=== PATIENT | male | born 1955 | race Caucasian/White ===

== ENCOUNTER → 2022-09-22 | Outpatient (CLI) | payer MEDICARE, MEDICAID, SELFPAY ==
[2022-09-22 12:34] LABS: Absolute Lymphocyte Count 1.19 X10^3/uL (0.83-4.51); Absolute Neutrophil Count 4.4 X10^3/uL (2.0-7.7); Basophil# 0.01 X10^3/uL; Basophil% 0.2 % (0-1); Eosinophil# 0.08 X10^3/uL; Eosinophils% 1.3 % (0-5); Hematocrit 46.3 % (40-54); Hemoglobin 15.7 g/dL (13.0-16.5); Lymphocyte # 1.19 X10^3/ul (0.83-4.51); Lymphocyte % 18.9 % (19-41); Mean Corp Hgb Conc 33.9 g/dL (32-36); Mean Corpuscular Hgb 29.7 pg (27.0-32.0); Mean Corpuscular Volume 87.5 fL (80-94); Mean Platelet Vol. 11.2 fl (6.2-12.0); Monocyte# 0.58 X10^3/uL; Monocyte% 9.2 % (0-10); NRBC Flagged by Analyzer 0 % (0-5); Neutrophil % 70.1 % (47-70); Platelet Count 207 K/mm3 (150-450); RBC Distribution Width CV 12.5 % (11.6-14.6); RBC Distribution Width SD 39.7 fl (35.1-43.9); Red Blood Count 5.29 M/mm3 (4.6-6.2); White Blood Count 6.3 K/mm3 (4.4-11.0)
[2022-09-22 13:01] LABS: ALB/GLOB Ratio 1.1 RATIO (0.9-2.4); AST(SGOT) 15 U/L (15-37); Alanine Aminotransfer ALT/SGPT 38 U/L (16-61); Albumin, Serum 3.8 g/dL (3.2-5.0); Alkaline Phosphatase 37 U/L (45-117); Anion Gap 6 (5-15); BUN 20 mg/dL (7-18); BUN/Creat Ratio 24.9 RATIO (10-20); Chloride 102 mmol/L (98-107); Cholesterol 120 mg/dL (200); EST Glomerular Filtration Rate 102 mL/min (>60); Est Glom Filt Rate - Afr Amer 124 mL/min (>60); Globulin 3.5 g/dL (2.2-4.2); Glucose 190 mg/dL (74-106); High Density Lipoprotein 34 mg/dL; Potassium 4.9 mmol/L (3.5-5.1); Protein, Total 7.3 g/dL (6.4-8.2); Sodium Level 137 mmol/L (136-145); Triglycerides 116 mg/dL; Very Low Density Lipoprotein 23 mg/dL (5-40)
[2022-09-22 13:20] LABS: Microalbumin,Random Urine 9.6 mg/L (NO RANGE EST.); Microalbumin:Creatinine Ratio 9.9 mg/g CRE (<30 mg/g CRE)
== END | disposition home or self-care (01) ==
LOC: BIMLAB 09:32
PROVIDERS: PCP Internal Medicine; Referring Provider Internal Medicine; Visit Provider Internal Medicine
DX: I10 Essential (primary) hypertension (principal); E11.9 Type 2 diabetes mellitus without complications; E78.2 Mixed hyperlipidemia
CPT/HCPCS: 36415; 80053; 80061; 82043; 82570; 83036; 85025

== ENCOUNTER 2022-12-08 06:26 | Day surgery (SDC) | payer MEDICARE, MEDICAID, SELFPAY ==
[2022-12-08] VITALS (7 sets, daily range): BP systolic 92–144; BP diastolic 61–83; PULSE 62–77; RESP 18; TEMP 35.9–36.6; O2SAT 93–98; BMI 31.9
--- NOTE | 2022-12-08 | COLBX_PTH ---
PATIENT: ANGELIA KING LOC: EN U#:[id number] AGE/SX: 67/M ROOM: RE12/08/[address]: Dr. Chuck Bruce MD : 1955 BED: DIS: 12/08/2022 SPEC #: [id number] RECD: 12/08/22 14:00 STATUS: MENDOZA CONNOR #: [id number] JOI: 12/08/22 00:[address]: Chuck Bruce DEPT: SURGICAL PATHOLOGY RECD BY: Yoshi Dickson ENTERED: 12/08/22 14:00 SP TYPE: COLON BX OTHR DR: Dr. Amara Damian MD Tissues: Rectum, NOS Procedures: Surgery Specimen Level IV HEADER OPERATION: Colonoscopy (MAC) PRE-OP DIAGNOSIS: Positive Cologuard test, hiatal hernia, GED TISSUE SUBMITTED: Rectal polyp biopsy MICROSCOPIC DIAGNOSIS Rectal polyp, biopsy: Consistent with inflammatory pseudopolyp. AM:wellington 12/09/2022 MICROSCOPIC DESCRIPTION Slides are reviewed. GROSS DESCRIPTION Received in fixative is one container labeled with the patient's name and designated rectal polyp. The specimen consists of one irregular fragment of light toney soft tissue that measures 0.5 x 0.3 x 0.1 cm. The specimen is totally submitted in one cassette. / AM:wellington 12/08/2022 TC:5 CPT: 03705
[2022-12-08] MEDS: Lactated Ringers 1,000 ML 15 ML IV (07:00)
[2022-12-08 07:20] LABS: Bedside Glucose 140 mg/dL (74-106)
--- NOTE | 2022-12-08 07:32 | HP.PCM_ITS ---
History and Physical Date of Admission: 12/08/22 Date of Service:? 10/10/22 MR#: [id number] Acct: [id number] Name:Flor KERNS ED Rep #: [id number] : 1955 ? ? Provider: Dr. Chuck Bruce MD Age/Sex:? 67/M ? ? Location: [facility] Status: Signed Intake Vital Signs ? 10/10/2207:55 Height 5 ft 11 in Weight: 235 lb 8 oz BMI 32.8 BP 146/80 H Blood Pressure Location Rt brachial Position Sitting Respiration 17 Pulse 76 Pulse Source Monitor Temp 97.2 F L Temp Source Temporal Pulse Oximetry (%) 98 Oxygen Delivery Method room air Intake Visit Reasons:?Positive Cologaurd Chief Complaint: positive cologuard Is patient in pain?: No Allergies No Known Allergies Allergy (Unverified 10/10/22 07:56) Medications alprazolam 1 mg tablet (Xanax) 1 mg PO BID #60 tabs 09/22/22 [Rx Confirmed 10/10/22] atorvastatin 20 mg tablet 20 mg PO QHS #90 tabs 09/22/22 [Rx Confirmed 10/10/22] lisinopril 40 mg tablet 40 mg PO BID #180 tabs 09/22/22 [Rx Confirmed 10/10/22] metformin 500 mg tablet 500 mg PO DAILY #90 tabs 09/22/22 [Rx Confirmed 10/10/22] trazodone 50 mg tablet 100 mg PO QHS #90 tabs 09/22/22 [Rx Confirmed 10/10/22] acetaminophen 500 mg tablet (Tylenol Extra Strength) 500 mg PO Q6H PRN 10/10/22 [History Confirmed 10/10/22] PFSH Medical History? Arthritis Diabetes Hypertension Surgical History? H/O prostatectomy S/P lateral meniscus repair of right knee Family History? Father CVA (cerebral vascular accident)Mother Cancer ?? ? throatOther Heart disease Social History? household members:? spouse current occupational status:? 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 Never smoker Electronic Cigarette Use:? not used alcohol intake:? never substance use type:? does not use what type of physical activity do you participate in:? additional details: cutting wood do you feel safe at home:? Yes HPI HPI HPI: Patient is a 67-year-old male who presents for need to schedule diagnostic colonoscopy secondary to recent positive Cologuard test.? They are referred for surgical consultation from Dr. Damian.? Patient has had prior colonoscopy.? We do not have an official record of this colonoscopy, but according to patient's recollection this procedure occurred approximately 10+ years ago and the only remarkable findings were known hemorrhoids.? Mr. Kerns states that he was given 10-year follow-up.? Patient has no personal history of inflammatory bowel disease or diverticulitis. They describe their bowel habits as normal/regular.? They have approximately 2-3 per day with minimal toilet time and without significant straining.? They have not noticed recent bleeding or dark stools.? As above, Mr. Kerns states that he does have a history of hemorrhoids and this has been some problem most of [his] life, but he has not had any issues recently and this typically presents as pain and itching.? Because of this history he does routinely take 5 of Metamucil daily and also regularly incorporates dietary fiber in his daily diet. Patient has no family history of colon cancer, inflammatory bowel disease, or diverticulitis.? ? The patient's weight is not stable.? He states that he is experienced an approximately 15 pound unintentional weight loss over the last 2 to 3 years.? He does note that he and his have tried to make healthier eating choices on the account of his hypertension. The patient is not prescribed anticoagulants/blood thinners. Relevant prior abdominal surgical history includes: Prostatectomy Patient does not have a significant history of GERD and heartburn presently.? He states formally he experienced heartburn and was on Prevacid, but has not been on this medication for a number of years.? He also notes a diagnosis of a hiatal hernia and used to wake up with choking episodes, but he states he has not had any of these episodes in over a year.? He does admit that he continues to watch how he sleeps and avoids dietary triggers both in terms of types of foods and timing of foods to minimize this risk.? He has never undergone a EGD and reports that his hiatal hernia was seen on an upper GI years ago.? He confirms that his experience of heartburn is now limited to very mild episodes which are resolved with simply drinking some water and occur with a frequency of no more than a few times a month. ROS General General: No weight change, appetite, fatigue, colon cancer, breast cancer or weakness HEENT HEENT: No difficulty swallowing, eye injury, eye surgery, swollen glands or hoarseness Endo Endocrine: Yes diabetes mellitus; No thyroid disease, thyroid cancer, Hair loss, heat intolerance or cold intolerance Skin Skin: No rash or changing moles Musc Musculoskeletal: Yes arthritis; No back problems, rheumatoid arthritis, gout or joint pain Cardio Cardiovascular: Yes high blood pressure; No murmur, pacemaker, heart disease, atrial fibrillation, heart attack, heart stent, palpitations, shortness of breat with exertion or chest pain Psych Psychiatric: Yes anxiety; No depression or hearing voices Resp Respiratory: No shortness of breath, No sleep apnea, No cough, No COPD, No asthma, No emphysema and No wheezing Gastro Gastrointestinal: No abdominal pain, No nausea or vomiting, No diarrhea, No constipation, No blood in stool, No acid reflux, Yes hemorrhoids, No ulcers, No gallbladder problem and No black,tarry stools Augustus Hematologic: No blood thinners, No blood disorders, No bleeding, No anemia and No blood clots Neuro Neurologic: No system reviewed and no additional complaints, except as documented, No as per HPI, No abnormal gait, No abnormal hearing, No abnormal movements, No abnormal speech, No behavioral changes, No burning sensations, No confusion, No convulsions, No disequilibrium, No dizziness, No localized weakness, No frequent falls, No headache(s), No lack of coordination, No loss of vision, No memory loss, No numbness, No other visual disturbances, No radicular pain, No restless legs, No sensory deficit, No syncope, No tingling, No tremor(s), No weakness and No other Exam Const General: cooperative, healthy appearing, comfortable and no acute distress Orientation: alert, awake and oriented x3 Resp Effort & Inspection: normal respiratory effort Auscultation: no rales, no rhonchi and no wheezes Cardio Rate: regular rate Rhythm: regular rhythm Heart Sounds: S1 normal and S2 normal GI Other: Supraumbilical and right upper quadrant port site scars well-healed.? No obvious hernia.? Nondistended.? Soft and nontender to palpation at both light and deep intensities x4 quadrants.? No palpable hepatosplenomegaly Assessment and Plan Assessment and Plan (1) Positive colorectal cancer screening using Cologuard test: ?Status:?Acute ?Comment: This is a 67-year-old male, asymptomatic from a GI standpoint, who presents for discussion around scheduling a diagnostic colonoscopy on the account of a recently positive Cologuard test.? As above and per HPI, patient has not noticed any change to his bowel habits.? He has experienced a unintentional weight loss, but has made some adjustments to his diet on account of other comorbidities which may explain this.? Still, I have discussed with him the importance of following any positive noninvasive colon cancer screening test with a colonoscopy.? I have discussed preprocedure prep as well as procedure expectations.? He accepts this recommendation and wishes to proceed as described.? At this time I do not find compelling reason to proceed with a screening EGD given patient's reported significant improvement in his history of GERD/hiatal hernia and minimal tobacco exposure (patient states that at most he smoked for 2 to 3 years remotely). ?Plan: Plan will be to complete diagnostic colonoscopy on first mutually agreeable date under local MAC.? Pre-procedure prep discussed and paper instructions provided.? Patient is also made aware that he will need to have a warehouse associate driver with him the day of the procedure. (2) Hiatal hernia with GERD: ?Status:?Acute ?Comment: Patient reports hiatal hernia first diagnosed with upper GI study.? At the time of this diagnosis he was having significant GERD symptoms, but reports these are minimal at this time and well managed with his dietary precautions. ?Plan: As above, do not see cause to pursue diagnostic or screening EGD at this time I have examined the patient the following changes are noted: Patient has not had any recent GI complaints or bleeding from hemorrhoids. He confirms that he completed his bowel prep successfully and that his output is now clear. Lastly he is reporting some mild right groin discomfort which he states he has had for years and just wanted to be sure this was discussed prior to proceeding with the colonoscopy should all be related to his GI tract. I shared with him based on his exam that's was more likely to be a muscle strain (he denies any bulging at this point). I have encouraged him to keep an eye on the area should he have more signs of hernia and reach out to me for evaluation. For now we will proceed to the endoscopy suite for planned diagnostic colonoscopy on the account of a recent positive Cologuard screening test.
--- NOTE | 2022-12-08 08:34 | OP.COLON_ITS ---
Patient Name: Castro Kerns Procedure Date: 12/08/2022 7:14 AM Date of : 1955 Age: 67 Procedure: Colonoscopy Indications: Positive Cologuard test Providers: Chuck Bruce MD Medicines: See the Anesthesia note for documentation of the administered medications Patient Profile: Refer to note in patient chart for documentation of history and physical. Last Colonoscopy: 10 years ago. Complications: No immediate complications. Estimated blood loss: Minimal. Procedure: Pre-Anesthesia Assessment: - The heart rate, respiratory rate, oxygen saturations, blood pressure, adequacy of pulmonary ventilation, and response to care were monitored throughout the procedure. After I obtained informed consent, the scope was passed under direct vision. Throughout the procedure, the patient's blood pressure, pulse, and oxygen saturations were monitored continuously. The colonoscope was introduced through the anus and advanced to the cecum, identified by palpation. The colonoscopy was somewhat difficult due to significant looping. Successful completion of the procedure was aided by changing the patient to a supine position, withdrawing and reinserting the scope and applying abdominal pressure. The patient tolerated the procedure fairly well. The quality of the bowel preparation was adequate to identify polyps 6 mm and larger in size. Scope In: 7:44:13 AM Scope Withdrawal Time 0 hours 26 minutes 19 seconds Scope Out: 8:26:50 AM Total Procedure Duration Time 0 hours 42 minutes 37 seconds Findings: The perianal and digital rectal examinations were normal. Pertinent negatives include normal sphincter tone. A 5 mm, non-bleeding polyp was found in the rectum. The polyp was semi-sessile. Biopsies were taken with a cold forceps for histology. Estimated blood loss was minimal. The exam was otherwise without abnormality on direct and retroflexion views. Impression: - One 5 mm, non-bleeding polyp in the rectum. Biopsied. - The examination was otherwise normal on direct and retroflexion views. Recommendation: - Discharge patient to home (via wheelchair). - Resume previous diet today. - Continue present medications. - Await pathology results. - Repeat colonoscopy in 5-10 years for surveillance based on pathology results. Procedure Code(s): --- Professional --- 95305, Colonoscopy, flexible; with biopsy, single or multiple Diagnosis Code(s): --- Professional --- K62.1, Rectal polyp R19.5, Other fecal abnormalities CPT copyright 2017 [employer]. All rights reserved. The codes documented in this report are preliminary and upon retirement manager review may be revised to meet current compliance requirements. Chuck Bruce MD 12/08/2022 8:34:05 AM This report has been signed electronically. Number of Addenda: 0 Note Initiated On: 12/08/2022 7:14 AM
--- NOTE | 2022-12-08 08:34 | OP.CCLET_ITS ---
12/08/2022 Amara Damian Md Re : Colonoscopy procedure for Ed Saumya Dear Rickie This procedure was performed on November. My impressions and recommendations are as follows: Impressions : - One 5 mm, non-bleeding polyp in the rectum. Biopsied. - The examination was otherwise normal on direct and retroflexion views. Recommendations : - Discharge patient to home (via wheelchair). - Resume previous diet today. - Continue present medications. - Await pathology results. - Repeat colonoscopy in 5-10 years for surveillance based on pathology results. My findings are described in the full procedure note, which is enclosed. If I can be of further assistance, please feel free to contact me at Doctor phone number(s): , Work: . Sincerely, Chuck Bruce MD 12/08/2022 8:34:05 AM This report has been signed electronically.
== END 2022-12-08 09:44 | disposition home or self-care (01) ==
LOC: EN 06:32 → AC 06:32
PROVIDERS: PCP Internal Medicine; Referring Provider Internal Medicine; Visit Provider Surgery
PROC: 0DJD8ZZ Inspection of Lower Intestinal Tract, Via Natural or Artificial Opening Endoscopic (ICD-10-PCS; CPT 45378; principal; 2022-12-08 07:25)
DX: K62.1 Rectal polyp (principal); E11.9 Type 2 diabetes mellitus without complications; R19.5 Other fecal abnormalities; K44.9 Diaphragmatic hernia without obstruction or gangrene; I10 Essential (primary) hypertension; E78.00 Pure hypercholesterolemia, unspecified; K76.0 Fatty (change of) liver, not elsewhere classified; F41.9 Anxiety disorder, unspecified; Z79.899 Other long term (current) drug therapy; Z79.84 Long term (current) use of oral hypoglycemic drugs
CPT/HCPCS: 45380; 82962; 88305; J7120; J2405

== ENCOUNTER → 2023-09-07 | Outpatient (CLI) | payer MEDICARE, MEDICAID, SELFPAY ==
[2023-09-07 12:21] LABS: Absolute Lymphocyte Count 1.37 X10^3/uL (0.83-4.51); Absolute Neutrophil Count 4.6 X10^3/uL (2.0-7.7); Basophil# 0.02 X10^3/uL; Basophil% 0.3 % (0-1); Eosinophil# 0.11 X10^3/uL; Eosinophils% 1.6 % (0-5); Lymphocyte # 1.37 X10^3/ul (0.83-4.51); Lymphocyte % 20.2 % (19-41); Mean Corp Hgb Conc 33.3 g/dL (32-36); Mean Platelet Vol. 10.8 fl (6.2-12.0); Monocyte# 0.62 X10^3/uL; Monocyte% 9.2 % (0-10); NRBC Flagged by Analyzer 0 % (0-5); Neutrophil # 4.63 X10^3/uL (2.7-7.7); Neutrophil % 68.4 % (47-70); Platelet Count 213 K/mm3 (150-450); RBC Distribution Width CV 12.4 % (11.6-14.6); RBC Distribution Width SD 39.5 fl (35.1-43.9); Red Blood Count 5.17 M/mm3 (4.6-6.2); White Blood Count 6.8 K/mm3 (4.4-11.0)
[2023-09-07 13:08] LABS: Microalbumin,Random Urine 8.6 mg/L (NO RANGE EST.); Microalbumin:Creatinine Ratio 5.6 mg/g CRE (<30 mg/g CRE)
[2023-09-07 13:33] LABS: ALB/GLOB Ratio 1.1 RATIO (0.9-2.4); AST(SGOT) 14 U/L (15-37); Alanine Aminotransfer ALT/SGPT 34 U/L (16-61); Albumin, Serum 3.8 g/dL (3.2-5.0); Alkaline Phosphatase 44 U/L (45-117); Anion Gap 5 (5-15); BUN 19 mg/dL (7-18); BUN/Creat Ratio 21.9 RATIO (10-20); Calcium,Total 8.8 mg/dL (8.5-10.1); Chloride 104 mmol/L (98-107); Cholesterol 100 mg/dL (200); Creatinine, Serum 0.87 mg/dL (0.70-1.30); EST Glomerular Filtration Rate 94 mL/min (>60); Est Glom Filt Rate - Afr Amer 113 mL/min (>60); Globulin 3.6 g/dL (2.2-4.2); Glucose 112 mg/dL (74-106); High Density Lipoprotein 34 mg/dL; Potassium 4.4 mmol/L (3.5-5.1); Protein, Total 7.4 g/dL (6.4-8.2); Sodium Level 138 mmol/L (136-145); Triglycerides 72 mg/dL; Very Low Density Lipoprotein 14 mg/dL (5-40)
[2023-09-07 18:34] LABS: Hemoglobin A1c 5.9 % (3.8-5.6)
== END | disposition home or self-care (01) ==
LOC: BIMLAB 10:36
PROVIDERS: PCP Internal Medicine; Referring Provider Internal Medicine; Visit Provider Internal Medicine
DX: E11.9 Type 2 diabetes mellitus without complications (principal); I10 Essential (primary) hypertension
CPT/HCPCS: 36415; 80053; 80061; 82043; 82570; 83036; 85025

== ENCOUNTER → 2023-10-03 | Outpatient (CLI) | payer MEDICARE, SELFPAY ==
--- NOTE | 2023-10-03 10:34 | RAD_ITS ---
STUDY: X-RAY - RIGHT KNEE REASON FOR EXAM: Male, 68 years old. Right knee pain. TECHNIQUE: 4 views of the right knee. COMPARISON: None. FINDINGS: Normal visualized distal femur. Normal visualized proximal tibia and fibula. Normal proximal tibiofibular articulation. There is severe degenerative arthrosis of the medial femorotibial compartment with severe joint space narrowing. There is mild degenerative arthrosis of the lateral femorotibial compartment. There is mild degenerative arthrosis of the patellofemoral articulation. There is a moderate volume joint effusion. The soft tissue structures are unremarkable. 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 Moderate joint effusion. No acute fracture. Electronically Signed: Sy Trevino MD at 12:38 EST ,
[2023-10-03 12:46] LABS: PSA,Total - Annual Screen 0.88 ng/mL (0.00-4.00)
== END | disposition home or self-care (01) ==
PROVIDERS: PCP Internal Medicine; Referring Provider Internal Medicine; Visit Provider Internal Medicine
DX: M25.561 Pain in right knee (principal); Z12.5 Encounter for screening for malignant neoplasm of prostate
CPT/HCPCS: 36415; 73564; 84153; G0103

== ENCOUNTER → 2024-07-25 | Outpatient (CLI) | payer MEDICARE, SELFPAY ==
[2024-07-25 12:41] LABS: Absolute Lymphocyte Count 1.32 X10^3/uL (0.83-4.51); Absolute Neutrophil Count 5.2 X10^3/uL (2.0-7.7); Basophil# 0.04 X10^3/uL; Basophil% 0.5 % (0-1); Eosinophil# 0.13 X10^3/uL; Eosinophils% 1.8 % (0-5); Hematocrit 46.2 % (40-54); Hemoglobin 15.4 g/dL (13.0-16.5); Lymphocyte # 1.32 X10^3/ul (0.83-4.51); Lymphocyte % 17.8 % (19-41); Mean Corp Hgb Conc 33.3 g/dL (32-36); Mean Corpuscular Hgb 29.4 pg (27.0-32.0); Mean Corpuscular Volume 88.3 fL (80-94); Mean Platelet Vol. 10.6 fl (6.2-12.0); Monocyte# 0.68 X10^3/uL; Monocyte% 9.2 % (0-10); NRBC Flagged by Analyzer 0 % (0-5); Neutrophil # 5.22 X10^3/uL (2.7-7.7); Neutrophil % 70.3 % (47-70); Platelet Count 225 K/mm3 (150-450); RBC Distribution Width CV 12.4 % (11.6-14.6); RBC Distribution Width SD 40.2 fl (35.1-43.9); Red Blood Count 5.23 M/mm3 (4.6-6.2); White Blood Count 7.4 K/mm3 (4.4-11.0)
[2024-07-25 12:52] LABS: AST(SGOT) 18 U/L (15-37); Alanine Aminotransfer ALT/SGPT 22 U/L (16-61); Albumin, Serum 3.8 g/dL (3.2-5.0); Alkaline Phosphatase 50 U/L (45-117); Anion Gap 6 (5-15); BUN 18 mg/dL (7-18); BUN/Creat Ratio 23.4 RATIO (10-20); Calcium,Total 9.2 mg/dL (8.5-10.1); Chloride 104 mmol/L (98-107); Cholesterol 183 mg/dL (200); Creatinine, Serum 0.77 mg/dL (0.70-1.30); EST Glomerular Filtration Rate 107 mL/min (>60); Est Glom Filt Rate - Afr Amer 129 mL/min (>60); Globulin 3.8 g/dL (2.2-4.2); Glucose 124 mg/dL (74-106); High Density Lipoprotein 45 mg/dL; Potassium 4.8 mmol/L (3.5-5.1); Protein, Total 7.6 g/dL (6.4-8.2); Sodium Level 138 mmol/L (136-145); Triglycerides 102 mg/dL; Very Low Density Lipoprotein 20 mg/dL (5-40)
[2024-07-25 12:57] LABS: Hemoglobin A1c 5.3 % (3.8-5.6)
[2024-07-25 13:00] LABS: Amphetamine Urine VISTA NEGATIVE (<1000 ng/mL); Barbiturate Urine VISTA NEGATIVE (< 200 ng/mL); Benzodiazepine Urine VISTA POSITIVE (< 200 ng/mL); Cocaine Urine VISTA NEGATIVE (< 300 ng/mL); Ecstacy Urine VISTA NEGATIVE (< 500 ng/mL); Methadone Urine VISTA NEGATIVE (< 300 ng/mL); PCP Urine VISTA NEGATIVE (< 25 ng/mL); THC Urine VISTA POSITIVE (< 50 ng/mL); Vista UDS pH Range 7
== END | disposition home or self-care (01) ==
PROVIDERS: PCP Nurse Practitioner Family; Visit Provider Nurse Practitioner Family
DX: R73.03 Prediabetes (principal); F13.20 Sedative, hypnotic or anxiolytic dependence, uncomplicated; E78.2 Mixed hyperlipidemia; I10 Essential (primary) hypertension; F41.1 Generalized anxiety disorder; Z79.899 Other long term (current) drug therapy
CPT/HCPCS: 36415; 80053; 80061; 80307; 82043; 83036; 85025

== ENCOUNTER 2024-10-25 08:52 | Emergency (ER) | payer MEDICARE, SELFPAY ==
[2024-10-25 08:52] VITALS: BP 193/91; PULSE 95; RESP 16; TEMP 36.8; O2SAT 98; BMI 27.3
--- NOTE | 2024-10-25 09:00 | EKG12_ITS ---
Test Reason : HTN Blood Pressure : */* mmHG Vent. Rate : 87 BPM Atrial Rate : 87 BPM P-R Int : 174 ms QRS Dur : 94 ms QT Int : 344 ms P-R-T Axes : 22 41 30 degrees QTcB Int : 413 ms Normal sinus rhythm Normal ECG Confirmed by ERIN JONES, HUGO ([id number]), make up editor JACK NORIEGA ([id number]) on 10/30/2024 1:29:56 P M Referred By: Confirmed By: HUGO KHAN MD
--- NOTE | 2024-10-25 09:00 | EDS_ITS ---
HPI History of Present Illness Chief Complaint: Hypertension Detail of Chief Complaint: Elevated blood pressure Informant: patient and spouse/S.O. Onset/Context/Timing Onset: Weeks Context: - (Unknown) Timing: Continuous Quality: Elevated blood pressure. Only symptom facial flushness Location: Cardiovascular Current Severity: Mild Maximum Severity: Mild Worsened by: Noncompliance Relieved by: Nothing Associated Symptoms Associated Symptoms: Feeling flushed Narrative Narrative: Patient is a 69-year-old male. He has history of type 2 diabetes, hypertension, hypercholesterolemia and depression. He discontinued his meds because he did lifestyle changes. He is no longer on medicine for diabetes. His last A1c was 5. He has not been consistent/compliant with his antihypertensive meds. He carries when he takes his medication between 20 mg lisinopril 40 mg lisinopril. He did take a dose this morning. He denies headache, visual, ocular auditory symptoms. No trouble speech or swallowing. He denies cardiac respiratory symptoms. He denies paresthesia, anesthesia medics. He denies problems with coordination or balance. He states he feels flushed and his states he is light flushed. He says he is nervous. He attempted to explain his high blood pressure reading at Dr. Bruce's office because he was standing when it was taken. He did see his primary care provider recently and pressure was elevated., Zackary Ballesteros Prior similar symptoms: Yes Recent Illness/Hospitalization: Yes (Saw Dr. Bruce for hemorrhoids. He is contributing to his elevated blood pr) [facility] Medical History Hemorrhoids Wears glasses Wears dentures Anxiety Diabetes Arthritis Low iron Fatty liver High cholesterol Dietary restriction Heartburn Non-smoker Leg cramps History of pain when walking Hzfeu-Wargqtdly-Kxsmu (WPW) pattern Cardiology follow-up encounter Hypertension Positive colorectal cancer screening using Cologuard test Hypertension Diabetes Arthritis Home Medications ?Medication ?Instructions ?Recorded ?Last Taken ?Type acetaminophen 500 mg tablet 500 mg PO Q6H PRN Pain 10/10/22 Unknown History (Tylenol Extra Strength) omega 5-uhu-xqz-fish oil 1,000 mg 1 cap PO DAILY 12/07/22 12/05/22 History (120 mg-180 mg) capsule (Fish Oil) psyllium husk 0.4 gram capsule 0.4 g PO QHS 12/07/22 12/05/22 History (Metamucil) atorvastatin 20 mg tablet 20 mg PO QHS #90 tabs 03/18/24 Unknown Rx acetaminophen 300 mg-codeine 30 mg 1 tab PO Q6H PRN pain #10 tabs 05/02/24 Unknown Rx tablet sildenafil 100 mg tablet 100 mg PO DAILY PRN sexual 05/02/24 Unknown Rx activity #45 tabs trazodone 100 mg tablet 100 mg PO DAILY #90 tabs 05/02/24 Unknown Rx alprazolam 0.25 mg tablet 0.5 mg (2 x 0.25 mg) PO BID #60 06/03/24 Unknown Rx tabs Hydrocortisone 2.5% / Lidocaine 5% #1 ea 10/07/24 Unknown Rx ointment (cmpd) Allergy/AdvReac Type Severity Reaction Status Date / Time No Known Allergies Allergy Verified 10/25/24 08:52 Family History Father CVA (cerebral vascular accident) Mother Cancer throat Other Heart disease Surgical History Hx of colonoscopy S/P lateral meniscus repair of right knee H/O prostatectomy Social History household members: spouse current occupational status: retired current occupation: [employer] Smoking Status: Never smoker Electronic Cigarette Use: not used alcohol intake: never substance use type: does not use what type of physical activity do you participate in: additional details: cutting wood do you feel safe at home: Yes ROS ROS ED Constitutional Constitutional ED: Denies chills, fever(s) or subjective Eyes Eyes: Denies blurry vision, change in vision or diplopia Cardiovascular Cardiovascular: Denies chest pain or palpitations Respiratory/Chest Respiratory/Chest: Denies cough, dyspnea or dyspnea on exertion Gastrointestinal Gastrointestinal: Denies abdominal pain or nausea Genitourinary Genitourinary ED: Denies hematuria Musculoskeletal Musculoskeletal: Denies arthralgias, back pain or myalgias Integumentary Denies rash Neurologic Neurologic: Denies headache(s), paresthesias or weakness Hematologic/Lymphatic Hematologic/Lymphatic: Reports systems reviewed and no addt'l complaints, except as documented EXAM Physical Exam Const Vital Signs: 10/25/24 08:52 10/25/24 10:05 Temperature 98.3 F Temperature Source Oral Pulse Rate 95 89 Respiratory Rate 16 Blood Pressure 193/91 H 176/88 H Blood Pressure Mean 125 117 Pulse Ox 98 Oxygen Delivery Method Room Air Positive well nourished and well developed Constitutional Narrative: Vital signs are marked for an elevated blood pressure. General Appearance ED: well developed and NAD; Negative for pallor HEENT Reports moist mucous membranes HEENT Narrative: Head is atraumatic no cephalic. Ears normal. Nares patent. Posterior pharynx reveals midline uvula no deviation tongue protrusion. Eyes PERRL and EOMs intact bilaterally Eyes Narrative: There is no nystagmus. There is no visual field cut. General Eye ED: Negative for pale conjunctiva or scleral icterus Neck no lymphadenopathy, supple and no JVD Neck Narrative: There are no carotid bruits. Chest Wall inspection of chest normal and palpation of chest normal Resp normal respiratory effort and clear to auscultation bilaterally Cardio regular rate, regular rhythm, S1 normal heart sound, S2 normal heart sound and no murmurs GI normal to inspection, nondistended, normoactive bowel sounds, non-tender, non- distended and no masses; Negative for hepatosplenomegaly GI Narrative: There is no palpable pulsatile mass. There is no abdominal bruit. Back/Spine Back/Spine Narrative: Inspection of the back is normal. Extremity normal to inspection Extremity Narrative: There is no clubbing or acrocyanosis. Capillary refill is normal. General Extremety ED: Negative for edema or tenderness General Extremity: Negative for edema Neuro oriented x3, CN's II-XII intact bilaterally and no sensory deficits noted Neuro Narrative: There is no dysmetria. Gait was observed while patient walked from triage to his room. Patient's gait was normal. Sensorium / Orientation: alert Motor Exam: strength 5/5 throughout Skin no rashes or lesions noted, no wounds and skin turgor normal General Skin Exam: Negative for jaundice or pallor MDM MDM MDM Narrative Medical decision making narrative: Patient with asymptomatic hypertension. Since patient has not had blood work recently will obtain EKG to assess for LVH, BMP to assess glucose since he has prior history of diabetes as well as renal function. UA to assess for hematuria and proteinuria and determine if there are any casts noted on microscopic that would indicate endorgan dysfunction. History & Record Review Additional record(s) reviewed:: Prior outpatient record (Office note by Komal Sherwood revealed assessment for essential hypertension, controlled type 2 diabetes without medication with A1c of 5.5 on May 01, 2024. Also history of anxiety. There is also history of mixed hyperlipidemia. He had his statin discontinued at that time.), Prior labs and Other (Last visit by Dr. Bruce was December 08, 2022. Patient also had documentation of negative stool test for oc cult blood August 21, 2024.) Lab Data Attestation: I reviewed the patient's lab results. Lab results narrative: Electrolyte panel reveals normal renal function. Electrolytes are unremarkable. Glucose is slight elevated 142 with a normal CO2 anion gap. Urinalysis is negative. Labs: Laboratory Results - last 24 hr 10/25/24 10/25/24 09:00 09:10 Sodium 135 L Potassium 4.2 Chloride 102 Carbon Dioxide 27.0 Anion Gap 6 BUN 10 Creatinine 0.72 Estim Creat Clear Calc 94.13 Est GFR (MDRD) Af Amer 139 Est GFR (MDRD) Non-Af 115 BUN/Creatinine Ratio 13.8 Glucose 142 H Calcium 9.4 Urine Color Yellow Urine Clarity Clear Urine pH 7.0 Ur Specific [place] 1.005 Urine Protein Negative Urine Glucose (UA) Normal Urine Ketones Negative Urine Occult Blood Negative Urine Nitrite Negative Urine Bilirubin Negative Urine Urobilinogen Normal Ur Leukocyte Esterase Negative Urine RBC 0 SEEN Urine WBC 0 SEEN Ur Squamous Epith Cells 0-5 SEEN Urine Bacteria RARE Urine Mucus 0 SEEN EKG Initial EKG: Attestation: I personally reviewed and interpreted this EKG as follows: Interpretation: Sinus Rhythm (Rate is 87. The EKG is normal. There is no evidence of LVH. SD interval is under 74 ms. Cures duration 94 ms. QT duration 344 ms. [place] is normal.) Additional Tests and Interventions Additional Tests or Interventions: Since there is no evidence of endorgan dysfunction patient has asymptomatic hypertension. Suspect this is due to noncompliance to medication. Will have him follow-up with his primary care provider Zackary Ballesetros to have blood pressure reassessed in 1 to 2 weeks. Treatment and Re-Evaluation :: Patient and spouse were informed of laboratory results and need for follow-up. Discharge Plan Triage Chief Complaint: Hypertension ED Provider: Wood Hinojosa Dx/Rx/DC Orders Clinical Impression: Asymptomatic hypertensive urgency, Mixed hyperlipidemia, Type 2 diabetes mellitus with hyperglycemia Instructions: ED High Blood Pressure Hypertension Prescriptions: No Action acetaminophen [Tylenol Extra Strength] 500 mg tablet 500 mg PO Q6H PRN (Reason: Pain) sildenafil 100 mg tablet 100 mg PO DAILY PRN (Reason: sexual activity) Qty: 45 0RF Rx Instructions: administer 30 minutes to 4 hours before activity trazodone 100 mg tablet 100 mg PO DAILY Qty: 90 1RF acetaminophen-codeine 300-30 mg tablet 1 tab PO Q6H PRN (Reason: pain) Qty: 10 0RF (DME) Hydrocortisone 2.5% / Lidocaine 5% ointment (cmpd) Ointment See Rx Instructions .ROUTE Qty: 1 0RF Rx Instructions: As directed omega 5-bek-lqp-fish oil [Fish Oil] 1,000 mg (120 mg-180 mg) Capsule 1 cap PO DAILY psyllium husk [Metamucil] 0.4 gram Capsule 0.4 g PO QHS atorvastatin 20 mg tablet 20 mg PO QHS Qty: 90 0RF alprazolam 0.25 mg tablet 0.5 mg PO BID Qty: 60 0RF Primary Care Provider: Zackary Ballesteros Referrals: Zackary Ballesteros, [employer]INE[employer] [Primary Care Provider] - 1-2 Weeks Print Language: Cuban Disposition Disposition: Home, Self Care
[2024-10-25 09:14] LABS: Mucous, Urine 0 SEEN /hpf (<or=2+); Red Blood Cells-Urine 0 SEEN /hpf (0-5); White Blood Cells 0 SEEN /hpf (0-5)
[2024-10-25 09:23] LABS: Color, Urine Yellow (Yellow); Glucose, Dipstick Normal (Normal); Ketone-Dipstick Negative (Negative); Leukocyte Esterase-Dipstick Negative /ul (Negative); Nitrite-Dipstick Negative (Negative); Occult Blood-Urine Negative /ul (Negative); Protein-Dipstick Negative (Negative); Specific Gravity, Urine 1.005 (1.002-1.030); Urine Bilirubin Dipstick Negative (Negative); Urine Clarity Clear (Clear); Urine Urobilinogen Normal (Normal)
[2024-10-25 09:23] LABS: Anion Gap 6 (5-15); BUN 10 mg/dL (7-18); BUN/Creat Ratio 13.8 RATIO (10-20); Calcium,Total 9.4 mg/dL (8.5-10.1); Chloride 102 mmol/L (98-107); Creatinine, Serum 0.72 mg/dL (0.70-1.30); EST Glomerular Filtration Rate 115 mL/min (>60); Est Glom Filt Rate - Afr Amer 139 mL/min (>60); Estimated Creatinine Clearance 94.13 ml/min; Glucose 142 mg/dL (74-106); Potassium 4.2 mmol/L (3.5-5.1); Sodium Level 135 mmol/L (136-145)
[2024-10-25 09:37] LABS: Bacteria RARE /hpf (None Seen); Squamous Epithelial Cells - UA 0-5 SEEN /hpf (0-5)
[2024-10-25 10:05] VITALS: BP 176/88; PULSE 89
[2024-10-25 10:17] VITALS: BP 163/93; PULSE 87; RESP 19; TEMP 36.8; O2SAT 97
== END 2024-10-25 10:25 | disposition home or self-care (01) ==
PROVIDERS: Emergency Provider Emergency Medicine; PCP Nurse Practitioner Family; Visit Provider Emergency Medicine
DX: I16.0 Hypertensive urgency (principal); E11.65 Type 2 diabetes mellitus with hyperglycemia; E78.2 Mixed hyperlipidemia
CPT/HCPCS: 80048; 81001; 93005; 99283; A4216

== ENCOUNTER → 2025-01-22 | Outpatient (CLI) | payer MEDICARE, SELFPAY ==
[2025-01-22 17:05] LABS: Absolute Lymphocyte Count 1.07 X10^3/uL (0.83-4.51); Absolute Neutrophil Count 6.9 X10^3/uL (2.0-7.7); Basophil# 0.03 X10^3/uL; Basophil% 0.3 % (0-1); Eosinophils% 1.1 % (0-5); Hematocrit 40.3 % (40-54); Hemoglobin 14.2 g/dL (13.0-16.5); Lymphocyte # 1.07 X10^3/ul (0.83-4.51); Lymphocyte % 11.9 % (19-41); Mean Corp Hgb Conc 35.2 g/dL (32-36); Mean Corpuscular Hgb 31.1 pg (27.0-32.0); Mean Corpuscular Volume 88.4 fL (80-94); Mean Platelet Vol. 9.9 fl (6.2-12.0); Monocyte# 0.82 X10^3/uL; Monocyte% 9.1 % (0-10); NRBC Flagged by Analyzer 0 % (0-5); Neutrophil # 6.94 X10^3/uL (2.7-7.7); Neutrophil % 77.3 % (47-70); Platelet Count 214 K/mm3 (150-450); RBC Distribution Width CV 11.9 % (11.6-14.6); RBC Distribution Width SD 38.2 fl (35.1-43.9); Red Blood Count 4.56 M/mm3 (4.6-6.2)
[2025-01-22 18:33] LABS: Hemoglobin A1c 5.2 % (<=5.6)
[2025-01-22 18:42] LABS: ALB/GLOB Ratio 1.9 RATIO (0.9-2.4); AST(SGOT) 21 U/L (<=37); Alanine Aminotransfer ALT/SGPT 19 U/L (<=46); Albumin, Serum 4.2 g/dL (3.4-4.8); Alkaline Phosphatase 43 U/L (40-129); Anion Gap 10 (5-15); BUN 16 mg/dL (4-19); BUN/Creat Ratio 19.1 RATIO (10-20); Calcium,Total 8.9 mg/dL (7.6-11.0); Carbon Dioxide 24.9 mmol/L (21.0-32.0); Chloride 98 mmol/L (98-108); Cholesterol 121 mg/dL (<=200); Creatinine, Serum 0.85 mg/dL (0.70-1.20); EST Glomerular Filtration Rate 95 (>60); Globulin 2.2 g/dL (2.2-4.2); Glucose 98 mg/dL (70-99); High Density Lipoprotein 50 mg/dL; Low Density Lipoprotein Calc. 56 mg/dL; PSA,Total - Annual Screen 0.51 ng/mL (0.02-4.00); Potassium 4.2 mmol/L (3.3-5.1); Protein, Total 6.4 g/dL (5.9-8.4); Sodium Level 133 mmol/L (133-145); Thyroid Stim Hormone (TSH) 0.772 uIU/mL (0.300-4.200); Total Bilirubin 0.33 mg/dL (0.00-1.30); Triglycerides 76 mg/dL; Very Low Density Lipoprotein 15 mg/dL (5-40); cholesterol:hdl ratio screen 2.42
== END | disposition home or self-care (01) ==
LOC: VSLAB 15:39
PROVIDERS: PCP Nurse Practitioner Family
DX: I10 Essential (primary) hypertension (principal); E78.2 Mixed hyperlipidemia; R73.03 Prediabetes; Z12.5 Encounter for screening for malignant neoplasm of prostate
CPT/HCPCS: 36415; 80053; 80061; 83036; 84153; 84443; 85025; G0103

== ENCOUNTER 2025-01-28 07:56 | Day surgery (SDC) | payer MEDICARE, SELFPAY ==
[2025-01-28] VITALS (8 sets, daily range): BP systolic 114–143; BP diastolic 74–88; PULSE 54–75; RESP 16–18; TEMP 36.2–36.4; O2SAT 97–100; BMI 24.5
--- NOTE | 2025-01-28 08:56 | PRE.ANES_ITS ---
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 ) Assessment & Plan Anesthesia* Anesthesia Assessment Anesthesia Assessment: Discussed sedation and/or anesthesia options, risks, benefits, and alternatives with patient/parents/legal guardian/POA. Questions invited. The patient/parents/legal guardian/POA seems to understand and agrees to proceed with anesthesia plan. Reviewed the physical assessment, medical history, allergy history and patient home medications list prior to surgery/procedure/anesthetic and documented any changes. Performed airway and anesthesia risk assessments. Anesthesia Type Anesthesia Type: General History Source History Obtained from:: Patient and Chart Anesthesia Focused Assessment* Temperature: 97.5 F Pulse Rate: 75 Blood Pressure: 139/81 Respiratory Rate: 16 Pulse Ox: 100 Oxygen Delivery Method: Room Air Airway Assessment Mouth opens: >3 cm Mallampati Score: II Teeth Condition: Intact, Loose (TOP RIGHT TOOTH LOOSE. Advised patient regardings the risks of undergoing anestheia which can include dental damage and can result in dislodgement of loose teeth. Patient verbalizes understanding and accepts risk of dental injury. ) and Partial (upper) Neck Range of motion (ROM): Full ROM Focused Labs Anesthesia Preop lab: CBC WBC 9.0 K/mm3 (4.4-11.0) 01/22/25 15:40 01/22/25 RBC 4.56 M/mm3 (4.6-6.2) L 01/22/25 15:40 01/22/25 Hgb 14.2 g/dL (13.0-16.5) 01/22/25 15:40 01/22/25 Hct 40.3 % (40-54) 01/22/25 15:40 01/22/25 Plt Count 214 K/mm3 (150-450) 01/22/25 15:40 01/22/25 CHEMISTRY Potassium 4.2 mmol/L (3.3-5.1) 01/22/25 15:40 01/22/25 Sodium 133 mmol/L (133-145) 01/22/25 15:40 01/22/25 BUN 16 mg/dL (4-19) 01/22/25 15:40 01/22/25 Creatinine 0.85 mg/dL (0.70-1.20) 01/22/25 15:40 01/22/25 Glucose 98 mg/dL (70-99) 01/22/25 15:40 01/22/25 POC Glucose 140 mg/dL (74-106) H 12/08/22 06:54 12/08/22 TSH 0.772 uIU/mL (0.300-4.200) 01/22/25 15:40 01/11 01/07 COAG Pre-Assessment Diagnosis/Proposed Procedure Planned Operative Procedure(s): Colonoscopy w/hemorrhoid banding Anesthesia History Anesthesia History - consumer loan manager: Anesthesia History - consumer loan manager Hx Hospitalization No 01/27/25 11:50 Any Problems With Anesthesia No 01/27/25 11:50 Cholinesterase deficiency No 01/27/25 11:50 You/Your Family Experience No 01/27/25 11:50 fever (hyperthermia) with Relationship Recent Exposure to Contagious No 01/28/25 08:17 Disease Does patient have nerve No 01/27/25 11:50 stimulator Patient instructed to have device shut off --Does patient have Pacemaker No 01/28/25 08:17 or ICD? When Was Last Pacemaker Check QUESTION #4 FULL TEXT: You/Your Family Experience fever (hyperthermia) with Anesthesia Last Oral Intake Last Oral intake: Last Oral Intake NPO since 05:00 01/28/25 08:17 Meds taken in AM with sips of Yes 01/28/25 08:17 water? Meds patient instructed to take am of surgery PONV PONV - consumer loan manager: PONV - consumer loan manager Female No 01/27/25 11:50 HX of Motion Sickness No 01/27/25 11:50 HX of N/V After Surgery No 01/27/25 11:50 Non-Smoker Yes 01/27/25 11:50 Duration of Surgery greater No 01/27/25 11:50 than 60 minutes Number of Risk Factors 1 01/27/25 11:50 PONV Score Low Risk 01/27/25 11:50 Height & Weight Height & Weight: Anesthesia: Height & Weight Height 5 ft 11 in 01/28/25 08:17 Weight: 79.7 kg 01/28/25 08:17 Body Mass Index (BMI) 24.5 01/28/25 08:17 Respiratory Assessment Respiratory Assessment - consumer loan manager: Respiratory Tract Infection Hx - consumer loan manager Hx Respiratory Tract Infection No 01/27/25 11:50 STOP Sleep Apnea STOP Sleep Apnea - consumer loan manager: STOP Sleep Apnea - consumer loan manager Hx Hypertension Yes: CONTROLLED WITH MED 01/27/25 11:50 Hx Sleep Apnea No 01/27/25 11:50 CPAP BIPAP Do you snore loudly (louder No 01/27/25 11:50 than talking or can be heard Do you often feel tired/ No 01/27/25 11:50 fatigued/ sleepy during daytime? Has anyone observed you stop No 01/27/25 11:50 breathing during sleep? STOP Results Negative 01/27/25 11:50 QUESTION #5 FULL TEXT : Do you snore loudly (louder than talking or can be heard through closed doors)? Tobacco Use History Tobacco Use History - consumer loan manager: Tobacco Use History - consumer loan manager Tobacco Use Smoking Status Never smoker 01/27/25 11:50 Hx Tobacco Use No 01/27/25 11:50 Years Smoking Packs Smoked per Day Smoking Cessation Date was within the last 15 years Hx Smoking Cessation Date Hx Smoking Cessation Counseling Hematologic Medial History Hematologic Hx - consumer loan manager: Hematologic Medical Hx - part time Hx of Blood Transfusion No 01/27/25 11:50 Hx of Transfusion in last 3 No 01/27/25 11:50 Months Date of Last Transfusion (if within last 3 months) Ever experience any problems No 01/27/25 11:50 with transfusion(s)? Specify any problems Hx of Preganancy in last 3 N/A 01/27/25 11:50 Months Nurse Filling Out Transfusion NBUCHER 01/27/25 11:50 & Questions: Date: 01/27/25 01/27/25 11:50 Time: 11:51 01/27/25 11:50 Patient unable to answer at this time (ie. confused, unrespo /Reproduction History /Reproductive History - consumer loan manager: /Reproductive Hx- consumer loan manager Hx Now Gestational Age (in weeks): EDC: Hx Hx Para Hx Section SAB No 10/03/24 08:44 PFSH Medical History (Updated 01/27/25 @ 11:56 by Tamiko Jones) Wears partial dentures Hemorrhoids Wears glasses Wears dentures Anxiety Diabetes Arthritis Low iron Fatty liver High cholesterol Dietary restriction Heartburn Non-smoker Leg cramps History of pain when walking Yzvcp-Fxwjxyana-Sinat (WPW) pattern Cardiology follow-up encounter Hypertension Positive colorectal cancer screening using Cologuard test Hypertension Diabetes Arthritis Home Medications ?Medication ?Instructions ?Recorded ?Last Taken ?Type acetaminophen 500 mg tablet 500 mg PO Q6H PRN Pain Unknown History (Tylenol Extra Strength) omega 5-fth-iws-fish oil 1,000 mg 1 cap PO DAILY 12/0712/05/22 History (120 mg-180 mg) capsule (Fish Oil) psyllium husk 0.4 gram capsule 0.4 g PO QHS 12/07/22 0 12/05/22 History (Metamucil) acetaminophen 300 mg-codeine 30 mg 1 tab PO Q6H PRN pa in #10 tabs 05/02/24 Unknown Rx tablet sildenafil 100 mg tablet 100 mg PO DAILY PRN sexual 0 05/02/24 Unknown Rx activity #45 tabs alprazolam 0.25 mg tablet 0.5 mg (2 x 0.25 mg) PO BID #60 06/03/24 01/28/25 06:16 Rx tabs Hydrocortisone 2.5% / Lidocaine 5% #1 ea 10/07/24 Unkn own Rx ointment (cmpd) lisinopril 20 mg tablet 20 mg PO DAILY 01/27/25 Unkn own History trazodone 100 mg tablet 100 mg PO QHS 01/27/25 Unkno wn History Allergy/AdvReac Type Severity Reaction Status Date / Time No Known Allergies Allergy Verified 01/28/25 08:16 Family History Father CVA (cerebral vascular accident) Mother Cancer throat Other Heart disease Surgical History Hx of colonoscopy S/P lateral meniscus repair of right knee H/O prostatectomy Social History household members: spouse current occupational status: retired current occupation: [employer] Smoking Status: Never smoker Electronic Cigarette Use: not used alcohol intake: never substance use type: does not use what type of physical activity do you participate in: additional details: cutting wood do you feel safe at home: Yes Review of Systems (Anesthesia) ROS Narrative System reviewed and no additional complaints, except as documented. Physical Exam Const alert, oriented x3 and average body habitus Resp normal respiratory effort, normal air movement and clear to auscultation bilaterally Cardio regular rate, regular rhythm, no murmurs and diaphoretic
[2025-01-28 08:58] LABS: Bedside Glucose 91 mg/dL (74-106)
--- NOTE | 2025-01-28 08:58 | PCM.HP.BLA ---
History and Physical Date of Admission: 01/28/25 Date of Service: 12/23/24 MR#: [id number] Acct: [id number] Name: ANGELIA KERNS Rep #: [id number] : 1955 Provider: Dr. Chuck Bruce MD Age/Sex: 69/M Location: [facility] Status: Signed Intake Vital Signs 10/25/2408:52 12/23/2507:16 Height 5 ft 11 in BP 144/78 H Blood Pressure Location Lt brachial Position Sitting Respiration 18 Pulse 87 Pulse Source Monitor Intake Visit Reasons: discuss hemorrhoids Chief Complaint: discuss hemorrhoids Medical Social Consultant Required: No Accompanied by: Is patient in pain?: Yes Allergies No Known Allergies Allergy (Verified 12/23/24 08:17) Medications ?Medication ?Instructions ?Recorded ?Confirmed ?Type acetaminophen 500 mg tablet 500 mg PO Q6H PRN Pain 10/10/22 12/23/24 History (Tylenol Extra Strength) omega 1-jzb-dnf-fish oil 1,000 mg 1 cap PO DAILY 12/07/22 12/23/24 History (120 mg-180 mg) capsule (Fish Oil) psyllium husk 0.4 gram capsule 0.4 g PO QHS 12/07/22 12/23/24 History (Metamucil) atorvastatin 20 mg tablet 20 mg PO QHS #90 tabs 03/18/24 12/23/24 Rx acetaminophen 300 mg-codeine 30 mg 1 tab PO Q6H PRN pain #10 tabs 05/02/24 12/23/24 Rx tablet sildenafil 100 mg tablet 100 mg PO DAILY PRN sexual 05/02/24 12/23/24 Rx activity #45 tabs trazodone 100 mg tablet 100 mg PO DAILY #90 tabs 05/02/24 12/23/24 Rx alprazolam 0.25 mg tablet 0.5 mg (2 x 0.25 mg) PO BID #60 06/03/24 12/23/24 Rx tabs Hydrocortisone 2.5% / Lidocaine 5% #1 ea 10/07/24 12/23/24 Rx ointment (cmpd) Have you fallen in the past year?: No PFSH Medical History Hemorrhoids Wears glasses Wears dentures Anxiety Diabetes Arthritis Low iron Fatty liver High cholesterol Dietary restriction Heartburn Non-smoker Leg cramps History of pain when walking Virlh-Drkybrbba-Jonyg (WPW) pattern Cardiology follow-up encounter Hypertension Positive colorectal cancer screening using Cologuard test Hypertension Diabetes Arthritis Surgical History Hx of colonoscopy S/P lateral meniscus repair of right knee H/O prostatectomy Family History Father CVA (cerebral vascular accident)Mother Cancer throatOther Heart disease Social History household members: spouse current occupational status: retired current occupation: [employer] Smoking Status: Never smoker Electronic Cigarette Use: not used alcohol intake: never substance use type: does not use what type of physical activity do you participate in: additional details: cutting wood do you feel safe at home: Yes HPI HPI HPI: Patient is a 69-year-old male who is known to me from prior colonoscopy encounter but follows up for concern specifically related to hemorrhoids. His last visit was 10/07/2024. He presents today with his . Originally we were supposed to see him back in clinic 2 weeks following his visit in September but he declined the follow-up because he was under the impression things are getting better. However now he states he fears he waited too long because he is experiencing more burning and swelling with his hemorrhoids. He reports that he uses MiraLAX daily and experiences roughly 3-4 bowel movements daily. He does note they are sometimes thinner in character. He insist that he is kept his toilet time to 2 minutes or less. In addition to the MiraLAX he reports that his has been intentional about trying to cook more high-fiber foods and he is consuming psyllium husk twice daily besides. Mr. Kerns continues to perform 1 sitz bath after each bowel movement. He reports use of a hydrocortisone/lidocaine ointment alongside of a diltiazem?containing ointment that he was prescribed by his PCP. He questions whether he should continue this use. In addition to the reports of burning and swelling he describes 1 episode of bleeding a week ago with some straining during a bowel movement. However, he has had no bleeding since. He denies any interval health updates apart from above. Below is recapitulated from patient's prior visit for ease of review: Patient is a 69-year-old male who is kno underwentwn to me from a prior colonoscopy performed November 2022 after a positive Cologuard test but presents for complaint of hemorrhoid activity today. He presents today with his . They first noted this issue years ago and he readily acknowledges that this is a chronic problem for which he has seen his PCP and underwent serial lancing. However he was advised by his PCP that there were only so many times this could be done before more definitive management would be required and recommended evaluation in our office. Mr. Kerns estimates that his present flare officially became worse approximately 3 weeks ago. He notes that he has remained on supplemental fiber and MiraLAX to try to minimize his risk for constipation. With this regimen he is experiencing a bowel movement at least a 1-2 times daily in the morning. He reports his toilet time has no more than 2 minutes (he suggests that he is intentional about ensuring this limited time). He does acknowledge a history of straining but states that he has been intentional about minimizing this risk as well. Mr. Kerns reports pain that is rather sharp and more frequently encountered in the mornings. He initially experienced some bleeding but this is cleared up. Lastly he has experienced some itching and bulging. This is/is not their first experience with this problem. Additionally, they do/do not note associated itching/burning with this complaint. To date, they have tried Tylenol for the pain and topical lidocaine. Additionally notes that he has used Epsom salt baths on a nearly daily basis and several tubes of hydrocortisone cream. 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 5-year follow-up was recommended. ROS General General: No weight change, appetite, fatigue, colon cancer, breast cancer or weakness HEENT HEENT: No difficulty swallowing, eye injury, eye surgery, swollen glands or hoarseness Endo Endocrine: Yes diabetes mellitus; No thyroid disease, thyroid cancer, Hair loss, heat intolerance or cold intolerance Skin Skin: No rash or changing moles Musc Musculoskeletal: Yes arthritis; No back problems, rheumatoid arthritis, gout or joint pain Cardio Cardiovascular: Yes high blood pressure; No murmur, pacemaker, heart disease, atrial fibrillation, heart attack, heart stent, palpitations, shortness of breat with exertion or chest pain Psych Psychiatric: Yes anxiety; No depression or hearing voices Resp Respiratory: No shortness of breath, No sleep apnea, No cough, No COPD, No asthma, No emphysema and No wheezing Gastro Gastrointestinal: No abdominal pain, No nausea or vomiting, No diarrhea, No constipation, No blood in stool, No acid reflux, Yes hemorrhoids, No ulcers, No gallbladder problem and No black,tarry stools Augustus Hematologic: No blood thinners, No blood disorders, No bleeding, No anemia and No blood clots Neuro Neurologic: No system reviewed and no additional complaints, except as documented, No as per HPI, No abnormal gait, No abnormal hearing, No abnormal movements, No abnormal speech, No behavioral changes, No burning sensations, No confusion, No convulsions, No disequilibrium, No dizziness, No localized weakness, No frequent falls, No headache(s), No lack of coordination, No loss of vision, No memory loss, No numbness, No other visual disturbances, No radicular pain, No restless legs, No sensory deficit, No syncope, No tingling, No tremor(s), No weakness and No other Exam Const General: cooperative, comfortable and no acute distress Orientation: alert, awake and oriented x3 Resp Effort & Inspection: normal respiratory effort GI Other: Anal skin tag at the 12 o'clock position otherwise there is no prolapsing anal mucosa. There is no evidence of anal fissure. Digital rectal exam is performed and identify mild engorgement of the internal hemorrhoid columns in the right anterior and right posterior positions with today's exam. There are no masses palpable or blood on the withdrawn finger overall patient. Assessment and Plan Assessment and Plan (1) Hemorrhoids: Status: Acute Comment: Patient is a 69-year-old male who makes follow-up for complaints of burning and swelling in association with hemorrhoids. He appears to be making a conscientious effort with conservative measures but perhaps overdoing it with his use of MiraLAX. I have instructed him to try to take this medication only as needed and titrated and affect to 1-2 soft bowel movements per day so as to overall net a decrease in his toilet time. He seems to confirm understanding. On exam today I appreciate only some lower grade internal hemorrhoids but there is no blood. With this assessment, I believe Mr. Kerns would be an appropriate candidate for hemorrhoid banding. However, it has been over 2 years since his last colonoscopy and I do not want to be overlooking an alternative rectal pathology. Moreover, he did not tolerate a digital rectal exam very well during today's visit and therefore this casts doubt on his ability to tolerate an in-office anoscopy with banding. Thus I have recommended repeat colonoscopy with consent to proceed with endoscopic banding. Mr. Friedman and his appear happy with this recommendation. Requirement for a split prep and fiber hold were discussed with them. Plan: Plan will be to complete colonoscopy with hemorrhoid banding on first mutually agreeable date under local MAC. Pre-procedure prep discussed and paper instructions provided. Patient is also made aware that he will need to have a driver license agent with him the day of the procedure. I have examined the patient the following changes are noted: Patient presents today for colonoscopy and confirms he completed prep for today's procedure. He shares that his output is now clear. He also confirms that he completed use of the prescribed diltiazem cream for treatment of his anal fissure. Interestingly he states he was unaware that he had an anal fissure but does report that his burning sensation has significantly decreased in frequency and he no longer is seeing any bleeding. Further, he confirms that he decreased his MiraLAX dose and that all is having bowel movements just twice daily. He feels that this has also benefited his experience of hemorrhoids or fissure?related symptoms. I discussed with him that I would not recommend banding unless hemorrhoidal complex was significantly engorged. Further, I described how the procedure is done and how any discomfort is managed. He confirms understanding and is in agreement. Will proceed to endoscopy suite for colonoscopy with possible hemorrhoid banding as indicated by exam.
--- NOTE | 2025-01-28 09:30 | COLBX_PTH ---
PATIENT: ANGELIA KING LOC: EN U#:[id number] AGE/SX: 69/M ROOM: RE01/28/[address]: Dr. Chuck Bruce MD : 1955 BED: DIS: 01/28/2025 SPEC #: [id number] RECD: 01/28/25 10:43 STATUS: MENDOZA NIKOLAS #: [id number] JOI: 01/28/25 09:[address]: Chuck Bruce DEPT: SURGICAL PATHOLOGY RECD BY: Brina Tijerina ENTERED: 01/28/25 12:22 SP TYPE: COLON BX OTHR DR: Zackary Ballesteros, ASHANTI-Ashanti Tissues: Anal region Procedures: Surgery Specimen Level IV HEADER OPERATION: Colonoscopy with hemorrhoid banding PRE-OP DIAGNOSIS: Hemorrhoids TISSUE SUBMITTED: A- Anal mass MICROSCOPIC DIAGNOSIS A. Anus, mass, excision: * Polypoid papillomatous squamous mucosa with hyperkeratosis. * Negative for HPV-cytopathic effect, dysplasia, and malignancy. MICROSCOPIC DESCRIPTION Slides are reviewed. GROSS DESCRIPTION A. Received in fixative is one container labeled with the patient's name and designated Anal mass. The specimen consists of a single fragment of light toney tissue measuring 1 x 0.7 x 0.6cm. The entire specimen is submitted in one cassette. Geoffrey 01/28/2025 CPT:13742
--- NOTE | 2025-01-28 10:28 | PCM.POST.ANE ---
Anesthesia: Postop Eval I Current Vital Signs Temperature: 97.6 F Pulse Rate: 69 Blood Pressure: 134/79 Respiratory Rate: 16 Pulse Ox: 100 Assessment Airway patent: Yes Spontaneous unlabored respirations: Yes nausea: No Vomiting: No Anesthesia Complication: No Fluid Hydration Crystalloid volume administer (ml): 30 Total IV fluid infused: 30 Progress Note Anesthesia document: Postop Eval 1 completed: Yes
--- NOTE | 2025-01-28 10:32 | OP.COLON_ITS ---
Patient Name: Castro Kerns Procedure Date: 01/28/2025 9:33 AM Date of : 1955 Age: 69 Procedure: Colonoscopy Indications: Rectal bleeding Providers: Chuck Bruce MD Referring MD: Zackary Ballesteros [facility], Outreach Analyst-c Medicines: See the Anesthesia note for documentation of the administered medications Patient Profile: Refer to note in patient chart for documentation of history and physical. Last Colonoscopy: within the past 3 years. Complications: No immediate complications. Estimated blood loss: Minimal. Procedure: Pre-Anesthesia Assessment: - The heart rate, respiratory rate, oxygen saturations, blood pressure, adequacy of pulmonary ventilation, and response to care were monitored throughout the procedure. After I obtained informed consent, the scope was passed under direct vision. Throughout the procedure, the patient's blood pressure, pulse, and oxygen saturations were monitored continuously. The Colonoscope was introduced through the anus and advanced to the cecum, identified by the appendiceal orifice, ileocecal valve and palpation. The colonoscopy was somewhat difficult due to a tortuous colon. Successful completion of the procedure was aided by using scope torsion. The patient tolerated the procedure well. The quality of the bowel preparation was adequate to identify polyps. Scope In: 9:47:43 AM Scope Withdrawal Time 0 hours 22 minutes 50 seconds Scope Out: 10:23:00 AM Total Procedure Duration Time 0 hours 35 minutes 17 seconds Findings: The perianal and digital rectal examinations were normal. The splenic flexure was significantly tortuous. Advancing the scope required using scope torsion. Anal papilla(e) were hypertrophied. The polyp was removed with a hot snare. Resection and retrieval were complete. Estimated blood loss: none. Internal hemorrhoids were found during retroflexion. The hemorrhoids were Grade II (internal hemorrhoids that prolapse but reduce spontaneously). The endoscope was withdrawn. One band was successfully placed. There was no bleeding at the end of the procedure. Estimated blood loss was minimal. The exam was otherwise without abnormality. Impression: - Tortuous colon. - Anal papilla(e) were hypertrophied. - Internal hemorrhoids. Banded. - The examination was otherwise normal. Recommendation: - Discharge patient to home (via wheelchair). - Resume previous diet today. - No aspirin, ibuprofen, naproxen, or other non-steroidal anti-inflammatory drugs for 2 days after biopsy. - Await pathology results. - Repeat colonoscopy date to be determined after pending pathology results are reviewed for surveillance based on pathology results. - Telephone my office for pathology results in 1 week. Procedure Code(s): --- Professional --- 73677, Colonoscopy, flexible; with removal of tumor(s), polyp(s), or other lesion(s) by snare technique 88144, Hemorrhoidectomy, internal, by rubber band ligation(s) Diagnosis Code(s): --- Professional --- K62.89, Other specified diseases of anus and rectum K64.1, Second degree hemorrhoids K62.5, Hemorrhage of anus and rectum Q43.8, Other specified congenital malformations of intestine CPT copyright 2021 [employer]. All rights reserved. The codes documented in this report are preliminary and upon sheet rock sander review may be revised to meet current compliance requirements. Chuck Bruce MD 01/28/2025 10:31:53 AM This report has been signed electronically. Number of Addenda: 0 Note Initiated On: 01/28/2025 9:33 AM
--- NOTE | 2025-01-28 10:32 | OP.CCLET_ITS ---
01/28/2025 Zackary Ballesteros [facility], Registered Land Surveyor-c Re : Colonoscopy procedure for Ed Saumya Dear Lesli This procedure was performed on Tuesday, January 28, 2025. My impressions and recommendations are as follows: Impressions : - Tortuous colon. - Anal papilla(e) were hypertrophied. - Internal hemorrhoids. Banded. - The examination was otherwise normal. Recommendations : - Discharge patient to home (via wheelchair). - Resume previous diet today. - No aspirin, ibuprofen, naproxen, or other non-steroidal anti-inflammatory drugs for 2 days after biopsy. - Await pathology results. - Repeat colonoscopy date to be determined after pending pathology results are reviewed for surveillance based on pathology results. - Telephone my office for pathology results in 1 week. My findings are described in the full procedure note, which is enclosed. If I can be of further assistance, please feel free to contact me at Doctor phone number(s): , Work: . Sincerely, Chuck Bruce MD 01/28/2025 10:31:53 AM This report has been signed electronically.
--- NOTE | 2025-01-28 11:10 | POSTOPAN2_ITS ---
Anesthesia Postop Eval I Sum Postop Eval Completion status Anesthesia document: Postop Eval 1 completed: Yes Anesthesia Postop Eval I Summary Anesthesia Postop Eval I Summary: Anesthesia Postop Eval I: Assessment Summary Airway patent Yes 01/28/25 10:28 ASBESTOS SHINGLE INSPECTOR.TNES Spontaneous unlabored Yes 01/28/25 10:28 ASBESTOS SHINGLE INSPECTOR.TNES respirations Mental status nausea No 01/28/25 10:28 ASBESTOS SHINGLE INSPECTOR.TNES Vomiting No 01/28/25 10:28 ASBESTOS SHINGLE INSPECTOR.TNES Anesthesia Postop Eval I: Fluid Summary Crystalloid volume administer 30 01/28/25 10:28 ASBESTOS SHINGLE INSPECTOR.TNES (ml) Colloids volume administered ( ml) Blood Product volume administered (ml) Total IV fluid infused 30 01/28/25 10:28 ASBESTOS SHINGLE INSPECTOR.TNES Anesthesia Postop Eval I: Summary Notes Anesthesia Complication No 01/28/25 10:28 ASBESTOS SHINGLE INSPECTOR.TNES Anesthesia Complication Comment: Post-operative progress note Anesthesia: Postop Eval II Evaluation Mental status: Awake Pain Level: 0 nausea: No Vomiting: No Complications Anesthesia Complication: No
--- NOTE | 2025-01-28 11:10 | PCM.POSTANE2 ---
Anesthesia Postop Eval I Sum Postop Eval Completion status Anesthesia document: Postop Eval 1 completed: Yes Anesthesia Postop Eval I Summary Anesthesia Postop Eval I Summary: Anesthesia Postop Eval I: Assessment Summary Airway patent Yes 01/28/25 10:28 SALES OPERATIONS MANAGER.TNES Spontaneous unlabored Yes 01/28/25 10:28 SALES OPERATIONS MANAGER.TNES respirations Mental status nausea No 01/28/25 10:28 SALES OPERATIONS MANAGER.TNES Vomiting No 01/28/25 10:28 SALES OPERATIONS MANAGER.TNES Anesthesia Postop Eval I: Fluid Summary Crystalloid volume administer 30 01/28/25 10:28 SALES OPERATIONS MANAGER.TNES (ml) Colloids volume administered ( ml) Blood Product volume administered (ml) Total IV fluid infused 30 01/28/25 10:28 SALES OPERATIONS MANAGER.TNES Anesthesia Postop Eval I: Summary Notes Anesthesia Complication No 01/28/25 10:28 SALES OPERATIONS MANAGER.TNES Anesthesia Complication Comment: Post-operative progress note Anesthesia: Postop Eval II Evaluation Mental status: Awake Pain Level: 0 nausea: No Vomiting: No Complications Anesthesia Complication: No
[2025-01-28] MEDS: Acetaminophen 325 MG Tablet 650 MG PO (11:20)
== END 2025-01-28 12:05 | disposition home or self-care (01) ==
LOC: EN 07:57 → AC 07:59
PROVIDERS: PCP Nurse Practitioner Family; Referring Provider Nurse Practitioner Family; Visit Provider Surgery
PROC: 0DJD8ZZ Inspection of Lower Intestinal Tract, Via Natural or Artificial Opening Endoscopic (ICD-10-PCS; CPT 45378; principal; 2025-01-28 09:25)
DX: K64.1 Second degree hemorrhoids (principal); E11.9 Type 2 diabetes mellitus without complications; Q43.8 Other specified congenital malformations of intestine; E78.00 Pure hypercholesterolemia, unspecified; K62.5 Hemorrhage of anus and rectum; I10 Essential (primary) hypertension; Z79.899 Other long term (current) drug therapy
CPT/HCPCS: 45385; 46221; 82962; 88305; A4216

== ENCOUNTER → 2025-06-25 | Outpatient (CLI) | payer MEDICARE, SELFPAY ==
--- NOTE | 2025-06-25 14:45 | US_ITS ---
PROCEDURE: TESTICULAR WITH ARTERIAL FLOW 06/25/2025 REASON FOR EXAM: R TESTICULAR PAIN TECHNIQUE: TESTICULAR WITH ARTERIAL FLOW FINDINGS: RIGHT testicle: 4.2 x 2.1 x 3.0 cm. Small right epididymal head cysts are benign. LEFT testicle: 4.0 x 2.0 x 2.5 cm. Small left epididymal head cyst. Other findings: Hillister striping is seen involving both testes-curvilinear bands of hypoechogenicity. This can represent bands of fibrosis that are likely sequelae of prior inflammation. Occasionally this can be associated with current inflammation, but no hyperemia is seen on color flow to suggest this at this time. Correlate with fever, white count, urinalysis. Mild bilateral hydrocele. Color and spectral Doppler flow is present bilaterally. US/Testicular with Arterial Flow IMPRESSION: No acute abnormality. However, see above description Sub 5 mm benign epididymal cysts. Reading Location: [id number]
--- NOTE | 2025-06-25 15:08 | CT_ITS ---
PROCEDURE: ABDOMEN/PELVIS WITH CONTRAST 06/25/2025 REASON FOR EXAM: RLQ PAIN One-month history of right lower quadrant pain. TECHNIQUE: ABDOMEN/PELVIS WITH CONTRAST Coronal and Sagittal reconstruction series were provided. CONTRAST: Isovue-300 VOLUME: 100 mL One or more dose reduction techniques were used (e.g., Automated exposure control, adjustment of the mA and/or kV according to patient size, use of iterative reconstruction technique. RADIATION DOSE SUMMARY: CTDlvol: 12.6 mGy DLP: 886.16 mGycm COMPARISON: None FINDINGS: Lung bases: The lung bases are clear. There is evidence of coronary artery calcification. Liver: Diffuse fatty infiltration. Gallbladder: Unremarkable Spleen: Normal size. Pancreas: Normal size without evidence of mass surrounding inflammation or ductal dilation. Adrenals: Hyperplasia of the left adrenal gland. Kidneys: Normal renal sizes. No hydronephrosis. Bladder: Mild degree of bladder wall thickening. Central prostatic calcifications. Bowel: Colonic diverticulosis without diverticulitis. Appendix: The appendix is not identified. There is no inflammatory process identified in the right lower quadrant to suggest appendicitis. Lymph nodes: Unremarkable. Vasculature: Mild diffuse atherosclerotic calcifications are noted. Peritoneum / Retroperitoneum: Small bilateral inguinal hernias containing fat slightly larger on the right side. Bones: Unremarkable CT/Abdomen/Pelvis WITH Contrast IMPRESSION: Fatty infiltration of the liver. Mild degree of bladder wall thickening. Hypertrophy of the left adrenal gland. Small bilateral inguinal hernias containing fat slightly larger on the right si de. Reading Location: [place] [id number]
[2025-06-25 15:25] LABS: CREATININE FINGERSTICK < 1.0 mg/dL (0.70-1.30); EGFR FINGERSTICK > 60.0000 mL/min (>60)
== END | disposition home or self-care (01) ==
LOC: CT 14:39
PROVIDERS: PCP Nurse Practitioner Family
DX: R10.31 Right lower quadrant pain (principal); N50.811 Right testicular pain
CPT/HCPCS: 74177; 76870; 93976; Q9967

== ENCOUNTER 2025-08-02 10:17 | Emergency (ER) | payer MEDICARE, SELFPAY ==
[2025-08-02 10:17] VITALS: BP 144/77; PULSE 77; RESP 16; TEMP 36.3; O2SAT 98; BMI 25.4
--- OUTSIDE RECORDS SUMMARY | 2025-08-02 10:37 | XMS RPT_ITS | CCD ---
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 ROEL Michaels Attending Jose HOOD MD., DR. ZANA Michaels Primary Care Christophe COCHRAN CNP, MS. SANCHEZ Primary Care Zaheer COCHRAN CNP, MS. SANCHEZ Attending Zaheer COCHRAN CNP, MS. SANCHEZ Primary Care Zaheer HOOD MD., DR. ZANA Michaels Attending Christophe HOOD MD., DR. ZANA Michaels Attending Christophe HOOD MD., DR. ZANA Michaels Primary Care Dr. Amara Michaels Attending Provider [phone] Dr. Amara Damian Primary Care Provider Dr. Amara Damian Referring Provider [phone] Dr. Amara Damian Attending Provider Dr. Chuck Bruce Attending Provider Dr. Chuck Bruce Other Provider [phone] Amara Crowder Primary Care Provider Dr. Amara Damian Attending Provider [phone] Dr. Amara Damian Referring Provider Lesli PIN DRAFTER OPERATOR-C, Zackary Primary Care Provider Ballesteros PIN DRAFTER OPERATOR-C, Zackary Referring Provider Teo JONES, Dr. Woods Attending Provider Ashish JONES, Dr. Muir Attending Provider Ashish JONES, Dr. Muir Emergency Provider Beam PIN DRAFTER OPERATOR-C, Zebulujossy Attending Provider Teo JONES, Dr. Woods Other Provider Ballesteros PIN DRAFTER OPERATOR-C, Zackary Primary Care Provider Ballesteros PIN DRAFTER OPERATOR-C, Zackary Referring Provider Teo JONES, Dr. Woods Attending Provider Ballesteros PIN DRAFTER OPERATOR-C, Zackary Primary Care Provider Ballesteros PIN DRAFTER OPERATOR-C, Zackary Referring Provider Teo JONES, Dr. Woods Attending Provider Ballesteros PIN DRAFTER OPERATOR-C, Zackary Primary Care Provider Ballesteros PIN DRAFTER OPERATOR-C, Zackary Referring Provider Teo JONES, Dr. Woods Attending Provider Beam PIN DRAFTER OPERATOR-C, Zebulun Attending Provider Beam PIN DRAFTER OPERATOR-C, Zebulun Referring Provider Ballesteros VSC, Zackary Referring Unavailable Chuck Bruce Attending Unavailable Ballesteros VSC, Zackary Primary Care Unavailable Ballesteros VSC, Zackary Primary Care Unavailable Beam VSC, Zebulun Referring Unavailable Beam VSC, Zebulun Attending Unavailable Ballesteros VSC, Zackary Primary Care Unavailable Beam VSC, Zebulun Attending Unavailable Ballesteros VSC, Zackray Primary Care Unavailable Wood Hinojosa Attending Unavailable Ballesteros VSC, Zackary Referring Unavailable Chuck Bruce Attending Unavailable Ballesteros VSC, Zackary Primary Care Unavailable Ballesteros VSC, Zackary Referring Unavailable Chuck Bruce Attending Unavailable Ballesteros VSC, Zackary Primary Care Unavailable Ballesteros VSC, Zackary Referring Unavailable Chuck Bruce Consulting Unavailable Chuck Bruce Attending Unavailable Ballesteros VSC, Zackary Primary Care Unavailable Chuck Bruce Attending Unavailable Ballesteros VSC, Zackary Referring Unavailable Ballesteros VSC, Zackray Primary Care Unavailable Ballesteros VSC, Zackary Primary Care Unavailable Chuck Bruce Attending Unavailable Ballesteros VSC, Zackary Referring Unavailable Chuck Bruce Attending Unavailable Ballesteros VSC, Zackary Referring Unavailable Ballesteros VSC, Zackary Primary Care Unavailable Ballesteros VSC, Zackary Referring Unavailable Chuck Bruce Attending Unavailable Ballesteros VSC, Zackary Primary Care Unavailable Ballesteros VSC, Zackary Referring Unavailable Chuck Bruce Attending Unavailable Ballesteros VSC, Zackary Primary Care Unavailable Ballesteros VSC, Zackary Referring Unavailable Chuck Bruce Attending Unavailable Ballesteros VSC, Zackary Primary Care Unavailable Chuck Bruce Attending Unavailable Chuck Bruce Referring Unavailable Ballesteros VSC, Zackary Primary Care Unavailable Teo, Chuck Attending Unavailable Ballesteros VSC, Zackary Referring Unavailable Ballesteros VSC, Zackary Primary Care Unavailable Medications Current Medications Medication Drug Class(es) Dates Sig (Normalized) Sig (Original) acetaminophen 500 mg oral tablet (9 sources) Start: 10-10-2022 take 1 tablet by mouth every six hours as needed for pain Acetaminophen (Tylenol Extra Strength) 500 mg tablet Active 500 mg PO EVERY 6 HOURS as needed for Pain October 10, 2022 1:00am ALPRAZolam 0.25 mg oral tablet (20 sources) Benzodiazepine Start: 06-03-2024 take 2 tablets by mouth twice daily Alprazolam 0.25 mg tablet Active 0.5 mg PO TWICE A DAY 60 0 June 03, 2024 8:16am Anxiety Anxiety disorder, unspecified Start: 10-03-2023 End: 06-03-2024 take 1 tablet by mouth twice daily Alprazolam 0.5 mg tablet Discontinued 0.5 mg PO TWICE A DAY 60 0 April 30, 2024 5:11pm June 03, 2024 8:16am Anxiety Anxiety disorder, unspecified Start: 03-29-2023 End: 10-03-2023 take 0.75 mg by mouth twice daily Alprazolam 0.5 mg tablet Discontinued 0.75 mg PO TWICE A DAY 90 0 September 04, 2023 5:02pm October 03, 2023 12:56pm Anxiety Anxiety disorder, unspecified Start: 03-29-2023 End: 10-03-2023 take 0.75 mg by mouth twice daily Alprazolam Discontinued 0.75 MG PO TWICE A DAY 90 September 04, 2023 4:02pm October 03, 2023 11:56am Start: 04-15-2022 End: 05-17-2023 take 1 tablet by mouth twice daily Alprazolam (Xanax) 1 mg tablet Discontinued 1 mg PO TWICE A DAY 60 0 February 27, 2023 1:11pm March 29, 2023 10:17am Anxiety Anxiety disorder, unspecified Start: 05-28-2021 End: 11-24-2021 ALPRAZolam 1 mg oral tablet Dose : 1 mg = 1 tab(s), Oral, BID, PRN as needed for anxiety, # 60 tab(s), 5 Refill(s), Pharmacy: [facility] Generalized anxiety disorder, 181, cm, 05/28/21 9:18:00 EDT, Height, 109, kg, 05/28/21 9:18:00 EDT, Dosing Weight Start Date: 05/28/21 Stop Date: 11/24/21 Status: Ordered amLODIPine 5 mg oral tablet (1 source) Dihydropyridine Calcium Channel Jose Alberto Start: 07-19-2022 amLODIPine 5 mg oral tablet Dose : 5 mg = 1 tab(s), Oral, qDay, # 30 tab(s), 0 Refill(s), Pharmacy: [facility] #[id number], 181.5, cm, 07/19/22 8:33:00 EDT, Height Start Date: 07/19/22 Status: Ordered flax seed oil 1000 mg oral capsule (3 sources) Start: 07-15-2020 flax seed oil 1000 mg oral capsule Dose : 1,000 mg = 1 cap(s), Oral, qDay, 0 Refill(s) Start Date: 07/15/20 Status: Ordered hydrocortisone 25 mg/ml topical cream (1 source) Corticosteroid Start: 03-07-2022 Anusol-HC 2.5% rectal cream with applicator Apply 1 armani, Rectal, BID, # 30 gram(s), 0 Refill(s), Pharmacy: [facility] 181, cm, 01/14/22 9:45:00 EST, Height, 109.7 Start Date: 03/07/22 Status: Ordered ibuprofen 200 mg oral tablet (3 sources) Nonsteroidal Anti-inflammatory Drug Start: 07-30-2020 Advil 200 mg oral tablet Dose : 400 mg = 2 tab(s), Oral, q4h, PRN as needed for pain, # 120 tab(s), 0 Refill(s) Start Date: 07/30/20 Status: Ordered lidocaine 0.05 mg/mg topical ointment (8 sources) Antiarrhythmic, Amide Local Anesthetic Start: 02-20-2025 End: 04-04-2025 Lidocaine 5 % ointment Active 1 NMA TOPICAL TWICE A DAY as needed for hemorrhoids pain 30 0 April 04, 2025 3:10pm lisinopril 20 mg oral tablet (20 sources) Angiotensin Converting Enzyme Inhibitor Start: 01-27-2025 take 1 tablet by mouth once daily Lisinopril 20 mg tablet Active 20 mg PO DAILY January 27, 2025 12:00am Start: 08-08-2022 End: 10-03-2023 take 1 tablet by mouth twice daily Lisinopril 40 mg tablet Discontinued 40 mg PO TWICE A DAY 180 1 June 26, 2023 1:41pm October 03, 2023 12:49pm Start: 04-15-2022 lisinopril 40 mg oral tablet Dose : 40 mg = 1 tab(s), Oral, BID, # 180 tab(s), 3 Refill(s), [facility] [address] [facility], cm, 04/15/22 9:18:00 EDT, Height, kg, 04/15/22 9:18:00 EDT, Dosing Weight Start Date: 04/15/22 Status: Ordered Start: 11-27-2020 lisinopril 30 mg oral tablet Dose : 45 mg = 1.5 tab(s), Oral, qAM, # 135 tab(s), 3 Refill(s), [facility] 182, cm, 11/27/20 7:57:00 EST, Height, kg, 11/27/20 7:57:00 EST, Dosing Weight Start Date: 11/27/20 Status: Ordered omega-3 acid ethyl esters (assisted) 1000 mg oral capsule (9 sources) Start: 12-07-2022 [place] 3-Dha-Ep a-Fish Oil (Fish Oil) 1,000 mg (120 mg-180 mg) Capsule Active 1 NMA PO DAILY December 07, 2022 1:00am polyethylene glycol 3350 45498 mg powder for oral solution (4 sources) Osmotic Laxative Start: 04-21-2025 Polyethylene Glycol 3350 (Miralax) 17 gram/dose powder Active 4 g PO daily April 21, 2025 12:00am psyllium 400 mg oral capsule (9 sources) Start: 12-07-2022 Psyllium Husk (Metamucil) 0.4 gram Capsule Active 0.4 g PO AT BEDTIME December 07, 2022 1:00am sildenafil 100 mg oral tablet (20 sources) Phosphodiesterase 5 Inhibitor Start: 05-02-2024 Sildenafil 100 mg tablet Active 100 mg PO DAILY as needed for sexual activity 45 0 May 02, 2024 9:51am administer 30 minutes to 4 hours before activity Start: 03-29-2023 End: 05-02-2024 Sildenafil 50 mg tablet Disc ontinued 50 mg PO DAILY as needed for sexual activity 30 0 March 18, 2024 7:44am May 02, 2024 10:08am administer 30 minutes to 4 hours before activity Start: 04-15-2022 Viagra 50 mg o ral tablet Dose : 50 mg = 1 tab(s), Oral, qDay, PRN as needed for erectile dysfunction, # 90 tab(s), 3 Refill(s), Pharmacy: [facility] [address] 181, cm, 04/15/22 9:18:00 EDT, Height, kg, 04/15/22 9:18:00 EDT, Dosing Weight Start Date: 04/15/22 Status: Ordered Start: 11-27-2020 Viagra 50 mg o ral tablet Dose : 50 mg = 1 tab(s), Oral, qDay, PRN as needed for erectile dysfunction, # 90 tab(s), 3 Refill(s), Pharmacy: [facility] [address] 182, cm, 11/27/20 7:57:00 EST, Height, kg, 11/27/20 7:57:00 EST, Dosing Weight Start Date: 11/27/20 Status: Ordered triamcinolone acetonide 1 mg/ml topical cream (3 sources) Corticosteroid Start: 11-26-2021 triamcinolone 0.1% topical cream Apply 1 armani, Topical, BID, PRN Rash, # 30 gram(s), 2 Refill(s), Pharmacy: [facility] [address] Cream, 181.5, cm, 11/26/21 8:22:00 EST, Height, 109.1, kg, 11/26/21 8:22:00 EST, Dosing Weight Start Date: 11/26/21 Status: Ordered Start: 05-28-2020 triamcinolone 0.1% topical cream Apply 1 armani, Topical, BID, PRN Rash, # 30 gram(s), 2 Refill(s), Cream, Dosing Weight Start Date: 05/28/20 Status: Ordered Completed/Discontinued Medications Medication Drug Class(es) Dates Sig (Normalized) Sig (Original) Acetaminophen (Tylenol Extra Strength) 500 mg powder in packet (10 sources) Start: 08-08-2022 End: 10-10-2022 take 500 mg by mouth every six hours as needed Acetaminophen (Tylenol Extra Strength) 500 mg powder in packet Discontinued 500 mg PO EVERY 6 HOURS as needed August 08, 2022 12:00am October 10, 2022 8:57am Start: 08-08-2022 End: 10-10-2022 take 500 mg by mouth every six hours Acetaminophen (Tylenol Extra Strength) 500 mg powder in packet Discontinued 500 MG PO EVERY 6 HOURS August 08, 2022 12:00am October 10, 2022 8:57am Start: 08-08-2022 End: 10-10-2022 take 500 mg by mouth every six hours Acetaminophen (Tylenol Extra Strength) 500 mg powder in packet Discontinued 500 MG PO EVERY 6 HOURS August 07, 2022 11:00pm October 10, 2022 7:57am Start: 08-08-2022 take 500 mg by mouth every six hours Acetaminophen (Tylenol Extra Strength) 500 mg powder in packet Active 500 MG PO EVERY 6 HOURS August 07, 2022 11:00pm acetaminophen 300 mg / codeine phosphate 30 mg oral tablet (20 sources) Opioid Agonist Start: 03-29-2023 End: 05-02-2024 Acetaminophen-Codeine 300-30 mg tablet Discontinued 1 {tbl} PO EVERY 6 HOURS as needed for pain 10 0 August 04, 2023 4:27pm May 02, 2024 12:33pm Right knee pain Pain in right knee Start: 03-29-2023 End: 08-04-2023 take 1 tablet by mouth every six hours Acetaminophen-Codeine Discontinued 1 TABLET PO EVERY 6 HOURS March 29, 2023 9:15am August 04, 2023 3:27pm Start: 07-19-2022 End: 07-26-2022 take 1 tablet by mouth every six hours as needed for pain acetaminophen-codeine 300 mg-30 mg oral tablet Dose = 1 tab(s), Oral, q6hr, PRN as needed for pain, # 30 tab(s), 0 Refill(s), [facility]: [facility][id number], Arthritis, 181.5, cm, 07/19/22 8:33:00 EDT, Height, 107.6, kg, 07/19/22 8:33:00 EDT, Dosing Weight Start Date: 07/19/22 Stop Date: 07/26/22 Status: Ordered Start: 05-28-2021 End: 06-04-2021 take 1 tablet by mouth every six hours as needed for pain acetaminophen-codeine 300 mg-30 mg oral tablet Dose = 1 tab(s), Oral, q6hr, PRN as needed for pain, # 20 tab(s), 0 Refill(s), Pharmacy: [facility] Arthritis, 181, cm, 05/28/21 9:18:00 EDT, Height, 109, kg, 05/28/21 9:18:00 EDT, Dosing Weight Start Date: 05/28/21 Stop Date: 06/04/21 Status: Ordered atorvastatin 20 mg oral tablet (20 sources) HMG-CoA Reductase Inhibitor Start: 08-08-2022 End: 01-27-2025 take 1 tablet by mouth at bedtime Atorvastatin 20 mg tablet Discontinued 20 mg PO AT BEDTIME 90 0 March 18, 2024 7:44am January 27, 2025 11:49am Start: 04-15-2022 atorvastatin 2 0 mg oral tablet Dose : 20 mg = 1 tab(s), Oral, qHS, # 90 tab(s), 3 Refill(s), Pharmacy: [facility] 181, cm, 04/15/22 9:18:00 EDT, Height, kg, 04/15/22 9:18:00 EDT, Dosing Weight Start Date: 04/15/22 Status: Ordered Start: 11-27-2020 atorvastatin 2 0 mg oral tablet Dose : 20 mg = 1 tab(s), Oral, qHS, # 90 tab(s), 3 Refill(s), [facility] 182, cm, 11/27/20 7:57:00 EST, Height, kg, 11/27/20 7:57:00 EST, Dosing Weight Start Date: 11/27/20 Status: Ordered dilTIAZem (4 sources) Calcium Channel Jose Alberto Start: 04-21-2025 End: 07-24-2025 Diltiazem 2% Ointment (Compound) ointment Discontinued 0 .Route 1 0 April 21, 2025 12:00am July 24, 2025 12:51pm Anal fissure Anal fissure, unspecified Apply small amount to anal area 3-4 x/day as needed Start: 04-21-2025 Diltiazem 2% O intment (Compound) ointment Active 0 .Route 1 April 21, 2025 12:00am Anal fissure Anal fissure, unspecified Apply small amount to anal area 3-4 x/day as needed Start: 04-21-2025 Diltiazem 2% O intment (Compound) ointment Active 0 .ROUTE 1 April 21, 2025 12:00am Apply small amount to anal area 3-4 x/day as needed Hydrocortisone / Lidocaine (6 sources) Antiarrhythmic, Corticosteroid, Amide Local Anesthetic Start: 10-07-2024 End: 07-24-2025 Hydrocortisone 2.5% / Lidocaine 5% Ointment (Cmpd) ointment Discontinued 0 .Route 1 October 07, 2024 1:00am July 24, 2025 12:51pm As directed Start: 10-07-2024 Hydrocortisone 2.5% / Lidocaine 5% Ointment (Cmpd) ointment Active 0 .Route 1 October 07, 2024 1:00am As directed Start: 10-07-2024 Hydrocortisone 2.5% / Lidocaine 5% Ointment (Cmpd) ointment Active 0 .Route 1 October 07, 2024 1:00am As directed metFORMIN hydrochloride 500 mg oral tablet (20 sources) Biguanide Start: 08-08-2022 End: 10-03-2023 take 1 tablet by mouth once daily Metformin 500 mg tablet Discontinued 500 mg PO DAILY 90 March 29, 2023 9:50am October 03, 2023 12:49pm Start: 04-15-2022 metFORMIN 500 mg oral tablet (IR) Dose : 500 mg = 1 tab(s), Oral, qAM, # 90 tab(s), 3 Refill(s), [facility] [address] [facility], cm, 04/15/22 9:18:00 EDT, Height, kg, 04/15/22 9:18:00 EDT, Dosing Weight Start Date: 04/15/22 Status: Ordered Start: 11-27-2020 metFORMIN 500 mg oral tablet (IR) Dose : 500 mg = 1 tab(s), Oral, qAM, # 90 tab(s), 3 Refill(s), [facility] [address] 182, cm, 11/27/20 7:57:00 EST, Height, kg, 11/27/20 7:57:00 EST, Dosing Weight Start Date: 11/27/20 Status: Ordered traZODone hydrochloride 100 mg oral tablet (20 sources) Serotonin Reuptake Inhibitor Start: 06-12-2023 End: 01-27-2025 take 1 tablet by mouth once daily Trazodone 100 mg tablet Discontinued 100 mg PO DAILY February 29, 2024 4:05pm May 02, 2024 10:08am Start: 04-07-2023 End: 06-12-2023 take 2 tablets by mouth at bedtime Trazodone Discontinued 0 .ROUTE .COMPLEX April 07, 2023 7:03am June 12, 2023 12:42pm TAKE 2 TABLETS (100MG) BY MOUTH AT BEDTIME Start: 08-08-2022 End: 06-12-2023 take 2 tablets by mouth at bedtime Trazodone 50 mg tablet Discontinued 0 .ROUTE .COMPLEX 90 April 07, 2023 8:03am June 12, 2023 1:42pm TAKE 2 TABLETS (100MG) BY MOUTH AT BEDTIME Start: 08-08-2022 End: 04-07-2023 take 100 mg by mouth at bedtime Trazodone Discontinued 100 MG PO AT BEDTIME 180 March 29, 2023 8:50am April 07, 2023 7:03am Start: 04-15-2022 End: 04-10-2023 traZODone 50 mg oral tablet Dose : 75 mg = 1.5 tab(s), Oral, qHS, # 135 tab(s), 3 Refill(s), [facility] [address], cm, 04/15/22 9:18:00 EDT, Height, kg, 04/15/22 9:18:00 EDT, Dosing Weight Start Date: 04/15/22 Stop Date: 04/10/23 Status: Ordered Start: 11-27-2020 End: 11-22-2021 traZODone 50 mg oral tablet Dose : 75 mg = 1.5 tab(s), Oral, qHS, # 135 tab(s), 3 Refill(s), [facility] [address], cm, 11/27/20 7:57:00 EST, Height, kg, 11/27/20 7:57:00 EST, Dosing Weight Start Date: 11/27/20 Stop Date: 11/22/21 Status: Ordered Problems Active Problems Problem Classification Problem Date Documented Da te Episodic/Chronic Abdominal hernia (13 sources) Gastroesophageal reflux disease with hiatal hernia; Translations: [Diaphragmatic hernia without obstruction or gangrene] Onset: 5 10-10-2022 Episodic Comment on above: Patient reports hiat al hernia first diagnosed with upper GI study. At the time of this diagnosis he was having significant GERD symptoms, but reports these are minimal at this time and well managed with his dietary precautions. Abdominal pain (9 sources) Right inguinal pain; Translations: [Right lower quadrant pain] Onset: 5 04-04-2025 Episodic Comment on above: Patient describes ri ght groin pain exacerbated with straining but on exam I do not feel any evidence of right groin hernia. Therefore, inclined to believe this is simply a strain and have recommended conservative course of action with rest, ice, and NSAID medication per the label. Administrative/social admission (1 source) Persons encountering health services in other specified circumstances; Translations: [Other reasons for seeking consultation] Episodic Anal and rectal conditions (8 sources) Anal fissure; Translations: [Anal fissure, unspecified] 04-21-2025 Episodic Comment on above: Patient is 69-year-o ld male with history of hemorrhoidal disease with whom I had planned to proceed with anoscopy and hemorrhoid banding today, however, upon exam he has evidence of a anal fissure. I shared I was concerned the insertion of the anoscope would lead to exacerbation of his fissure and therefore strongly recommended treatment of this issue before doing any further exploration for hemorrhoids. Patient was immediately receptive. He is instructed on the topical application of diltiazem and its risk for transcutaneous absorption. Further, I recommended ongoing sitz bath's to be performed at least twice daily and after bowel movements. Will plan to reassess in 2 to 3 weeks. Patient is 69-year-o ld male with history of hemorrhoidal disease with whom I had planned to proceed with anoscopy and hemorrhoid banding today, however, upon exam he has evidence of a anal fissure. I shared I was concerned the insertion of the anoscope would lead to exacerbation of his fissure and therefore strongly recommended treatment of this issue before doing any further exploration for hemorrhoids. Patient was immediately receptive. He is instructed on the topical application of diltiazem and its risk for transcutaneous absorption. Further, I recommended ongoing sitz bath's to be performed at least twice daily and after bowel movements. Will plan to reassess in 2 to 3 weeks.Update 05/12/2025: Patient's primary complaints seem to be related to his symptoms from his anal fissure. Now that this has been treated his symptoms are nearly completely resolved. He still describes some discomfort with bowel movements and he still has a small component of his anal fissure. However, I believe this will be short-lived with consistent treatment and I stressed to him the need to continue more regular use of his diltiazem ointment and described its function and relaxing the anal sphincter. I also recommended that he continue sitz bath's. At this point I do not find cause to require a follow-up visit but have invited him to schedule I if issues persist. He is encouraged to remain vigilant to his bowel habits and avoid constipation where possible. Anxiety disorders (17 sources) Generalized anxiety disorder; Translations: [Anxiety] 08-29-2019 Chronic Diabetes mellitus with complications (6 sources) Hyperglycemia due to type 2 diabetes mellitus; Translations: [Type 2 diabetes mellitus with hyperglycemia] 11-02-2024 Chronic Diabetes mellitus without complication (17 sources) Diabetes mellitus; Translations: [Type 2 diabetes mellitus without complications] 05-28-2020 Chronic Disorders of lipid metabolism (15 sources) Hyperlipidemia; Translations: [Mixed hyperlipidemia] 08-29-2019 Chronic Essential hypertension (20 sources) Hypertensive disorder; Translations: [Essential (primary) hypertension] Onset: 9 08-29-2019 Chronic Hyperplasia of prostate (2 sources) Benign prostatic hypertrophy with outflow obstruction 12-23-2020 Chronic Hypertension with complications and secondary hypertension (6 sources) Hypertensive urgency ; Translations: [Hypertensive urgency] 11-02-2024 Chronic Osteoarthritis (10 sources) Arthritis; Translations: [Unspecified osteoarthritis, unspecified site] 08-08-2022 Chronic Other gastrointestinal disorders (9 sources) Stool DNA-based colorectal cancer screening positive; Translations: [Other fecal abnormalities] 10-10-2022 Episodic Comment on above: This is a 67-year-ol d male, asymptomatic from a GI standpoint, who presents for discussion around scheduling a diagnostic colonoscopy on the account of a recently positive Cologuard test. As above and per HPI, patient has not noticed any change to his bowel habits. He has experienced a unintentional weight loss, but has made some adjustments to his diet on account of other comorbidities which may explain this. Still, I have discussed with him the importance of following any positive noninvasive colon cancer screening test with a colonoscopy. I have discussed preprocedure prep as well as procedure expectations. He accepts this recommendation and wishes to proceed as described. At this time I do not find compelling reason to proceed with a screening EGD given patient's reported significant improvement in his history of GERD/hiatal hernia and minimal tobacco exposure (patient states that at most he smoked for 2 to 3 years remotely). Other gastrointestinal disorders (1 source) Other fecal abnormalities; Translations: [Abnormal feces] 10-10-2022 Episodic Other male genital disorders (3 sources) Impotence 08-29-2019 Chronic Other male genital disorders (9 sources) Male erectile dysfunction, unspecified; Translations: [Erectile dysfunction] 03-29-2023 Chronic Other non-traumatic joint disorders (1 source) Knee pain 07-19-2022 Episodic Other non-traumatic joint disorders (1 source) Pain in right knee; Translations: [Pain in joint, lower leg] 10-03-2023 Episodic Other screening for suspected conditions (not mental disorders or infectious disease) (7 sources) Prostate specific antigen abnormal ; Translations: [Raised prostate specific antigen] 08-29-2019 Episodic Residual codes; unclassified (4 sources) Immunization not carried out because of patient refusal; Translations: [Vaccination not carried out because of patient refusal] Episodic Residual codes; unclassified (4 sources) History of hemorrhoid; Translations: [Other specified postprocedural states] 02-20-2025 Episodic Superficial injury; contusion (2 sources) Contusion of right lesser toe(s) without damage to nail, initial encounter; Translations: [Abrasion, right lesser toe(s), initial encounter] Onset: Episodic Past or Other Problems Problem Classification Problem Date Documented Date Episodic/Chronic Hemorrhoids (20 sources) Hemorrhoids; Translations: [Unspecified hemorrhoids] Onset: 02-03-2025 12-23-2024 Episodic Comment on above: Patient is a 69-year -old male who makes follow-up for complaints of burning and swelling in association with hemorrhoids. He appears to be making a conscientious effort with conservative measures but perhaps overdoing it with his use of MiraLAX. I have instructed him to try to take this medication only as needed and titrated and affect to 1-2 soft bowel movements per day so as to overall net a decrease in his toilet time. He seems to confirm understanding. On exam today I appreciate only some lower grade internal hemorrhoids but there is no blood. With this assessment, I believe Mr. King would be an appropriate candidate for hemorrhoid banding. However, it has been over 2 years since his last colonoscopy and I do not want to be overlooking an alternative rectal pathology. Moreover, he did not tolerate a digital rectal exam very well during today's visit and therefore this casts doubt on his ability to tolerate an in-office anoscopy with banding. Thus I have recommended repeat colonoscopy with consent to proceed with endoscopic banding. Mr. Frideman and his appear happy with this recommendation. Requirement for a split prep and fiber hold were discussed with them. Patient is 69-year-o ld male known to me for history of internal hemorrhoids status post endoscopic banding with a favorable result he presents today with signs and symptoms of an external hemorrhoid. Indeed, on exam I find a left-sided thrombosed external hemorrhoid. Discussed management to include possible lancing and expression of the clot (given that we are within the first 72 hours) versus more conservative measures with sitz bath's and application of lidocaine ointment. I stated that more more guidance was shifting towards the latter course of action. Patient is on board with this latter course of action and a prescription will be written for viscous lidocaine ointment to be applied twice daily to the endoderm as he feels discomfort. Additionally, he is encouraged to resume use of twice daily sitz bath's. Will plan to see him back in clinic for a follow-up visit. Patient returns with description of more hemorrhoidal discomfort. There is minimal evidence of this on inspection during anorectal exam. I have urged him to continue conservative measures for 2 weeks and then we will plan for anoscopy with hemorrhoid banding at that time. Encouraged him to, specifically, increase his water intake. Will also renew prescription for topical lidocaine ointment. Results Test Name Value Interpretation Reference Range Facility MRSA/SAID NASAL SCREENon MRSA+SAID SCRN Negative Normal [facility] Comment on above: Performed By: #### M 100.651 ####[facility] [id number] [facility] [address] [place], [place], [address] Surgery Visit Reporton 07-24 Surgery Visit Report [facility] [address] [place] [address] OFFICE VISIT Date of Service: 07/24/25 MR#: [id number] Acct: [id number] Name: ANGELIA KING Zane Rep #: [id number] : 1955 Provider: Dr. Chuck hendricks MD Age/Sex: 69/M Location: [facility] Status: Signed Intake Vital Signs 01/28/25 08:17 07/24/25 12:50 Height 5 ft 11 in 5 ft 11 in Weight: 182 lb BMI 25.4 BP 145/68 H Blood Pressure Location Rt brachial Position Sitting Respiration 17 Pulse 76 Pulse Source Monitor Pulse Oximetry (%) 98 Oxygen Delivery Method room air Intake Visit Reasons: INGUINAL HERNIA Chief Complaint: inguinal hernia Is patient in pain?: No Allergies No Known Allergies Allergy (Verified 07/24/25 12:51) Medications ???Medication ???Instructions ???Recorded ???Confirmed ???Type acetaminophen 500 mg tablet 500 mg PO Q6H PRN Pain 10/10/22 History (Tylenol Extra Strength) omega 7-pvu-wuz-fish oil 1,000 mg 1 cap PO DAILY 12/07/22 07/24/25 History (120 mg-180 mg) capsule (Fish Oil) psyllium husk 0.4 gram capsule 0.4 g PO QHS 12/07/22 07/24/25 His tory (Metamucil) acetaminophen 300 mg-codeine 30 mg 1 tab PO Q6H PRN pain #10 tabs 0 05/02/24 07/24/25 Rx tablet sildenafil 100 mg tablet 100 mg PO DAILY PRN sexual 4 07/24/25 Rx activity #45 tabs alprazolam 0.25 mg tablet 0.5 mg (2 x 0.25 mg) PO BID #60 07/24/25 Rx tabs lisinopril 20 mg tablet 20 mg PO DAILY 01/27/25 07/24/25 H istory trazodone 100 mg tablet 100 mg PO QHS 01/27/25 07/24/25 Hi story lidocaine 5 % topical ointment 1 applic topical BID PRN 04/04/25 07/24/25 Rx hemorrhoids pain #30 grams polyethylene glycol 3350 17 4 g PO QDAY 04/21/25 07/24/25 Hist ory gram/dose oral powder (Miralax) Have you fallen in the past year?: No PFSH Medical History Wears partial dentures Hemorrhoids Wears glasses Wears dentures Anxiety Diabetes Arthritis Low iron Fatty liver High cholesterol Dietary restriction Heartburn Non-smoker Leg cramps History of pain when walking Ozyrp-Lnfmslnor-Wlwvf (WPW) pattern Cardiology follow-up encounter Hypertension Positive colorectal cancer screening using Cologuard test Hypertension Diabetes Arthritis Surgical History History of banding of hemorrhoid Hx of colonoscopy S/P lateral meniscus repair of right knee H/O prostatectomy Family History Father CVA (cerebral vascular accident) Mother Cancer throat Other Heart disease Social History household members: spouse current occupational status: retired current occupation: [employer] Smoking Status: Never smoker Electronic Cigarette Use: not used alcohol intake: never substance use type: does not use what type of physical activity do you participate in: additional details: cutting wood do you feel safe at home: Yes HPI HPI HPI: Patient is a 69-year-old male who is known to me for a history of hemorrhoid complaints but who presents today with his for newly diagnosed bilateral inguinal hernias. Before embarking on a history for his hernias he does remark that his hemorrhoids seems better. A offhandedly complaint of right lower quadrant pain was previously evaluated by me in the setting of a follow-up visit for hemorrhoids and I did not appreciate a significant hernia defect on cursory exam. Patient states that he went on to have more swelling and burning sensation he then presented to his PCP who ordered CT imaging of the abdomen pelvis. He was recommended a supportive hernia truss. He states that he now wears this and has some relief of his discomfort. He also complains that he is having difficulties with orgasms. He describes generally that the discomfort settles at night. Patient has no personal history of recurrent cutaneous infections including staph. Pertinent surgical history includes: Prostatectomy ROS General General: No weight change, appetite, fatigue, colon cancer, breast cancer or weakness HEENT HEENT: No difficulty swallowing, eye injury, eye surgery, swollen glands or hoarseness Endo Endocrine: Yes diabetes mellitus; No thyroid disease, thyroid cancer, Hair loss, heat intolerance or cold intolerance Skin Skin: No rash or changing moles Musc Musculoskeletal: Yes arthritis; No back problems, rheumatoid arthritis, gout or joint pain Cardio Cardiovascular: Yes high blood pressure; No murmur, pacemaker, heart disease, atrial fibrillation, heart attack, heart stent, palpitations, shortness of breath with exertion or chest pain Psy (more content not included)... Normal [facility] Abdomen/Pelvis WITH Contrast on 06-25-2025 Abdomen/Pelvis WITH Contrast [facility] Imaging Services [address] [place] [id number] Abdomen/Pelvis WITH Contrast MR#: [id number] Acct: [id number] Name: ANGELIA KING Rep #: [id number] : 1955 M 69 From: Conrado weber MD PCP: CARLOS Whitt Status: REG CLI Study: Abdomen/Pelvis WITH Contrast Date of Exam: Exam# [id number] Ordering Dr: Lan David [facility] [place] PROCEDURE: ABDOMEN/PELVIS WITH CONTRAST 06/25/2025 REASON FOR EXAM: RLQ PAIN One-month history of right lower quadrant pain. TECHNIQUE: ABDOMEN/PELVIS WITH CONTRAST Coronal and Sagittal reconstruction series were provided. CONTRAST: Isovue-300 VOLUME: 100 mL One or more dose reduction techniques were used (e.g., Automated exposure control, adjustment of the mA and/or kV according to patient size, use of iterative reconstruction technique. RADIATION DOSE SUMMARY: CTDlvol: 12.6 mGy DLP: 886.16 mGycm COMPARISON: None FINDINGS: Lung bases: The lung bases are clear. There is evidence of coronary artery calcification. Liver: Diffuse fatty infiltration. Gallbladder: Unremarkable Spleen: Normal size. Pancreas: Normal size without evidence of mass surrounding inflammation or ductal dilation. Adrenals: Hyperplasia of the left adrenal gland. Kidneys: Normal renal sizes. No hydronephrosis. Bladder: Mild degree of bladder wall thickening. Central prostatic calcifications. Bowel: Colonic diverticulosis without diverticulitis. Appendix: The appendix is not identified. There is no inflammatory process identified in the right lower quadrant to suggest appendicitis. Lymph nodes: Unremarkable. Vasculature: Mild diffuse atherosclerotic calcifications are noted. Peritoneum / Retroperitoneum: Small bilateral inguinal hernias containing fat slightly larger on the right side. Bones: Unremarkable CT/Abdomen/Pelvis WITH Contrast IMPRESSION: Fatty infiltration of the liver. Mild degree of bladder wall thickening. Hypertrophy of the left adrenal gland. Small bilateral inguinal hernias containing fat slightly larger on the right side. Reading Location: [facility] CC: CARLOS Ballesteros; Lan [facility] CARLOS David Cylinder Steamer: Signed Normal [facility] CREATININE FINGERSTICKon CREATININE WB < 1.0 Normal 0.70-1.30 [facility] Comment on above: Performed By: #### L 9100.0200 ####[facility] [id number] [place], [address] EGFR WB > 60.0000 Normal >60 [facility] Comment on above: Performed By: #### L 9100.0200 ####[facility] [id number], [address] EGFROrdered By: Lan David on 06-25-2025 GFR/1.73 sq M.predicted among non-blacks MDRD (S/P/Bld) [Vol rate/Area] mL/min/{1.73_m2} >60 [facility] Testicular with Arterial Hal won 06-25-2025 Testicular with Arterial Flow [facility] Imaging Services [address] [place] [address] Testicular with Arterial Flow MR#: [id number] Acct: [id number] Name: ANGELIA KING Rep #: [id number] : 1955 M 69 From: Graeme Tolbert MD PCP: CAROLS Whitt Status: REG CLI Study: Testicular with Arterial Flow Date of Exam: Exam# [id number] Ordering Dr: Lan David [facility] 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 Small right epididymal head cysts are benign. LEFT testicle: 4.0 x 2.0 x 2.5 cm. Small left epididymal head cyst. Other findings: [place] striping is seen involving both testes-curvilinear bands of hypoechogenicity. This can represent bands of fibrosis that are likely sequelae of prior inflammation. Occasionally this can be associated with current inflammation, but no hyperemia is seen on color flow to suggest this at this time. Correlate with fever, white count, urinalysis. Mild bilateral hydrocele. Color and spectral Doppler flow is present bilaterally. US/Testicular with Arterial Flow IMPRESSION: No acute abnormality. However, see above description Sub 5 mm benign epididymal cysts. Reading Location: [id number] CC: CARLOS Ballesteros; Lan [facility] CARLOS David Cylinder Steamer: Signed Normal [facility] Surgery Visit Reporton 05-12 Surgery Visit Report [facility] [address] [place] [address] OFFICE VISIT Date of Service: 05/12/25 MR#: [id number] Acct: [id number] Name: ANGELIA KING Rep #: [id number] : 1955 Provider: Dr. Chuck hendricks MD Age/Sex: 69/M Location: [facility] Status: Signed Intake Vital Signs 01/28/25 08:17 Height 5 ft 11 in Intake Visit Reasons: HEMORRHOID CHECK Chief Complaint: Hemorrhoid check Refrigerating Technician Required: No Is patient in pain?: No Allergies No Known Allergies Allergy (Verified 05/12/25 14:54) Medications ???Medication ???Instructions ???Recorded ???Confirmed ???Type acetaminophen 500 mg tablet 500 mg PO Q6H PRN Pain 10/10/22 History (Tylenol Extra Strength) omega 6-vkv-ebi-fish oil 1,000 mg 1 cap PO DAILY 12/07/22 05/12/25 History (120 mg-180 mg) capsule (Fish Oil) psyllium husk 0.4 gram capsule 0.4 g PO QHS 12/07/22 05/12/25 His tory (Metamucil) acetaminophen 300 mg-codeine 30 mg 1 tab PO Q6H PRN pain #10 tabs 0 05/02/24 05/12/25 Rx tablet sildenafil 100 mg tablet 100 mg PO DAILY PRN sexual 4 05/12/25 Rx activity #45 tabs alprazolam 0.25 mg tablet 0.5 mg (2 x 0.25 mg) PO BID #60 05/12/25 Rx tabs Hydrocortisone 2.5% / Lidocaine 5% #1 ea 10/07/24 05/12/25 Rx ointment (cmpd) lisinopril 20 mg tablet 20 mg PO DAILY 01/27/25 05/12/25 H istory trazodone 100 mg tablet 100 mg PO QHS 01/27/25 05/12/25 Hi story lidocaine 5 % topical ointment 1 applic topical BID PRN 04/04/25 05/12/25 Rx hemorrhoids pain #30 grams Diltiazem 2% ointment (compound) #1 ea 04/21/25 05/12/25 Rx polyethylene glycol 3350 17 4 g PO QDAY 04/21/25 05/12/25 Hist ory gram/dose oral powder (Miralax) Have you fallen in the past year?: No PFSH Medical History Wears partial dentures Hemorrhoids Wears glasses Wears dentures Anxiety Diabetes Arthritis Low iron Fatty liver High cholesterol Dietary restriction Heartburn Non-smoker Leg cramps History of pain when walking Psfqs-Yranwfmby-Ptmnl (WPW) pattern Cardiology follow-up encounter Hypertension Positive colorectal cancer screening using Cologuard test Hypertension Diabetes Arthritis Surgical History History of banding of hemorrhoid Hx of colonoscopy S/P lateral meniscus repair of right knee H/O prostatectomy Family History Father CVA (cerebral vascular accident) Mother Cancer throat Other Heart disease Social History household members: spouse current occupational status: retired current occupation: [employer] Smoking Status: Never smoker Electronic Cigarette Use: not used alcohol intake: never substance use type: does not use what type of physical activity do you participate in: additional details: cutting wood do you feel safe at home: Yes HPI HPI HPI: Patient is 69-year-old male who follows up for management of anal fissure. Patient last seen 04/21/2025. He reports today with his . He states that he is pleased to report today that he is not pacing so much out of pain. He goes on, however, to qualify this stating that the pain is not gone by any means. He also has not noticed any bleeding for the past few days. He still seems to note some slight protrusion of an external hemorrhoid but finds this to be stable. He confirms that his bowel movements are coming regularly and he has remained careful to not strain. He does state that he has had to increase his MiraLAX to a three quarters dose to achieve the softer bowel movements. Lastly he reports that he has been using his prescribed diltiazem cream twice daily as a general rule but there have been days when he has used it just once. Below is recapitulated from patient's prior visit for ease of review: Patient is 69-year-old male who follows up for management of hemorrhoid disease. He was last seen on 04/04/2025. Today he presents with his . He shares that his condition is largely status quo. He describes some episodic bleeding including today. He reports that he is overall trying to minimize periods of standing and exertion. Exam Const General: cooperative, comfortable and no acute distress Resp Effort Inspection: normal respiratory effort GI Other: Anorectal exam was performed and patient, once again, had thin yellow-brown stool on the anoderm but no evidence of blood. Persistent skin tag at the 11 o'clock position. Just medial to the skin tag the previously noted anal fissure is all that healed apart from an approximately 1 mm long area. Nonthrombosed external hemorrhoid evident Assessment and (more content not included)... Normal [facility] Surgery Visit Reporton 04-21 Surgery Visit Report [facility] [address] [facility] [address] [place] [address] OFFICE VISIT Date of Service: 04/21/25 MR#: [id number] Acct: [id number] Name: ANGELIA KING Rep #: [id number] : 1955 Provider: Dr. Chuck hendricks MD Age/Sex: 69/M Location: [facility] Status: Signed Intake Vital Signs 01/28/25 08:17 Height 5 ft 11 in Intake Visit Reasons: HEMORRHOID CHECK WITH ANOSCOPY Chief Complaint: Hemorrhoid check with anoscopy Is patient in pain?: No Allergies No Known Allergies Allergy (Verified 04/21/25 10:16) Medications ???Medication ???Instructions ???Recorded ???Confirmed ???Type acetaminophen 500 mg tablet 500 mg PO Q6H PRN Pain 10/10/22 History (Tylenol Extra Strength) omega 4-pjk-wof-fish oil 1,000 mg 1 cap PO DAILY 12/07/22 04/21/25 History (120 mg-180 mg) capsule (Fish Oil) psyllium husk 0.4 gram capsule 0.4 g PO QHS 12/07/22 04/21/25 His tory (Metamucil) acetaminophen 300 mg-codeine 30 mg 1 tab PO Q6H PRN pain #10 tabs 0 05/02/24 04/21/25 Rx tablet sildenafil 100 mg tablet 100 mg PO DAILY PRN sexual 4 04/21/25 Rx activity #45 tabs alprazolam 0.25 mg tablet 0.5 mg (2 x 0.25 mg) PO BID #60 04/21/25 Rx tabs Hydrocortisone 2.5% / Lidocaine 5% #1 ea 10/07/24 04/21/25 Rx ointment (cmpd) lisinopril 20 mg tablet 20 mg PO DAILY 01/27/25 04/21/25 H istory trazodone 100 mg tablet 100 mg PO QHS 01/27/25 04/21/25 Hi story lidocaine 5 % topical ointment 1 applic topical BID PRN 04/04/25 04/21/25 Rx hemorrhoids pain #30 grams Diltiazem 2% ointment (compound) #1 ea 04/21/25 04/21/25 Rx polyethylene glycol 3350 17 4 g PO QDAY 04/21/25 04/21/25 Hist ory gram/dose oral powder (Miralax) Have you fallen in the past year?: No PFSH Medical History Wears partial dentures Hemorrhoids Wears glasses Wears dentures Anxiety Diabetes Arthritis Low iron Fatty liver High cholesterol Dietary restriction Heartburn Non-smoker Leg cramps History of pain when walking Jyngp-Uvfghapfd-Kcibw (WPW) pattern Cardiology follow-up encounter Hypertension Positive colorectal cancer screening using Cologuard test Hypertension Diabetes Arthritis Surgical History History of banding of hemorrhoid Hx of colonoscopy S/P lateral meniscus repair of right knee H/O prostatectomy Family History Father CVA (cerebral vascular accident) Mother Cancer throat Other Heart disease Social History household members: spouse current occupational status: retired 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 He was last seen on 04/04/2025. Today he presents with his . He shares that his condition is largely status quo. He describes some episodic bleeding including today. He reports that he is overall trying to minimize periods of standing and exertion. Below is recapitulated from patient's prior visit for ease of review: Patient is 69-year-old male known to me for history of hemorrhoidal disease status post colonoscopy 01/28/2025. Patient last seen by me 02/20/2025 for the same. At that time he was identified as having an external hemorrhoid with acute flare. Lancing versus ongoing observation was offered along with 2-week follow-up visit. He opted for ongoing observation. He states he never kept a follow-up visit because things seem to be getting better but now he is not so sure. By this he states that there is swelling and today while he was trying to have a bowel movement before coming to his appointment experienced some blood. He states that the blood was present on the toilet paper as well as coating the stool. He shares that he does not believe he is having too much in the way of constipation. He is still working on optimizing his MiraLAX dose and shares that he is at a three quarters dose along with fiber and prune juice. He is notes he just recently cut the prune juice down to half of his usual because he was concerned he may be taking too much fiber. When asked about his water intake he states that he tries to force water but is unsure whether or not he needs a minimum. Concerning his fiber intake he is taking the husk twice daily and then sprinkles brand into some other foods to increase it there as well. Through this regimen he repo (more content not included)... Normal [facility] Surgery Visit Reporton 04-04 Surgery Visit Report [facility] [address] [place] [address] OFFICE VISIT Date of Service: 04/04/25 MR#: [id number] Acct: [id number] Name: ANGELIA KING Rep #: [id number] : 1955 Provider: Dr. Chuck hendricks MD Age/Sex: 69/M Location: [facility] Status: Signed Intake Vital Signs 01/28/25 08:17 Height 5 ft 11 in Intake Visit Reasons: HEMORRHOIDS Chief Complaint: Hemorrhoids Refrigerating Technician Required: No Accompanied by: Is patient in pain?: Yes Allergies No Known Allergies Allergy (Verified 04/04/25 14:22) Medications ???Medication ???Instructions ???Recorded ???Confirmed ???Type acetaminophen 500 mg tablet 500 mg PO Q6H PRN Pain 10/10/22 History (Tylenol Extra Strength) omega 1-zla-kpb-fish oil 1,000 mg 1 cap PO DAILY 12/07/22 04/04/25 History (120 mg-180 mg) capsule (Fish Oil) psyllium husk 0.4 gram capsule 0.4 g PO QHS 12/07/22 04/04/25 His tory (Metamucil) acetaminophen 300 mg-codeine 30 mg 1 tab PO Q6H PRN pain #10 tabs 0 05/02/24 04/04/25 Rx tablet sildenafil 100 mg tablet 100 mg PO DAILY PRN sexual 4 04/04/25 Rx activity #45 tabs alprazolam 0.25 mg tablet 0.5 mg (2 x 0.25 mg) PO BID #60 04/04/25 Rx tabs Hydrocortisone 2.5% / Lidocaine 5% #1 ea 10/07/24 04/04/25 Rx ointment (cmpd) lisinopril 20 mg tablet 20 mg PO DAILY 01/27/25 04/04/25 H istory trazodone 100 mg tablet 100 mg PO QHS 01/27/25 04/04/25 Hi story lidocaine 5 % topical ointment 1 applic topical BID PRN 04/04/25 04/04/25 Rx hemorrhoids pain #30 grams Have you fallen in the past year?: No PFSH Medical History Wears partial dentures Hemorrhoids Wears glasses Wears dentures Anxiety Diabetes Arthritis Low iron Fatty liver High cholesterol Dietary restriction Heartburn Non-smoker Leg cramps History of pain when walking Czcno-Puybqarst-Vgdxd (WPW) pattern Cardiology follow-up encounter Hypertension Positive colorectal cancer screening using Cologuard test Hypertension Diabetes Arthritis Surgical History History of banding of hemorrhoid Hx of colonoscopy S/P lateral meniscus repair of right knee H/O prostatectomy Family History Father CVA (cerebral vascular accident) Mother Cancer throat Other Heart disease Social History household members: spouse current occupational status: retired current occupation: [employer] Smoking Status: Never smoker Electronic Cigarette Use: not used alcohol intake: never substance use type: does not use what type of physical activity do you participate in: additional details: cutting wood do you feel safe at home: Yes HPI HPI HPI: Patient is 69-year-old male known to me for history of hemorrhoidal disease status post colonoscopy 01/28/2025. Patient last seen by me 02/20/2025 for the same. At that time he was identified as having an external hemorrhoid with acute flare. Lancing versus ongoing observation was offered along with 2-week follow-up visit. He opted for ongoing observation. He states he never kept a follow-up visit because things seem to be getting better but now he is not so sure. By this he states that there is swelling and today while he was trying to have a bowel movement before coming to his appointment experienced some blood. He states that the blood was present on the toilet paper as well as coating the stool. He shares that he does not believe he is having too much in the way of constipation. He is still working on optimizing his MiraLAX dose and shares that he is at a three quarters dose along with fiber and prune juice. He is notes he just recently cut the prune juice down to half of his usual because he was concerned he may be taking too much fiber. When asked about his water intake he states that he tries to force water but is unsure whether or not he needs a minimum. Concerning his fiber intake he is taking the husk twice daily and then sprinkles brand into some other foods to increase it there as well. Through this regimen he reports that he is having smaller but more frequent bowel movements. He was advised by his that if it floats there is enough fiber. He admits his main concern is that this is causing some discomfort. Outside the above he suggests he has concerns for possible hernia in the right lower quadrant. He states that there has been a tendency for tenderness for years but over the last 10 days it started to bother him more. He notes some bulging and that occasionally his testicle hurts. He also confirms that straining or being on his feet seems to make this wor (more content not included)... Normal [facility] Surgery Visit Reporton 02-20 Surgery Visit Report [facility] [address] [place] [address] OFFICE VISIT Date of Service: 02/20/25 MR#: [id number] Acct: [id number] Name: ANGELIA KING Rep #: [id number] : 1955 Provider: Dr. Chuck hendricks MD Age/Sex: 69/M Location: [facility] Status: Signed Intake Vital Signs 01/28/25 08:17 Height 5 ft 11 in Intake Visit Reasons: Hemorrhoids Chief Complaint: discuss hemorrhoids Is patient in pain?: Yes Allergies No Known Allergies Allergy (Verified 02/20/25 15:16) Medications ???Medication ???Instructions ???Recorded ???Confirmed ???Type acetaminophen 500 mg tablet 500 mg PO Q6H PRN Pain 10/10/22 History (Tylenol Extra Strength) omega 8-hgg-unt-fish oil 1,000 mg 1 cap PO DAILY 12/07/22 02/20/25 History (120 mg-180 mg) capsule (Fish Oil) psyllium husk 0.4 gram capsule 0.4 g PO QHS 12/07/22 02/20/25 His tory (Metamucil) acetaminophen 300 mg-codeine 30 mg 1 tab PO Q6H PRN pain #10 tabs 0 05/02/24 02/20/25 Rx tablet sildenafil 100 mg tablet 100 mg PO DAILY PRN sexual 4 02/20/25 Rx activity #45 tabs alprazolam 0.25 mg tablet 0.5 mg (2 x 0.25 mg) PO BID #60 02/20/25 Rx tabs Hydrocortisone 2.5% / Lidocaine 5% #1 ea 10/07/24 02/20/25 Rx ointment (cmpd) lisinopril 20 mg tablet 20 mg PO DAILY 01/27/25 02/20/25 H istory trazodone 100 mg tablet 100 mg PO QHS 01/27/25 02/20/25 Hi story lidocaine 5 % topical ointment 1 applic topical BID PRN 02/20/25 02/20/25 Rx hemorrhoids pain #30 grams Have you fallen in the past year?: No Subjective Details: Patient is a 69-year-old male known to me for a history of hemorrhoidal disease status post colonoscopy 01/28/2025 which time he underwent endoscopic hemorrhoid banding of an internal hemorrhoid. He arrives today for an unscheduled visit due to development of pain and a lump around his anus. He states that he thought he was doing better he had both less pain and swelling after his banded hemorrhoid seemed to drop off. Then 5 days ago he experienced some bleeding which was self-limited and has been better. Starting today he developed some pain and a lump on the opposite side of where his hemorrhoid had been banded. He denies any recent straining. He suggest that his bowel movements have occurred twice daily with the use of nightly MiraLAX (at a full dose) he also reports that he is still supplementing his fiber. 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 He arrives today wearing a mask and states this is more out of precaution but last night had felt a bit of a chill. He states that his bowel movement today was more loose than usual. Objective Details: Constitutional: No acute distress, anxious Anorectal: Small amount of feculent matter of the anal Derm. Engorged purple-colored external hemorrhoid on the left that is tender to palpation. Coding Level of Care Code Off vis,est,level 3 Diagnoses External hemorrhoid, thrombosed K64.5 [facility] Medical History (Updated 02/20/25 @ 15:[address] Chuck Bruce MD) Wears partial dentures Hemorrhoids Wears glasses Wears dentures Anxiety Diabetes Arthritis Low iron Fatty liver High cholesterol Dietary restriction Heartburn Non-smoker Leg cramps History of pain when walking Rlgab-Qtnvbopop-Ohvtk (WPW) pattern Cardiology follow-up encounter Hypertension Positive colorectal cancer screening using Cologuard test Hypertension Diabetes Arthritis Surgical History (Updated 02/20/25 @ 15:17 by Christina Reilly) History of banding of hemorrhoid Hx of colonoscopy S/P lateral meniscus repair of right knee H/O prostatectomy Family History Father CVA (cerebral vascular accident) Mother Cancer throat Other Heart disease Social History household members: spouse current occupational status: retired current occupation: [employer] Smoking Status: Never smoker Electronic Cigarette Use: not used alcohol intake: never substance use type: does not use what type of physical activity do you participate in: additional details: cutting wood do you feel safe at home: Yes Assessment and Plan (No Qualifiers) Assessment and Plan (1) External hemorrhoid, thrombosed: Status: Acute Comment: Patient is 69-year-old male known to me for history of internal hemorrhoids status post endoscopic banding with a favorable result he presents today with signs and symptoms of an external hemorrhoid. Indeed, on exam I find a left-sided thrombosed external hemorrhoid. Discussed management to include possible lancing and expression of the clot (given that we are within the first 72 evgeny (more content not included)... Normal [facility] Bedside Glucoseon 01-28-2025 FINGERSTICK GLU 91 mg/dL Normal 74-106 [facility] Comment on above: Result Comment: ANASTACIO KRAMER OF PATIENT CARE PER NURSING PROTOCOL Performed By: #### L 501.080 ####[facility] [address] [place], [address] Colonoscopy Reporton [address] [facility] Medical Records Department [address] [place] [address] Colonoscopy Report MR#: [id number] Acct: [id number] Name: ANGELIA KING Rep #: [id number] : 1955 69 From: Chuck Bruce MD PCP: CARLOS Whitt Status:REG SDC Patient Name: Angelia King Procedure Date: 01/28/2025 9:33 AM Date of : 1955 Age: 69 Procedure: Colonoscopy Indications: Rectal bleeding Providers: Chuck Bruce MD Referring MD: Zackary Ballesteros Carlos spring Medicines: See the Anesthesia note for documentation of the administered medications Patient Profile: Refer to note in patient chart for documentation of history and physical. Last Colonoscopy: within the past 3 years. Complications: No immediate complications. Estimated blood loss: Minimal. Procedure: Pre-Anesthesia Assessment: - The heart rate, respiratory rate, oxygen saturations, blood pressure, adequacy of pulmonary ventilation, and response to care were monitored throughout the procedure. After I obtained informed consent, the scope was passed under direct vision. Throughout the procedure, the patient's blood pressure, pulse, and oxygen saturations were monitored continuously. The Colonoscope was introduced through the anus and advanced to the cecum, identified by the appendiceal orifice, ileocecal valve and palpation. The colonoscopy was somewhat difficult due to a tortuous colon. Successful completion of the procedure was aided by using scope torsion. The patient tolerated the procedure well. The quality of the bowel preparation was adequate to identify polyps. Scope In: 9:47:43 AM Scope Withdrawal Time 0 hours 22 minutes 50 seconds Scope Out: 10:23:00 AM Total Procedure Duration Time 0 hours 35 minutes 17 seconds Findings: The perianal and digital rectal examinations were normal. The splenic flexure was significantly tortuous. Advancing the scope required using scope torsion. Anal papilla(e) were hypertrophied. The polyp was removed with a hot snare. Resection and retrieval were complete. Estimated blood loss: none. Internal hemorrhoids were found during retroflexion. The hemorrhoids were Grade II (internal hemorrhoids that prolapse but reduce spontaneously). The endoscope was withdrawn. One band was successfully placed. There was no bleeding at the end of the procedure. Estimated blood loss was minimal. The exam was otherwise without abnormality. Impression: - Tortuous colon. - Anal papilla(e) were hypertrophied. - Internal hemorrhoids. Banded. - The examination was otherwise normal. Recommendation: - Discharge patient to home (via wheelchair). - Resume previous diet today. - No aspirin, ibuprofen, naproxen, or other non-steroidal anti-inflammatory drugs for 2 days after biopsy. - Await pathology results. - Repeat colonoscopy date to be determined after pending pathology results are reviewed for surveillance based on pathology results. - Telephone my office for pathology results in 1 week. Procedure Code(s): --- Professional --- 09171, Colonoscopy, flexible; with removal of tumor(s), polyp(s), or other lesion(s) by snare technique 25373, Hemorrhoidectomy, internal, by rubber band ligation(s) Diagnosis Code(s): --- Professional --- K62.89, Other specified diseases of anus and rectum K64.1, Second degree hemorrhoids K62.5, Hemorrhage of anus and rectum Q43.8, Other specified congenital malformations of intestine CPT copyright 2021 [employer]. All rights reserved. The codes documented in this report are preliminary and upon scrub wheel operator review may be revised to meet current compliance requirements. Chuck Bruce MD 01/28/2025 10:31:53 AM This report has been signed electronically. Number of Addenda: 0 Note Initiated On: 01/28/2025 9:33 AM 01/28/25 1032 Date Chuck Bruce MD Cosigner Signature: Date (if indicated) CC: CARLOS Ballesteros; Dr. Chuck Bruce MD Date Dictated: 01/28/25 0933 Date Transcribed: Cylinder Steamer: TANG Signed Normal [facility] Glucose measurement at [facility] deOrdered By: Chuck Bruce on 01-28-2025 Bedside Glucose ([employer] Panel) 91 mg/dL 74-106 [facility] Comment on above: MANAGEMENT OF PATIEN T CARE PER NURSING PROTOCOL Glucose [Mass/Vol] 91 mg/dL 74-106 [facility] Comment on above: MANAGEMENT OF PATIEN T CARE PER NURSING PROTOCOL MR/POSTOP.ANEon 01-28-2025 MR/POSTOP.ANE [facility] Medical Records Department [address] [place] [address] Anesthesia Postop Eval I 01/28/25 1028 MR#: [id number] Acct: [id number] Name: ANGELIA KING Rep #: [id number] : 1955 69 From: Gil Becker CRNA PCP: CARLOS Whitt Status:REG SD Y Race: C Location: [place] [address] Anesthesia: Postop Eval I Current Vital Signs Temperature: 97.6 F Pulse Rate: 69 Blood Pressure: 134/79 Respiratory Rate: 16 Pulse Ox: 100 Assessment Airway patent: Yes Spontaneous unlabored respirations: Yes nausea: No Vomiting: No Anesthesia Complication: No Fluid Hydration Crystalloid volume administer (ml): 30 Total IV fluid infused: 30 Progress Note Anesthesia document: Postop Eval 1 completed: Yes 01/28/25 1029 Date Gil Becker CRNA Cosigner Signature: Date CC: Signed Normal [facility] [id number] 01-28-2025 MR/POSTOPAN2 [facility] Medical Records Department [address] [place] [address] Anesthesia Postop Eval II 01/28/25 1110 MR#: [id number] Acct: [id number] Name: ANGELIA KING Rep #: [id number] : 1955 69 From: Khoa Tuttle MD PCP: Zackary Ballesteros, PIN DRAFTER OPERATOR-C Status:REG SDC Y Race: C Location: [place] [address] Anesthesia Postop Eval I Sum Postop Eval Completion status Anesthesia document: Postop Eval 1 completed: Yes Anesthesia Postop Eval I Summary Anesthesia Postop Eval I Summary: Anesthesia Postop Eval I: Assessment Summary Airway patent Yes 01/28/25 10:28 LUMBER [email or web address].TNES Spontaneous unlabored Yes 01/28/25 10:28 LUMBER RACKER.TNES respirations Mental status nausea No 01/28/25 10:28 LUMBER RACKER.TNES Vomiting No 01/28/25 10:28 LUMBER RACKER.TNES Anesthesia Postop Eval I: Fluid Summary Crystalloid volume administer 30 01/28/25 10:28 LUMBER [email or web address].TNES (ml) Colloids volume administered ( ml) Blood Product volume administered (ml) Total IV fluid infused 30 01/28/25 10:28 LUMBER [email or web address].TNES Anesthesia Postop Eval I: Summary Notes Anesthesia Complication No 01/28/25 10:28 LUMBER [email or web address].TNES Anesthesia Complication Comment: Post-operative progress note Anesthesia: Postop Eval II Evaluation Mental status: Awake Pain Level: 0 nausea: No Vomiting: No Complications Anesthesia Complication: No 01/28/25 1110 Date Khoa Tuttle MD Cosigner Signature: Date CC: Signed Normal [facility] Surgery Specimen Level Miguel 01-28-2025 Surgery Specimen Level IV -------- Patient Age/Sex Location Account Attending Physician -------- ANGELIA KING 69/M EN [id number] Dr. Chuck Bruce MD -------- Specimen: [id number] Received: 01/28/25 Status: MENDOZA Harplobito Num: [id number] Spec Type: COLON BX Subm Dr: Dr. Chuck Bruce MD HEADER OPERATION: Colonoscopy with hemorrhoid banding PRE-OP DIAGNOSIS: Hemorrhoids TISSUE SUBMITTED: A- Anal mass -------- MICROSCOPIC DIAGNOSIS A. Anus, mass, excision: * Polypoid papillomatous squamous mucosa with hyperkeratosis. * Negative for HPV-cytopathic effect, dysplasia, and malignancy. MICROSCOPIC DESCRIPTION Slides are reviewed. GROSS DESCRIPTION A. Received in fixative is one container labeled with the patient's name and designated Anal mass. The specimen consists of a single fragment of light toney tissue measuring 1 x 0.7 x 0.6cm. The entire specimen is submitted in one cassette. Geoffrey 01/28/2025 CPT:42726 -------- Patient Age/Sex Location Account Attending Physician -------- ANGELIA KING 69/M EN [id number] Dr. Chuck Bruce MD -------- Signed (signature on file) Dr. Melony Gerard MD 01/30/25 171 -------- Normal [facility] Comment on above: Performed By: #### P SUIV ####[facility] [address] [place], [place], [id number] Absolute lymphocyte countOrd ered By: Lan David on 01-22-2025 Lymphocytes Auto (Unsp spec) [#/Vol] 1.07 10*3/uL 0.83-4.51 [facility] Absolute neutrophil countOrd ered By: Zebulun Beam on 01-22-2025 Neutrophils (Bld) [#/Vol] 6.9 10*3/uL 2.0-7.7 [facility] Anion gap in Serum or Plasma Ordered By: bulun Beam on 01-22-2025 Anion gap [Moles/Vol] 10 mmol/L 5-15 [facility] Automated lymphocyte count a s percentage of total leukocytesOrdered By: bulun Beam on 01-22-2025 Lymphocytes/100 WBC Auto (Unsp spec) 11.9 % Low 19-41 [facility] BUN/creatinine ratioOrdered By: [facility] Beam on 01-22-2025 Urea nitrogen/Creatinine [Mass ratio] 19.1 mg/mg 10-20 [facility] Basophil percentageOrdered B y: Zebulun Beam on 01-22-2025 Basophils/100 WBC (Bld) 0.3 % 0-1 [facility] Bilirubin, totalOrdered By: [facility] Be[facility] on 01-22-2025 Bilirubin [Mass/Vol] 0.33 mg/dL 0.00-1.30 [facility] CBC W/Diff, Automatedon 01-11 Absolute Lymph 1.07 X10 3/uL Normal 0.83-4.51 [facility] Comment on above: Performed By: #### L 501.9910, L100.0100, L501.9985, L500.4050, L500.4100, L501.9520 ####[facility] [address] [place], [address] Absolute Neut 6.9 X10 3/uL Normal 2.0-7.7 [facility] Comment on above: Performed By: #### L 501.9910, L100.0100, L501.9985, L500.4050, L500.4100, L501.9520 ####[facility] [address] [place], [address] Basophils/100 WBC (Bld) 0.3 % Normal 0-1 [facility] Comment on above: Performed By: #### L 501.9910, L100.0100, L501.9985, L500.4050, L500.4100, L501.9520 ####[facility] [address] [place], [address] Eosinophils/100 WBC (Bld) 1.1 % Normal 0-5 [facility] Comment on above: Performed By: #### L 501.9910, L100.0100, L501.9985, L500.4050, L500.4100, L501.9520 ####[facility] [address] [place], [address] Erythrocyte distribution width (RBC) [Ratio] 11.9 % Normal 11.6-14.6 [facility] Comment on above: Performed By: #### L 501.9910, L100.0100, L501.9985, L500.4050, L500.4100, L501.9520 ####[facility] [address] [place], [address] Hematocrit (Bld) [Volume fraction] 40.3 % Normal 40-54 [facility] Comment on above: Performed By: #### L 501.9910, L100.0100, L501.9985, L500.4050, L500.4100, L501.9520 ####[facility] [address] [place], [address] Hemoglobin (Bld) [Mass/Vol] 14.2 g/dL Normal 13.0-16.5 [facility] Comment on above: Performed By: #### L 501.9910, L100.0100, L501.9985, L500.4050, L500.4100, L501.9520 ####[facility] [address] [place], [address] IG% 0.300 Normal 0.0-0.9 [facility] Comment on above: Result Comment: IG% - Immature Granulocytes (promyelocytes, myelocytes and metamyelocytes) > 1% indicates that a LEFT SHIFT is Present. Performed By: #### L 501.9910, L100.0100, L501.9985, L500.4050, L500.4100, L501.9520 ####[facility] [address] [place], [address] Lymphocytes/100 WBC (Bld) 11.9 % Low 19-41 [facility] Comment on above: Performed By: #### L 501.9910, L100.0100, L501.9985, L500.4050, L500.4100, L501.9520 ####[facility] [address] [place], [address] MCH (RBC) [Entitic mass] 31.1 pg Normal 27.0-32.0 [facility] Comment on above: Performed By: #### L 501.9910, L100.0100, L501.9985, L500.4050, L500.4100, L501.9520 ####[facility] [address] [place], [address] MCHC (RBC) [Mass/Vol] 35.2 g/dL Normal 32-36 [facility] Comment on above: Performed By: #### L 501.9910, L100.0100, L501.9985, L500.4050, L500.4100, L501.9520 ####[facility] [address] [place], [address] MCV (RBC) [Entitic vol] 88.4 fL Normal 80-94 [facility] Comment on above: Performed By: #### L 501.9910, L100.0100, L501.9985, L500.4050, L500.4100, L501.9520 ####[facility] [address] [place], [address] Monocytes/100 WBC (Bld) 9.1 % Normal 0-10 [facility] Comment on above: Performed By: #### L 501.9910, L100.0100, L501.9985, L500.4050, L500.4100, L501.9520 ####[facility] [address] [place], [address] Neutrophils/100 WBC (Bld) 77.3 % High 47-70 [facility] Comment on above: Performed By: #### L 501.9910, L100.0100, L501.9985, L500.4050, L500.4100, L501.9520 ####[facility] [address] [place], [address] Nucleated RBC (Bld) [#/Vol] 0 10*3/uL Normal 0-5 [facility] Comment on above: Performed By: #### L 501.9910, L100.0100, L501.9985, L500.4050, L500.4100, L501.9520 ####[facility] [address] [place], [address] Platelet mean volume (Bld) [Entitic vol] 9.9 fL Normal 6.2-12.0 [facility] Comment on above: Performed By: #### L 501.9910, L100.0100, L501.9985, L500.4050, L500.4100, L501.9520 ####[facility] [address] [place], [address] Platelets (Bld) [#/Vol] 214 10*3/uL Normal 150-450 [facility] Comment on above: Performed By: #### L 501.9910, L100.0100, L501.9985, L500.4050, L500.4100, L501.9520 ####[facility] [address] [place], [place], [id number] RBC (Bld) [#/Vol] 4.56 10*6/uL Low 4.6-6.2 [facility] Comment on above: Performed By: #### L 501.9910, L100.0100, L501.9985, L500.4050, L500.4100, L501.9520 ####[facility] [address] [place], [address] RDW SD 38.2 fl Normal 35.1-43.9 [facility] Comment on above: Performed By: #### L 501.9910, L100.0100, L501.9985, L500.4050, L500.4100, L501.9520 ####[facility] [address] [place], [place], [phone] WBC (Bld) [#/Vol] 9.0 10*3/uL Normal 4.4-11.0 [facility] Comment on above: Performed By: #### L 501.9910, L100.0100, L501.9985, L500.4050, L500.4100, L501.9520 ####[facility] [address] [place], [place], [id number] Calculated very low density lipoprotein (VLDL) cholesterol measurementOrdered By: Lan David on 01-22-2025 Calculated very low density lipoprotein (VLDL) cholesterol measurement 15 mg/dL 5-40 [facility] VLDL Cholesterol 15 mg/dL 5-40 [facility] Carbon dioxide, total [Moles /volume] in Central venous bloodOrdered By: Lan David on 01-22-2025 CO2 [Moles/Vol] 24.9 mmol/L 21.0-32.0 [facility] Chloride assayOrdered By: Fran David on 01-22-2025 Chloride [Moles/Vol] 98 mmol/L 98-108 [facility] Comprehensive Metabolic Prof ilon 01-22-2025 Albumin [Mass/Vol] 4.2 g/dL Normal 3.4-4.8 [facility] Comment on above: Performed By: #### L 501.9910, L100.0100, L501.9985, L500.4050, L500.4100, L501.9520 ####[facility] [address] [place], [address] Albumin/Globulin [Mass ratio] 1.9 {ratio} Normal 0.9-2.4 [facility] Comment on above: Performed By: #### L 501.9910, L100.0100, L501.9985, L500.4050, L500.4100, L501.9520 ####[facility] [address] [place], [address] ALK PHOS 43 U/L Normal 40-129 [facility] Comment on above: Performed By: #### L 501.9910, L100.0100, L501.9985, L500.4050, L500.4100, L501.9520 ####[facility] [address] [place], [address] ALT [Catalytic activity/Vol] 19 U/L Normal <=46 [facility] Comment on above: Performed By: #### L 501.9910, L100.0100, L501.9985, L500.4050, L500.4100, L501.9520 ####[facility] [address] [place], [address] AST [Catalytic activity/Vol] 21 U/L Normal <=37 [facility] Comment on above: Performed By: #### L 501.9910, L100.0100, L501.9985, L500.4050, L500.4100, L501.9520 ####[facility] [address] [place], [address] Bilirubin [Mass/Vol] 0.33 mg/dL Normal 0.00-1.30 [facility] Comment on above: Performed By: #### L 501.9910, L100.0100, L501.9985, L500.4050, L500.4100, L501.9520 ####[facility] [address] [place], [address] BUN/CRE 19.1 RATIO Normal 10-20 [facility] Comment on above: Performed By: #### L 501.9910, L100.0100, L501.9985, L500.4050, L500.4100, L501.9520 ####[facility] [address] [place], [address] Calcium [Mass/Vol] 8.9 mg/dL Normal 7.6-11.0 [facility] Comment on above: Performed By: #### L 501.9910, L100.0100, L501.9985, L500.4050, L500.4100, L501.9520 ####[facility] [address] [place], [address] Chloride [Moles/Vol] 98 mmol/L Normal 98-108 [facility] Comment on above: Performed By: #### L 501.9910, L100.0100, L501.9985, L500.4050, L500.4100, L501.9520 ####[facility] [address] [place], [address] CO2 [Moles/Vol] 24.9 mmol/L Normal 21.0-32.0 [facility] Comment on above: Performed By: #### L 501.9910, L100.0100, L501.9985, L500.4050, L500.4100, L501.9520 ####[facility] [address] [place], [address] Creatinine [Mass/Vol] 0.85 mg/dL Normal 0.70-1.20 [facility] Comment on above: Performed By: #### L 501.9910, L100.0100, L501.9985, L500.4050, L500.4100, L501.9520 ####[facility] [address] [place], [address] GAP 10 Normal 5-15 [facility] Comment on above: Performed By: #### L 501.9910, L100.0100, L501.9985, L500.4050, L500.4100, L501.9520 ####[facility] [address] [place], [address] GFR/1.73 sq M.predicted among non-blacks MDRD (S/P/Bld) [Vol rate/Area] 95 mL/min/{1.73_m2} Normal >60 [facility] Comment on above: Result Comment: mL/m in/1.73m2 CKD-EPI Creatinine Equation (2020) Performed By: #### L 501.9910, L100.0100, L501.9985, L500.4050, L500.4100, L501.9520 ####[facility] [facility] [address] [place], [address] Globulin (S) [Mass/Vol] 2.2 g/dL Normal 2.2-4.2 [facility] Comment on above: Performed By: #### L 501.9910, L100.0100, L501.9985, L500.4050, L500.4100, L501.9520 ####[facility] [address] [place], [address] Glucose [Mass/Vol] 98 mg/dL Normal 70-99 [facility] Comment on above: Performed By: #### L 501.9910, L100.0100, L501.9985, L500.4050, L500.4100, L501.9520 ####[facility] [address] [place], [address] Potassium [Moles/Vol] 4.2 mmol/L Normal 3.3-5.1 [facility] Comment on above: Performed By: #### L 501.9910, L100.0100, L501.9985, L500.4050, L500.4100, L501.9520 ####[facility] [address] [place], [address] Sodium [Moles/Vol] 133 mmol/L Normal 133-145 [facility] Comment on above: Performed By: #### L 501.9910, L100.0100, L501.9985, L500.4050, L500.4100, L501.9520 ####[facility] [address] [place], [address] T PROT 6.4 g/dL Normal 5.9-8.4 [facility] Comment on above: Performed By: #### L 501.9910, L100.0100, L501.9985, L500.4050, L500.4100, L501.9520 ####[facility] [address] [place], [address] Urea nitrogen [Mass/Vol] 16 mg/dL Normal 4-19 [facility] Comment on above: Performed By: #### L 501.9910, L100.0100, L501.9985, L500.4050, L500.4100, L501.9520 ####[facility] [address] [place], [address] Eosinophil percentageOrdered By: Zebulun Beam on 01-22-2025 Eosinophils/100 WBC (Bld) 1.1 % 0-5 [facility] Erythrocyte distribution wid th ratioOrdered By: Zebulun Beam on 01-22-2025 Erythrocyte distribution width (RBC) [Ratio] 11.9 % 11.6-14.6 [facility] Erythrocyte distribution wid th standard deviationOrdered By: Zebulun Beam on 01-22-2025 Erythrocyte distribution width (RBC) [Entitic vol] 38.2 fL 35.1-43.9 [facility] Erythrocyte distribution width (RBC) [Ratio] 38.2 fl 35.1-43.9 [facility] GFR/1.73 sq M.predicted shane g non-blacks MDRD (S/P/Bld) [Vol rate/Area]Ordered By: Lan David on 01-22-2025 Estimated GFR (MDRD) Non-Af Amer 95 >60 [facility] Comment on above: mL/min/1.73m2 CKD-EP I Creatinine Equation (2020) Glomerular filtration rate ( GFR) estimation/1.73 sq m using serum, plasma, or whole bOrdered By: Lan David on 01-22-2025 GFR/1.73 sq M.predicted among non-blacks MDRD (S/P/Bld) [Vol rate/Area] 95 mL/min/{1.73_m2} >60 [facility] Comment on above: mL/min/1.73m2 CKD-EP I Creatinine Equation (2020) Hematocrit Auto (Bld) [Volum e fraction]Ordered By: el David on 01-22-2025 Hematocrit (Bld) [Volume fraction] 40.3 % 40-54 [facility] Hemoglobin A1con 01-22-2025 HbA1c (Bld) [Mass fraction] 5.2 % Low <=5.6 [facility] Comment on above: Performed By: #### L 501.9910, L100.0100, L501.9985, L500.4050, L500.4100, L501.9520 ####[facility] [address] [place], [place], [id number] Hemoglobin A1c percentageOrd ered By: Lan David on 01-22-2025 HbA1c (Bld) [Mass fraction] 5.2 % Low >5.7 [facility] Hemoglobin measurementOrdere d By: Lan David on 01-22-2025 Hemoglobin (Bld) [Mass/Vol] 14.2 g/dL 13.0-16.5 [facility] Immature granulocytes/100 WB C Auto (Bld)Ordered By: Laurentn Joann on 01-22-2025 Immature granulocytes/100 WBC (Bld) 0.300 % 0.0-0.9 [facility] Comment on above: IG% - Immature Granu locytes (promyelocytes, myelocytes and metamyelocytes) > 1% indicates that a LEFT SHIFT is Present. LDL calc ser/plasOrdered By: Lan David on 01-22-2025 Cholesterol in LDL [Mass/Vol] 56 mg/dL [facility] Comment on above: Upflvkvlpz=459-351 m g/dL & Higher Jgex=048 mg/dL or greater LDL Cholesterol, Calculated 56 mg/dL [facility] Comment on above: Xwknftxvzb=745-929 m g/dL & Higher Kywk=895 mg/dL or greater Laboratory - Chemistry and C hemistry - challengeOrdered By: Laurnetn Joann on 01-22-2025 AST [Catalytic activity/Vol] 21 U/L <38 [facility] Lipid Profileon 01-22-2025 CHOL:HDL 2.42 Normal [facility] Comment on above: Performed By: #### L 501.9910, L100.0100, L501.9985, L500.4050, L500.4100, L501.9520 ####[facility] [address] [facility] [place], [address] Cholesterol [Mass/Vol] 121 mg/dL Normal <=200 [facility] Comment on above: Result Comment: Chol esterol level, Desirable <200 mg/dL Borderline high cholesterol 200-239 mg/dL High cholesterol >=240 mg/dL Recommendations of the NCEP Adult Treatment Panel for the following risk-cutoff thresholds for the [place] population. Performed By: #### L 501.9910, L100.0100, L501.9985, L500.4050, L500.4100, L501.9520 ####[facility] [address] [facility] [place], [address] Cholesterol in HDL [Mass/Vol] 50 mg/dL Normal [facility] Comment on above: Result Comment: Betty onal Cholesterol Education Program (NCEP) guidelines: <40 mg/dL: Low HDL-cholesterol (major risk factor for CHD) >= 60 mg/dL: High HDL-cholesterol (negative risk factor for CHD) HDL-cholesterol is affected by a number of factors, e.g. smoking, exercise, hormones, sex and age. Performed By: #### L 501.9910, L100.0100, L501.9985, L500.4050, L500.4100, L501.9520 ####[facility] [address] [place], [address] Cholesterol in LDL [Mass/Vol] 56 mg/dL Normal [facility] Comment on above: Result Comment: Bord cnzmtd=379-260 mg/dL Higher Baul=917 mg/dL or greater Performed By: #### L 501.9910, L100.0100, L501.9985, L500.4050, L500.4100, L501.9520 ####[facility] [address] [place], [place], [phone]) Cholesterol in VLDL [Mass/Vol] 15 mg/dL Normal 5-40 [facility] Comment on above: Performed By: #### L 501.9910, L100.0100, L501.9985, L500.4050, L500.4100, L501.9520 ####[facility] [address] [place], [address] Triglyceride [Mass/Vol] 76 mg/dL Normal [facility] Comment on above: Result Comment: The drugs N-Acetylcysteine and Metamizole may falsely depress this assay. Normal range: <150 mg/dL Borderline High: 150-199 mg/dL High: 200-499 mg/dL Very High: >500 mg/dL Performed By: #### L 501.9910, L100.0100, L501.9985, L500.4050, L500.4100, L501.9520 ####[facility] [address] [place], [address] Lymphocytes Auto (Unsp spec) [#/Vol]Ordered By: bulun Beam on 01-22-2025 Lymphocytes (Bld) [#/Vol] 1.07 10*3/uL 0.83-4.51 [facility] Lymphocytes/100 WBC Auto (Un sp spec)Ordered By: Zebulun Beam on 01-22-2025 Lymphocytes/100 WBC (Bld) 11.9 % Low 19-41 [facility] MCV (mean corpuscular volume ) determinationOrdered By: bulun Beam on 01-22-2025 MCV (RBC) [Entitic vol] 88.4 fL 80-94 [facility] Mean corpuscular hemoglobin (MCH) determinationOrdered By: [facility] 01-22-2025 MCH (RBC) [Entitic mass] 31.1 pg 27.0-32.0 [facility] Mean corpuscular hemoglobin concentration (MCHC) determinationOrdered By: [facility] on 01-22-2025 MCHC (RBC) [Mass/Vol] 35.2 g/dL 32-36 [facility] Mean platelet volume determi nationOrdered By: [facility] on 01-22-2025 Platelet mean volume (Bld) [Entitic vol] 9.9 fL 6.2-12.0 [facility] Monocyte percentageOrdered B y: [facility] Be[facility] on 01-22-2025 Monocytes/100 WBC (Bld) 9.1 % 0-10 [facility] Neutrophil percentageOrdered By: [facility] on 01-22-2025 Neutrophils/100 WBC (Bld) 77.3 % High 47-70 [facility] Nucleated red blood cell per centageOrdered By: [facility] on 01-22-2025 Nucleated RBC/100 WBC (Bld) [Ratio] 0 % 0-5 [facility] PSA, total screeningOrdered By: [facility] on 01-22-2025 Prostate Specific Antigen Screen 0.51 ng/mL 0.02-4.00 [facility] Comment on above: This test was perfor med using the [employer] tPSA method. Measured values of a patient sample can vary depending on the testing procedure used. PSA values determined on patient samples by different testing procedures cannot be used interchangeably. If there is a change in PSA assays while monitoring therapy, sequential testing should be performed to confirm baseline values. PSA,Total - Annual Screenon 01-22-2025 PSA,TOT SCREEN 0.51 ng/mL Normal 0.02-4.00 [facility] Comment on above: Result Comment: This test was performed using the [employer] tPSA method. Measured values of a patient??sample can vary depending on the testing procedure used. PSA values determined on patient samples by different testing procedures cannot be used interchangeably. If there is a change in PSA assays while monitoring therapy, sequential testing should be performed to confirm baseline values. Performed By: #### L 501.9910, L100.0100, L501.9985, L500.4050, L500.4100, L501.9520 ####[facility] [address] [place], [address] Platelet countOrdered By: Fran David on 01-22-2025 Platelets (Bld) [#/Vol] 214 10*3/uL 150-450 [facility] Potassium (Unsp spec) [Mass/ Vol]Ordered By: aLn David on 01-22-2025 Potassium [Moles/Vol] 4.2 mmol/L 3.3-5.1 [facility] Potassium measurement (mass/ volume)Ordered By: Lan David on 01-22-2025 Potassium (Unsp spec) [Mass/Vol] 4.2 mmol/L 3.3-5.1 [facility] RBC Auto (Bld) [#/Vol]Ordere d By: Lan David on 01-22-2025 RBC (Bld) [#/Vol] 4.56 10*6/uL Low 4.6-6.2 [facility] Screening total cholesterol/ high density lipoprotein (HDL) cholesterol ratioOrdered By: Lan David on 01-22-2025 Cholesterol.total/Cho lesterol in HDL [Mass ratio] 2.42 {ratio} [facility] Serum creatinine measurement (mass/volume)Ordered By: Lan David on 01-22-2025 Creatinine [Mass/Vol] 0.85 mg/dL 0.70-1.20 [facility] Serum globulin measurementOr dered By: Lan David on 01-22-2025 Globulin (S) [Mass/Vol] 2.2 g/dL 2.2-4.2 [facility] Serum glucose measurement (m ass/volume)Ordered By: Lan David on 01-22-2025 Glucose [Mass/Vol] 98 mg/dL 70-99 [facility] Serum or plasma alanine mackenzie otransferase (ALT) measurementOrdered By: Margaritojossy David on 01-22-2025 ALT [Catalytic activity/Vol] 19 U/L <47 [facility] Serum or plasma albumin víctor urement (mass/volume)Ordered By: Margaritojossy David on 01-22-2025 Albumin [Mass/Vol] 4.2 g/dL 3.4-4.8 [facility] Serum or plasma albumin/glob ulin mass ratioOrdered By: [facility] on 01-22-2025 Albumin/Globulin [Mass ratio] 1.9 {ratio} 0.9-2.4 [facility] Serum or plasma alkaline mellisa sphatase measurementOrdered By: catalinojossy David on 01-22-2025 ALP [Catalytic activity/Vol] 43 U/L 40-129 [facility] Serum or plasma calcium víctor urement (mass/volume)Ordered By: Lan David on 01-22-2025 Calcium [Mass/Vol] 8.9 mg/dL 7.6-11.0 [facility] Serum or plasma cholesterol in HDL measurement (mass/volume)Ordered By: Lan David on 01-22-2025 Cholesterol in HDL [Mass/Vol] 50 mg/dL >40 [facility] Comment on above: National Cholesterol Education Program (NCEP) guidelines:<40 mg/dL: Low HDL-cholesterol (major risk factor for CHD)>= 60 mg/dL: High HDL-cholesterol (negative risk factor for CHD)HDL-cholesterol is affected by a number of factors, e.g. smoking, exercise, hormones, sex and age. Serum or plasma cholesterol measurement (mass/volume)Ordered By: Lan David on 01-22-2025 Cholesterol [Mass/Vol] 121 mg/dL <201 [facility] Comment on above: Cholesterol level, D esirable <200 mg/dLBorderline high cholesterol 200-239 mg/dLHigh cholesterol >=240 mg/dLRecommendations of the NCEP Adult Treatment Panel for the following risk-cutoff thresholds for the [place] population. Serum or plasma urea nitroge n measurement (mass/volume)Ordered By: Lan David on 01-22-2025 Urea nitrogen [Mass/Vol] 16 mg/dL 4-19 [facility] Sodium levelOrdered By: Margarito David on 01-22-2025 Sodium [Moles/Vol] 133 mmol/L 133-145 [facility] TSH DL <= 0.005 mIU/L QnOrde red By: Lan David on 01-22-2025 Thyroid Stimulating Hormone (TSH) 0.772 uIU/mL 0.300-4.20 0 [facility] TSH Qn 0.772 uIU/mL 0.300-4.20 0 [facility] Thyroid Stim Hormone (TSH)on 01-22-2025 TSH 0.772 uIU/mL Normal 0.300-4.20 0 [facility] Comment on above: Performed By: #### L 501.9910, L100.0100, L501.9985, L500.4050, L500.4100, L501.9520 ####[facility] [address] [place], [address] Total proteinOrdered By: Jasmeet David on 01-22-2025 Protein [Mass/Vol] 6.4 g/dL 5.9-8.4 [facility] Triglycerides measurementOrd ered By: Lan David on 01-22-2025 Triglyceride [Mass/Vol] 76 mg/dL <199 [facility] Comment on above: The drugs N-Acetylcy steine and Metamizole may falsely depress this assay. Normal range: <150 mg/dLBorderline High: 150-199 mg/dLHigh: 200-499 mg/dLVery High: >500 mg/dL White blood cell (WBC) count Ordered By: Lan David on 01-22-2025 WBC (Bld) [#/Vol] 9.0 10*3/uL 4.4-11.0 [facility] Surgery Visit Reporton 12-23 Surgery Visit Report [facility] [address] [place] [address] OFFICE VISIT Date of Service: 12/23/24 MR#: [id number] Acct: [id number] Name: ANGELIA KING Rep #: [id number] : 1955 Provider: Dr. Chuck hendricks MD Age/Sex: 69/M Location: [facility] Status: Signed Intake Vital Signs 10/25/24 08:52 12/23/24 08:16 Height 5 ft 11 in BP 144/78 H Blood Pressure Location Lt brachial Position Sitting Respiration 18 Pulse 87 Pulse Source Monitor Intake Visit Reasons: discuss hemorrhoids Chief Complaint: discuss hemorrhoids Refrigerating Technician Required: No Accompanied by: Is patient in pain?: Yes Allergies No Known Allergies Allergy (Verified 12/23/24 08:17) Medications ???Medication ???Instructions ???Recorded ???Confirmed ???Type acetaminophen 500 mg tablet 500 mg PO Q6H PRN Pain 10/10/22 History (Tylenol Extra Strength) omega 5-cjy-mci-fish oil 1,000 mg 1 cap PO DAILY 12/07/22 12/23/24 History (120 mg-180 mg) capsule (Fish Oil) psyllium husk 0.4 gram capsule 0.4 g PO QHS 12/07/22 12/23/24 His tory (Metamucil) atorvastatin 20 mg tablet 20 mg PO QHS #90 tabs 03/18/2409/06 Rx acetaminophen 300 mg-codeine 30 mg 1 tab PO Q6H PRN pain #10 tabs 0 05/02/24 12/23/24 Rx tablet sildenafil 100 mg tablet 100 mg PO DAILY PRN sexual 4 12/23/24 Rx activity #45 tabs trazodone 100 mg tablet 100 mg PO DAILY #90 tabs 05/02/24 12/23/24 Rx alprazolam 0.25 mg tablet 0.5 mg (2 x 0.25 mg) PO BID #60 12/23/24 Rx tabs Hydrocortisone 2.5% / Lidocaine 5% #1 ea 10/07/24 12/23/24 Rx ointment (cmpd) Have you fallen in the past year?: No PFSH Medical History Hemorrhoids Wears glasses Wears dentures Anxiety Diabetes Arthritis Low iron Fatty liver High cholesterol Dietary restriction Heartburn Non-smoker Leg cramps History of pain when walking Nxsup-Xipavfwtc-Ivuqn (WPW) pattern Cardiology follow-up encounter Hypertension Positive colorectal cancer screening using Cologuard test Hypertension Diabetes Arthritis Surgical History Hx of colonoscopy S/P lateral meniscus repair of right knee H/O prostatectomy Family History Father CVA (cerebral vascular accident) Mother Cancer throat Other Heart disease Social History household members: spouse current occupational status: retired current occupation: [employer] Smoking Status: Never smoker Electronic Cigarette Use: not used alcohol intake: never substance use type: does not use what type of physical activity do you participate in: additional details: cutting wood do you feel safe at home: Yes HPI HPI HPI: Patient is a 69-year-old male who is known to me from prior colonoscopy encounter but follows up for concern specifically related to hemorrhoids. His last visit was 10/07/2024. He presents today with his . Originally we were supposed to see him back in clinic 2 weeks following his visit in September but he declined the follow-up because he was under the impression things are getting better. However now he states he fears he waited too long because he is experiencing more burning and swelling with his hemorrhoids. He reports that he uses MiraLAX daily and experiences roughly 3-4 bowel movements daily. He does note they are sometimes thinner in character. He insist that he is kept his toilet time to 2 minutes or less. In addition to the MiraLAX he reports that his has been intentional about trying to cook more high-fiber foods and he is consuming psyllium husk twice daily besides. Mr. King continues to perform 1 sitz bath after each bowel movement. He reports use of a hydrocortisone/lidocaine ointment alongside of a diltiazem???containing ointment that he was prescribed by his PCP. He questions whether he should continue this use. In addition to the reports of burning and swelling he describes 1 episode of bleeding a week ago with some straining during a bowel movement. However, he has had no bleeding since. He denies any interval health updates apart from above. Below is recapitulated from patient's prior visit for ease of review: Patient is a 69-year-old male who is kno underwentwn to me from a prior colonoscopy performed November 2022 after a positive Cologuard test but presents for complaint of hemorrhoid activity today. He presents today with his . They first noted this issue years ago and he readily acknowledges that this is a chronic problem for which he has seen his PCP and underwent serial lancing. However he was advised by his PCP that there were only (more content not included)... Normal [facility] 12 Lead EKGon 10-25-[address] [facility] [address] [place] [address] 12 Lead EKG 10/25/24 0913 MR#: [id number] Acct: [id number] Name: ANGELIA KING Rep #: [id number] : 1955 69 From: Addi Ruiz MD Attending Dr: Status: DEP ER Ordering Dr: Wood Hinojosa MD Date: 10/25/24 Location: ED Sex: M C Admitted: Test Reason : HTN Blood Pressure : */* mmHG Vent. Rate : 87 BPM Atrial Rate : 87 BPM P-R Int : 174 ms QRS Dur : 94 ms QT Int : 344 ms P-R-T Axes : 22 41 30 degrees QTcB Int : 413 ms Normal sinus rhythm Normal ECG Confirmed by ERIN JONES, HUGO ([id number]), photo editor JACK NORIEGA ([id number]) on 10/30/2024 1:29:56 PM Referred By: Confirmed By: HUGO RUIZ MD 10/30/24 1329 Date Addi Ruiz MD CC: CARLOS Ballesteros; Dr. Wood Hinojosa MD Signed Normal [facility] Bacteria LM.HPF (Urine sed) [#/Area]Ordered By: Wood Hinojosa on 10-25-2024 Urine Bacteria RARE /hpf None Seen [facility] Basic Metabolic Profile (BMP )on 10-25-2024 BUN/CRE 13.8 RATIO Normal 10-20 [facility] Comment on above: Performed By: #### L 500.2500 ####[facility] [address] [place], [address] CA,Total 9.4 mg/dL Normal 8.5-10.1 [facility] Comment on above: Performed By: #### L 500.2500 ####[facility] [address] [place], [address] ECRCL 94.13 ml/min Normal [facility] Comment on above: Performed By: #### L 500.2500 ####[facility] [address] [place], [address] EST GFR - AA 139 mL/min Normal >60 [facility] Comment on above: Result Comment: Afri can [place] GFR Calc Performed By: #### L 500.2500 ####[facility] [address] [place], [address] GAP 6 Normal 5-15 [facility] Comment on above: Performed By: #### L 500.2500 ####[facility] [address] [place], [address] GFR/1.73 sq M.predicted among non-blacks MDRD (S/P/Bld) [Vol rate/Area] 115 mL/min/{1.73_m2} Normal >60 [facility] Comment on above: Result Comment: Non- GFR Calc Performed By: #### L 500.2500 ####[facility] [address] [place], [address] Bilirubin Test strip Ql (U)O rdered By: Wood Hinojosa on 10-25-2024 Bilirubin Ql (U) Negative Negative [facility] Blood urea nitrogen (BUN)/cr eatinine ratioOrdered By: Wood Hinojosa on 10-25-2024 Urea nitrogen/Creatinine [Mass ratio] 13.8 mg/mg 10-20 [facility] Carbon dioxide measurementOr dered By: Wood Hinojosa on 10-25-2024 CO2 [Moles/Vol] 27.0 mmol/L Normal 21.0-32.0 [facility] Comment on above: Performed By: #### L 500.2500 ####[facility] [address] [place], [place], [address] Chloride measurementOrdered By: Wood Hinojosa on 10-25-2024 Chloride [Moles/Vol] 102 mmol/L Normal 98-107 [facility] Comment on above: Performed By: #### L 500.2500 ####[facility] [address] [place], [place], [address] Emergency Department Summary on 10-25-2024 Emergency Department Summary [facility] Medical Records Department [address] [facility] [place] [address] Emergency Department Summary 10/25/24 MR#: [id number] Acct: [id number] Name: ANGELIA KING Rep #: [id number] : 1955 69 From: Wood Hinojosa MD PCP: CARLOS Whitt Status:REG ER Location: ED HPI History of Present Illness Chief Complaint: Hypertension Detail of Chief Complaint: Elevated blood pressure Informant: patient and spouse/S.O. Onset/Context/Timing Onset: Weeks Context: - (Unknown) Timing: Continuous Quality: Elevated blood pressure. Only symptom facial flushness Location: Cardiovascular Current Severity: Mild Maximum Severity: Mild Worsened by: Noncompliance Relieved by: Nothing Associated Symptoms Associated Symptoms: Feeling flushed Narrative Narrative: Patient is a 69-year-old male. He has history of type 2 diabetes, hypertension, hypercholesterolemia and depression. He discontinued his meds because he did lifestyle changes. He is no longer on medicine for diabetes. His last A1c was 5. He has not been consistent/compliant with his antihypertensive meds. He carries when he takes his medication between 20 mg lisinopril 40 mg lisinopril. He did take a dose this morning. He denies headache, visual, ocular auditory symptoms. No trouble speech or swallowing. He denies cardiac respiratory symptoms. He denies paresthesia, anesthesia medics. He denies problems with coordination or balance. He states he feels flushed and his states he is light flushed. He says he is nervous. He attempted to explain his high blood pressure reading at Dr. Bruce's office because he was standing when it was taken. He did see his primary care provider recently and pressure was elevated., Zackary Ballesteros Prior similar symptoms: Yes Recent Illness/Hospitalization: Yes (Saw Dr. Bruce for hemorrhoids. He is contributing to his elevated blood pr) [facility] Medical History Hemorrhoids Wears glasses Wears dentures Anxiety Diabetes Arthritis Low iron Fatty liver High cholesterol Dietary restriction Heartburn Non-smoker Leg cramps History of pain when walking Avvwf-Pcemojuqy-Zxvrt (WPW) pattern Cardiology follow-up encounter Hypertension Positive colorectal cancer screening using Cologuard test Hypertension Diabetes Arthritis Home Medications ???Medication ???Instructions ???Recorded ???Last Taken ???Type acetaminophen 500 mg tablet 500 mg PO Q6H PRN Pain 10/10/22 Unknown History (Tylenol Extra Strength) omega 1-wyo-ypt-fish oil 1,000 mg 1 cap PO DAILY 12/07/22 12/05/22 History (120 mg-180 mg) capsule (Fish Oil) psyllium husk 0.4 gram capsule 0.4 g PO QHS 12/07/22 12/05/22 History (Metamucil) atorvastatin 20 mg tablet 20 mg PO QHS #90 tabs 03/18/24 Unknown Rx acetaminophen 300 mg-codeine 30 mg 1 tab PO Q6H PRN pain #10 tabs 05/02/24 Unknown Rx tablet sildenafil 100 mg tablet 100 mg PO DAILY PRN sexual 05/02/24 Unknown Rx activity #45 tabs trazodone 100 mg tablet 100 mg PO DAILY #90 tabs 05/02/24 Unknown Rx alprazolam 0.25 mg tablet 0.5 mg (2 x 0.25 mg) PO BID #60 06/03/24 Unknown Rx tabs Hydrocortisone 2.5% / Lidocaine 5% #1 ea 10/07/24 Unknown Rx ointment (cmpd) Allergy/AdvReac Type Severity Reaction Status Date / Time No Known Allergies Allergy Verified 10/25/24 08:52 Family History Father CVA (cerebral vascular accident) Mother Cancer throat Other Heart disease Surgical History Hx of colonoscopy S/P lateral meniscus repair of right knee H/O prostatectomy Social History household members: spouse current occupational status: retired current occupation: [employer] Smoking Status: Never smoker Electronic Cigarette Use: not used alcohol intake: never substance use type: does not use what type of physical activity do you participate in: additional details: cutting wood do you feel safe at home: Yes ROS ROS ED Constitutional Constitutional ED: Denies chills, fever(s) or subjective Eyes Eyes: Denies blurry vision, change in vision or diplopia Cardiovascular Cardiovascular: Denies chest pain or palpitations Respiratory/Chest Respiratory/Chest: Denies cough, dyspnea or dyspnea on exertion Gastrointestinal Gastrointestinal: Denies abdominal pain or nausea Genitourinary Genitourinary ED: Denies hematuria Musculoskeletal Musculoskeletal: Denies arthralgias, back pain or myalgias Integumentary Denies rash Neurologic Neurologic: Denies headache(s), paresthesias or weakness Hematologic/Lymphatic Hematologic/Lymphatic: Reports systems reviewed and no addt'l complaints, except as documented EXAM Phy (more content not included)... Normal [facility] Epithelial cells.squamous LM Ql (Urine sed)Ordered By: Wood Hinojosa on 10-25-2024 Epithelial cells.squamous LM.HPF (Urine sed) [#/Area] 0 /[HPF] 0-5 [facility] Estimated glomerular filtrat ion rate (GFR) AmericanOrdered By: Wood Hinojosa on 10-25-2024 Estimated GFR (MDRD) Amer 139 mL/min >60 [facility] Comment on above: GFR Calc Estimation of creatinine anthony arguetaOrdered By: Wood Hinojosa on 10-25-2024 Estimated Creatinine Clearance Calc 94.13 ml/min [facility] Glomerular filtration rate ( GFR) estimationOrdered By: Wood Hinojosa on 10-25-2024 Estimated GFR (MDRD) Non-Af Amer 115 mL/min >60 [facility] Comment on above: Non- GFR Calc Glucose Ql (U)Ordered By: Derrick candace Plazao on 10-25-2024 Urine Glucose (UA) Normal mg/dl Normal [facility] Glucose measurementOrdered B y: Woodcandace Plazao on 10-25-2024 Glucose [Mass/Vol] 142 mg/dL High 74-106 [facility] Comment on above: Fasting Glucose resu lt greater than or equal to 126 mg/dL suggests DIABETES MELLITUS per A.D.A. criteria. Result Comment: Fast ing Glucose result greater than or equal to 126 mg/dL suggests DIABETES MELLITUS per A.D.A. criteria. Performed By: #### L 500.2500 ####[facility] [address] [place], [place], [id number] Ketones Test strip Ql (U)Ord ered By: Wood Hinojosa on 10-25-2024 Ketones Ql (U) Negative Negative [facility] Microscopic analysis of urin e for red blood cells (RBC)Ordered By: Wood Hinojosa on 10-25-2024 Urine RBC 0 SEEN /hpf 0-5 [facility] Mucus LM Ql (Urine sed)Order ed By: Wood Hinojosa on 10-25-2024 Mucus Ql (Urine sed) 0 SEEN /hpf [facility] Nitrite Test strip Ql (U)Ord ered By: Wood Hinojosa on 10-25-2024 Nitrite Ql (U) Negative Negative [facility] Potassium measurementOrdered By: Wood Hinojosa on 10-25-2024 Potassium [Moles/Vol] 4.2 mmol/L Normal 3.5-5.1 [facility] Comment on above: Performed By: #### L 500.2500 ####[facility] [address] [place], [place], [id number] Protein Test strip Ql (U)Ord ered By: Wood Plazao on 10-25-2024 Protein Ql (U) Negative Negative [facility] Serum anion gap measurementO rdered By: Wood Plazao on 10-25-2024 Anion gap [Moles/Vol] 6 mmol/L 5-15 [facility] Serum or plasma calcium víctor urement (mass/volume)Ordered By: Wood Hinojosa on 10-25-2024 Calcium [Mass/Vol] 9.4 mg/dL 8.5-10.1 [facility] Serum or plasma creatinine m easurement (mass/volume)Ordered By: Wood Hinojosa on 10-25-2024 Creatinine [Mass/Vol] 0.72 mg/dL Normal 0.70-1.30 [facility] Comment on above: The validity of the calculated GFR & GFRAA in patients over 70 years has not been determined. Clinical correlation is essential. Result Comment: The validity of the calculated GFR GFRAA in patients over 70 years has not been determined. Clinical correlation is essential. Performed By: #### L 500.2500 ####[facility] [address] [facility] [address] Serum or plasma urea nitroge n measurement (mass/volume)Ordered By: Woodcandace Hinojosa on 10-25-2024 Urea nitrogen [Mass/Vol] 10 mg/dL Normal 7-18 [facility] Comment on above: Performed By: #### L 500.2500 ####[facility] [address] [place], [address] Sodium levelOrdered By: Wood Hinojosa on 10-25-2024 Sodium [Moles/Vol] 135 mmol/L Low 136-145 [facility] Comment on above: Performed By: #### L 500.2500 ####[facility] [address] [place], [address] Urinalysis, Completeon 10-25 BACTERIA RARE Normal None Seen [facility] Comment on above: Order Comment: COLLE CTOR TO SPECIFY Performed By: #### L 400.0001 ####[facility] [address] [place], [address] EPI,SQUAMOUS 0-5 SEEN Normal 0-5 [facility] Comment on above: Order Comment: RAVI CTOR TO SPECIFY Performed By: #### L 400.0001 ####[facility] [address] [place], [address] Mucus Ql (Urine sed) 0 SEEN Normal [facility] Comment on above: Order Comment: RAVI CTOR TO SPECIFY Performed By: #### L 400.0001 ####[facility] [address] [place], [address] RBC 0 SEEN Normal 0-5 [facility] Comment on above: Order Comment: RAVI CTOR TO SPECIFY Performed By: #### L 400.0001 ####[facility] [address] [place], [address] WBC 0 SEEN Normal 0-5 [facility] Comment on above: Order Comment: RAVI CTOR TO SPECIFY Performed By: #### L 400.0001 ####[facility] [address] [place], [address] Urine blood detectionOrdered By: Wood Hinojosa on 10-25-2024 Urine Occult Blood Negative Negative [facility] Urine clarityOrdered By: Wood Hinojosa on 10-25-2024 Clarity (U) Clear Clear [facility] Urine color determinationOrd ered By: Wood Hinojosa on 10-25-2024 Color (U) Yellow Yellow [facility] Urine leukocyte esterase det ection by dipstickOrdered By: Wood Hinojosa on 10-25-2024 Leukocyte esterase Test strip Ql (U) Negative Negative [facility] Urine pHOrdered By: Wood Gall o on 10-25-2024 pH (U) 7.0 [pH] 5.0 - 8.0 [facility] Urine specific gravity measu rementOrdered By: Woodcandace Hinojosa on 10-25-2024 Specific gravity (U) [Rel density] 1.005 1.002-1.03 0 [facility] Urobilinogen Ql (U)Ordered B y: Wood Hinojosa on 10-25-2024 Urine Urobilinogen Normal mg/dl Normal [facility] White blood cell countOrdere d By: Wood Hinojosa on 10-25-2024 Urine WBC 0 SEEN /hpf 0-5 [facility] Surgery Visit Reporton 10-07 Surgery Visit Report [facility] [address] [place] [address] OFFICE VISIT Date of Service: 10/07/24 MR#: [id number] Acct: [id number] Name: ANGELIA KING Rep #: [id number] : 1955 Provider: Dr. Chuck hendricks MD Age/Sex: 69/M Location: [facility] Status: Signed Intake Vital Signs 05/02/24 09:40 10/03/24 08:44 10/07/24 10:07 Height 5 ft 11 in 5 ft 11 in 5 ft 11 in Weight: 204 lb 204 lb BMI 28.4 28.4 BP 130/80 H 178/86 H Blood Pressure Location Lt brachial Rt brachial Position Sitting Standing Respiration 14 18 Pulse 76 72 Pulse Source Monitor Monitor Temp 99.4 F H 98.2 F Temp Source Temporal Temporal Pulse Oximetry (%) 98 97 Oxygen Delivery Method room air room air Intake Visit Reasons: Hemorrhoids Chief Complaint: hemorrhoids Accompanied by: Is patient in pain?: Yes Allergies No Known Allergies Allergy (Verified 10/07/24 10:08) Medications ???Medication ???Instructions ???Recorded ???Confirmed ???Type acetaminophen 500 mg tablet 500 mg PO Q6H PRN Pain 10/10/22 10/07/24 History (Tylenol Extra Strength) omega 2-phl-ayw-fish oil 1,000 mg 1 cap PO DAILY 12/07/22 10/07/24 History (120 mg-180 mg) capsule (Fish Oil) psyllium husk 0.4 gram capsule 0.4 g PO QHS 12/07/22 10/07/24 History (Metamucil) atorvastatin 20 mg tablet 20 mg PO QHS #90 tabs 03/18/24 10/07/24 Rx acetaminophen 300 mg-codeine 30 mg 1 tab PO Q6H PRN pain #10 tabs 05/02/24 10/07/24 Rx tablet sildenafil 100 mg tablet 100 mg PO DAILY PRN sexual 05/02/24 10/07/24 Rx activity #45 tabs trazodone 100 mg tablet 100 mg PO DAILY #90 tabs 05/02/24 10/07/24 Rx alprazolam 0.25 mg tablet 0.5 mg (2 x 0.25 mg) PO BID #60 06/03/24 10/07/24 Rx tabs Hydrocortisone 2.5% / Lidocaine 5% #1 ea 10/07/24 10/07/24 Rx ointment (cmpd) Have you fallen in the past year?: No PFSH Medical History (Updated 10/07/24 @ 10:07 by Karen Bui LPN) Hemorrhoids Wears glasses Wears dentures Anxiety Diabetes Arthritis Low iron Fatty liver High cholesterol Dietary restriction Heartburn Non-smoker Leg cramps History of pain when walking Wjccv-Sostouosz-Ecspd (WPW) pattern Cardiology follow-up encounter Hypertension Positive colorectal cancer screening using Cologuard test Hypertension Diabetes Arthritis Surgical History Hx of colonoscopy S/P lateral meniscus repair of right knee H/O prostatectomy Family History Father CVA (cerebral vascular accident) Mother Cancer throat Other Heart disease Social History household members: spouse current occupational status: retired current occupation: [employer] Smoking Status: Never smoker Electronic Cigarette Use: not used alcohol intake: never substance use type: does not use what type of physical activity do you participate in: additional details: cutting wood do you feel safe at home: Yes HPI HPI HPI: Patient is a 69-year-old male who is kno underwentwn to me from a prior colonoscopy performed November 2022 after a positive Cologuard test but presents for complaint of hemorrhoid activity today. He presents today with his . They first noted this issue years ago and he readily acknowledges that this is a chronic problem for which he has seen his PCP and underwent serial lancing. However he was advised by his PCP that there were only so many times this could be done before more definitive management would be required and recommended evaluation in our office. Mr. King estimates that his present flare officially became worse approximately 3 weeks ago. He notes that he has remained on supplemental fiber and MiraLAX to try to minimize his risk for constipation. With this regimen he is experiencing a bowel movement at least a 1-2 times daily in the morning. He reports his toilet time has no more than 2 minutes (he suggests that he is intentional about ensuring this limited time). He does acknowledge a history of straining but states that he has been intentional about minimizing this risk as well. Mr. King reports pain that is rather sharp and more frequently encountered in the mornings. He initially experienced some bleeding but this is cleared up. Lastly he has experienced some itching and bulging. This is/is not their first experience with this problem. Additionally, they do/do not note associated itching/burning with this complaint. To date, they have tried Tylenol for the pain and topical lidocaine. Additionally notes that he has used Epsom salt baths on a nearly daily basis and several tubes of hydrocortisone cream. It is (more content not included)... Normal [facility] No Panel InformationOrdered By: Amara Damian on 10-03-2023 Prostate Specific Antigen Screen 0.88 ng/mL 0.00-4.00 [facility] Comment on above: This test was perfor med using the TPSA assay method [facility]. Values obtained with differentassay methods cannot be used interchangably.When changing PSA assays in the course of monitoring apatient, additional sequential testing should be carriedout to confirm baseline values. Absolute lymphocyte countOrd ered By: Amara Damian on 09-07-2023 Lymphocytes Auto (Unsp spec) [#/Vol] 1.37 10*3/uL 0.83-4.51 [facility] Basophil percentageOrdered B y: Amara Damian on 09-07-2023 Basophils/100 WBC (Bld) 0.3 % 0-1 [facility] Bilirubin [Mass/Vol] 0.70 mg/dL 0.20-1.00 [facility] Comment on above: For patients on eltr ombopag therapy, use of Dimension Jeffers TBIL is not recommended. Chloride [Moles/Vol] 104 mmol/L 98-107 [facility] Cholesterol [Mass/Vol] 100 mg/dL <200 [facility] Comment on above: <200 mg/dL Desirable 200-240 mg/dL Borderline >240 mg/dL High Risk Eosinophils/100 WBC (Bld) 1.6 % 0-5 [facility] Glucose [Mass/Vol] 112 mg/dL 74-106 [facility] Comment on above: Fasting Glucose resu lt from 100 to 125 mg/dL suggests IMPAIRED HOMEOSTASIS per A.D.A. criteria. Neutrophils (Bld) [#/Vol] 4.6 10*3/uL 2.0-7.7 [facility] Neutrophils/100 WBC (Bld) 68.4 % 47-70 [facility] Potassium [Moles/Vol] 4.4 mmol/L 3.5-5.1 [facility] Protein [Mass/Vol] 7.4 g/dL 6.4-8.2 [facility] Sodium [Moles/Vol] 138 mmol/L 136-145 [facility] Triglyceride [Mass/Vol] 72 mg/dL <199 [facility] Comment on above: The drugs N-Acetylcy steine and Metamizole may falsely depress this assay.Serum Triglycerides Reference Interval Normal <150 mg/dL Borderline high 150 - 199 mg/dL High 200 - 499 mg/dL Very High > or = 500 mg/dL WBC (Bld) [#/Vol] 6.8 10*3/uL 4.4-11.0 [facility] Blood erythrocytes count (nu mber/volume)Ordered By: Amara Damian on 09-07-2023 RBC (Bld) [#/Vol] 5.17 10*6/uL 4.6-6.2 [facility] Blood hemoglobin measurement (mass/volume)Ordered By: Amara Damian on 09-07-2023 Hemoglobin (Bld) [Mass/Vol] 15.0 g/dL 13.0-16.5 [facility] Blood lymphocytes/100 leukoc ytesOrdered By: Amara Damian on 09-07-2023 Lymphocytes/100 WBC (Bld) 20.2 % 19-41 [facility] Blood monocytes/100 leukocyt esOrdered By: Amara Damian on 09-07-2023 Monocytes/100 WBC (Bld) 9.2 % 0-10 [facility] Blood platelet mean volumeOr dered By: Amara Damian on 09-07-2023 Platelet mean volume (Bld) [Entitic vol] 10.8 fL 6.2-12.0 [facility] Determination of erythrocyte mean corpuscular volume (MCV)Ordered By: Amara Damian on 09-07-2023 MCV (RBC) [Entitic vol] 87.0 fL 80-94 [facility] Hematocrit Auto (Bld) [Volum e fraction]Ordered By: Amaradaniella Damian on 09-07-2023 Hematocrit (Bld) [Volume fraction] 45.0 % 40-54 [facility] Laboratory - Chemistry and C hemistry - challengeOrdered By: Amarariccardo Damian on 09-07-2023 ALP [Catalytic activity/Vol] 44 U/L 45-117 [facility] ALT [Catalytic activity/Vol] 34 U/L 16-61 [facility] CO2 [Moles/Vol] 29.0 mmol/L 21.0-32.0 [facility] Globulin (S) [Mass/Vol] 3.6 g/dL 2.2-4.2 [facility] Urea nitrogen/Creatinine [Mass ratio] 21.9 mg/mg 10-20 [facility] Laboratory - Hematology and Cell countsOrdered By: Amara Damian on 09-07-2023 Erythrocyte distribution width (RBC) [Entitic vol] 39.5 fL 35.1-43.9 [facility] Erythrocyte distribution width (RBC) [Ratio] 12.4 % 11.6-14.6 [facility] Immature granulocytes/100 WBC (Bld) 0.300 % 0.0-0.9 [facility] Comment on above: IG% - Immature Granu locytes (promyelocytes, myelocytes and metamyelocytes) > 1% indicates that a LEFT SHIFT is Present. MCH (RBC) [Entitic mass] 29.0 pg 27.0-32.0 [facility] Nucleated RBC/100 WBC (Bld) [Ratio] 0 % 0-5 [facility] MCHC Auto (RBC) [Mass/Vol]Or dered By: Amara Damian on 09-07-2023 MCHC (RBC) [Mass/Vol] 33.3 g/dL 32-36 [facility] No Panel InformationOrdered By: Amara Damian on 09-07-2023 Estimated GFR (MDRD) Amer 113 mL/min >60 [facility] Comment on above: GFR Calc Estimated GFR (MDRD) Non-Af Amer 94 mL/min >60 [facility] Comment on above: Non- GFR Calc Urine Microalbumin/Creatini ne Ratio 5.6 mg/g CRE <30 [facility] Platelets bldOrdered By: Prieto Damian on 09-07-2023 Platelets (Bld) [#/Vol] 213 10*3/uL 150-450 [facility] Serum or plasma albumin víctor urement (mass/volume)Ordered By: Amara Damian on 09-07-2023 Albumin [Mass/Vol] 3.8 g/dL 3.2-5.0 [facility] Serum or plasma albumin/glob ulin mass ratioOrdered By: Amara Damian on 09-07-2023 Albumin/Globulin [Mass ratio] 1.1 {ratio} 0.9-2.4 [facility] Serum or plasma calcium víctor urement (mass/volume)Ordered By: Amara Damian on 09-07-2023 Calcium [Mass/Vol] 8.8 mg/dL 8.5-10.1 [facility] Serum or plasma cholesterol in HDL measurement (mass/volume)Ordered By: Amara Damian on 09-07-2023 Cholesterol in HDL [Mass/Vol] 34 mg/dL >40 [facility] Comment on above: The drugs N-Acetylcy steine and Metamizole may falsely depress this assay. Reference Range HDL <40 mg/dL Low HDL Cholesterol HDL >or= 60 mg/dL High HDL Cholesterol Serum or plasma cholesterol in VLDL measurement (mass/volume)Ordered By: Amara Damian on 09-07-2023 Cholesterol in VLDL [Mass/Vol] 14 mg/dL 5-40 [facility] Serum or plasma creatinine m easurement (mass/volume)Ordered By: Amara Damian on 09-07-2023 Creatinine [Mass/Vol] 0.87 mg/dL 0.70-1.30 [facility] Comment on above: The validity of the calculated GFR & GFRAA in patients over 70 years has not been determined. Clinical correlation is essential. Serum or plasma low density lipoprotein (LDL) cholesterol measurement (mass/volume)Ordered By: Amara Damian on 09-07-2023 Cholesterol in LDL [Mass/Vol] 52 mg/dL 0-130 [facility] Serum or plasma urea nitroge n measurement (mass/volume)Ordered By: Amara Damian on 09-07-2023 Urea nitrogen [Mass/Vol] 19 mg/dL 7-18 [facility] Thin prep Papanicolaou smear with manual screeningOrdered By: Amara Damian on 09-07-2023 Thin prep Papanicolaou smear with manual screening 14 U/L 15-37 [facility] Thin prep Papanicolaou smear with manual screening 5 5-15 [facility] Thin prep Papanicolaou smear with manual screening 8.6 mg/L NO RANGE EST. [facility] Urine creatinine measurement (mass/volume)Ordered By: Amara Damian on 09-07-2023 Creatinine (U) [Mass/Vol] 152.00 mg/dL NO RANGE EST. [facility] Whole blood hemoglobin A1c/t otal hemoglobin ratio (mass fraction)Ordered By: Amara Damian on 09-07-2023 HbA1c (Bld) [Mass fraction] 5.9 % 3.8-5.6 [facility] Comment on above: Normal < 5.7 % Predi abetic 5.7 - 6.4 % Diabetic >or= 6.5 % Please note range changes. CNOVon 03-08-2023 CNOV Office Visit ([facility] ) ANGELIA KING ([id number]) 1955 M Date Time Provider Department 03/08/23 7:55 PM RIGOBERTO PENA During your visit today, we recorded the following information about you: Temperature Pulse Respiration Blood pressure 97.3 degrees 83/minute 16/minute 141/84 Weight 103 kg Rigoberto Pena MD 03/08/2023 8:25 PM Signed Ed Zane King is a 67 year old MALE who presents with Pain (Right 3rd toe pain, dropped a piece of wood on foot this morning/Purple and swollen) 67 years old male present with pain and swelling and bruising of the right third toe He dropped a piece of wood onto the toe this morning Since then he has increased swelling and bruising he can walk but it hurts No other problem at this visit He has underlying diabetes so is concerned History reviewed. No pertinent past medical history. There is no problem list on file for this patient. No current outpatient medications on file. No current facility-administered medications for this visit. Social History Tobacco Use Smoking status: Never Smokeless tobacco: Never Alcohol Use: Not on file Tobacco Use: Never History reviewed. No pertinent family history. Review of Systems Musculoskeletal: Pain swelling and bruising of the right third toe All other systems reviewed and are negative. BP 141/84 Pulse 83 Temp 97.3 Resp 16 Wt 227 lb (103.0kg) SpO2 95% Physical Exam Vitals reviewed. Constitutional: General: He is not in acute distress. Appearance: Normal appearance. He is not ill-appearing or toxic-appearing. Cardiovascular: Rate and Rhythm: Normal rate and regular rhythm. Heart sounds: Normal heart sounds. Pulmonary: Effort: Pulmonary effort is normal. Breath sounds: Normal breath sounds. Musculoskeletal: General: Swelling, tenderness and signs of injury present. Normal range of motion. Comments: There is skin bruising and superficial abrasion of the pulp of the right third toe. There was no bony tenderness of the toe but soft tissue tenderness to the tip of the toe Patient feel that he did not break the bone or concern of the skin injury of the toe. Weightbearing is full with some pain Skin: General: Skin is warm. Neurological: Mental Status: He is alert. There was no bony tenderness and patient did not feel that he has bone injury so x-ray was not done today patient understand and agreed that he did not think he needed the x-ray ASSESSMENT/PLAN: 1. Contusion of third toe of right foot, initial encounter - ICD9: 924.3, ICD10: S90.121A (primary diagnosis) - APPLICATION, RIGID DRESSING - CEPHALEXIN 500 MG CAPSULE 2. Abrasion of toe of right foot, initial encounter - ICD9: 917.0, ICD10: S90.414A Home wound care as explained F/u PCP for further care recheck if any problem Rest elevation and Tylenol as needed for pain Possible outcome and complication were discussed in detail Patient understand and agreed MD Rigoberto Blakely MD 03/08/2023 8:21 PM Signed Home wound care as explained F/u PCP for further care recheck if any problem Rest elevation and Tylenol as needed for pain Possible outcome and complication were discussed in detail Patient understand and agreed Aury Watson LPN 03/08/2023 8:25 PM Signed Bacitracin and gauze dressing applied, patient tolerated well. Aury Watson LPN Referring Provider: SELF [200] Allergies As of Date: 03/08/2023 (No Known Allergies) Date Reviewed: 03/08/2023 Reviewed by: Rigoberto Pena MD - Fully Assessed Reason for Visit: Pain [78] Cmt: Right 3rd toe pain, dropped a piece of wood on foot this morning Purple and swollen Primary Visit Diagnosis:Contusion of third toe of right foot, initial encounter [S90.121A] Other Visit Diagnosis:Abrasion of toe of right foot, initial encounter [S90.414A] Order(s):APPLICATION, RIGID DRESSING [[id number]] Order #: [id number] cephALEXin (KEFLEX) 500 mg capsuleTake 1 capsule by mouth three times daily for 7 days.Disp: 21 capsuleRfl: 0 Prescriptions as of 03/08/2023 - ALPRAZolam (XANAX) 1 mg tablet Take 1 mg by mouth twice daily. - amLODIPine (NORVASC) 5 mg tablet Take 5 mg by mouth. - atorvastatin (LIPITOR) 20 mg tablet Take 20 mg by mouth daily at bedtime. - lisinopril (ZESTRIL) 40 mg tablet Take 40 mg by mouth twice daily. - metFORMIN (GLUCOPHAGE) 500 mg tablet Take 500 mg by mouth once daily. - omega-3 acid ethyl esters (LOVAZA) 1 gram capsule Take by mouth. - psyllium husk 0.4 gram cap Take by mouth. - traZODone (DESYREL) 50 mg tablet TAKE 2 TABLETS (100MG) BY MOUTH AT BEDTIME - triamcinolone acetonide (KENALOG) 0.1 % cream Apply to affected area. - hydrocortisone 2.5 % cream by RECTAL route. - sildenafil (VIAGRA) 50 mg tablet Take 50 mg by mouth. - cephALEXin (KEFLEX) 500 mg capsule Take 1 capsule by mouth three loida (more content not included)... Normal [facility] Glucose Glucometer (BldC) [M ass/Vol]Ordered By: Dr. Bruce on 12-08-2022 Glucose [Mass/Vol] 140 mg/dL 74-106 [facility] Comment on above: MANAGEMENT OF PATIEN T CARE PER NURSING PROTOCOL Absolute lymphocyte countOrd ered By: Dr. Damian on 09-22-2022 Lymphocytes Auto (Unsp spec) [#/Vol] 1.19 10*3/uL 0.83-4.51 [facility] Basophil percentageOrdered B y: Dr. Damian on 09-22-2022 Basophils/100 WBC (Bld) 0.2 % 0-1 [facility] Bilirubin [Mass/Vol] 0.40 mg/dL 0.20-1.00 [facility] Comment on above: For patients on eltr ombopag therapy, use of Dimension Jeffers TBIL is not recommended. Chloride [Moles/Vol] 102 mmol/L 98-107 [facility] Cholesterol [Mass/Vol] 120 mg/dL <200 [facility] Comment on above: <200 mg/dL Desirable 200-240 mg/dL Borderline >240 mg/dL High Risk Eosinophils/100 WBC (Bld) 1.3 % 0-5 [facility] Glucose [Mass/Vol] 190 mg/dL 74-106 [facility] Comment on above: Fasting Glucose resu lt greater than or equal to 126 mg/dL suggests DIABETES MELLITUS per A.D.A. criteria. Neutrophils (Bld) [#/Vol] 4.4 10*3/uL 2.0-7.7 [facility] Neutrophils/100 WBC (Bld) 70.1 % 47-70 [facility] Potassium [Moles/Vol] 4.9 mmol/L 3.5-5.1 [facility] Protein [Mass/Vol] 7.3 g/dL 6.4-8.2 [facility] Sodium [Moles/Vol] 137 mmol/L 136-145 [facility] Triglyceride [Mass/Vol] 116 mg/dL <199 [facility] Comment on above: The drugs N-Acetylcy steine and Metamizole may falsely depress this assay.Serum Triglycerides Reference Interval Normal <150 mg/dL Borderline high 150 - 199 mg/dL High 200 - 499 mg/dL Very High > or = 500 mg/dL WBC (Bld) [#/Vol] 6.3 10*3/uL 4.4-11.0 [facility] Blood erythrocytes count (nu mber/volume)Ordered By: Dr. Damian on 09-22-2022 RBC (Bld) [#/Vol] 5.29 10*6/uL 4.6-6.2 [facility] Blood hemoglobin measurement (mass/volume)Ordered By: Dr. Damian on 09-22-2022 Hemoglobin (Bld) [Mass/Vol] 15.7 g/dL 13.0-16.5 [facility] Blood lymphocytes/100 leukoc ytesOrdered By: Dr. Damian on 09-22-2022 Lymphocytes/100 WBC (Bld) 18.9 % 19-41 [facility] Blood monocytes/100 leukocyt esOrdered By: Dr. Damian on 09-22-2022 Monocytes/100 WBC (Bld) 9.2 % 0-10 [facility] Blood platelet mean volumeOr dered By: Dr. Damian on 09-22-2022 Platelet mean volume (Bld) [Entitic vol] 11.2 fL 6.2-12.0 [facility] Determination of erythrocyte mean corpuscular volume (MCV)Ordered By: Dr. Damian on 09-22-2022 MCV (RBC) [Entitic vol] 87.5 fL 80-94 [facility] Hematocrit Auto (Bld) [Volum e fraction]Ordered By: Dr. Damian on 09-22-2022 Hematocrit (Bld) [Volume fraction] 46.3 % 40-54 [facility] Laboratory - Chemistry and C hemistry - challengeOrdered By: Dr. Damian on 09-22-2022 ALP [Catalytic activity/Vol] 37 U/L 45-117 [facility] ALT [Catalytic activity/Vol] 38 U/L 16-61 [facility] CO2 [Moles/Vol] 29.0 mmol/L 21.0-32.0 [facility] Globulin (S) [Mass/Vol] 3.5 g/dL 2.2-4.2 [facility] Urea nitrogen/Creatinine [Mass ratio] 24.9 mg/mg 10-20 [facility] Laboratory - Hematology and Cell countsOrdered By: Dr. Damian on 09-22-2022 Erythrocyte distribution width (RBC) [Entitic vol] 39.7 fL 35.1-43.9 [facility] Erythrocyte distribution width (RBC) [Ratio] 12.5 % 11.6-14.6 [facility] Immature granulocytes/100 WBC (Bld) 0.300 % 0.0-0.9 [facility] Comment on above: IG% - Immature Granu locytes (promyelocytes, myelocytes and metamyelocytes) > 1% indicates that a LEFT SHIFT is Present. MCH (RBC) [Entitic mass] 29.7 pg 27.0-32.0 [facility] Nucleated RBC/100 WBC (Bld) [Ratio] 0 % 0-5 [facility] MCHC Auto (RBC) [Mass/Vol]Or dered By: Dr. Damian on 09-22-2022 MCHC (RBC) [Mass/Vol] 33.9 g/dL 32-36 [facility] No Panel InformationOrdered By: Dr. Damian on 09-22-2022 Urine Microalbumin/Creatini ne Ratio 9.9 mg/g CRE <30 [facility] Estimated GFR (MDRD) Amer 124 mL/min >60 [facility] Comment on above: GFR Calc Estimated GFR (MDRD) Non-Af Amer 102 mL/min >60 [facility] Comment on above: Non- GFR Calc Platelets bldOrdered By: Dr. Damian on 09-22-2022 Platelets (Bld) [#/Vol] 207 10*3/uL 150-450 [facility] Serum or plasma albumin víctor urement (mass/volume)Ordered By: Dr. Damian on 09-22-2022 Albumin [Mass/Vol] 3.8 g/dL 3.2-5.0 [facility] Serum or plasma albumin/glob ulin mass ratioOrdered By: Dr. Damain on 09-22-2022 Albumin/Globulin [Mass ratio] 1.1 {ratio} 0.9-2.4 [facility] Serum or plasma calcium víctor urement (mass/volume)Ordered By: Dr. Damian on 09-22-2022 Calcium [Mass/Vol] 9.0 mg/dL 8.5-10.1 [facility] Serum or plasma cholesterol in HDL measurement (mass/volume)Ordered By: Dr. Damian on 09-22-2022 Cholesterol in HDL [Mass/Vol] 34 mg/dL >40 [facility] Comment on above: The drugs N-Acetylcy steine and Metamizole may falsely depress this assay. Reference Range HDL <40 mg/dL Low HDL Cholesterol HDL >or= 60 mg/dL High HDL Cholesterol Serum or plasma cholesterol in VLDL measurement (mass/volume)Ordered By: Dr. Damian on 09-22-2022 Cholesterol in VLDL [Mass/Vol] 23 mg/dL 5-40 [facility] Serum or plasma creatinine m easurement (mass/volume)Ordered By: Dr. Damian on 09-22-2022 Creatinine [Mass/Vol] 0.80 mg/dL 0.70-1.30 [facility] Comment on above: The validity of the calculated GFR & GFRAA in patients over 70 years has not been determined. Clinical correlation is essential. Serum or plasma low density lipoprotein (LDL) cholesterol measurement (mass/volume)Ordered By: Dr. Damian on 09-22-2022 Cholesterol in LDL [Mass/Vol] 63 mg/dL 0-130 [facility] Serum or plasma urea nitroge n measurement (mass/volume)Ordered By: Dr. Damian on 09-22-2022 Urea nitrogen [Mass/Vol] 20 mg/dL 7-18 [facility] Thin prep Papanicolaou smear with manual screeningOrdered By: Dr. Damian on 09-22-2022 Thin prep Papanicolaou smear with manual screening 9.6 mg/L NO RANGE EST. [facility] Thin prep Papanicolaou smear with manual screening 15 U/L 15-37 [facility] Thin prep Papanicolaou smear with manual screening 6 5-15 [facility] Urine creatinine measurement (mass/volume)Ordered By: Dr. Damian on 09-22-2022 Creatinine (U) [Mass/Vol] 96.40 mg/dL NO RANGE EST. [facility] Whole blood hemoglobin A1c/t otal hemoglobin ratio (mass fraction)Ordered By: Dr. Damian on 09-22-2022 HbA1c (Bld) [Mass fraction] 7.0 % 3.8-5.6 [facility] Comment on above: Normal < 5.7 % Predi abetic 5.7 - 6.4 % Diabetic >or= 6.5 % Please note range changes. XR KNEE THREE VIEWS RIGHTon 07-25-2022 XR KNEE THREE VIEWS RIGHT ORIGINAL EXAMINATION: THREE XRAY VIEWS OF THE RIGHT KNEE 07/20/2022 9:04 am COMPARISON: None. HISTORY: ORDERING SYSTEM PROVIDED HISTORY: Reason for Exam: knee pain, swelling FINDINGS: There are moderate tricompartmental degenerative changes which are most severe at the medial tibiofemoral compartment. 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 There are several degenerative joint bodies. There is probable small joint effusion. IMPRESSION: Moderate tricompartmental degenerative changes most severe at the medial tibiofemoral compartment. Small joint effusion. Interpreted by: Zelalem Wyatt Preliminary Report By: Zelalem Wyatt Electronically signed By Zelalem Wyatt Dictated Date: 07/25/2022 12:04:39 PM Prelim Date: 07/25/2022 12:07:00 PM Sign Date: 07/25/2022 12:07:00 PM Ordering Provider: DANIEL COCHRAN Normal [facility] [place] .GFRon 04-08-2022 GFR 92 ml/min/1.73sqm Normal [facility] [place] Comment on above: Result Comment: GFR Population mean for , Non- Americans Ages 20-29 = 116 mL/min/1.73 sq.m. Ages 30-39 = 107 mL/min/1.73 sq.m. Ages 40-49 = 99 mL/min/1.73 sq.m. Ages 50-59 = 93 mL/min/1.73 sq.m. Ages 60-69 = 85 mL/min/1.73 sq.m. Ages 70+ = 75 mL/min/1.73 sq.m. Chronic Kidney Disease: Less than 60 mL/min/1.73 square meters End Stage Renal Disease: Less than 15 mL/min/1.73 square meters Performed By: #### G FR, TSH, CMP, A1C, LIPID #### [address] [address] GFR Non- 76 ml/min/1.73sqm Normal [facility] ([place] Comment on above: Result Comment: GFR Population mean for , Non- Americans Ages 20-29 = 116 mL/min/1.73 sq.m. Ages 30-39 = 107 mL/min/1.73 sq.m. Ages 40-49 = 99 mL/min/1.73 sq.m. Ages 50-59 = 93 mL/min/1.73 sq.m. Ages 60-69 = 85 mL/min/1.73 sq.m. Ages 70+ = 75 mL/min/1.73 sq.m. Chronic Kidney Disease: Less than 60 mL/min/1.73 square meters End Stage Renal Disease: Less than 15 mL/min/1.73 square meters Performed By: #### G FR, TSH, CMP, A1C, LIPID #### [address] [address] A1Con 04-08-2022 HbA1c (Bld) [Mass fraction] 7.7 % High 4.3-6.4 [facility] [place] Comment on above: Performed By: #### G FR, TSH, CMP, A1C, LIPID #### [address] [address] CMPon 04-08-2022 Albumin Level 3.9 G/dL Normal 3.4-4.8 [facility] [place] Comment on above: Performed By: #### G FR, TSH, CMP, A1C, LIPID #### [address] [address] Albumin/Globulin [Mass ratio] 1.2 {ratio} Normal 1.1-2.5 [facility] ([place] Comment on above: Performed By: #### G FR, TSH, CMP, A1C, LIPID #### [address] [address] ALP [Catalytic activity/Vol] 43 U/L Normal 40-135 [facility] [place] Comment on above: Performed By: #### G FR, TSH, CMP, A1C, LIPID #### [address] [address] ALT [Catalytic activity/Vol] 71 U/L High 16-63 [facility] [place] Comment on above: Performed By: #### G FR, TSH, CMP, A1C, LIPID #### [address] [address] AST [Catalytic activity/Vol] 28 U/L Normal 10-40 [facility] [place] Comment on above: Performed By: #### G FR, TSH, CMP, A1C, LIPID #### [address] [address] Bili Total 0.6 mg/dL Normal 0.2-1.0 [facility] ([place] Comment on above: Result Comment: Use of this assay is not recommended for patients undergoing treatment with eltrombopag due to the potential for falsely elevated results. Performed By: #### G FR, TSH, CMP, A1C, LIPID #### [address] [address] BUN/Creatinine Ratio 16 ratio Normal 7-27 [facility] ([place]) Comment on above: Performed By: #### G FR, TSH, CMP, A1C, LIPID #### [address] [address] Calcium [Mass/Vol] 8.9 mg/dL Normal 8.4-10.2 [facility] ([place]) Comment on above: Performed By: #### G FR, TSH, CMP, A1C, LIPID #### [address] [address] Chloride [Moles/Vol] 101 mmol/L Normal 98-107 [facility] ([place]) Comment on above: Performed By: #### G FR, TSH, CMP, A1C, LIPID #### [address] [address] CO2 [Moles/Vol] 26 mmol/L Normal 23-31 [facility] ([place] Comment on above: Performed By: #### G FR, TSH, CMP, A1C, LIPID #### [address] [address] Creatinine [Mass/Vol] 0.99 mg/dL Normal 0.70-1.30 [facility] ([place]) Comment on above: Performed By: #### G FR, TSH, CMP, A1C, LIPID #### [address] [address] Electrolyte Balance 8.0 mEq/L Normal 4.0-15.0 [facility] ([place]) Comment on above: Performed By: #### G FR, TSH, CMP, A1C, LIPID #### [address] [address] Globulin 3.3 G/dL Normal [facility] [place] Comment on above: Performed By: #### G FR, TSH, CMP, A1C, LIPID #### [address] [address] Glucose [Mass/Vol] 298 mg/dL High 80-115 [facility] ([place] Comment on above: Performed By: #### G FR, TSH, CMP, A1C, LIPID #### [address] [address] Potassium [Moles/Vol] 4.5 mmol/L Normal 3.5-5.1 [facility] ([place]) Comment on above: Performed By: #### G FR, TSH, CMP, A1C, LIPID #### [address] [address] Sodium [Moles/Vol] 135 mmol/L Low 136-145 [facility] ([place] Comment on above: Performed By: #### G FR, TSH, CMP, A1C, LIPID #### [address] [address] Total Protein 7.2 G/dL Normal 6.4-8.2 [facility] ([place] Comment on above: Performed By: #### G FR, TSH, CMP, A1C, LIPID #### [address] [address] Urea nitrogen [Mass/Vol] 16 mg/dL Normal 7-18 [facility] [place] Comment on above: Performed By: #### G FR, TSH, CMP, A1C, LIPID #### [address] [address] LIPIDon 04-08-2022 Cholesterol [Mass/Vol] 124 mg/dL Normal 0-200 [facility] [place] Comment on above: Result Comment: Chol esterol Reference Interval: Less than 200 Desirable 200-239 Borderline high risk 240 and above High risk Performed By: #### G FR, TSH, CMP, A1C, LIPID #### [address] [address] Cholesterol in HDL [Mass/Vol] 34 mg/dL Low 40-60 [facility] [place] Comment on above: Performed By: #### G FR, TSH, CMP, A1C, LIPID #### [address] [address] Cholesterol in LDL [Mass/Vol] 66 mg/dL Normal 0-130 [facility] [place] Comment on above: Performed By: #### G FR, TSH, CMP, A1C, LIPID #### [address] [address] Triglyceride [Mass/Vol] 118 mg/dL Normal 0-150 [facility] [place] Comment on above: Result Comment: Trig lyceride Reference Interval: Less than 150 Normal 150-199 Borderline high risk 200-499 High risk 500 or higher Very high risk Performed By: #### G FR, TSH, CMP, A1C, LIPID #### [address] [address] TSHon 04-08-2022 TSH Qn 0.65 m[IU]/L Normal 0.36-3.74 [facility] [place] Comment on above: Performed By: #### G FR, TSH, CMP, A1C, LIPID #### [address] [address] .Auto Diffon 11-22-2021 Basophil, Absolute 0.00 10 3/mcL Normal 0.00-0.19 [facility] ([place] Comment on above: Performed By: #### JAROD PEREZ, ANEU #### [address] [address] Basophils/100 WBC (Bld) 0.2 % Normal 0.0-2.5 [facility] [place] Comment on above: Performed By: #### JAROD PEREZ, ANEU #### [address] [address] Eosinophil, Absolute 0.10 10 3/mcL Normal 0.00-0.40 [facility] [place] Comment on above: Performed By: #### JAROD PEREZ, ANEU #### [address] [address] Eosinophils/100 WBC (Bld) 1.9 % Normal 0.0-7.0 [facility] [place] Comment on above: Performed By: #### JAROD PEREZ, ANEU #### [address] [address] Lymphocyte, Absolute 1.50 10 3/mcL Normal 0.77-3.85 [facility] [place] Comment on above: Performed By: #### JAROD PREEZ, ANEU #### [address] [address] Lymphocytes/100 WBC (Bld) 23.1 % Normal 10.0-50.0 [facility] [place] Comment on above: Performed By: #### JAROD PEREZ, ANEU #### [address] [address] Monocyte, Absolute 0.60 10 3/mcL Normal 0.15-1.00 [facility] ([place] Comment on above: Performed By: #### JAROD PEREZ ANEU #### [address] [address] Monocytes/100 WBC (Bld) 9.8 % Normal 1.7-13.0 [facility] ([place] Comment on above: Performed By: #### JAROD PEREZ ANEU #### [place] [address] [address] Neutrophils/100 WBC (Bld) 65.0 % Normal 37.0-80.0 [facility] ([place]) Comment on above: Performed By: #### JAROD PEREZ, ANEU #### [address] [address] .NEUABSon 11-22-2021 Neutrophil, Absolute 4.20 10 3/mcL Normal 2.85-6.16 [facility] ([place] Comment on above: Performed By: #### JAROD PEREZ ANEU #### [place] [address] [address] CBCon 11-22-2021 Erythrocyte distribution width (RBC) [Ratio] 13.3 % Normal 11.5-14.5 [facility] ([place]) Comment on above: Performed By: #### JAROD PEREZ ANEU #### [address] [address] Hematocrit (Bld) [Volume fraction] 45.5 % Normal 42.0-52.0 [facility] [place] Comment on above: Performed By: #### JAROD PEREZ, ANEU #### [place] [address] [address] Hgb 15.7 G/dL Normal 14.0-18.0 [facility] [place] Comment on above: Performed By: #### JAROD PEREZ, ANEU #### [address] [address] MCH (RBC) [Entitic mass] 30.0 pg Normal 27.0-31.2 [facility] [place] Comment on above: Performed By: #### JAROD PEREZ, ANEU #### [address] [address] MCHC 34.6 G/dL Normal 31.8-35.4 [facility] [place] Comment on above: Performed By: #### JAROD PEREZ, ADAM #### [address] [address] MCV (RBC) [Entitic vol] 86.8 fL Normal 80.0-94.0 [facility] [place] Comment on above: Performed By: #### JAROD PEREZ, ANEU #### [address] [address] Platelet 201 10 3/mcL Normal 130-400 [facility] [place] Comment on above: Performed By: #### JAROD PEREZ, ANEU #### [place] [address] [address] Platelet mean volume (Bld) [Entitic vol] 9.8 fL Normal 7.4-10.4 [facility] [place] Comment on above: Performed By: #### JAROD PEREZ, ANEU #### [address] [address] RBC 5.24 10 6/mcL Normal 4.04-6.13 [facility] [place] Comment on above: Performed By: #### JAROD PEREZ, ANEU #### [address] [address] WBC 6.50 10 3/mcL Normal 4.60-10.80 [facility] [place] Comment on above: Performed By: #### JAROD PEREZ, ANEU #### [address] [address] LABORATORYOrdered By: Reagan Huang on 11-22-2021 Basophil, Absolute 0.00 103/mcL Invalid Interpretation Code 0.00 - 0.19 10^3/mcL AO Auto Heme SS Basophils/100 WBC (Bld) 0.2 % Invalid Interpretation Code 0.0 - 2.5 % AO Auto Heme SS Eosinophil, Absolute 0.10 103/mcL Invalid Interpretation Code 0.00 - 0.40 10^3/mcL AO Auto Heme SS Eosinophils/100 WBC (Bld) 1.9 % Invalid Interpretation Code 0.0 - 7.0 % AO Auto Heme SS Erythrocyte distribution width (RBC) [Ratio] 13.3 % Invalid Interpretation Code 11.5 - 14.5 % AO Auto Heme SS Hematocrit (Bld) [Volume fraction] 45.5 % Invalid Interpretation Code 42.0 - 52.0 % AO Auto Heme SS Hemoglobin (Bld) [Mass/Vol] 15.7 G/dL Invalid Interpretation Code 14.0 - 18.0 G/dL AO Auto Heme SS Lymphocyte, Absolute 1.50 103/mcL Invalid Interpretation Code 0.77 - 3.85 10^3/mcL AO Auto Heme SS Lymphocytes/100 WBC (Bld) 23.1 % Invalid Interpretation Code 10.0 - 50.0 % AO Auto Heme SS MCH (RBC) [Entitic mass] 30.0 pg Invalid Interpretation Code 27.0 - 31.2 pg AO Auto Heme SS MCHC (RBC) [Mass/Vol] 34.6 G/dL Invalid Interpretation Code 31.8 - 35.4 G/dL AO Auto Heme SS MCV (RBC) [Entitic vol] 86.8 fL Invalid Interpretation Code 80.0 - 94.0 fL AO Auto Heme SS Monocyte, Absolute 0.60 103/mcL Invalid Interpretation Code 0.15 - 1.00 10^3/mcL AO Auto Heme SS Monocytes/100 WBC (Bld) 9.8 % Invalid Interpretation Code 1.7 - 13.0 % AO Auto Heme SS Neutrophil, Absolute 4.20 103/mcL Invalid Interpretation Code 2.85 - 6.16 10^3/mcL AO Auto Heme SS Neutrophils/100 WBC (Bld) 65.0 % Invalid Interpretation Code 37.0 - 80.0 % AO Auto Heme SS Platelet mean volume (Bld) [Entitic vol] 9.8 fL Invalid Interpretation Code 7.4 - 10.4 fL AO Auto Heme SS Platelets (Bld) [#/Vol] 201 103/mcL Invalid Interpretation Code 130 - 400 10^3/mcL AO Auto Heme SS RBC (Bld) [#/Vol] 5.24 106/mcL Invalid Interpretation Code 4.04 - 6.13 10^6/mcL AO Auto Heme SS WBC (Bld) [#/Vol] 6.50 103/mcL Invalid Interpretation Code 4.60 - 10.80 10^3/mcL AO Auto Heme SS LABORATORYOrdered By: John vito Quintanilla on 11-22-2021 Prostate specific Ag [Mass/Vol] 0.69 ng/mL Invalid Interpretation Code 0.00 - 4.00 ng/mL AO ADM SS PSAon 11-22-2021 Prostate Specific Antigen 0.69 ng/mL Normal 0.00-4.00 [facility] [place] Comment on above: Performed By: #### P #### [address] [place], [place] [address] MSCon 02-14-2019 [facility] REPORT Normal [facility] DATE OF SERVICE: 02/2019 REASON FOR VISIT: Concern about high blood pressure. HISTORY OF PRESENT ILLNESS: This is a 63-year-old male who was taking his blood pressure yesterday and it was high in the 180s systolic. He called his doctor, and the medicine, lisinopril, was increased from 5 to 10 mg. Today he took it again, and it was still high at home in the 170s systolic. Denied any chest pain, but he has anxiety problem. Patient stated that earlier he had some abdominal discomfort, but he thinks it is because of his anxiety, so he took some Xanax, which relieved his anxiety and also relieved his abdominal symptoms. No tingling, numbness or weakness or blurry vision. Eating and drinking well. It appears that he has some underlying stress. REVIEW OF OTHER SYSTEMS: Normal. PAST MEDICAL HISTORY, FAMILY HISTORY, SOCIAL HISTORY: Reviewed. ALLERGIES: NKA. MEDICATIONS: Reviewed. PHYSICAL EXAMINATION: He is awake, alert, not in distress, no dyspnea. Temperature 98.6, blood pressure 147/91, pulse 87, respirations 16, pulse oximetry 97% on room air, pain score 0/10. HEENT: Unremarkable. Cranial nerves II-XII intact. Neurologically grossly intact. Motor function 5/5. Sensation intact. Chest: Clear to auscultate, no crackles, wheezes or rhonchi. Heart: Regular rate and rhythm. Abdomen: Soft, nontender, no guarding, nondistended. Liver and spleen not palpable. He can walk on tiptoes; however, he develops imbalance. Romberg sign was negative. Overall, exam is quite normal. ASSESSMENT: Hypertension. PLAN: Clinical findings were discussed with the patient in detail. I explained to him that the reading of 147/91 here is not a critical reading. He should continue his medications and follow with his doctor for further evaluation and care. There is no specific treatment needed from statcare right now, but he should watch his diet and decrease salt intake. Avoid caffeinated drinks. After a long discussion and explanation, patient understands and agreed. His questions were answered to his satisfaction. Rigoberto Pena MD [id number] SSI File#: [id number] [facility] PATIENT NAME: ANGELAI KING L [address] MEDICAL REC #: [id number] [place] [address] [facility] REPORT [facility] PHYSICIAN Verified/Reviewed by 02/28/19 Edwar KATHARINA [facility] PATIENT NAME: ANGELIA KING L [address] MEDICAL REC #: [id number] [place] [address] [facility] REPORT [facility] PHYSICIAN Normal [facility] Vital Signs Date Time Vital Sign Value Performing Clinician Naveen velazquez 07-24-2025 12:50-0400 Body height 180.34 cm Zackary GONZALEZ Work Phone: [phone] [address] 07-24-2025 12:50-0400 Body mass index (BMI) [Ratio] 25.4 kg/m2 Zackary Ballesteros [employer]ATOR[employer] Work Phone: [phone] [place] [address] 07-24-2025 12:50-0400 Body weight 82.55 kg Zackary Ballesteros [employer]PER[employer] Work Phone: [phone] [place] [address] 07-24-2025 12:50-0400 Diastolic blood pressure 68 mm[Hg] Zackary Ballesteros [employer]PER[employer] Work Phone: [phone] [place] [address] 07-24-2025 12:50-0400 Heart rate 76 /min Zackary Ballesteros [employer] Work Phone: [phone] [place] [address] 07-24-2025 12:50-0400 Respiratory rate 17 /min Zackary Ballesteros [employer] Work Phone: [phone] [place] [address] 07-24-2025 12:50-0400 SaO2% (BldA) [Mass fraction] 98 % Zackary Ballesteros [employer] Work Phone: [phone] [place] [address] 07-24-2025 12:50-0400 Systolic blood pressure 145 mm[Hg] Zackary Ballesteros [employer]PER[employer] Work Phone: [phone] [place] [address] 01-28-2025 10:40-0400 Body temperature 97.1 [degF] Zackary Ballesteros [employer] Work Phone: [phone] [place] [address] 01-28-2025 10:40-0400 Diastolic blood pressure 88 mm[Hg] Zackary Ballesteros [employer] Work Phone: [phone] [place] [address] 01-28-2025 10:40-0400 Heart rate 64 /min Zackary Ballesteros [employer] Work Phone: [phone] [place] [address] 01-28-2025 10:40-0400 Respiratory rate 18 /min Zackary Ballesteros [employer]PER[employer] Work Phone: [phone] [place] [address] 01-28-2025 10:40-0400 SaO2% (BldA) [Mass fraction] 100 % Zackary Ballesteros PIN DRAFTER OPERATOR-C Work Phone: 3(437)405-683276 [place] [address] 01-28-2025 10:40-0400 Systolic blood pressure 143 mm[Hg] Zackary Ballesteros PIN DRAFTER OPERATOR-C Work Phone: 3(242)883-486676 [place] [address] 01-28-2025 08:17-0400 Body height 180.34 cm Zackary Ballesteros PIN DRAFTER OPERATOR-C Work Phone: 3(995)809-454276 [place] [address] 01-28-2025 08:17-0400 Body mass index (BMI) [Ratio] 24.5 kg/m2 Zackary Ballesteros PIN DRAFTER OPERATOR-C Work Phone: 0(098)793-013076 [place] [address] 01-28-2025 08:17-0400 Body weight 79.7 kg Zackary Ballesteros PIN DRAFTER OPERATOR-C Work Phone: 6(606)065-371276 [place] [address] 12-23-2024 08:16-0500 Diastolic blood pressure 78 mm[Hg] Zackary Ballesteros PIN DRAFTER OPERATOR-C Work Phone: 7(313)643-625976 [place] [address] 12-23-2024 08:16-0500 Heart rate 87 /min Zackary Ballesteros PIN DRAFTER OPERATOR-C Work Phone: 2(366)083-708476 [place] [address] 12-23-2024 08:16-0500 Respiratory rate 18 /min Zackary Ballesteros PIN DRAFTER OPERATOR-C Work Phone: 4(850)516-623576 [place] [address] 12-23-2024 08:16-0500 Systolic blood pressure 144 mm[Hg] Zackary Ballesteros PIN DRAFTER OPERATOR-C Work Phone: 9(198)337-300276 [place] [address] 10-25-2024 10:17-0500 Body temperature 98.2 [degF] Zackary Ballesteros PIN DRAFTER OPERATOR-C Work Phone: 1(305)404-782676 [place] [address] 10-25-2024 10:17-0500 Diastolic blood pressure 93 mm[Hg] Zackary Ballesteros PIN DRAFTER OPERATOR-C Work Phone: 1(684)005-641776 [place] [address] 10-25-2024 10:17-0500 Heart rate 87 /min Zackary Ballesteros PIN DRAFTER OPERATOR-C Work Phone: 1(819)539-094276 [place] [address] 10-25-2024 10:17-0500 Respiratory rate 19 /min Zackary Ballesteros PIN DRAFTER OPERATOR-C Work Phone: 4(098)167-486876 [place] [address] 10-25-2024 10:17-0500 SaO2% (BldA) [Mass fraction] 97 % Zackary Ballesteros PIN DRAFTER OPERATOR-C Work Phone: 2(842)488-421476 [place] [address] 10-25-2024 10:17-0500 Systolic blood pressure 163 mm[Hg] Zackary Ballesteros PIN DRAFTER OPERATOR-C Work Phone: 9(784)609-987276 [place] [address] 10-25-2024 08:52-0500 Body mass index (BMI) [Ratio] 27.3 kg/m2 Zackary Ballesteros PIN DRAFTER OPERATOR-C Work Phone: 0(751)020-355376 [place] [address] 10-25-2024 08:52-0500 Body weight 88.9 kg Zackary Ballesteros PIN DRAFTER OPERATOR-C Work Phone: 1(834)556-650676 [place] [address] 10-07-2024 10:07-0500 Body mass index (BMI) [Ratio] 28.4 kg/m2 Zackary Ballesteros PIN DRAFTER OPERATOR-C Work Phone: 8(155)879-608576 [place] [address] 10-07-2024 10:07-0500 Body temperature 98.2 [degF] Zackary Ballesteros PIN DRAFTER OPERATOR-C Work Phone: 9(333)793-240676 [place] [address] 10-07-2024 10:07-0500 Body weight 92.53 kg Zackary Ballesteros PIN DRAFTER OPERATOR-C Work Phone: 1(792)784-173479 [address] 10-07-2024 10:07-0500 Diastolic blood pressure 86 mm[Hg] Zackary Ballesteros PIN DRAFTER OPERATOR-C Work Phone: 7(973)959-876176 [place] [address] 10-07-2024 10:07-0500 Heart rate 72 /min Zackary Ballesteros PIN DRAFTER OPERATOR-C Work Phone: 1(660)794-837979 [address] 10-07-2024 10:07-0500 Respiratory rate 18 /min Zackary Ballesteros PIN DRAFTER OPERATOR-C Work Phone: 2(127)689-616376 [place] [address] 10-07-2024 10:07-0500 SaO2% (BldA) [Mass fraction] 97 % Zackary Ballesteros PIN DRAFTER OPERATOR-C Work Phone: 7(394)155-970076 [place] [address] 10-07-2024 10:07-0500 Systolic blood pressure 178 mm[Hg] Zackary Ballesteros PIN DRAFTER OPERATOR-C Work Phone: 8(366)731-214779 [address] 10-03-2023 11:41-0500 Diastolic blood pressure 82 mm[Hg] Dr. Amara Damian Work Phone: [facility] 10-03-2023 11:41-0500 Systolic blood pressure 142 mm[Hg] Dr. Amara Damian Work Phone: [facility] 10-03-2023 08:18-0500 Body height 180.[address] Amara Damian Work Phone: [facility] 10-03-2023 08:18-0500 Body temperature 97.9 [degF] Dr. Amara Damian Work Phone: [facility] 10-03-2023 08:18-0500 Heart rate 74 /min Dr. Amara Damian Work Phone: [facility] 10-03-2023 08:18-0500 Respiratory rate 15 /min Dr. Amara Damian Work Phone: [facility] 10-03-2023 08:18-0500 SaO2% (BldA) [Mass fraction] 97 % Dr. Amara Damian Work Phone: [facility] 12-08-2022 08:58-0500 Body temperature 97.6 [degF] Dr. Amara Damian Work Phone: [facility] 12-08-2022 08:58-0500 Diastolic blood pressure 76 mm[Hg] Dr. Amara Damian Work Phone: [facility] 12-08-2022 08:58-0500 Heart rate 69 /min Dr. Amara Damian Work Phone: [facility] 12-08-2022 08:58-0500 Respiratory rate 18 /min Dr. Amara Damian Work Phone: [facility] 12-08-2022 08:58-0500 SaO2% (BldA) [Mass fraction] 97 % Dr. Amara Damian Work Phone: [facility] 12-08-2022 08:58-0500 Systolic blood pressure 124 mm[Hg] Dr. Amara Damian Work Phone: [facility] 12-08-2022 06:57-0500 Body height 180.[address] Amara Damian Work Phone: [facility] 12-08-2022 06:57-0500 Body mass index (BMI) [Ratio] 31.9 kg/m2 Dr. Amara Damian Work Phone: [facility] 12-08-2022 06:57-0500 Body weight [address] Amara Damian Work Phone: [facility] 10-10-2022 07:55-0500 Body mass index (BMI) [Ratio] 32.8 kg/m2 Dr. Amara Damian Work Phone: [facility] 10-10-2022 07:55-0500 Body temperature 97.2 [degF] Dr. Amara Damian Work Phone: [facility] 10-10-2022 07:55-0500 Body weight 106.[address] Amara Damian Work Phone: [facility] 10-10-2022 07:55-0500 Diastolic blood pressure 80 mm[Hg] Dr. Amara Damian Work Phone: [facility] 10-10-2022 07:55-0500 Heart rate 76 /min Dr. Amara Damian Work Phone: [facility] 10-10-2022 07:55-0500 Respiratory rate 17 /min Dr. Amara Damian Work Phone: [facility] 10-10-2022 07:55-0500 SaO2% (BldA) [Mass fraction] 98 % Dr. Amara Damian Work Phone: [facility] 10-10-2022 07:55-0500 Systolic blood pressure 146 mm[Hg] Dr. Amara Damian Work Phone: [facility] 09-22-2022 09:27-0500 Diastolic blood pressure 98 mm[Hg] Dr. Amara Damian Work Phone: [facility] 09-22-2022 09:27-0500 Systolic blood pressure 138 mm[Hg] Dr. Amara Damian Work Phone: [facility] 09-22-2022 08:24-0500 Body height 180.[address] Amara Damian Work Phone: [facility] Work Phone: 09-22-2022 08:24-0500 Body mass index (BMI) [Ratio] 32.6 kg/m2 Dr. Amara Damian Work Phone: [facility] 09-22-2022 08:24-0500 Body temperature 96.6 [degF] Dr. Amara Damian Work Phone: [facility] 09-22-2022 08:24-0500 Body weight 106.[address] Amara Damian Work Phone: [facility] 09-22-2022 08:24-0500 Heart rate 82 /min Dr. Amara Damian Work Phone: [facility] 09-22-2022 08:24-0500 Respiratory rate 16 /min Dr. Amara Damian Work Phone: [facility] 09-22-2022 08:24-0500 SaO2% (BldA) [Mass fraction] 96 % Dr. Amara Damian Work Phone: [facility] 08-08-2022 10:56-0400 Diastolic blood pressure 82 mm[Hg] Dr. Amara Damian Work Phone: [facility] Work Phone: 08-08-2022 10:56-0400 Systolic blood pressure 142 mm[Hg] Dr. Amara Damian Work Phone: [facility] Work Phone: 08-08-2022 10:28-0400 Body mass index (BMI) [Ratio] 33.2 kg/m2 Dr. Amara Damian Work Phone: [facility] Work Phone: 08-08-2022 10:28-0400 Body temperature 97.5 [degF] Dr. Amara Damian Work Phone: [facility] Work Phone: 08-08-2022 10:28-0400 Body weight 107.[address] Amara Damian Work Phone: [facility] Work Phone: 08-08-2022 10:28-0400 Heart rate 80 /min Dr. Amara Damian Work Phone: [facility] Work Phone: 08-08-2022 10:28-0400 Respiratory rate 14 /min Dr. Amara Damian Work Phone: [facility] Work Phone: 08-08-2022 10:28-0400 SaO2% (BldA) [Mass fraction] 97 % Dr. Amara Damian Work Phone: [facility] Work Phone: Encounters Encounter Date Encounter Type Care Provider Facility Start: 08-11-2025 ambulatory Chuck Bruce Facility: [facility] Start: 07-24-2025 End: 07-24-[address] Chuck Bruce MD -[facility] Work Phone: Start: 07-24-2025 End: 07-24-2025 ambulatory Zackary Ballesteros PIN DRAFTER OPERATOR-C Work Phone: -[facility] Start: 06-25-2025 End: 06-25-2025 ambulatory Zackary Ballesteros PIN DRAFTER OPERATOR-C Work Phone: -Cat Scan [facility] Start: 06-25-2025 End: 06-25-2025 Patient encounter procedure Lan David PIN DRAFTER OPERATOR-C -Cat Scan [facility] Work Phone: Start: 06-25-2025 End: 06-25-2025 ambulatory Zackary Ballesteros VS Facility:[facility] Start: 05-12-2025 End: 05-12-[address] Chuck Bruce MD -[facility] Work Phone: Start: 05-12-2025 End: 05-12-2025 ambulatory Zackary Ballesteros PIN DRAFTER OPERATOR-C Work Phone: -[facility] Start: 04-21-2025 End: 04-21-[address] Chuck Bruce MD -[facility] Work Phone: Start: 04-21-2025 End: 04-21-2025 ambulatory Zackary Taylorder PIN DRAFTER OPERATOR-C Work Phone: [facility] Work Phone: Start: 04-04-2025 End: 04-04-[address] Chuck Bruce MD -[facility] Work Phone: Start: 04-04-2025 End: 04-04-2025 ambulatory Chuck Bruce Facility:[facility] Start: 03-10-2025 ambulatory Zackary Ballesteros [facility] Facility :[facility] Start: 02-20-2025 End: 02-20-[address] Chuck Bruce MD -[facility] Work Phone: Start: 02-20-2025 End: 02-20-2025 ambulatory Zackary Ballesteros VS Facility:[facility] Start: 01-28-2025 ambulatory Zackary Ballesteros [facility] Facility :[facility] Start: 01-28-2025 Non-patient / Non-visit Dr. Chuck Bruce MD -[facility] Start: 01-28-2025 End: 01-28-2025 Admission to same day surgery center Dr. Chuck Bruce MD -Endoscopy Work Phone: Start: 01-28-2025 End: 01-28-2025 ambulatory Zackary Ballesteros PIN DRAFTER OPERATOR-C Work Phone: [facility] Work Phone: Start: 01-22-2025 End: 01-22-2025 ambulatory [facility] PIN DRAFTER OPERATOR-C Work Phone: [facility] Work Phone: Start: 01-22-2025 End: 01-22-2025 Patient encounter procedure Lan Joann PIN DRAFTER OPERATOR-C -[facility] Start: 01-22-2025 End: 01-22-2025 [facility] Start: 12-23-2024 End: 12-23-[address] Chuck Bruce MD -[facility] Work Phone: Start: 12-23-2024 End: 12-23-2024 ambulatory Zackary Ballesteros [facility] Facility:[facility] Start: 12-18-2024 ambulatory Zackary Ballesteros [facility] Facility :[facility] Start: 10-25-2024 End: 10-25-2024 Emergency department patient visit Dr. Wood Hinojosa MD -Emergency Department Work Phone: Start: 10-07-2024 End: 10-07-[address] Chuck Bruce MD -[facility] Work Phone: Start: 10-07-2024 End: 10-07-2024 ambulatory Zackary Ballesteros [facility] Facility:[facility] Start: 10-03-2023 End: 10-03-[address] Amara Damian Work Phone: [facility] Work Phone: Start: 10-03-2023 End: 10-03-[address] Amara Damian Work Phone: [facility] Work Phone: Start: 09-07-2023 End: 09-07-2023 ambulatory [facility] Work Phone: Start: 09-07-2023 End: 09-07-2023 Patient encounter procedure [facility] Start: 03-08-2023 End: 03-08-2023 ambulatory RIGOBERTO PENA Facility:[id number] Start: 12-08-2022 Non-patient / Non-visit Dr. Laureano Work Phone: [facility] Start: 12-08-2022 End: 12-08-2022 Admission to same day surgery center Dr. Amara Damian Work Phone: [facility] Start: 12-08-2022 End: 12-08-[address] Amara Damian Work Phone: [facility] Work Phone: Start: 10-10-2022 End: 10-10-[address] Amara Damian Work Phone: [facility] Start: 09-22-2022 End: 09-22-[address] Amara Damian Work Phone: [facility] Work Phone: Start: 09-22-2022 End: 09-22-[address] Amara Damian Work Phone: [facility] Start: 09-22-2022 End: 09-22-[address] Amara Damian Work Phone: [facility] Start: 08-08-2022 End: 08-08-[address] Amara Damian Work Phone: [facility] Start: 07-20-2022 End: 07-21-2022 ambulatory Nereida DANIEL SAMMIE NUTRITION MANAGER Facility:B Start: 07-20-2022 End: 07-20-2022 Patient encounter procedure DANIEL SAMMIE NICOLAS-NUTRITION MANAGER [facility] Start: 04-08-2022 End: 04-09-2022 ambulatory MS. DANIEL COCHRAN NUTRITION MANAGER Facility:[facility] Start: 11-22-2021 End: 11-23-[address] ZANA HOOD MD. Facility:[facility] Start: 11-22-2021 End: 11-22-[address] ROEL MELGOZA MD [facility] Start: 02-14-2019 Patient encounter procedure Rigoberto Pena Facility:[facility] Procedures Date Procedure Procedure Detail Performing Clinician Start: 06-25-2025 Computed tomography of abdomen and pelvis with contrast Zackary Ballesteros PIN DRAFTER OPERATOR-C Work Phone: Start: 06-25-2025 Creatinine blood Zackary catalan PIN DRAFTER OPERATOR-C Work Phone: Start: 06-25-2025 Ultrasound of scrotu m with Doppler and color flow imaging Zackary Ballesteros PIN DRAFTER OPERATOR-C Work Phone: Start: 01-28-2025 Colonoscopy Zackary Ballesteros PIN DRAFTER OPERATOR-C Work Phone: Start: 01-22-2025 Prostate specific an tigen measurement Zackary Ballesteros PIN DRAFTER OPERATOR-C Work Phone: Comment on above: This test was perfor med using the [employer] tPSA method. Measured values of a patient sample can vary depending on the testing procedure used. PSA values determined on patient samples by different testing procedures cannot be used interchangeably. If there is a change in PSA assays while monitoring therapy, sequential testing should be performed to confirm baseline values. Start: 10-03-2023 Radiologic examinati on of knee Dr. Amara Damian Work Phone: Start: 12-08-[address] Amara Damian Work Phone: Start: 11-13-[address] ROEL MELGOZA MD Comment on above: also done 12/23/2003 Start: 11-13-[address] ZONIA MELGOZA MD Prostatectomy DR ROEL SMITH MD Plan of Treatment Date Care Activity Detail Author Start: 01-28-2025 Colsc flx w/rmvl of tumor polyp lesion snare tq COLONOSCOPY W/LESION REMOVAL [facility] Start: 01-28-2025 Hemorrhoidectomy internal rubber band ligations LIGATION OF HEMORRHOID(S) [facility] Start: 01-28-2025 Patient discharge [facility] Start: 10-25-2024 [facility] Start: 12-08-2022 Patient discharge [facility] Colonoscopy [facility] Methicillin resistan t Staphylococcus aureus screening test [facility] Patient Education ED High Blood Pressure Hypertension [facility] Work Phone: Patient referral [facility] Work Phone: Immunizations Immunization Date Immunization Notes Care Provider Fa cili 07-05-2021 SARS-CoV-2 (COVID-19 ) mRNA-1273 vaccine DANIEL COCHRAN CMO-NUTRITION MANAGER [facility] 05-28-2021 SARS-CoV-2 (COVID-19 ) mRNA-1273 vaccine DANIEL COCHRAN CMO-NUTRITION MANAGER [facility] 01-13-2014 zoster vaccine, live DANIEL COCHRAN CMO-NUTRITION MANAGER [facility] 06-20-2013 tetanus toxoid, redu adria diphtheria toxoid, and acellular pertussis vaccine, adsorbed DANIEL COCHRAN CMO-NUTRITION MANAGER [facility] Payers Date Payer Category Payer Medicare [id number] 2024 Self-pay 2022 Medicaid [id number] 2021 Medicare [id number] 2017 Unknown [id number] 1955 Unknown [id number] 2.16.8 [id number] 1955 Unknown [id number] 2.16.8 40.1.144349.3.579.2.627 1955 Unknown [id number] 2.16.8 40.1.638484.3.579.2.627 1955 Unknown [id number] 2.16.8 40.1.080723.3.579.2.627 Medicaid MEDICAID [id number] Unknown [id number] 2.16.8 40.1.093832.3.579.2.273 Unknown [id number] 2.16.8 40.1.256728.3.579.2.462 Unknown [id number] 2.16.8 40.1.475600.3.579.2.462 Unknown [id number] 2.16.8 40.1.482626.3.579.2.462 Unknown [id number] 2.16.8 40.1.541747.3.579.2.462 Unknown [id number] 2.16.8 40.1.387091.3.579.2.462 Unknown [id number] 2.16.8 40.1.404485.3.579.2.462 Unknown [id number] 2.16.8 40.1.755014.3.579.2.462 Unknown [id number] 2.16.8 40.1.905404.3.579.2.462 Unknown [id number] 2.16.8 40.1.519212.3.579.2.462 Unknown [id number] 2.16.8 40.1.391165.3.579.2.462 Unknown [id number] 2.16.8 40.1.607637.3.579.2.462 Unknown [id number] 2.16.8 40.1.362005.3.579.2.462 Unknown [id number] 2.16.8 40.1.482860.3.579.2.462 Unknown [id number] 2.16.8 40.1.583688.3.579.2.462 Unknown [id number] 2.16.8 40.1.661848.3.579.2.462 Social History Date Type Detail Facility Start: 08-29-2019 End: 01-27-2025 Never smoked tobacco (finding) [facility] Comment on above: no tobacco smoke exp osure Start: 1955 Sex Assigned At Male A [facility] Start: 09-21-2022 End: 10-02-2023 Tobacco smoking status NHIS Unknown if ever smoked [facility] Start: 01-28-2025 End: 02-01-2025 Sex Male (finding) [facility] Medical Equipment Procedure Code Equipment Code Equipment Origin al Text Equipment Identifier Dates Colonoscopy Oesophageal endoscopic ligator, single-useHaemorrhoid ligator [id number] FDA Start: 01-28-2025 Goals Date Patient Goal Desired Activity /State Mental Status Date Assessment Result Facility 01-28-2025 Cognitive function Level Of Consciousness Sedated [facility] Work Phone: 01-28-2025 Cognitive function Voice/Name [facility] Work Phone: 10-25-2024 Cognitive function Level Of Cons ciousness Awake;Alert;Appropriate;Follow s Commands [facility] Work Phone: 12-08-2022 Cognitive function Light Pain [facility] Work Phone: Clinical Notes 12-08-2022 to 06-27-2025 Note Date & Type Note Facility 06-27-2025 Radiology Diagnostic study note [facility] Imaging Services [address], [place] [address] Abdomen/Pelvis WITH Contrast MR#: [id number] Acct: [id number] Name: ANGELIA KING Zane Rep #: [id number] : 1955 M 69 From: Alexandru Sharif MD PCP: Zackary Ballesteros PIN DRAFTER OPERATOR-C Status: REG CLI Study:Abdomen/Pelvis WITH Contrast Date of Ex am: 06/25/25 Exam# [id number] Ordering Dr: Jasmeet David [facility] PIN DRAFTER OPERATOR-C PROCEDURE: ABDOMEN/PELVIS WITH CONTRAST 06/25/2025 REASON FOR EXAM: RLQ PAIN One-month history of right lower quadrant pain. TECHNIQUE: ABDOMEN/PELVIS WITH CONTRAST Coronal and Sagittal reconstruction series were provided. CONTRAST: Isovue-300 VOLUME: 100 mL One or more dose reduction techniques were used (e.g., Automated exposure control, adjustment of the mA and/or kV according to patient size, use of iterative reconstruction technique. RADIATION DOSE SUMMARY: CTDlvol: 12.6 mGy DLP: 886.16 mGycm COMPARISON: None FINDINGS: Lung bases: The lung bases are clear. There is evidence of coronary artery calcification. Liver: Diffuse fatty infiltration. Gallbladder: Unremarkable Spleen: Normal size. Pancreas: Normal size without evidence of mass surrounding inflammation or ductal dilation. Adrenals: Hyperplasia of the left adrenal gland. Kidneys: Normal renal sizes. No hydronephrosis. Bladder: Mild degree of bladder wall thickening. Central prostatic calcifications. Bowel: Colonic diverticulosis without diverticulitis. Appendix: The appendix is not identified. There is no inflammatory process identified in the right lower quadrant to suggest appendicitis. Lymph nodes: Unremarkable. Vasculature: Mild diffuse atherosclerotic calcifications are noted. Peritoneum / Retroperitoneum: Small bilateral inguinal hernias containing fat slightly larger on the right side. Bones: Unremarkable CT/Abdomen/Pelvis WITH Contrast IMPRESSION: Fatty infiltration of the liver. Mild degree of bladder wall thickening. Hypertrophy of the left adrenal gland. Small bilateral inguinal hernias containing fat slightly larger on the right side. Reading Location: [place] [address] CC: CARLOS Ballesteros; Margaritojossy [facility] CARLOS Beam ~ Cylinder Steamer: Signed [facility] 06-27-2025 Radiology Diagnostic study note [facility] Imaging Services [address] [place] [address] Testicular with Arterial Flow MR#: [id number] Acct: [id number] Name: ANGELIA KING Rep #: [id number] : 1955 M 69 From: Claudia Tolbert MD PCP: CARLOS Whitt Status: REG CLI Study:Testicular with Arterial Flow Date of E xam: 06/25/25 Exam# [id number] Ordering Dr: Jasmeet David [facility] PIN DRAFTER OPERATOR-C PROCEDURE: TESTICULAR WITH ARTERIAL FLOW 06/25/2025 REASON FOR EXAM: R TESTICULAR PAIN TECHNIQUE: TESTICULAR WITH ARTERIAL FLOW FINDINGS: RIGHT testicle: 4.2 x 2.1 x 3.0 cm. Small right epididymal head cysts are benign. LEFT testicle: 4.0 x 2.0 x 2.5 cm. Small left epididymal head cyst. Other findings: [place] striping is seen involving both testes-curvilinear bandsof hypoechogenicity. This can represent bands of fibrosis that are likely sequelae of prior inflammation. Occasionally this can be associated with current inflammation, but no hyperemia is seen on color flow to suggest this at this time. Correlate withfever, white count, urinalysis. Mild bilateral hydrocele. Color and spectral Doppler flow is present bilaterally. US/Testicular with Arterial Flow IMPRESSION: No acute abnormality. However, see above description Sub 5 mm benign epididymal cysts. Reading Location: [id number] CC: CARLOS Ballesteros; Lan [facility] PIN DRAFTER OPERATOR-C Joann ~ Cylinder Steamer: Signed [facility] 04-04-2025 Evaluation note Diagnosis Onset Date Resolution Hemorrhoids acute April 04 2:01pm Right groin pain acute March 2:01pm Fissure in ano acute April 21, 2025 9:44am Fissure in ano acute May 12, 2025 2:38pm [facility] Work Phone: 1(701) 743-524304-10-2025 Evaluation note* Diagnosis Onset Date Resolution Status Admit Date External hemorrhoid, thrombosed acut e February 20, 2025 2:58pm Hemorrhoids acute April 04 2:01pm Right groin pain acute March 2:01pm Fissure in ano acute April 21, 2025 9:44am [facility] Work Phone: 1(664) 763-466803-18-2025 Consult note [facility] Medical Records Department [address] [address] Anesthesia Postop Eval II 01/28/25 1110 MR#: [id number] Acct: [id number] Name: ANGELIA KING Rep #:[id number] : 1955 69 From: Khoa Tuttle MD PCP: ETTA WhittC Status:REG SDC Y Race: C Location: [place] [address]-1 Anesthesia Postop Eval I Sum Postop Eval Completion status Anesthesia document: Postop Eval 1 completed: Yes Anesthesia Postop Eval I Summary Anesthesia Postop Eval I Summary: Anesthesia Postop Eval I: Assessment Summary Airway patent Yes 01/28/25 10:28 LUMBER RACKER.TNES Spontaneous unlabored Yes 01/28/25 10:28 LUMBER RACKER.TNES respirations Mental status nausea No 01/28/25 10:28 LUMBER RACKER.TNES Vomiting No 01/28/25 10:28 LUMBER RACKER.TNES Anesthesia Postop Eval I: Fluid Summary Crystalloid volume administer 30 01/28/25 10:28 LUMBER RACKER.TNES (ml) Colloids volume administered ( ml) Blood Product volume administered (ml) Total IV fluid infused 30 01/28/25 10:28 LUMBER RACKER.TNES Anesthesia Postop Eval I: Summary Notes Anesthesia Complication No 01/28/25 10:28 LUMBER RACKER.TNES Anesthesia Complication Comment: Post-operative progress note Anesthesia: Postop Eval II Evaluation Mental status: Awake Pain Level: 0 nausea: No Vomiting: No Complications Anesthesia Complication: No 01/28/25 1110 > Date _ Khoa Tuttle MD Cosigner Signature: Date CC: ~ Signed [facility]03-18-2025 Consult note Author Khoa Tuttle [facility] Note Date/Time January 28, 2025 9:0 4am [facility] Medical Records Department [address] [place] [address] [place] [address] Pre-Anesthesia Evaluation 01/28/25 0856 MR#: [id number] Acct: [id number] Name: ANGELIA KING Rep #:[id number] : 1955 69 From: Khoa Tuttle MD PCP: Zackary Ballesteros NP-C Status:REG SDC Y Race: C Location: [place] [address] ASA Classification* ASA Classification ASA Classification: 3 (HTN, GERD, DM, HLD, Anxiety, WPW (hx of WPW, 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 ) Assessment & Plan Anesthesia* Anesthesia Assessment Anesthesia Assessment: Discussed sedation and/or anesthesia options, risks, benefits, and alternatives with patient/parents/legal guardian/POA. Questions invited. The patient/parents/legal guardian/POA seems to understand and agrees to proceedwith anesthesia plan. Reviewed the physical assessment, medical history, allergy history and patient home medications list prior to surgery/procedure/anesthetic and documented any changes. Performed airway and anesthesia risk assessments. Anesthesia Type Anesthesia Type: General History Source History Obtained from:: Patient and Chart Anesthesia Focused Assessment* Temperature: 97.5 F Pulse Rate: 75 Blood Pressure: 139/81 Respiratory Rate: 16 Pulse Ox: 100 Oxygen Delivery Method: Room Air Airway Assessment Mouth opens: >3 cm Mallampati Score: II Teeth Condition: Intact, Loose (TOP RIGHT TOOTH LOOSE. Advised patient regardings the risks of undergoing anestheia which can include dental damage andcan result in dislodgement of loose teeth. Patient verbalizes understanding and accepts risk of dental injury. ) and Partial (upper) Neck Range of motion (ROM): Full ROM Focused Labs Anesthesia Preop lab: CBC WBC 9.0 K/mm3 (4.4-11.0) 01/22/25 15:40 01/22/25 RBC 4.56 M/mm3 (4.6-6.2) L 01/22/25 15:40 01/22/25 Hgb 14.2 g/dL (13.0-16.5) 01/22/25 15:40 01/22/25 Hct 40.3 % (40-54) 01/22/25 15:40 01/22/25 Plt Count 214 K/mm3 (150-450) 01/22/25 15:40 01/22/25 CHEMISTRY Potassium 4.2 mmol/L (3.3-5.1) 01/22/25 15:40 01/22/25 Sodium 133 mmol/L (133-145) 01/22/25 15:40 01/22/25 BUN 16 mg/dL (4-19) 01/22/25 15:40 01/22/25 Creatinine 0.85 mg/dL (0.70-1.20) 01/22/25 15:40 01/22/25 Glucose 98 mg/dL (70-99) 01/22/25 15:40 01/22/25 POC Glucose 140 mg/dL (74-106) H 12/08/22 06:54 12/08/22 TSH 0.772 uIU/mL (0.300-4.200) 01/22/25 15:40 01/11 01/07 COAG Pre-Assessment Diagnosis/Proposed Procedure Planned Operative Procedure(s): Colonoscopy w/hemorrhoid banding Anesthesia History Anesthesia History - drawing supervisor: Anesthesia History - drawing supervisor Hx Hospitalization No 01/27/25 11:50 Any Problems With Anesthesia No 01/27/25 11:50 Cholinesterase deficiency No 01/27/25 11:50 You/Your Family Experience No 01/27/25 11:50 fever (hyperthermia) with Relationship Recent Exposure to Contagious No 01/28/25 08:17 Disease Does patient have nerve No 01/27/25 11:50 stimulator Patient instructed to have device shut off --Does patient have Pacemaker No 01/28/25 08:17 or ICD? When Was Last Pacemaker Check QUESTION #4 FULL TEXT: You/Your Family Experience fever (hyperthermia) with Anesthesia Last Oral Intake Last Oral intake: Last Oral Intake NPO since 05:00 01/28/25 08:17 Meds taken in AM with sips of Yes 01/28/25 08:17 water? Meds patient instructed to take am of surgery PONV PONV - drawing supervisor: PONV - drawing supervisor Female No 01/27/25 11:50 HX of Motion Sickness No 01/27/25 11:50 HX of N/V After Surgery No 01/27/25 11:50 Non-Smoker Yes 01/27/25 11:50 Duration of Surgery greater No 01/27/25 11:50 than 60 minutes Number of Risk Factors 1 01/27/25 11:50 PONV Score Low Risk 01/27/25 11:50 Height & Weight Height & Weight: Anesthesia: Height & Weight Height 5 ft 11 in 01/28/25 08:17 Weight: 79.7 kg 01/28/25 08:17 Body Mass Index (BMI) 24.5 01/28/25 08:17 Respiratory Assessment Respiratory Assessment - drawing supervisor: Respiratory Tract Infection Hx - drawing supervisor Hx Respiratory Tract Infection No 01/27/25 11:50 STOP Sleep Apnea STOP Sleep Apnea - drawing supervisor: STOP Sleep Apnea - drawing supervisor Hx Hypertension Yes: CONTROLLED WITH MED 01/27/25 11:50 Hx Sleep Apnea No 01/27/25 11:50 CPAP BIPAP Do you snore loudly (louder No 01/27/25 11:50 than talking or can be heard Do you often feel tired/ No 01/27/25 11:50 fatigued/ sleepy during daytime? Has anyone observed you stop No 01/27/25 11:50 breathing during sleep? STOP Results Negative 01/27/25 11:50 QUESTION #5 FULL TEXT : Do you snore loudly (louder than talking or can be heard through closed doors)? Tobacco Use History Tobacco Use History - drawing supervisor: Tobacco Use History - drawing supervisor Tobacco Use Smoking Status Never smoker 01/27/25 11:50 Hx Tobacco Use No 01/27/25 11:50 Years Smoking Packs Smoked per Day Smoking Cessation Date was within the last 15 years Hx Smoking Cessation Date Hx Smoking Cessation Counseling Hematologic Medial History Hematologic Hx - drawing supervisor: Hematologic Medical Hx - laboratory administrative director Hx of Blood Transfusion No 01/27/25 11:50 Hx of Transfusion in last 3 No 01/27/25 11:50 Months Date of Last Transfusion (if within last 3 months) Ever experience any problems No 01/27/25 11:50 with transfusion(s)? Specify any problems Hx of Preganancy in last 3 N/A 01/27/25 11:50 Months Nurse Filling Out Transfusion NBUCHER 01/27/25 11:50 & Questions: Date: 01/27/25 01/27/25 11:50 Time: 11:51 01/27/25 11:50 Patient unable to answer at this time (ie. confused, unrespo /Reproduction History /Reproductive History - drawing supervisor: /Reproductive Hx- drawing supervisor Hx Now Gestational Age (in weeks): EDC: Hx Hx Para Hx Section SAB No 10/03/24 08:44 PFSH Medical History (Updated 01/27/25 @ 11:56 by Tamiko Jones) Wears partial dentures Hemorrhoids Wears glasses Wears dentures Anxiety Diabetes Arthritis Low iron Fatty liver High cholesterol Dietary restriction Heartburn Non-smoker Leg cramps History of pain when walking Hnxgj-Iyskhhxeg-Utlqe (WPW) pattern Cardiology follow-up encounter Hypertension Positive colorectal cancer screening using Cologuard test Hypertension Diabetes Arthritis Home Medications ?Medication ?Instructions ?Recorded ?Last Taken ?Type acetaminophen 500 mg tablet 500 mg PO Q6H PRN Pain Unknown History (Tylenol Extra Strength) omega 1-xzu-lsd-fish oil 1,000 mg 1 cap PO DAILY 12/0712/05/22 History (120 mg-180 mg) capsule (Fish Oil) psyllium husk 0.4 gram capsule 0.4 g PO QHS 12/07/22 0 12/05/22 History (Metamucil) acetaminophen 300 mg-codeine 30 mg 1 tab PO Q6H PRN pa in #10 tabs 05/02/24 Unknown Rx tablet sildenafil 100 mg tablet 100 mg PO DAILY PRN sexual 0 05/02/24 Unknown Rx activity #45 tabs alprazolam 0.25 mg tablet 0.5 mg (2 x 0.25 mg) PO BID #60 06/03/24 01/28/25 06:16 Rx tabs Hydrocortisone 2.5% / Lidocaine 5% #1 ea 10/07/24 Unkn own Rx ointment (cmpd) lisinopril 20 mg tablet 20 mg PO DAILY 01/27/25 Unkn own History trazodone 100 mg tablet 100 mg PO QHS 01/27/25 Unkno wn History Allergy/AdvReac Type Severity Reaction Status Date / Time No Known Allergies Allergy Verified 01/28/25 08:16 Family History Father CVA (cerebral vascular accident) Mother Cancer throat Other Heart disease Surgical History Hx of colonoscopy S/P lateral meniscus repair of right knee H/O prostatectomy Social History household members: spouse 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 Physical Exam Const alert, oriented x3 and average body habitus Resp normal respiratory effort, normal air movement and clear to auscultation bilaterally Cardio regular rate, regular rhythm, no murmurs and diaphoretic 01/28/25 0904 <Electronically signed by Khoa Tuttle MD> Date _ Khoa Tuttle MD Cosigner Signature: Date CC: ~ Signed [facility] Work Phone: 1(702) 188-482703-18-2025 History and physical note Author Chuck Bruce [facility] Note Date/Time January 28, 2025 9:0 0am [facility] Medical Records Department [address] [place] [id number] History & Physical Exam 01/28/25 0858 MR#: [id number] Acct: [id number] Name: ANGELIA KING Rep #:[id number] : 1955 69 From: Chuck Jamil PCP: CARLOS Whitt Status:[facility] Location: [place] [id number] History and Physical Date of Admission: 01/28/25 Date of Service: 12/23/24 MR#: [id number] Acct: [id number] Name: ANGELIA KING Rep #: [id number] : 1955 Provider: Dr. Chuck Bruce MD Age/Sex: 69/M Location: [facility] Status: Signed Intake Vital Signs 10/25/2408:52 12/23/2507:16 Height 5 ft 11 in BP 144/78 H Blood Pressure Location Lt brachial Position Sitting Respiration 18 Pulse 87 Pulse Source Monitor Intake Visit Reasons: discuss hemorrhoids Chief Complaint: discuss hemorrhoids Refrigerating Technician Required: No Accompanied by: Is patient in pain?: Yes Allergies No Known Allergies Allergy (Verified 12/23/24 08:17) Medications ?Medication ?Instructions ?Recorded ?Confirmed ?Type acetaminophen 500 mg tablet 500 mg PO Q6H PRN Pain 10/10/22 12/23/24 History (Tylenol Extra Strength) omega 7-qny-amy-fish oil 1,000 mg 1 cap PO DAILY 12/07/22 12/23/24 History (120 mg-180 mg) capsule (Fish Oil) psyllium husk 0.4 gram capsule 0.4 g PO QHS 12/07/22 12/23/24 History (Metamucil) atorvastatin 20 mg tablet 20 mg PO QHS #90 tabs 03/18/24 12/23/24 Rx acetaminophen 300 mg-codeine 30 mg 1 tab PO Q6H PRN pain #10 tabs 05/02/24 12/23/24 Rx tablet sildenafil 100 mg tablet 100 mg PO DAILY PRN sexual 05/02/2412/14 Rx activity #45 tabs trazodone 100 mg tablet 100 mg PO DAILY #90 tabs 05/02/24 Rx alprazolam 0.25 mg tablet 0.5 mg (2 x 0.25 mg) PO BID #60 06/03/24 12/23/24 Rx tabs Hydrocortisone 2.5% / Lidocaine 5% #1 ea 10/07/24 12/23/24 Rx ointment (cmpd) Have you fallen in the past year?: No PFSH Medical History Hemorrhoids Wears glasses Wears dentures Anxiety Diabetes Arthritis Low iron Fatty liver High cholesterol Dietary restriction Heartburn Non-smoker Leg cramps History of pain when walking Ndfyy-Ffulvrqfi-Kijzl (WPW) pattern Cardiology follow-up encounter Hypertension Positive colorectal cancer screening using Cologuard test Hypertension Diabetes Arthritis Surgical History Hx of colonoscopy S/P lateral meniscus repair of right knee H/O prostatectomy Family History Father CVA (cerebral vascular accident)Mother Cancer throatOther Heart disease Social History household members: spouse current occupational status: retired current occupation: [employer] Smoking Status: Never smoker Electronic Cigarette Use: not used alcohol intake: never substance use type: does not use what type of physical activity do you participate in: additional details: cutting wood do you feel safe at home: Yes HPI HPI HPI: Patient is a 69-year-old male who is known to me from prior colonoscopy encounter but follows up for concern specifically related to hemorrhoids. His last visit was 10/07/2024. He presents today with his . Originally we weresupposed to see him back in clinic 2 weeks following his visit in September but he declined the follow-up because he was under the impression things are getting better. However now he states he fears he waited too long because he is experiencing more burning and swelling with his hemorrhoids. He reports that he uses MiraLAX daily and experiences roughly 3-4 bowel movements daily. He does note they are sometimes thinner in character. He insist that he is kepthis toilet time to 2 minutes or less. In addition to the MiraLAX he reports that his has been intentional about trying to cook more high-fiber foods and he is consuming psyllium husk twice daily besides. Mr. King continues to perform 1 sitz bath after each bowel movement. He reports use of a hydrocortisone/lidocaine ointment alongside of a diltiazem?containing ointment that he was prescribed by his PCP. He questions whether he should continue thisuse. In addition to the reports of burning and swelling he describes 1 episode of bleeding a week ago with some straining during a bowel movement. However, he has had no bleeding since. He denies any interval health updates apart from above. Below is recapitulated from patient's prior visit for ease of review: Patient is a 69-year-old male who is kno underwentwn to me from a prior colonoscopy performed November 2022 after a positive Cologuard test but presents for complaint of hemorrhoid activity today. He presents today with his . They first noted this issue years ago and he readily acknowledges that this is achronic problem for which he has seen his PCP and underwent serial lancing. However he was advised by his PCP that there were only so many times this could be done before more definitive management would be required and recommended evaluation in our office. Mr. King estimates that his present flare officiallybecame worse approximately 3 weeks ago. He notes that he has remained on supplemental fiber and MiraLAX to try to minimize his risk for constipation. With this regimen he is experiencing a bowel movement at least a 1-2 times dailyin the morning. He reports his toilet time has no more than 2 minutes (he suggests that he is intentional about ensuring this limited time). He does acknowledge a history of straining but states that he has been intentional aboutminimizing this risk as well. Mr. King reports pain that is rather sharp and more frequently encountered in the mornings. He initially experienced some bleeding but this is cleared up. Lastly he has experienced some itching and bulging. This is/is not their first experience with this problem. Additionally, they do/do not note associated itching/burning with this complaint. To date, they have tried Tylenol for the pain and topical lidocaine. Additionally notes that he has used Epsom salt baths on a nearly daily basis and several tubes of hydrocortisone cream. 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 5-year follow-up was recommended. ROS General General: No weight change, appetite, fatigue, colon cancer, breast cancer or weakness HEENT HEENT: No difficulty swallowing, eye injury, eye surgery, swollen glands or hoarseness Endo Endocrine: Yes diabetes mellitus; No thyroid disease, thyroid cancer, Hair loss, heat intolerance or cold intolerance Skin Skin: No rash or changing moles Musc Musculoskeletal: Yes arthritis; No back problems, rheumatoid arthritis, gout or joint pain Cardio Cardiovascular: Yes high blood pressure; No murmur, pacemaker, heart disease, atrial fibrillation, heart attack, heart stent, palpitations, shortness of breat with exertion or chest pain Psych Psychiatric: Yes anxiety; No depression or hearing voices Resp Respiratory: No shortness of breath, No sleep apnea, No cough, No COPD, No asthma, No emphysema and No wheezing Gastro Gastrointestinal: No abdominal pain, No nausea or vomiting, No diarrhea, No constipation, No blood in stool, No acid reflux, Yes hemorrhoids, No ulcers, No gallbladder problem and No black,tarry stools Augustus Hematologic: No blood thinners, No blood disorders, No bleeding, No anemia and No blood clots Neuro Neurologic: No system reviewed and no additional complaints, except as documented, No as per HPI, No abnormal gait, No abnormal hearing, No abnormal movements, No abnormal speech, No behavioral changes, No burning sensations, No confusion, No convulsions, No disequilibrium, No dizziness, No localized weakness, No frequent falls, No headache(s), No lack of coordination, No loss ofvision, No memory loss, No numbness, No other visual disturbances, No radicular pain, No restless legs, No sensory deficit, No syncope, No tingling, No tremor(s), No weakness and No other Exam Const General: cooperative, comfortable and no acute distress Orientation: alert, awake and oriented x3 Resp Effort & Inspection: normal respiratory effort GI Other: Anal skin tag at the 12 o'clock position otherwise there is no prolapsing anal mucosa. There is no evidence of anal fissure. Digital rectal exam is performedand identify mild engorgement of the internal hemorrhoid columns in the right anterior and right posterior positions with today's exam. There are no masses palpable or blood on the withdrawn finger overall patient. Assessment and Plan Assessment and Plan (1) Hemorrhoids: Status: Acute Comment: Patient is a 69-year-old male who makes follow-up for complaints of burning andswelling in association with hemorrhoids. He appears to be making a conscientious effort with conservative measures but perhaps overdoing it with his use of MiraLAX. I have instructed him to try to take this medication only as needed and titrated and affect to 1-2 soft bowel movements per day so as tooverall net a decrease in his toilet time. He seems to confirm understanding. On exam today I appreciate only some lower grade internal hemorrhoids but there is no blood. With this assessment, I believe Mr. King would be an appropriate candidate for hemorrhoid banding. However, it has been over 2 years since his last colonoscopy and I do not want to be overlooking an alternative rectal pathology. Moreover, he did not tolerate a digital rectal exam very well duringtoday's visit and therefore this casts doubt on his ability to tolerate an in-office anoscopy with banding. Thus I have recommended repeat colonoscopy with consent to proceed with endoscopic banding. Mr. Friedman and his appear happy with this recommendation. Requirement for a split prep and fiber hold were discussed with them. Plan: Plan will be to complete colonoscopy with hemorrhoid banding on first mutually agreeable date under local MAC. Pre-procedure prep discussed and paper instructions provided. Patient is also made aware that he will need to have a courtesy car driver with him the day of the procedure. I have examined the patient the following changes are noted: Patient presents today for colonoscopy and confirms he completed prep for today's procedure. He shares that his output is now clear. He also confirms that he completed use of the prescribed diltiazem cream for treatment of his anal fissure. Interestinglyhe states he was unaware that he had an anal fissure but does report that his burning sensation has significantly decreased in frequency and he no longer is seeing any bleeding. Further, he confirms that he decreased his MiraLAX dose and that all is having bowel movements just twice daily. He feels that this hasalso benefited his experience of hemorrhoids or fissure?related symptoms. I discussed with him that I would not recommend banding unless hemorrhoidal complex was significantly engorged. Further, I described how the procedure is done and how any discomfort is managed. He confirms understanding and is in agreement. Will proceed to endoscopy suite for colonoscopy with possible hemorrhoid banding as indicated by exam. 01/28/25 0900 <Electronically signed by Chuck Bruce MD> Cosigner Signature (if applicable): CC: PIN DRAFTER OPERATOR-C Zackary Ballesteros; Dr. Chuck Bruce MD~ Signed [facility] Work Phone: 1(768) 945-559003-18-2025 Procedure note [facility] Medical Records Department [address] [place] [address] Colonoscopy Report MR#: [id number] Acct: [id number] Name: ANGELIA KING Rep #:[id number] : 1955 69 From: Chuck Jamil PCP: CARLOS Whitt Status:REG [facility] [place] Patient Name: Angelia King Procedure Date: 01/28/2025 9:33 AM Date of : 1955 Age: 69 Procedure: Colonoscopy Indications: Rectal bleeding Providers: Chuck Bruce MD Referring MD: Zackary Ballesteros [facility], Shear Grinder Operator-c Medicines: See the Anesthesia note for documentation of the administered medications Patient Profile: Refer to note in patient chart for documentation of history and physical. Last Colonoscopy: within the past 3 years. Complications: No immediate complications. Estimated blood loss: Minimal. Procedure: Pre-Anesthesia Assessment: - The heart rate, respiratory rate, oxygen saturations, blood pressure, adequacy of pulmonary ventilation, and response to care were monitored throughout the procedure. After I obtained informed consent, the scope was passed under direct vision. Throughout the procedure, the patient's blood pressure, pulse, and oxygen saturations were monitored continuously. The Colonoscope was introduced through the anus and advanced to the cecum, identified by the appendiceal orifice, ileocecal valve and palpation. The colonoscopy was somewhat difficult due to a tortuous colon. Successful completion of the procedure was aided by using scope torsion. The patient tolerated the procedure well. The quality of the bowel preparation was adequate to identify polyps. Scope In: 9:47:43 AM Scope Withdrawal Time 0 hours 22 minutes 50 seconds Scope Out: 10:23:00 AM Total Procedure Duration Time 0 hours 35 minutes 17 seconds Findings: The perianal and digital rectal examinations were normal. The splenic flexure was significantly tortuous. Advancing the scope required using scope torsion. Anal papilla(e) were hypertrophied. The polyp was removed with a hot snare. Resection and retrieval were complete. Estimated blood loss: none. Internal hemorrhoids were found during retroflexion. The hemorrhoids were Grade II (internal hemorrhoids that prolapse but reduce spontaneously). The endoscope was withdrawn. One band was successfully placed. There was no bleeding at the end of the procedure. Estimated blood loss was minimal. The exam was otherwise without abnormality. Impression: - Tortuous colon. - Anal papilla(e) were hypertrophied. - Internal hemorrhoids. Banded. - The examination was otherwise normal. Recommendation: - Discharge patient to home (via wheelchair). - Resume previous diet today. - No aspirin, ibuprofen, naproxen, or other non-steroidal anti-inflammatory drugs for 2 days after biopsy. - Await pathology results. - Repeat colonoscopy date to be determined after pending pathology results are reviewed for surveillance based on pathology results. - Telephone my office for pathology results in 1 week. Procedure Code(s): --- Professional --- 83211, Colonoscopy, flexible; with removal of tumor(s), polyp(s), or other lesion(s) by snare technique 83740, Hemorrhoidectomy, internal, by rubber band ligation(s) Diagnosis Code(s): --- Professional --- K62.89, Other specified diseases of anus and rectum K64.1, Second degree hemorrhoids K62.5, Hemorrhage of anus and rectum Q43.8, Other specified congenital malformations of intestine CPT copyright 2021 [employer]. All rights reserved. The codes documented in this report are preliminary and upon scrub wheel operator review may be revised to meet current compliance requirements. Chuck Bruec MD 01/28/2025 10:31:53 AM This report has been signed electronically. Number of Addenda: 0 Note Initiated On: 01/28/2025 9:33 AM 01/28/25 1032 Date _ Chuck Bruce MD Cosigner Signature: Date (if indicated) CC: CARLOS Ballesteros; Dr. Chuck Bruce MD ~ Date Dictated: 01/28/2533 Date Transcribed: Cylinder Steamer: TANG Signed [facility]03-18-2025 Procedure note [facility] Medical Records Department [address] [place] [address] Operative Report - CC Letter MR#: [id number] Acct: [id number] Name: ANGELIA KING Rep #:[id number] : 1955 69 From: Chuck Jamil PCP: CARLOS Whitt Status:[place] [facility] [place] 01/28/2025 Zackary Ballesteros Carlos spring Re : Colonoscopy procedure for Angelia King Deakoby Ballesteros This procedure was performed on Tuesday, January 28, 2025. My impressions and recommendations are as follows: Impressions : - Tortuous colon. - Anal papilla(e) were hypertrophied. - Internal hemorrhoids. Banded. - The examination was otherwise normal. Recommendations : - Discharge patient to home (via wheelchair). - Resume previous diet today. - No aspirin, ibuprofen, naproxen, or other non-steroidal anti-inflammatory drugs for 2 days after biopsy. - Await pathology results. - Repeat colonoscopy date to be determined after pending pathology results are reviewed for surveillance based on pathology results. - Telephone my office for pathology results in 1 week. My findings are described in the full procedure note, which is enclosed. If I can be of further assistance, please feel free to contact me at Doctor phone number(s): , Work: . Sincerely, Chuck Bruce MD 01/28/2025 10:31:53 AM This report has been signed electronically. 01/28/25 1032 Date _ Chuck Bruce MD Cosigner Signature: Date (if indicated) CC: PIN DRAFTER OPERATOR-C Zackary Ballesteros; Dr. Chuck Bruce MD ~ Date Dictated: 01/28/2533 Date Transcribed: Cylinder Steamer: TANG Signed [facility]03-18-2025 Consult note [facility] Medical Records Department [address] [place] [address] Anesthesia Postop Eval I 01/28/25 1028 MR#: [id number] Acct: [id number] Name: ANGELIA KING Rep #:[id number] : 1955 69 From: Gil FRAUSTO PCP: ETTA WhittC Status:REG [facility] Y Race: C Location: [place] [address] Anesthesia: Postop Eval I Current Vital Signs Temperature: 97.6 F Pulse Rate: 69 Blood Pressure: 134/79 Respiratory Rate: 16 Pulse Ox: 100 Assessment Airway patent: Yes Spontaneous unlabored respirations: Yes nausea: No Vomiting: No Anesthesia Complication: No Fluid Hydration Crystalloid volume administer (ml): 30 Total IV fluid infused: 30 Progress Note Anesthesia document: Postop Eval 1 completed: Yes 01/28/25 1029 LUMBER RACKER> Date _ Gil Cornlea LUMBER RACKER Cosigner Signature: Date CC: ~ Signed [facility]03-18-2025 Consult note [facility] Medical Records Department [address] [place] [address] Pre-Anesthesia Evaluation 01/28/25 0856 MR#: [id number] Acct: [id number] Name: ANGELIA KING Rep #:[id number] : 1955 69 From: Khoa Tuttle MD PCP: Zackary Ballesteros NP-C Status:REG SD Y Race: C Location: [place] [address] ASA Classification* ASA Classification ASA Classification: 3 (HTN, GERD, DM, HLD, Anxiety, WPW (hx of WPW, 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 ) Assessment & Plan Anesthesia* Anesthesia Assessment Anesthesia Assessment: Discussed sedation and/or anesthesia options, risks, benefits, and alternatives with patient/parents/legal guardian/POA. Questions invited. The patient/parents/legal guardian/POA seems to understand and agrees to proceedwith anesthesia plan. Reviewed the physical assessment, medical history, allergy history and patient home medications list prior to surgery/procedure/anesthetic and documented any changes. Performed airway and anesthesia risk assessments. Anesthesia Type Anesthesia Type: General History Source History Obtained from:: Patient and Chart Anesthesia Focused Assessment* Temperature: 97.5 F Pulse Rate: 75 Blood Pressure: 139/81 Respiratory Rate: 16 Pulse Ox: 100 Oxygen Delivery Method: Room Air Airway Assessment Mouth opens: >3 cm Mallampati Score: II Teeth Condition: Intact, Loose (TOP RIGHT TOOTH LOOSE. Advised patient regardings the risks of undergoing anestheia which can include dental damage andcan result in dislodgement of loose teeth. Patient verbalizes understanding and accepts risk of dental injury. ) and Partial (upper) Neck Range of motion (ROM): Full ROM Focused Labs Anesthesia Preop lab: CBC WBC 9.0 K/mm3 (4.4-11.0) 01/22/25 15:40 01/22/25 RBC 4.56 M/mm3 (4.6-6.2) L 01/22/25 15:40 01/22/25 Hgb 14.2 g/dL (13.0-16.5) 01/22/25 15:40 01/22/25 Hct 40.3 % (40-54) 01/22/25 15:40 01/22/25 Plt Count 214 K/mm3 (150-450) 01/22/25 15:40 01/22/25 CHEMISTRY Potassium 4.2 mmol/L (3.3-5.1) 01/22/25 15:40 01/22/25 Sodium 133 mmol/L (133-145) 01/22/25 15:40 01/22/25 BUN 16 mg/dL (4-19) 01/22/25 15:40 01/22/25 Creatinine 0.85 mg/dL (0.70-1.20) 01/22/25 15:40 01/22/25 Glucose 98 mg/dL (70-99) 01/22/25 15:40 01/22/25 POC Glucose 140 mg/dL (74-106) H 12/08/22 06:54 12/08/22 TSH 0.772 uIU/mL (0.300-4.200) 01/22/25 15:40 01/11 01/07 COAG Pre-Assessment Diagnosis/Proposed Procedure Planned Operative Procedure(s): Colonoscopy w/hemorrhoid banding Anesthesia History Anesthesia History - drawing supervisor: Anesthesia History - drawing supervisor Hx Hospitalization No 01/27/25 11:50 Any Problems With Anesthesia No 01/27/25 11:50 Cholinesterase deficiency No 01/27/25 11:50 You/Your Family Experience No 01/27/25 11:50 fever (hyperthermia) with Relationship Recent Exposure to Contagious No 01/28/25 08:17 Disease Does patient have nerve No 01/27/25 11:50 stimulator Patient instructed to have device shut off --Does patient have Pacemaker No 01/28/25 08:17 or ICD? When Was Last Pacemaker Check QUESTION #4 FULL TEXT: You/Your Family Experience fever (hyperthermia) with Anesthesia Last Oral Intake Last Oral intake: Last Oral Intake NPO since 05:00 01/28/25 08:17 Meds taken in AM with sips of Yes 01/28/25 08:17 water? Meds patient instructed to take am of surgery PONV PONV - drawing supervisor: PONV - drawing supervisor Female No 01/27/25 11:50 HX of Motion Sickness No 01/27/25 11:50 HX of N/V After Surgery No 01/27/25 11:50 Non-Smoker Yes 01/27/25 11:50 Duration of Surgery greater No 01/27/25 11:50 than 60 minutes Number of Risk Factors 1 01/27/25 11:50 PONV Score Low Risk 01/27/25 11:50 Height & Weight Height & Weight: Anesthesia: Height & Weight Height 5 ft 11 in 01/28/25 08:17 Weight: 79.7 kg 01/28/25 08:17 Body Mass Index (BMI) 24.5 01/28/25 08:17 Respiratory Assessment Respiratory Assessment - drawing supervisor: Respiratory Tract Infection Hx - drawing supervisor Hx Respiratory Tract Infection No 01/27/25 11:50 STOP Sleep Apnea STOP Sleep Apnea - drawing supervisor: STOP Sleep Apnea - drawing supervisor Hx Hypertension Yes: CONTROLLED WITH MED 01/27/25 11:50 Hx Sleep Apnea No 01/27/25 11:50 CPAP BIPAP Do you snore loudly (louder No 01/27/25 11:50 than talking or can be heard Do you often feel tired/ No 01/27/25 11:50 fatigued/ sleepy during daytime? Has anyone observed you stop No 01/27/25 11:50 breathing during sleep? STOP Results Negative 01/27/25 11:50 QUESTION #5 FULL TEXT : Do you snore loudly (louder than talking or can be heard through closeddoors)? Tobacco Use History Tobacco Use History - drawing supervisor: Tobacco Use History - drawing supervisor Tobacco Use Smoking Status Never smoker 01/27/25 11:50 Hx Tobacco Use No 01/27/25 11:50 Years Smoking Packs Smoked per Day Smoking Cessation Date was within the last 15 years Hx Smoking Cessation Date Hx Smoking Cessation Counseling Hematologic Medial History Hematologic Hx - drawing supervisor: Hematologic Medical Hx - laboratory administrative director Hx of Blood Transfusion No 01/27/25 11:50 Hx of Transfusion in last 3 No 01/27/25 11:50 Months Date of Last Transfusion (if within last 3 months) Ever experience any problems No 01/27/25 11:50 with transfusion(s)? Specify any problems Hx of Preganancy in last 3 N/A 01/27/25 11:50 Months Nurse Filling Out Transfusion NBUCHER 01/27/25 11:50 & Questions: Date: 01/27/25 01/27/25 11:50 Time: 11:51 01/27/25 11:50 Patient unable to answer at this time (ie. confused, unrespo /Reproduction History /Reproductive History - drawing supervisor: /Reproductive Hx- drawing supervisor Hx Now Gestational Age (in weeks): EDC: Hx Hx Para Hx Section SAB No 10/03/24 08:44 PFSH Medical History (Updated 01/27/25 @ 11:56 by Tamiko Jones) Wears partial dentures Hemorrhoids Wears glasses Wears dentures Anxiety Diabetes Arthritis Low iron Fatty liver High cholesterol Dietary restriction Heartburn Non-smoker Leg cramps History of pain when walking Usyon-Degoaulwo-Nuhav (WPW) pattern Cardiology follow-up encounter Hypertension Positive colorectal cancer screening using Cologuard test Hypertension Diabetes Arthritis Home Medications ?Medication ?Instructions ?Recorded ?Last Taken ?Type acetaminophen 500 mg tablet 500 mg PO Q6H PRN Pain Unknown History (Tylenol Extra Strength) omega 6-elo-opq-fish oil 1,000 mg 1 cap PO DAILY 12/0712/05/22 History (120 mg-180 mg) capsule (Fish Oil) psyllium husk 0.4 gram capsule 0.4 g PO QHS 12/07/22 0 12/05/22 History (Metamucil) acetaminophen 300 mg-codeine 30 mg 1 tab PO Q6H PRN pa in #10 tabs 05/02/24 Unknown Rx tablet sildenafil 100 mg tablet 100 mg PO DAILY PRN sexual 0 05/02/24 Unknown Rx activity #45 tabs alprazolam 0.25 mg tablet 0.5 mg (2 x 0.25 mg) PO BID #60 06/03/24 01/28/25 06:16 Rx tabs Hydrocortisone 2.5% / Lidocaine 5% #1 ea 10/07/24 Unkn own Rx ointment (cmpd) lisinopril 20 mg tablet 20 mg PO DAILY 01/27/25 Unkn own History trazodone 100 mg tablet 100 mg PO QHS 01/27/25 Unkno wn History Allergy/AdvReac Type Severity Reaction Status Date / Time No Known Allergies Allergy Verified 01/28/25 08:16 Family History Father CVA (cerebral vascular accident) Mother Cancer throat Other Heart disease Surgical History Hx of colonoscopy S/P lateral meniscus repair of right knee H/O prostatectomy Social History household members: spouse current occupational status: retired current occupation: [employer] Smoking Status: Never smoker Electronic Cigarette Use: not used alcohol intake: never substance use type: does not use what type of physical activity do you participate in: additional details: cutting wood do you feel safe at home: Yes Review of Systems (Anesthesia) ROS Narrative System reviewed and no additional complaints, except as documented. Physical Exam Const alert, oriented x3 and average body habitus Resp normal respiratory effort, normal air movement and clear to auscultation bilaterally Cardio regular rate, regular rhythm, no murmurs and diaphoretic 01/28/25 0904 > Date _ Khoa Padilla Signature: Date CC: ~ Signed [facility]03-18-2025 History and physical note [facility] Medical Records Department [address] [place] [address] History & Physical Exam 01/28/25 0858 MR#: [id number] Acct: [id number] Name: ANGELIA KING L Rep #:[id number] : 1955 69 From: Chuck Jamil PCP: CARLOS Whitt Status:[facility] Location: [place] [address] History and Physical Date of Admission: 01/28/25 Date of Service: 12/23/24 MR#: [id number] Acct: [id number] Name: ANGELIA KING L Rep #: [id number] : 1955 Provider: Dr. Chuck Bruce MD Age/Sex: 69/M Location: [facility] Status: Signed Intake Vital Signs 10/25/2408:52 12/23/2507:16 Height 5 ft 11 in BP 144/78 H Blood Pressure Location Lt brachial Position Sitting Respiration 18 Pulse 87 Pulse Source Monitor Intake Visit Reasons: discuss hemorrhoids Chief Complaint: discuss hemorrhoids Refrigerating Technician Required: No Accompanied by: Is patient in pain?: Yes Allergies No Known Allergies Allergy (Verified 12/23/24 08:17) Medications ?Medication ?Instructions ?Recorded ?Confirmed ?Type acetaminophen 500 mg tablet 500 mg PO Q6H PRN Pain 10/10/22 12/23/24 History (Tylenol Extra Strength) omega 0-xhh-cyl-fish oil 1,000 mg 1 cap PO DAILY 12/07/22 12/23/24 History (120 mg-180 mg) capsule (Fish Oil) psyllium husk 0.4 gram capsule 0.4 g PO QHS 12/07/22 12/23/24 History (Metamucil) atorvastatin 20 mg tablet 20 mg PO QHS #90 tabs 03/18/24 12/23/24 Rx acetaminophen 300 mg-codeine 30 mg 1 tab PO Q6H PRN pain #10 tabs 05/02/24 12/23/24 Rx tablet sildenafil 100 mg tablet 100 mg PO DAILY PRN sexual 05/02/2412/14 Rx activity #45 tabs trazodone 100 mg tablet 100 mg PO DAILY #90 tabs 05/02/24 Rx alprazolam 0.25 mg tablet 0.5 mg (2 x 0.25 mg) PO BID #60 06/03/24 12/23/24 Rx tabs Hydrocortisone 2.5% / Lidocaine 5% #1 ea 10/07/24 12/23/24 Rx ointment (cmpd) Have you fallen in the past year?: No PFSH Medical History Hemorrhoids Wears glasses Wears dentures Anxiety Diabetes Arthritis Low iron Fatty liver High cholesterol Dietary restriction Heartburn Non-smoker Leg cramps History of pain when walking Xodxh-Nizwslmdn-Ctxpe (WPW) pattern Cardiology follow-up encounter Hypertension Positive colorectal cancer screening using Cologuard test Hypertension Diabetes Arthritis Surgical History Hx of colonoscopy S/P lateral meniscus repair of right knee H/O prostatectomy Family History Father CVA (cerebral vascular accident)Mother Cancer throatOther Heart disease Social History household members: spouse current occupational status: retired current occupation: [employer] Smoking Status: Never smoker Electronic Cigarette Use: not used alcohol intake: never substance use type: does not use what type of physical activity do you participate in: additional details: cutting wood do you feel safe at home: Yes HPI HPI HPI: Patient is a 69-year-old male who is known to me from prior colonoscopy encounter but follows up for concern specifically related to hemorrhoids. His last visit was 10/07/2024. He presents today withhis . Originally we weresupposed to see him back in clinic 2 weeks following his visit in September but he declined the follow-up because he was under the impression things are getting better. However now he states he fears he waited too long because he is experiencing more burning and swelling with his hemorrhoids. He reports that he uses MiraLAX daily and experiences roughly 3-4 bowel movements daily. He does note they are sometimes thinner in character. He insist that he is kepthis jay jay let time to 2 minutes or less. In addition to the MiraLAX he reports that his has been intentional about trying to cook more high-fiber foods and he is consuming psyllium husk twice daily besides. Mr. King continues to perform 1 sitz bath after each bowel movement. He reports use of a hydrocor tisone/lidocaine ointment alongside of a diltiazem?containing ointment that he was prescribed by his PCP. He questions whether he should continue thisuse. In addition to the reports of burning and swelling he describes 1 episode of bleeding a week ago with some straining during a bowel movement. However, he has had no bleeding since. He denies any interval health updates apart from above. Below is recapitulated from patient's prior visit for ease of review: Patient is a 69-year-old male who is kno underwentwn to me from a prior colonoscopy performed November 2022 after a positive Cologuard test but presents for complaint of hemorrhoid activity today. He presents today with his . They first noted this issue years ago and he readily acknowledges thatthis is achronic problem for which he has seen his PCP and underwent serial lancing. However he wasadvised by his PCP that there were only so many times this could be done before more definitive management would be required and recommended evaluation in our office. Mr. King estimates that his present flare officiallybecame worse approximately 3 weeks ago. He notes that he has remained on supplemental fiber and MiraLAX to try to minimize his risk for constipation. With this regimen he is experiencing a bowel movement at least a 1-2 times dailyin the morning. He reports his toilet time has nomore than 2 minutes (he suggests that he is intentional about ensuring this limited time). He does a cknowledge a history of straining but states that he has been intentional aboutminimizing this riskas well. Mr. King reports pain that is rather sharp and more frequently encountered in the mornings. He initially experienced some bleeding but this is cleared up. Lastly he has experienced some itching and bulging. This is/is not their first experience with this problem. Additionally, they do/do not note associated itching/burning with this complaint. To date, they have tried Tylenol for the pain and topical lidocaine. Additionally notes that he has used Epsom salt baths on a nearly daily basis and several tubes of hydrocortisone cream. 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 5-year follow-up was recommended. ROS General General: No weight change, appetite, fatigue, colon cancer, breast cancer or weakness HEENT HEENT: No difficulty swallowing, eye injury, eye surgery, swollen glands or hoarseness Endo Endocrine: Yes diabetes mellitus; No thyroid disease, thyroid cancer, Hair loss, heat intolerance or cold intolerance Skin Skin: No rash or changing moles Musc Musculoskeletal: Yes arthritis; No back problems, rheumatoid arthritis, gout or joint pain Cardio Cardiovascular: Yes high blood pressure; No murmur, pacemaker, heart disease, atrial fibrillation, heart attack, heart stent, palpitations, shortness of breat with exertion or chest pain Psych Psychiatric: Yes anxiety; No depression or hearing voices Resp Respiratory: No shortness of breath, No sleep apnea, No cough, No COPD, No asthma, No emphysema andNo wheezing Gastro Gastrointestinal: No abdominal pain, No nausea or vomiting, No diarrhea, No constipation, No blood in stool, No acid reflux, Yes hemorrhoids, No ulcers, No gallbladder problem and No black,tarry stools Augustus Hematologic: No blood thinners, No blood disorders, No bleeding, No anemia and No blood clots Neuro Neurologic: No system reviewed and no additional complaints, except as documented, No as per HPI, No abnormal gait, No abnormal hearing, No abnormal movements, No abnormal speech, No behavioral changes, No burning sensations, No confusion, No convulsions, No disequilibrium, No dizziness, No localized weakness, No frequent falls, No headache(s), No lack of coordination, No loss ofvision, No memoryloss, No numbness, No other visual disturbances, No radicular pain, No restless legs, No sensory deficit, No syncope, No tingling, No tremor(s), No weakness and No other Exam Const General: cooperative, comfortable and no acute distress Orientation: alert, awake and oriented x3 Resp Effort & Inspection: normal respiratory effort GI Other: Anal skin tag at the 12 o'clock position otherwise there is no prolapsing anal mucosa. There is no evidence of anal fissure. Digital rectal exam is performedand identify mild engorgement of the internal hemorrhoid columns in the right anterior and right posterior positions with today's exam. There are no masses palpable or blood on the withdrawn finger overall patient. Assessment and Plan Assessment and Plan (1) Hemorrhoids: Status: Acute Comment: Patient is a 69-year-old male who makes follow-up for complaints of burning andswelling in association with hemorrhoids. He appears to be making a conscientious effort with conservative measures but perhaps overdoing it with his use of MiraLAX. I have instructed him to try to take this medicationonly as needed and titrated and affect to 1-2 soft bowel movements per day so as tooverall net a decrease in his toilet time. He seems to confirm understanding. On exam today I appreciate only somelower grade internal hemorrhoids but there is no blood. With this assessment, I believe Mr. King would be an appropriate candidate for hemorrhoid banding. However, it has been over 2 years since his last colonoscopy and I do not want to be overlooking an alternative rectal pathology. Moreover, he did not tolerate a digital rectal exam very well duringtoday's visit and therefore this casts doubt on his ability to tolerate an in-office anoscopy with banding. Thus I have recommended repeat colonoscopy with consent to proceed with endoscopic banding. Mr. Friedman and his appear happy with this recommendation. Requirement for a split prep and fiber hold were discussed with them. Plan: Plan will be to complete colonoscopy with hemorrhoid banding on first mutually agreeable date underlocal MAC. Pre-procedure prep discussed and paper instructions provided. Patient is also made awarethat he will need to have a courtesy car driver with him the day of the procedure. I have examined the patient the following changes are noted: Patient presents today for colonoscopyand confirms he completed prep for today's procedure. He shares that his output is now clear. He also confirms that he completed use of the prescribed diltiazem cream for treatment of his anal fissure. Interestinglyhe states he was unaware that he had an anal fissure but does report that his burning sensation has significantly decreased in frequency and he no longer is seeing any bleeding. Further, he confirms that he decreased his MiraLAX dose and that all is having bowel movements just twice daily. He feels that this hasalso benefited his experience of hemorrhoids or fissure?related symptoms. I discussed with him that I would not recommend banding unless hemorrhoidal complex was significantly engorged. Further, I described how the procedure is done and how any discomfort is managed. He confirms understanding and is in agreement. Will proceed to endoscopy suite for colonoscopy with poss ible hemorrhoid banding as indicated by exam. 01/28/25 0900 Cosigner Signature (if applicable): CC: PIN DRAFTER OPERATOR-C Zackary Ballesteros; Dr. Chuck Bruce MD~ Signed [facility]03-18-2025 [facility] Medical Records Department [address] [place] [address] History Physical Exam 01/28/25 0858 MR#: [id number] Acct: [id number] Name: CHRISTINE L Rep #: [id number] : 1955 69 From: Chuck Burce MD PCP: CARLOS Wihtt Status:[place] [facility] [place] Location: [place] [address] History and Physical Date of Admission: 01/28/25 Date of Service: 12/23/24 MR#: [id number] Acct: [id number] Name: CHRISTINE L Rep #: [id number] : 1955 Provider: Dr. Chuck Bruce MD Age/Sex: 69/M Location: [facility] Status: Signed Intake Vital Signs 10/25/2408:52 12/23/2507:16 Height 5 ft 11 in BP 144/78 H Blood Pressure Location Lt brachial Position Sitting Respiration 18 Pulse 87 Pulse Source Monitor Intake Visit Reasons: discuss hemorrhoids Chief Complaint: discuss hemorrhoids Refrigerating Technician Required: No Accompanied by: Is patient in pain?: Yes Allergies No Known Allergies Allergy (Verified 12/23/24 08:17) Medications ???Medication ???Instructions ???Recorded ???Confirmed ???Type acetaminophen 500 mg tablet 500 mg PO Q6H PRN Pain 10/10/22 12/23/24 History (Tylenol Extra Strength) omega 4-sgl-pus-fish oil 1,000 mg 1 cap PO DAILY 12/07/22 12/23/24 History (120 mg-180 mg) capsule (Fish Oil) psyllium husk 0.4 gram capsule 0.4 g PO QHS 12/07/22 12/23/24 History (Metamucil) atorvastatin 20 mg tablet 20 mg PO QHS #90 tabs 03/18/24 12/23/24 Rx acetaminophen 300 mg-codeine 30 mg 1 tab PO Q6H PRN pain #10 tabs 05/02/24 12/23/24 R x tablet sildenafil 100 mg tablet 100 mg PO DAILY PRN sexual 05/02/24 12/23/24 Rx activity #45 tabs trazodone 100 mg tablet 100 mg PO DAILY #90 tabs 05/02/24 12/23/24 Rx alprazolam 0.25 mg tablet 0.5 mg (2 x 0.25 mg) PO BID #60 06/03/24 12/23/24 Rx tabs Hydrocortisone 2.5% / Lidocaine 5% #1 ea 10/07/24 12/23/24 Rx ointment (cmpd) Have you fallen in the past year?: No PFSH Medical History Hemorrhoids Wears glasses Wears dentures Anxiety Diabetes Arthritis Low iron Fatty liver High cholesterol Dietary restriction Heartburn Non-smoker Leg cramps History of pain when walking Pgqvb-Rwqahphek-Eybfx (WPW) pattern Cardiology follow-up encounter Hypertension Positive colorectal cancer screening using Cologuard test Hypertension Diabetes Arthritis Surgical History Hx of colonoscopy S/P lateral meniscus repair of right knee H/O prostatectomy Family History Father CVA (cerebral vascular accident)Mother Cancer throatOther Heart disease Social History household members: spouse current occupational status: retired current occupation: [employer] Smoking Status: Never smoker Electronic Cigarette Use: not used alcohol intake: never substance use type: does not use what type of physical activity do you participate in: additional details: cutting wood do you feel safe at home: Yes HPI HPI HPI: Patient is a 69-year-old male who is known to me from prior colonoscopy encounter but follows up for concern specifically related to hemorrhoids. His last visit was 10/07/2024. He presents today with his . Originally we were supposed to see him back in clinic 2 weeks following his visit in September but he declined the follow-up because he was under the impression things are getting better. However now he states he fears he waited too long because he is experiencing more burning and swelling with his hemorrhoids. He reports that he uses MiraLAX daily and experiences roughly 3-4 bowel movements daily. He does note they are sometimes thinner in character. He insist that he is kept his toilet time to 2 minutes or less. In addition to the MiraLAX he reports that his has been intentional about trying to cook more high-fiber foods and he is consuming psyllium husk twice daily besides. Mr. King continues to perform 1 sitz bath after each bowel movement. He reports use of a hydrocortisone/lidocaine ointment alongside of a diltiazem???containing ointment that he was prescribed by his PCP. He questions whether he should continue this use. In addition to the reports of burning and swelling he describes 1 episode of bleeding a week ago with some straining during a bowel movement. However, he has had no bleeding since. He denies any interval health updates apart from above. Below is recapitulated from patient's prior visit for ease of review: Patient is a 69-year-old male who is kno underwentwn to me from a prior col (more content not included)...[facility]02-10-2025 Evaluation note* Diagnosis Onset Date Resolution Status Admit Date Hemorrhoids acute December 7:30am External hemorrhoid, thrombosed acute February 20, 2025 2:58pm Hemorrhoids acute April 04 2:01pm Right groin pain acute March 2:01pm [facility] Work Phone: 1(450) 788-102311-25-2024 Evaluation note* Diagnosis Onset Date Resolution Status Admit Date Hemorrhoids noneactive September 9:55am Hemorrhoids acute December 7:30am [facility] Work Phone: 1(454) 649-582104-26-2023 NoteHNO ID: [id number] Author: Aury Watson LPN Service: ? Author Type: LICENSED NURSE Type: Progress Notes Filed: 03/08/2023 8:25 PM Note Text: Bacitracin and gauze dressing applied, patient tolerated well. Aury Watson [facility]04-26-2023 NoteHNO ID: [id number] Author: Rigoberto Pena MD Service: ? Author Type: Physician Type: Progress Notes Filed: 03/08/2023 8:25 PM Note Text: Ed Zane King is a 67 year old MALE who presents with Pain (Right 3rd toe pain, dropped a piece of wood on foot this morning/Purple and swollen) 67 years old male present with pain and swelling and bruising of the right third toe He dropped a piece of wood onto the toe this morning Since then he has increased swelling and bruising he can walk but it hurts No other problem at this visit He has underlying diabetes so is concerned History reviewed. No pertinent past medical history. There is no problem list on file for this patient. No current outpatient medications on file. No current facility-administered medications for this visit. Social History Tobacco Use Smoking status: Never Smokeless tobacco: Never Alcohol Use: Not on file Tobacco Use: Never History reviewed. No pertinent family history. Review of Systems Musculoskeletal: Pain swelling and bruising of the right third toe All other systems reviewed and are negative. BP 141/84 Pulse 83 Temp 97.3 Resp 16 Wt 227 lb (103.0kg) SpO2 95% Physical Exam Vitals reviewed. Constitutional: General: He is not in acute distress. Appearance: Normal appearance. He is not ill-appearing or toxic-appearing. Cardiovascular: Rate and Rhythm: Normal rate and regular rhythm. Heart sounds: Normal heart sounds. Pulmonary: Effort: Pulmonary effort is normal. Breath sounds: Normal breath sounds. Musculoskeletal: General: Swelling, tenderness and signs of injury present. Normal range of motion. Comments: There is skin bruising and superficial abrasion of the pulp of the right third toe. There was no bony tenderness of the toe but soft tissue tenderness to the tip of the toe Patient feel that he did not break the bone or concern of the skin injury of the toe. Weightbearing is full with some pain Skin: General: Skin is warm. Neurological: Mental Status: He is alert. There was no bony tenderness and patient did not feel that he has bone injury so x-ray was not done today patient understand and agreed that he did not think he needed the x-ray ASSESSMENT/PLAN: 1. Contusion of third toe of right foot, initial encounter - ICD9: 924.3, ICD10: S90.121A (primary diagnosis) - APPLICATION, RIGID DRESSING - CEPHALEXIN 500 MG CAPSULE 2. Abrasion of toe of right foot, initial encounter - ICD9: 917.0, ICD10: S90.414A Home wound care as explained F/u PCP for further care recheck if any problem Rest elevation and Tylenol as needed for pain Possible outcome and complication were discussed in detail Patient understand and agreed Rigoberto Pena [facility]01-26-2023 History and physical note Author Dr. Bruce [facility] December 08, 2022 7:34am Note Date/Time December 08, 2022 7 :34am [facility] Medical Records Department [address] [place] [address] History & Physical Exam 12/08/22 0732 MR#: [id number] Acct: [id number] Name: NAGELIA KING L Rep #:[id number] : 1955 67 From: Chuck Jamil PCP: Dr. Amara Damian MD Status:[facility] Location: [place] [address] History and Physical Date of Admission: 12/08/22 Date of Service:? 10/10/22 MR#: [id number] Acct: [id number] Name:? ANGELIA KING Rep #: [id number] : 1955 ? ? Provider: Dr. Chuck Bruce MD Age/Sex:? 67/M ? ? Location: [facility] Status: Signed Intake Vital Signs ? 10/10/2207:55 Height 5 ft 11 in Weight: 235 lb 8 oz BMI 32.8 BP 146/80 H Blood Pressure Location Rt brachial Position Sitting Respiration 17 Pulse 76 Pulse Source Monitor Temp 97.2 F L Temp Source Temporal Pulse Oximetry (%) 98 Oxygen Delivery Method room air Intake Visit Reasons:?Positive Cologaurd Chief Complaint: positive cologuard Is patient in pain?: No Allergies No Known Allergies Allergy (Unverified 10/10/22 07:56) Medications alprazolam 1 mg tablet (Xanax) 1 mg PO BID #60 tabs 09/22/22 [Rx Confirmed 10/10/22] atorvastatin 20 mg tablet 20 mg PO QHS #90 tabs 09/22/22 [Rx Confirmed 10/10/22] lisinopril 40 mg tablet 40 mg PO BID #180 tabs 09/22/22 [Rx Confirmed 10/10/22] metformin 500 mg tablet 500 mg PO DAILY #90 tabs 09/22/22 [Rx Confirmed 10/10/22] trazodone 50 mg tablet 100 mg PO QHS #90 tabs 09/22/22 [Rx Confirmed 10/10/22] acetaminophen 500 mg tablet (Tylenol Extra Strength) 500 mg PO Q6H PRN 10/10/22 [History Confirmed 10/10/22] PFSH Medical History? Arthritis Diabetes Hypertension Surgical History? H/O prostatectomy S/P lateral meniscus repair of right knee Family History? Father CVA (cerebral vascular accident)Mother Cancer ?? ? throatOther Heart disease Social History? household members:? spouse current occupational status:? 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 Never smoker Electronic Cigarette Use:? not used alcohol intake:? never substance use type:? does not use what type of physical activity do you participate in:? additional details: cutting wood do you feel safe at home:? Yes HPI HPI HPI: Patient is a 67-year-old male who presents for need to schedule diagnostic colonoscopy secondary to recent positive Cologuard test.? They are referred for surgical consultation from Dr. Damian.? Patient has had prior colonoscopy.? We do not have an official record of this colonoscopy, but according to patient's recollection this procedure occurred approximately 10+ years ago and the only remarkable findings were known hemorrhoids.? Mr. King states that he was given 10-year follow-up.? Patient has no personal history of inflammatory bowel disease or diverticulitis. They describe their bowel habits as normal/regular.? They have approximately 2-3 per day with minimal toilet time and without significant straining.? They have not noticed recent bleeding or dark stools.? As above, Mr. King states that he does have a history of hemorrhoids and this has been some problem most of [his] life, but he has not had any issues recently and this typically presents as pain and itching.? Because of this history he does routinely take 5 of Metamucil daily and also regularly incorporates dietary fiber in his daily diet. Patient has no family history of colon cancer, inflammatory bowel disease, or diverticulitis.? ? The patient's weight is not stable.? He states that he is experienced an approximately 15 pound unintentional weight loss over the last 2 to 3 years.? He does note that he and his have tried to make healthier eating choices on the account of his hypertension. The patient is not prescribed anticoagulants/blood thinners. Relevant prior abdominal surgical history includes: Prostatectomy Patient does not have a significant history of GERD and heartburn presently.? He states formally he experienced heartburn and was on Prevacid, but has not been on this medication for a number of years.? He also notes a diagnosis of a hiatal hernia and used to wake up with choking episodes, but he states he has not had any of these episodes in over a year.? He does admit that he continues to watch how he sleeps and avoids dietary triggers both in terms of types of foods and timing of foods to minimize this risk.? He has never undergone a EGD and reports that his hiatal hernia was seen on an upper GI years ago.? He confirms that his experience of heartburn is now limited to very mild episodes which are resolved with simply drinking some water and occur with a frequency of no more than a few times a month. ROS General General: No weight change, appetite, fatigue, colon cancer, breast cancer or weakness HEENT HEENT: No difficulty swallowing, eye injury, eye surgery, swollen glands or hoarseness Endo Endocrine: Yes diabetes mellitus; No thyroid disease, thyroid cancer, Hair loss, heat intolerance or cold intolerance Skin Skin: No rash or changing moles Musc Musculoskeletal: Yes arthritis; No back problems, rheumatoid arthritis, gout or joint pain Cardio Cardiovascular: Yes high blood pressure; No murmur, pacemaker, heart disease, atrial fibrillation, heart attack, heart stent, palpitations, shortness of breat with exertion or chest pain Psych Psychiatric: Yes anxiety; No depression or hearing voices Resp Respiratory: No shortness of breath, No sleep apnea, No cough, No COPD, No asthma, No emphysema and No wheezing Gastro Gastrointestinal: No abdominal pain, No nausea or vomiting, No diarrhea, No constipation, No blood in stool, No acid reflux, Yes hemorrhoids, No ulcers, No gallbladder problem and No black,tarry stools Augustus Hematologic: No blood thinners, No blood disorders, No bleeding, No anemia and No blood clots Neuro Neurologic: No system reviewed and no additional complaints, except as documented, No as per HPI, No abnormal gait, No abnormal hearing, No abnormal movements, No abnormal speech, No behavioral changes, No burning sensations, No confusion, No convulsions, No disequilibrium, No dizziness, No localized weakness, No frequent falls, No headache(s), No lack of coordination, No loss of vision, No memory loss, No numbness, No other visual disturbances, No radicular pain, No restless legs, No sensory deficit, No syncope, No tingling, No tremor(s), No weakness and No other Exam Const General: cooperative, healthy appearing, comfortable and no acute distress Orientation: alert, awake and oriented x3 Resp Effort & Inspection: normal respiratory effort Auscultation: no rales, no rhonchi and no wheezes Cardio Rate: regular rate Rhythm: regular rhythm Heart Sounds: S1 normal and S2 normal GI Other: Supraumbilical and right upper quadrant port site scars well-healed.? No obvious hernia.? Nondistended.? Soft and nontender to palpation at both light and deep intensities x4 quadrants.? No palpable hepatosplenomegaly Assessment and Plan Assessment and Plan (1) Positive colorectal cancer screening using Cologuard test: ?Status:?Acute ?Comment: This is a 67-year-old male, asymptomatic from a GI standpoint, who presents for discussion around scheduling a diagnostic colonoscopy on the account of a recently positive Cologuard test.? As above and per HPI, patient has not noticed any change to his bowel habits.? He has experienced a unintentional weight loss, but has made some adjustments to his diet on account of other comorbidities which may explain this.? Still, I have discussed with him the importance of following any positive noninvasive colon cancer screening test with a colonoscopy.? I have discussed preprocedure prep as well as procedure expectations.? He accepts this recommendation and wishes to proceed as described.? At this time I do not find compelling reason to proceed with a screening EGD given patient's reported significant improvement in his history of GERD/hiatal hernia and minimal tobacco exposure (patient states that at most he smoked for 2 to 3 years remotely). ?Plan: Plan will be to complete diagnostic colonoscopy on first mutually agreeable date under local MAC.? Pre-procedure prep discussed and paper instructions provided.? Patient is also made aware that he will need to have a courtesy car driver with him the day of the procedure. (2) Hiatal hernia with GERD: ?Status:?Acute ?Comment: Patient reports hiatal hernia first diagnosed with upper GI study.? At the time of this diagnosis he was having significant GERD symptoms, but reports these are minimal at this time and well managed with his dietary precautions. ?Plan: As above, do not see cause to pursue diagnostic or screening EGD at this time I have examined the patient the following changes are noted: Patient has not had any recent GI complaints or bleeding from hemorrhoids. He confirms that he completed his bowel prep successfully and that his output is now clear. Lastly he is reporting some mild right groin discomfort which he states he has had for years and just wanted to be sure this was discussed prior to proceeding with the colonoscopy should all be related to his GI tract. I shared with him based on his exam that's was more likely to be a muscle strain (he denies any bulging at this point). I have encouraged him to keep an eye on the area should he have more signs of hernia and reach out to me for evaluation. For now we will proceed to the endoscopy suite for planned diagnostic colonoscopy on the account of a recent positive Cologuard screening test. 12/08/22 0734 <Electronically signed by Chuck Bruce MD> Cosigner Signature (if applicable): CC: Dr. Amara Damian MD; Dr. 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 [place] [address] Anesthesia Postop Eval I 01/28/25 1028 MR#: [id number] Acct: [id number] Name: CHRISTINEANGELIA Rep #:[id number] : 1955 69 From: Gil FRAUSTO PCP: ETTA WhittC Status:REG SDC Y Race: C Location: [place] [address] Anesthesia: Postop Eval I Current Vital Signs Temperature: 97.6 F Pulse Rate: 69 Blood Pressure: 134/79 Respiratory Rate: 16 Pulse Ox: 100 Assessment Airway patent: Yes Spontaneous unlabored respirations: Yes nausea: No Vomiting: No Anesthesia Complication: No Fluid Hydration Crystalloid volume administer (ml): 30 Total IV fluid infused: 30 Progress Note Anesthesia document: Postop Eval 1 completed: Yes 01/28/25 1029 <Electronically signed by Gil Becker CRNA> Date _ Gil Becker LUMBER RACKER Cosigner Signature: Date CC: ~ Signed [facility] Work Phone: Consult note Author Khoa [facility] Note Date/Time January 28, 2025 12: 05pm [facility] Medical Records Department [address] [place] [address] Anesthesia Postop Eval II 01/28/25 1110 MR#: [id number] Acct: [id number] Name: CHRISTINEANGELIA Rep #:[id number] : 1955 69 From: Khoa Tuttle MD PCP: CARLOS Whitt Status:REG SDC Y Race: C Location: [place] [address] Anesthesia Postop Eval I Sum Postop Eval Completion status Anesthesia document: Postop Eval 1 completed: Yes Anesthesia Postop Eval I Summary Anesthesia Postop Eval I Summary: Anesthesia Postop Eval I: Assessment Summary Airway patent Yes 01/28/25 10:28 [email or web address] Spontaneous unlabored Yes 01/28/25 10:28 LUMBER [email or web address] respirations Mental status nausea No 01/28/25 10:28 LUMBER [email or web address] Vomiting No 01/28/25 10:28 LUMBER [email or web address].TNES Anesthesia Postop Eval I: Fluid Summary Crystalloid volume administer 30 01/28/25 10:28 [email or web address] [email or web address] (ml) Colloids volume administered ( ml) Blood Product volume administered (ml) Total IV fluid infused 30 01/28/25 10:28 LUMBER [email or web address] Anesthesia Postop Eval I: Summary Notes Anesthesia Complication No 01/28/25 10:28 LUMBER [email or web address].TNES Anesthesia Complication Comment: Post-operative progress note Anesthesia: Postop Eval II Evaluation Mental status: Awake Pain Level: 0 nausea: No Vomiting: No Complications Anesthesia Complication: No 01/28/25 1110 <Electronically signed by Khoa Tuttle MD> Date _ Khoa Tuttle MD Cosigner Signature: Date CC: ~ Signed [facility] Work Phone: Evaluation + Plan note Future Appointments Appointment Date:11/26/2021 08:05:00 AM Scheduled Provider:ZANA HOOD MD Location:[facility] Appointment Type: OV Follow Up [facility] Evaluation + Plan note Future Appointments Appointment Date:10/05/2022 09:30:00 AM Scheduled Provider: Location:[facility] Appointment Type:PC Nurse Lab Appointment Date:10/18/2022 09:30:00 AM Scheduled Provider:DANIEL COCHRAN Location:[facility] Appointment Type: OV [facility] Evaluation note* Diagnosis Onset Date Resolution Status Anxiety acute Immunization declined noneac tive Establishing care with new doctor, encounter for noneactive Essential hypertension nonea ctive Controlled type 2 diabetes mellitus noneactive Anxiety acute Mixed hyperlipidemia acute Medicare annual wellness visit, subsequent noneactive Immunization declined noneac tive Screening for colon cancer n oneactive Essential hypertension nonea ctive Controlled type 2 diabetes mellitus noneactive [facility] Work Phone: Evaluation note* Diagnosis Onset Date Resolution Status Anxiety acute Mixed hyperlipidemia acute Medicare annual wellness visit, subsequent noneactive Immunization declined noneac tive Screening for colon cancer n oneactive Essential hypertension nonea ctive Controlled type 2 diabetes mellitus noneactive Hiatal hernia with GERD acut e Positive colorectal cancer s creening using Cologuard test acute [facility] Work Phone: Evaluation noteNo assessment information available [facility] Work Phone: Evaluation note* Diagnosis Onset Date Resolution Status Anxiety acute Erectile dysfunction acute Screening for prostate cancer noneactive Influenza vaccination declined noneactive Essential hypertension nonea ctive Controlled type 2 diabetes mellitus noneactive Right knee pain noneactive [facility] Work Phone: Hospital course Narrative No data available for this section [facility] Hospital Discharge instructions No data available for this section [facility] Progress note No data available for this section [facility] Reason for referral (narrative)No reason for referral information available[facility] Work Phone: Summary Purpose Family History No Family History Records Found Relationship Condition Age at Onset Recorded Date/T andrea Not Specified Cardiac disease Unknown father Cerebrovascular accident (CVA) Unknown mother Malignant neoplasm Unknown Advance Directives No Advanced Directives Records Found Advance Directive Response Recorded Date/ Time Name of Medical Power of High School Coach December 07, 2022 8:30am Living Will Yes December 07 8:30am Power of High School Coach Yes December 07, 2022 8:30am Advance Directive Response Recorded Date/ Time Living Will Yes December 07 9:30am Power of High School Coach Yes Sandy 25th, 2023 9:30am Advance Directive Response Recorded Date/ Time Living Will Yes December 07 8:30am Power of High School Coach Yes December 07, 2022 8:30am Advance Directive Response Recorded Date/ Time Living Will No October 25 9:57am Power of High School Coach No October 25, 2024 9:57am Living Will Yes January 27, 2025 11:50am Power of High School Coach Yes January 27 11:50am Name of Medical Power of High School Coach January 27, 2025 11:50am Advance Directive Response Recorded Date/ Time Living Will No October 25 9:57am Do you have a Healthcare Power of High School Coach? No October 25, 2024 9:57am Living Will Yes January 27, 2025 11:50am Do you have a Healthcare Power of High School Coach? Yes January 27, 2025 11:50am Name of Medical Power of High School Coach January 27, 2025 11:50am Advance Directive Response Recorded Date/ Time Living Will Yes January 27, 2025 11:50am Do you have a Healthcare Power of High School Coach? Yes January 27, 2025 11:50am Name of Medical Power of High School Coach January 27, 2025 11:50am Chief Complaint and Reason for Visit Chief Complaint WELLNESS Positive Cologaurd Reason for Visit Anxiety Mixed hyperlipidemia Medicare annual wellness visit, subsequent Immunization declined Screening for colon cancer Essential hypertension Controlled type 2 diabetes mellitus Hiatal hernia with GERD Positive colorectal cancer screening using Cologuard test Chief Complaint 6 m fu ADD EORDER RIGHT KNEE Reason for Visit Anxiety Erectile dysfunction Screening for prostate cancer Influenza vaccination declined Essential hypertension Controlled type 2 diabetes mellitus Right knee pain Chief Complaint Admit Date Hemorrhoids October 07, 2024 9:55am htn October 25, 2024 8:52am discuss hemorrhoids December 23, 2024 7:30am Reason for Visit Admit Date Hemorrhoids October 07, 2024 9:55am Hemorrhoids December 23, 2024 7:30am Chief Complaint Admit Date discuss hemorrhoids December 23, 2024 7:30am Hemorrhoids February 20, 2025 2:5 8pm HEMORRHOIDS April 04, 2025 2:01p m HEMORRHOID CHECK WITH ANOSCOPY April 21, 2025 9:44am Reason for Visit Admit Date Hemorrhoids December 23, 2024 7:30am External hemorrhoid, thrombosed February 202024 2:58pm Hemorrhoids April 04, 2025 2:01p m Right groin pain April 04, 2025 2:01p m Chief Complaint Admit Date Hemorrhoids February 20, 2025 2:5 8pm HEMORRHOIDS April 04, 2025 2:01p m HEMORRHOID CHECK WITH ANOSCOPY April 21, 2025 9:44am HEMORRHOID CHECK May 12, 2025 2:38 pm Reason for Visit Admit Date External hemorrhoid, thrombosed February 202024 2:58pm Hemorrhoids April 04, 2025 2:01p m Right groin pain April 04, 2025 2:01p m Fissure in ano April 21, 2025 9:44a m Chief Complaint Admit Date HEMORRHOIDS April 04, 2025 2:01p m HEMORRHOID CHECK WITH ANOSCOPY April 21, 2025 9:44am HEMORRHOID CHECK May 12, 2025 2:38 pm RLQ PAIN,PAIN June 25, 2025 2: 39pm Reason for Visit Admit Date Hemorrhoids April 04, 2025 2:01p m Right groin pain April 04, 2025 2:01p m Fissure in ano April 21, 2025 9:44a m Fissure in ano May 12, 2025 2:38 pm Chief Complaint Admit Date HEMORRHOIDS April 04, 2025 2:01p m HEMORRHOID CHECK WITH ANOSCOPY April 21, 2025 9:44am HEMORRHOID CHECK May 12, 2025 2:38 pm RLQ PAIN,PAIN June 25, 2025 2: 39pm INGUINAL HERNIA July 24, 2025 12:44pm Additional Source Comments (unrecognized sect ion and content) No Status Records FoundNo Status Records FoundNo Status Records FoundNo Status Records Found INFORMATION SOURCE (unrecogn ized section and content) DATE CREATED AUTHOR 03/01/2019 Aimee Tsai nter [place] DATE CREATED AUTHOR AUTHOR'S ORGANIZ ATION 07/26/2022 [facility] ([place]) DATE CREATED AUTHOR AUTHOR'S ORGANIZ ATION 03/10/2023 Aimee Tsai nter DATE CREATED AUTHOR AUTHOR'S ORGANIZ ATION 07/31/2025 [facility] Care Team (unrecognized sect ion and content) Care Team Personnel Name: DANIEL COCHRAN CMO-NUTRITION MANAGER Position: P4 Advanced Practice Nurse Med Service: Active Provider Member Role: Primary Care Physician Address: Address: [address] [facility] [place] [address]- [place] Name: ROEL MELGOZA MD Position: P4 Physician - Urologist Member Role: Urologist Address: Address: [address] [place] [address] [address] [place] [address]- Care Team Related Persons Name: GEOVANI ROSARIO Goals (unrecognized section and content) Goals may be documented in a n alternate section Care Teams (unrecognized sec tion and content) Team Status: Active Member Role Status Dates Dr. Amara Damian MD Primary Care Provider Active Team Status: Inactive Member Role Status Dates Dr. Amara Damian MD Primary Care Pro vider, Attending Provider, Referring Provider Active Team Status: Inactive Member Role Status Dates Dr. Amara Damian MD Primary Care Provider, Referri ng Provider Active Dr. Chuck Bruce MD Attending Provider Active Team Status: Active Member Role Status Dates Dr. Amara Damian MD Primary Care Provider, Referri ng Provider Active Dr. Chuck Bruce MD Attending Provider, Other Provi ortega Active Team Status: Active Member Role Status Dates Zackary Ballesteros VSC, PIN DRAFTER OPERATOR-C Primary Care Provider Active Team Status: Inactive Member Role Status Dates Zackary Ballesteros VSC, PIN DRAFTER OPERATOR-C Primary Care Provider Active Start: October 07, 2024 End: October 07, 2024 Zackary KAM, PIN DRAFTER OPERATOR-C Referring Provider Active S tart: October 07, 2024 End: October 07, 2024 Dr. Chuck Bruce MD Attending Provider Active Start: October 07, 2024 End: October 07, 2024 Team Status: Inactive Member Role Status Dates Zackary KAM, PIN DRAFTER OPERATOR-C Primary Care Provider Active Start: October 25, 2024 End: October 25, 2024 Dr. Wood Hinojosa MD Attending Provider Active Sta rt: October 25, 2024 End: October 25, 2024 Dr. Wood Hinojosa MD Emergency Provider Active Sta rt: October 25, 2024 End: October 25, 2024 Team Status: Inactive Member Role Status Dates Zackary Taylorder VSC, PIN DRAFTER OPERATOR-C Primary Care Provider Active Start: December 23, 2024 End: December 23, 2024 Zackary Taylorder VSC, PIN DRAFTER OPERATOR-C Referring Provider Active S tart: December 23, 2024 End: December 23, 2024 Dr. Chuck Bruce MD Attending Provider Active Start: December 23, 2024 End: December 23, 2024 Team Status: Active Member Role Status Dates Zackary Ballesteros VSC, PIN DRAFTER OPERATOR-C Primary Care Provider Active Start: January 22, 2025 Lan Beam VSC, PIN DRAFTER OPERATOR-C Attending Provider Active Start: January 22, 2025 Team Status: Inactive Member Role Status Dates Zackary Taylorder VSC, PIN DRAFTER OPERATOR-C Primary Care Provider Active Start: January 28, 2025 End: January 28, 2025 Zackary Lesli VSC, PIN DRAFTER OPERATOR-C Referring Provider Active S tart: January 28, 2025 End: January 28, 2025 Dr. Chuck Bruce MD Attending Provider Active Start: January 28, 2025 End: January 28, 2025 Team Status: Active Member Role Status Dates Zackary Taylorder VSC, PIN DRAFTER OPERATOR-C Primary Care Provider Active Start: January 28, 2025 Zackary Lesli VSC, PIN DRAFTER OPERATOR-C Referring Provider Active S tart: January 28, 2025 Dr. Chuck Bruce MD Attending Provider Active Start: January 28, 2025 Dr. Chuck Bruce MD Other Provider Active Sta rt: January 28, 2025 Team Status: Inactive Member Role Status Dates Zackary Taylorder VSC, PIN DRAFTER OPERATOR-C Primary Care Provider Active Start: January 22, 2025 End: January 22, 2025 Lan Beam VSC, PIN DRAFTER OPERATOR-C Attending Provider Active Start: January 22, 2025 End: January 22, 2025 Team Status: Inactive Member Role Status Dates Zackary Taylorder VSC, PIN DRAFTER OPERATOR-C Primary Care Provider Active Start: February 20, 2025 End: February 20, 2025 Zackary Lesli VSC, PIN DRAFTER OPERATOR-C Referring Provider Active S tart: February 20, 2025 End: February 20, 2025 Dr. Chuck Bruce MD Attending Provider Active Start: February 20, 2025 End: February 20, 2025 Team Status: Inactive Member Role Status Dates Zackary Ballesteros VSC, PIN DRAFTER OPERATOR-C Primary Care Provider Active Start: April 04, 2025 End: April 04, 2025 Zackary Ballesteros VSC, PIN DRAFTER OPERATOR-C Referring Provider Active S tart: April 04, 2025 End: April 04, 2025 Dr. Chuck Bruce MD Attending Provider Active Start: April 04, 2025 End: April 04, 2025 Team Status: Inactive Member Role Status Dates Zackary Ballesteros VSC, PIN DRAFTER OPERATOR-C Primary Care Provider Active Start: April 21, 2025 End: April 21, 2025 Zackary Taylorder VSC, PIN DRAFTER OPERATOR-C Referring Provider Active S tart: April 21, 2025 End: April 21, 2025 Dr. Chuck Bruce MD Attending Provider Active Start: April 21, 2025 End: April 21, 2025 Team Status: Active Member Role/Relationship Status Dates Zackary Ballesteros VSC, PIN DRAFTER OPERATOR-C Primary Care Provider Active Team Status: Inactive Member Role/Relationship Status Dates Zackary Ballesteros VSC, PIN DRAFTER OPERATOR-C Primary Care Provider Active Start: January 22, 2025 End: January 22, 2025 Lan David VSC, PIN DRAFTER OPERATOR-C Attending Provider Active Start: January 22, 2025 End: January 22, 2025 Team Status: Inactive Member Role/Relationship Status Dates Zackary Ballesteros VSC, PIN DRAFTER OPERATOR-C Primary Care Provider Active Start: January 28, 2025 End: January 28, 2025 Zackary Taylorder VSC, PIN DRAFTER OPERATOR-C Referring Provider Active S tart: January 28, 2025 End: January 28, 2025 Dr. Chuck Bruce MD Attending Provider Active Start: January 28, 2025 End: January 28, 2025 Team Status: Active Member Role/Relationship Status Dates Zackary Ballesteros VSC, PIN DRAFTER OPERATOR-C Primary Care Provider Active Start: January 28, 2025 Zackary Taylorder VSC, PIN DRAFTER OPERATOR-C Referring Provider Active S tart: January 28, 2025 Dr. Chuck Bruce MD Attending Provider Active Start: January 28, 2025 Dr. Chuck Bruce MD Other Provider Active Sta rt: January 28, 2025 Team Status: Inactive Member Role/Relationship Status Dates Zackary Taylorder VSC, PIN DRAFTER OPERATOR-C Primary Care Provider Active Start: February 20, 2025 End: February 20, 2025 Zackary Lesli VSC, PIN DRAFTER OPERATOR-C Referring Provider Active S tart: February 20, 2025 End: February 20, 2025 Dr. Chuck Bruce MD Attending Provider Active Start: February 20, 2025 End: February 20, 2025 Team Status: Inactive Member Role/Relationship Status Dates Zackary Ballesteros VSC, PIN DRAFTER OPERATOR-C Primary Care Provider Active Start: April 04, 2025 End: April 04, 2025 Zackary Ballesteros VSC, PIN DRAFTER OPERATOR-C Referring Provider Active S tart: April 04, 2025 End: April 04, 2025 Dr. Chuck Bruce MD Attending Provider Active Start: April 04, 2025 End: April 04, 2025 Team Status: Inactive Member Role/Relationship Status Dates Zackary Ballesteros VSC, PIN DRAFTER OPERATOR-C Primary Care Provider Active Start: April 21, 2025 End: April 21, 2025 Zackary Ballesteros VSC, PIN DRAFTER OPERATOR-C Referring Provider Active S tart: April 21, 2025 End: April 21, 2025 Dr. Chuck Bruce MD Attending Provider Active Start: April 21, 2025 End: April 21, 2025 Team Status: Inactive Member Role/Relationship Status Dates Zackary Ballesteros VSC, PIN DRAFTER OPERATOR-C Primary Care Provider Active Start: May 12, 2025 End: May 12, 2025 Zackary Ballesteros VSC, PIN DRAFTER OPERATOR-C Referring Provider Active S tart: May 12, 2025 End: May 12, 2025 Dr. Chuck Bruce MD Attending Provider Active Start: May 12, 2025 End: May 12, 2025 Team Status: Inactive Member Role/Relationship Status Dates Zackary Ballesteros VSC, PIN DRAFTER OPERATOR-C Primary Care Provider Active Start: April 04, 2025 End: April 04, 2025 Zackary Ballesteros VSC, PIN DRAFTER OPERATOR-C Referring Provider Active S tart: April 04, 2025 End: April 04, 2025 Dr. Chuck Bruce MD Attending Provider Active Start: April 04, 2025 End: April 04, 2025 Team Status: Inactive Member Role/Relationship Status Dates Zackary Ballesteros VSC, PIN DRAFTER OPERATOR-C Primary Care Provider Active Start: April 21, 2025 End: April 21, 2025 Zackary Ballesteros VSC, PIN DRAFTER OPERATOR-C Referring Provider Active S tart: April 21, 2025 End: April 21, 2025 Dr. Chuck Bruce MD Attending Provider Active Start: April 21, 2025 End: April 21, 2025 Team Status: Inactive Member Role/Relationship Status Dates Zackary Ballesteros VSC, PIN DRAFTER OPERATOR-C Primary Care Provider Active Start: May 12, 2025 End: May 12, 2025 Zackary Ballesteros VSC, PIN DRAFTER OPERATOR-C Referring Provider Active S tart: May 12, 2025 End: May 12, 2025 Dr. Chuck Bruce MD Attending Provider Active Start: May 12, 2025 End: May 12, 2025 Team Status: Inactive Member Role/Relationship Status Dates Zackary Ballesteros VSC, PIN DRAFTER OPERATOR-C Primary Care Provider Active Start: June 25, 2025 End: June 25, 2025 Zebulun Beam VSC, PIN DRAFTER OPERATOR-C Attending Provider Active Start: June 25, 2025 End: June 25, 2025 Zebulun Beam VSC, PIN DRAFTER OPERATOR-C Referring Provider Active Start: June 25, 2025 End: June 25, 2025 Team Status: Inactive Member Role/Relationship Status Dates Zackary Ballesteros VSC, PIN DRAFTER OPERATOR-C Primary Care Provider Active Start: July 24, 2025 End: July 24, 2025 Zackary HIGGINSC, PIN DRAFTER OPERATOR-C Referring Provider Active S tart: July 24, 2025 End: July 24, 2025 Dr. Chuck Bruce MD Attending Provider Active Start: July 24, 2025 End: July 24, 2025 FOR RECORDS PERTAINING TO PATIENTS WHO ARE OR HAVE BEEN ENROLLED IN A CHEMICAL DEPENDENCY/SUBSTANCEABUSE PROGRAM, SOME INFORMATION MAY BE OMITTED. This clinical summary was aggregated from multiple sources. Caution should be exercised in using it in the provision of clinical care. This summary normalizes information from multiple sources, and as a consequence, information in this document may materially change the coding, format and clinical context of patient data. In addition, data may be omitted in some cases. CLINICAL DECISIONS SHOULD BE BASED ON THE PRIMARY CLINICAL RECORDS. [facility] [employer] provides no warranty or guarantee of the accuracy or completeness of information in this document.
--- NOTE | 2025-08-02 10:43 | EDS_ITS ---
HPI History of Present Illness Chief Complaint: Other, Pain/Inj Narrative Narrative: 69-year-old male past medical history of previous hemorrhoids, prediabetes presents with wanting an external hemorrhoid lanced. He states that he has had a thrombosed hemorrhoids for a few days. He was getting presurgical testing for a hernia, and states that they went over to Dr. Bruce's office who that seen before. He is supposed to have a nonthrombosed hemorrhoid lanced on Monday, 2 days from now. He states that it is painful for him to sit, and presents to the emergency department stating he is not sure that he can wait until Monday. No fevers or chills. No exacerbating or alleviating factors. [facility] Medical History History of hiatal hernia Gastric reflux Wears partial dentures Hemorrhoids Wears glasses Anxiety Diabetes Arthritis Low iron Fatty liver High cholesterol Dietary restriction Non-smoker Leg cramps Kogsr-Cweisgsac-Aixcp (WPW) pattern Cardiology follow-up encounter Hypertension Positive colorectal cancer screening using Cologuard test Diabetes Arthritis Home Medications ?Medication ?Instructions ?Recorded ?Last Taken ?Type acetaminophen 500 mg tablet 500 mg PO Q6H PRN Pain Unknown History (Tylenol Extra Strength) omega 3-rsz-zqk-fish oil 1,000 mg 1 cap PO DAILY 12/0712/05/22 History (120 mg-180 mg) capsule (Fish Oil) psyllium husk 0.4 gram capsule 0.4 g PO QHS 12/07/22 0 12/05/22 History (Metamucil) sildenafil 100 mg tablet 100 mg PO DAILY PRN sexual 0 05/02/24 Unknown Rx activity #45 tabs alprazolam 0.25 mg tablet 0.5 mg (2 x 0.25 mg) PO BID #60 06/03/24 01/28/25 06:16 Rx tabs trazodone 100 mg tablet 100 mg PO QHS 01/27/25 Unkno wn History polyethylene glycol 3350 17 4 g PO QDAY 04/21/25 Unkno wn History gram/dose oral powder (Miralax) ferrous sulfate 325 mg (65 mg 325 mg PO DAILY 07/30/25 Unknown History iron) tablet (iron) lisinopril 40 mg tablet 40 mg PO DAILY 07/30/25 Unkn own History lidocaine HCl 2 % mucosal solution 1 applic mucous mem brane BID PRN 08/02/25 Unknown Rx (Lidocaine Viscous) pain #100 mL Allergy/AdvReac Type Severity Reaction Status Date / Time No Known Allergies Allergy Verified 08/02/25 10:20 Family History Father CVA (cerebral vascular accident) Mother Cancer throat Other Heart disease Surgical History History of banding of hemorrhoid Hx of colonoscopy S/P lateral meniscus repair of right knee H/O prostatectomy Social History household members: spouse current occupational status: retired current occupation: [employer] Smoking Status: Never smoker Electronic Cigarette Use: not used alcohol intake: never substance use type: does not use what type of physical activity do you participate in: additional details: cutting wood do you feel safe at home: Yes ROS ROS ED ROS Narrative Review of systems positive for thrombosed hemorrhoid and pain with sitting. No fevers or chills, no other symptoms. EXAM Physical Exam Narrative Exam Narrative: Afebrile. Vital signs noted. Nontoxic-appearing. Cardiovascular examination regular rate and rhythm. Lungs are clear to auscultation bilaterally. Abdomen is soft nontender with positive bowel sounds. Visual inspection surrounding the anus reveals more redundant tissue and possible small thrombosed hemorrhoid underlying versus scarring. There is a nonthrombosed hemorrhoid more anteriorly around the anal opening. No active bleeding. Const Vital Signs: 08/02/25 10:17 08/02/25 10:17 Temperature 97.4 F L Temperature Source Oral Pulse Rate 77 Respiratory Rate 16 Respiratory Effort Normal Non-Labored Respiratory Pattern Normal Blood Pressure 144/77 H Blood Pressure Mean 99 Pulse Ox 98 Oxygen Delivery Method Room Air MDM MDM MDM Narrative Medical decision making narrative: Differential diagnosis includes but not limited to thrombosed hemorrhoid versus redundant tissue. I do not feel that the patient requires emergent thrombectomy. As the patient has known to Dr. Bruce, he is on-call and I discussed this with him. Patient had been told previously to discontinue use of hydrocortisone cream so as not to develop pruritus ani. Dr. Bruce will evaluate the patient in the ED to see if he should wait until Monday versus bedside thrombectomy performed by him. In discussion with Dr. Bruce after his evaluation, he agrees that this is more redundant tissue, and that thrombectomy is not indicated. He requested that I prescribe the patient lidocaine viscous 2% to apply twice a day as needed for pain. Patient will be discharged to follow-up with Dr. Bruce as needed. Disposition is discharged home in stable condition. History & Record Review Discussion w/independent historian: Patient Additional record(s) reviewed:: Prior outpatient record Management Discussion w/another healthcare provider: Care Management Assistant (Dr. Bruce, general surgery) Discharge Plan Triage Chief Complaint: Other, Pain/Inj ED Provider: Darius Henderson Dx/Rx/DC Orders Clinical Impression: Pain in rectum, Hemorrhoids Instructions: ED Hemorrhoids, ED Pain Management: Chronic Prescriptions: New lidocaine HCl [Lidocaine Viscous] 2 % solution 1 applic mucous membrane BID PRN (Reason: pain) Qty: 100 0RF No Action acetaminophen [Tylenol Extra Strength] 500 mg tablet 500 mg PO Q6H PRN (Reason: Pain) sildenafil 100 mg tablet 100 mg PO DAILY PRN (Reason: sexual activity) Qty: 45 0RF Rx Instructions: administer 30 minutes to 4 hours before activity polyethylene glycol 3350 [Miralax] 17 gram/dose powder 4 g PO QDAY omega 9-hsi-sln-fish oil [Fish Oil] 1,000 mg (120 mg-180 mg) Capsule 1 cap PO DAILY psyllium husk [Metamucil] 0.4 gram Capsule 0.4 g PO QHS trazodone 100 mg tablet 100 mg PO QHS lisinopril 40 mg tablet 40 mg PO DAILY ferrous sulfate [iron] 325 mg (65 mg iron) tablet 325 mg PO DAILY alprazolam 0.25 mg tablet 0.5 mg PO BID Qty: 60 0RF Primary Care Provider: Zackary Ballesteros Referrals: Zackary Ballesteros, BUFF WHEEL FABRICATOR-C [Primary Care Provider, Family Practice] Activity Restrictions/Additional Instructions: Use viscous lidocaine as directed twice a day. Follow-up with Dr. Bruce as needed. Print Language: Hong Konger Disposition Disposition: Home, Self Care
--- NOTE | 2025-08-02 11:48 | EX.PCM.CON.S ---
Assessment & Plan Assessment/Plan (1) Pain in rectum: PLAN: Patient is a 69-year-old male well-known to me for complaints of anorectal discomfort and hemorrhoids. Although his history is suggestive of external hemorrhoids his exam shows only evidence of a possible resolving clot at the 5 o'clock position where he denies tenderness with palpation. I do not identify any fissures of the endoderm. If an external hemorrhoid is present it is not visible to me on exam and, therefore, would require a bigger incision and some exploration in any procedure that could be contemplated. I do not believe this is warranted given patient's description of his symptoms and the duration since onset. I attempted to encourage him that we would expect spontaneous resolution of his issue to begin in the coming days as the clot liquefies. Secondly, I believe Mr. Kerns is dealing with this issue and otherwise putting himself at an increased risk for similar issues because of his increased toilet time related to his bowel movement frequency. I find no indication for him to continue on a prokinetic agent like MiraLAX if he is experiencing a bowel movement a day without. Therefore I have encouraged him to take it on an as needed basis and continue his use of psyllium husk. I do not believe his hernia belt is playing a role but did review the instructions for its placement. Additionally, I underscored need to continue with sitz bath's which he has previously initiated. Lastly we discussed he is cleared to return to symptomatic use of hydrocortisone ointment and topical lidocaine. I had previously asked him to discontinue use of hydrocortisone as he was beginning to take this chronically. (2) Hemorrhoids: HPI Consult Data Date of Consult: 08/02/25 HPI Narrative Reason for Consultation: Hemorrhoids HPI Narrative: ANGELIA KERNS, is a 69 M who presents to [facility] ER with complaints of painful hemorrhoids. He is well-known to me for both this complaint as well as a pending operation to address newly diagnosed bilateral inguinal hernias. He states that symptoms of pain with bowel movements began a good 3 days ago. He denies any bleeding. He reports that he is experiencing approximately 3 bowel movements per day and that they are generally loose in character. Additionally, he remarks that he is still using MiraLAX at approximately half Per day and psyllium husk twice daily. He shares that he tried to get an appointment with our office yesterday, however, no one was in at that time to accommodate him on such short notice. He and his are concerned that his use of his hernia belt may be exacerbating this problem. [facility] Medical History History of hiatal hernia Gastric reflux Wears partial dentures Hemorrhoids Wears glasses Anxiety Diabetes Arthritis Low iron Fatty liver High cholesterol Dietary restriction Non-smoker Leg cramps Yvuhf-Fxqtjfvww-Mpwqg (WPW) pattern Cardiology follow-up encounter Hypertension Positive colorectal cancer screening using Cologuard test Diabetes Arthritis Home Medications ?Medication ?Instructions ?Recorded ?Last Taken ?Type acetaminophen 500 mg tablet 500 mg PO Q6H PRN Pain 10/10/22 Unknown History (Tylenol Extra Strength) omega 2-fwd-siv-fish oil 1,000 mg 1 cap PO DAILY 12/07/22 12/05/22 History (120 mg-180 mg) capsule (Fish Oil) psyllium husk 0.4 gram capsule 0.4 g PO QHS 12/07/22 12/05/22 History (Metamucil) sildenafil 100 mg tablet 100 mg PO DAILY PRN sexual 05/02/24 Unknown Rx activity #45 tabs alprazolam 0.25 mg tablet 0.5 mg (2 x 0.25 mg) PO BID #60 06/03/24 01/28/25 06:16 Rx tabs trazodone 100 mg tablet 100 mg PO QHS 01/27/25 Unknown History polyethylene glycol 3350 17 4 g PO QDAY 04/21/25 Unknown History gram/dose oral powder (Miralax) ferrous sulfate 325 mg (65 mg 325 mg PO DAILY 07/30/25 Unknown History iron) tablet (iron) lisinopril 40 mg tablet 40 mg PO DAILY 07/30/25 Unknown History lidocaine HCl 2 % mucosal solution 1 applic mucous membrane BID PRN 08/02/25 Unknown Rx (Lidocaine Viscous) pain #100 mL Allergy/AdvReac Type Severity Reaction Status Date / Time No Known Allergies Allergy Verified 08/02/25 10:20 Family History Father CVA (cerebral vascular accident) Mother Cancer throat Other Heart disease Surgical History History of banding of hemorrhoid Hx of colonoscopy S/P lateral meniscus repair of right knee H/O prostatectomy Social History household members: spouse current occupational status: retired current occupation: [employer] Smoking Status: Never smoker Electronic Cigarette Use: not used alcohol intake: never substance use type: does not use what type of physical activity do you participate in: additional details: cutting wood do you feel safe at home: Yes Physical Exam Const alert, oriented x3 and no apparent distress Constitutional Narrative: Anxious Resp normal respiratory effort GI GI Narrative: Anorectal exam is performed with hospice registered nurse did in the right lateral decubitus position I note a fullness at the 12 o'clock position that seems to represent redundant anoderm consistent with a skin tag, however, it is here with palpation the patient has some tenderness. Then at the 5 o'clock position there is some fullness that is more suggestive of a thrombosed external hemorrhoid that is resolving. Patient denies significant tenderness with palpation in this location. Charges/Coding Visit Charges Office Visits / Consults: 42844 ED Visit; Low/Mod Severity
== END 2025-08-02 11:59 | disposition home or self-care (01) ==
PROVIDERS: Emergency Provider Emergency Medicine; PCP Nurse Practitioner Family; Visit Provider Emergency Medicine
DX: K64.5 Perianal venous thrombosis (principal); E11.9 Type 2 diabetes mellitus without complications; I10 Essential (primary) hypertension; K21.9 Gastro-esophageal reflux disease without esophagitis; F41.9 Anxiety disorder, unspecified; E61.1 Iron deficiency; E78.00 Pure hypercholesterolemia, unspecified; Z87.19 Personal history of other diseases of the digestive system; Z79.899 Other long term (current) drug therapy
CPT/HCPCS: 99282

== ENCOUNTER 2025-09-18 05:43 | Day surgery (SDC) | payer MEDICARE, SELFPAY ==
--- NOTE | 2025-08-01 07:40 | EKG12_ITS ---
Test Reason : PREOP Blood Pressure : */* mmHG Vent. Rate : 74 BPM Atrial Rate : 74 BPM P-R Int : 180 ms QRS Dur : 94 ms QT Int : 366 ms P-R-T Axes : 10 49 24 degrees QTcB Int : 406 ms Normal sinus rhythm Normal ECG Confirmed by JOSE SIMMONS MD ([id number]), continuity editor ALEX CAVAZOS ([id number]) on 08/01/2025 2:17:49 PM Also confirmed by JOSE SIMMONS MD ([id number]), continuity editor ALEX CAVAZOS ([id number]) on 08/01/2025 2:21:21 PM Referred By: Chuck Bruce Confirmed By: JOSE SIMMONS MD
[2025-08-01 09:11] LABS: Hematocrit 40.0 % (40-54); Hemoglobin 13.7 g/dL (13.0-16.5); Mean Corp Hgb Conc 34.3 g/dL (32-36); Mean Corpuscular Volume 88.7 fL (80-94); Mean Platelet Vol. 10.7 fl (6.2-12.0); Platelet Count 158 K/mm3 (150-450); RBC Distribution Width CV 12.5 % (11.6-14.6); RBC Distribution Width SD 40.7 fl (35.1-43.9); Red Blood Count 4.51 M/mm3 (4.6-6.2); White Blood Count 8.9 K/mm3 (4.4-11.0)
[2025-08-01 09:47] LABS: Anion Gap 10 (5-15); BUN 14 mg/dL (4-19); BUN/Creat Ratio 19.9 RATIO (10-20); Calcium,Total 8.9 mg/dL (7.6-11.0); Carbon Dioxide 26.6 mmol/L (21.0-32.0); Chloride 100 mmol/L (98-108); Glucose 78 mg/dL (70-99); Potassium 4.9 mmol/L (3.3-5.1)
[2025-09-18] VITALS (13 sets, daily range): BP systolic 129–164; BP diastolic 64–82; PULSE 69–93; RESP 12–18; TEMP 36.1–37.2; O2SAT 96–100; BMI 25.7
--- OUTSIDE RECORDS SUMMARY | 2025-09-18 05:45 | XMS RPT_ITS | CCD ---
Author Organization [facility] Care Team Providers Care Metallurgical Engineering Teacher Name Role Phone Rigoberto Pena Attending Igor HOOD MD, ZANA Michaels Primary Care Physician SAMMIE SAP TECHNICAL ARCHITECT-EASTER BUNNY, DANIEL Primary Care Physician ABAD WADE, DR. ROEL Michaels Attending Jose HOOD MD., DR. ZANA Michaels Primary Care Christophe COCHRAN EASTER BUNNY, MS. SANCHEZ Primary Care Zaheer COCHRAN EASTER BUNNY, MS. SANCHEZ Attending Zaheer COCHRAN CNP, MSNereida SANCHEZ Primary Care Zaheer HOOD MD., DR. ZANA Michaels Attending Christophe HOOD MD., DR. ZANA Michaels Attending Christophe HOOD MD., DR. ZANA Michaels Primary Care Dr. Amara Michaels Attending Provider [phone] Dr. Amara Damian Primary Care Provider Dr. Amara Damian Referring Provider [phone] Dr. Amara Damian Attending Provider [phone] Dr. Chuck Bruce Attending Provider Dr. Chuck Bruce Other Provider RIGOBERTO PENA Attending Dr. Amara Crowder Primary Care Provider Dr. Amara Damian Attending Provider [phone] Dr. Amara Damian Referring Provider Lesli 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, Zackary Primary Care Provider Lesli BURRELL-CZackary Referring Provider [phone] Chuck Bruce MD Attending Provider Ashish JONES, Dr. Muir Attending Provider Ashish JONES, Dr. Muir Emergency Provider Beam 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, Zeel Attending Provider Dr. Chuck Bruce MD Other Provider Ballesteros 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, Zackary Primary Care Provider Ballesteros 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, Zackary Referring Provider Dr. Chuck Bruce MD Attending Provider Ballesteros 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, Zackary Primary Care Provider Ballesteros 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, Zackary Referring Provider Dr. Chuck Bruce MD Attending Provider Ballesteros 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, Zackary Primary Care Provider Ballesteros 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, Zackary Referring Provider Dr. Chuck Bruce MD Attending Provider Beam 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, Zeburodney Attending Provider Beam 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, Zebulujossy Referring Provider Ballesteros 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, Zackary Primary Care Physician Ballesetros 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, Zackary Referring Provider Dr. Chuck Bruce MD Attending Physician Beam 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, Zeel Attending Physician Con JONES, Dr. Rbob Attending Physician Dr. Chuck Bruce MD Referring Provider Beatriz JONES, Darius Attending Physician Darius Henderson MD Emergency Department Physician Daksha Peña PA-C Attending Physician Ballesteros VSC, Zacakry Referring Unavailable Ballesteros VSC, Zackary Primary Care Unavailable Daksha Peña Attending Unavailable Chuck Bruce Consulting Unavailable Ballesteros VSC, Zackary Referring Unavailable Chuck Bruce Attending Unavailable Ballesteros VSC, Zackary Primary Care Unavailable Chuck Bruce Attending Unavailable Ballesteros VSC, Zackary Primary Care Unavailable Reodica, Darius Referring Unavailable Teo, Chuck Attending Unavailable Ballesteros VSC, Zackary Primary Care Unavailable Ballesteros VSC, Zackary Referring Unavailable Ballesteros VSC, Zackary Primary Care Unavailable Ballesteros VSC, Zackary Referring Unavailable Daksha Peña Attending Unavailable Chuck Bruce Attending Unavailable Ballesteros VSC, Zackary Primary Care Unavailable Ballesteros VSC, Zackary Referring Unavailable Ballesteros VSC, Zackary Referring Unavailable Ballesteros VSC, Zackary Primary Care Unavailable Chuck Bruce Attending Unavailable Ballesteros VSC, Zackary Primary Care Unavailable Beam, Zebulun Referring Unavailable Beam, Zebulun Attending Unavailable Ballesteros VSC, Zackary Primary Care Unavailable Beam, Zebulun Attending Unavailable Teo, Chuck Attending Unavailable Ballesteros VSC, Zackary Primary Care Unavailable Ballesteros VSC, Zackary Referring Unavailable Teo, Chuck Attending Unavailable Teo, Chuck Referring Unavailable Ballesteros VSC, Zackary Primary Care Unavailable Ballesteros VSC, Zackary Primary Care Unavailable Hinojosa, Wood Attending Unavailable Ballesteros VSC, Zackary Primary Care Unavailable Reodica, Darius Attending Unavailable Ballestreos VSC, Zackary Referring Unavailable Chuck Bruce Attending Unavailable Ballesteros VSC, Zackary Primary Care Unavailable Teo, Chuck Attending Unavailable Ballesteros VSC, Zackary Primary Care Unavailable Ballesteros VSC, Zackary Referring Unavailable Ballesteros VSC, Zackary Referring Unavailable Ballesteros VSC, Zackary Primary Care Unavailable Chuck Bruce Attending Unavailable Ballesteros VSC, Zackary Referring Unavailable Ballesteros VSC, Zackary Primary Care Unavailable Teo, Chuck Attending Unavailable Teo, Chuck Attending Unavailable Ballesteros VSC, Zackary Referring Unavailable Ballesteros VSC, Zackary Primary Care Unavailable Chuck Bruce Attending Unavailable Ballesteros VSC, Zackary Referring Unavailable Ballesteros VSC, Zackary Primary Care Unavailable Teo, Chuck Attending Unavailable Ballesteros VSC, Zackary Primary Care Unavailable Ballesteros VSC, Zackary Referring Unavailable Teo, Chuck Attending Unavailable Ballesteros VSC, Zackary Referring Unavailable Ballesteros VSC, Zackary Primary Care Unavailable Medications Current Medications Medication Drug Class(es) Dates Sig (Normalized) Sig (Original) acetaminophen 500 mg oral tablet (19 sources) Start: 10-10-2022 take 1 tablet by mouth every six hours as needed for pain Acetaminophen (Tylenol Extra Strength) 500 mg tablet Active 500 mg PO EVERY 6 HOURS as needed for Pain October 10, 2022 1:00am Complies with drug therapy Start: 08-08-2022 End: 10-10-2022 take 500 mg by mouth every six hours as needed Acetaminophen (Tylenol Extra Strength) 500 mg powder in packet Discontinued 500 mg PO EVERY 6 HOURS as needed August 08, 2022 12:00am October 10, 2022 8:57am ALPRAZolam 0.25 mg oral tablet (20 sources) Benzodiazepine Start: 06-03-2024 take 2 tablets by mouth twice daily Alprazolam 0.25 mg tablet Active 0.5 mg PO TWICE A DAY 60 0 June 03, 2024 8:16am Anxiety Anxiety disorder, unspecified Complies with drug therapy Start: 10-03-2023 End: 06-03-2024 take 1 tablet [...] October 03, 2023 11:56am Start: 04-15-2022 End: 03-29-2023 take 1 tablet by mouth twice daily Alprazolam (Xanax) 1 mg tablet Discontinued 1 mg PO TWICE A DAY 60 0 February 27, 2023 1:11pm March 29, 2023 10:17am Anxiety Anxiety disorder, unspecified Start: 05-28-2021 End: 11-24-2021 ALPRAZolam 1 mg oral tablet Dose : 1 mg = 1 tab(s), Oral, BID, PRN as needed for anxiety, # 60 tab(s), 5 Refill(s), Pharmacy: [facility] [id number] Generalized anxiety disorder, 181, cm, 05/28/21 9:18:00 EDT, Height, 109, kg, 05/28/21 9:18:00 EDT, Dosing Weight Start Date: 05/28/21 Stop Date: 11/24/21 Status: Ordered amLODIPine 5 mg oral tablet (1 source) Dihydropyridine Calcium Channel Jose Alberto Start: 07-19-2022 amLODIPine 5 mg oral tablet Dose : 5 mg = 1 tab(s), Oral, qDay, # 30 tab(s), 0 Refill(s), [facility]: [id number], 181.5, cm, 07/19/22 8:33:00 EDT, Height Start Date: 07/19/22 Status: Ordered ferrous sulfate 325 mg oral tablet (5 sources) Start: 07-30-2025 take 1 tablet by mouth once daily Ferrous Sulfate (Iron) 325 mg (65 mg iron) tablet Active 325 mg PO DAILY July 30, 2025 12:00am Complies with drug therapy flax seed oil 1000 mg oral capsule (3 sources) Start: 07-15-2020 flax seed oil 1000 mg oral capsule Dose : 1,000 mg = 1 cap(s), Oral, qDay, 0 Refill(s) Start Date: 07/15/20 Status: Ordered hydrocortisone 25 mg/ml topical cream (1 source) Corticosteroid Start: 03-07-2022 Anusol-HC 2.5% rectal cream with applicator Apply 1 armani, Rectal, BID, # 30 gram(s), 0 Refill(s), [facility]: [facility] 181, cm, 01/14/22 9:45:00 EST, Height, 109.7 Start Date: 03/07/22 Status: Ordered ibuprofen 200 mg oral tablet (3 sources) Nonsteroidal Anti-inflammatory Drug Start: 07-30-2020 Advil 200 mg oral tablet Dose : 400 mg = 2 tab(s), Oral, q4h, PRN as needed for pain, # 120 tab(s), 0 Refill(s) Start Date: 07/30/20 Status: Ordered lidocaine 0.05 mg/mg topical ointment (20 sources) Antiarrhythmic, Amide Local Anesthetic Start: 08-05-2025 Lidocaine 5 % ointment Active 1 NMA TOPICAL THREE TIMES A DAY as needed for pain 35.44 0 August 05, 2025 12:00am Complies with drug therapy Start: 08-05-2025 Start: 08-02-2025 Lidocaine Hcl (Lidocaine Viscous) 2 % solution Active 1 NMA MUCOUS MEM TWICE A DAY as needed for pain 100 0 August 02, 2025 12:00am Complies with drug therapy Start: 02-20-2025 End: 07-30-2025 Lidocaine 5 % ointment Disco ntinued 1 NMA TOPICAL TWICE A DAY as needed for hemorrhoids pain 30 0 April 04, 2025 3:10pm July 30, 2025 10:42am lisinopril 40 mg oral tablet (20 sources) Angiotensin Converting Enzyme Inhibitor Start: 07-30-2025 take 1 tablet by mouth once daily Lisinopril 40 mg tablet Active 40 mg PO DAILY July 30, 2025 12:00am Complies with drug therapy Start: 01-27-2025 End: 07-30-2025 take 1 tablet by mouth once daily Lisinopril 20 mg tablet Discontinued 20 mg PO DAILY January 27, 2025 12:00am July 30, 2025 10:59am Start: 08-08-2022 End: 10-03-2023 take 1 tablet by mouth twice daily Lisinopril 40 mg tablet Discontinued 40 mg PO TWICE A DAY 180 1 June 26, 2023 1:41pm October 03, 2023 12:49pm Start: 04-15-2022 lisinopril 40 mg oral tablet Dose : 40 mg = 1 tab(s), Oral, BID, # 180 tab(s), 3 Refill(s), Pharmacy: [email or web address], 181, cm, 04/15/22 9:18:00 EDT, Height, kg, 04/15/22 9:18:00 EDT, Dosing Weight Start Date: 04/15/22 Status: Ordered Start: 11-27-2020 lisinopril 30 mg oral tablet Dose : 45 mg = 1.5 tab(s), Oral, qAM, # 135 tab(s), 3 Refill(s), [facility] [address] [facility], cm, 11/27/20 7:57:00 EST, Height, kg, 11/27/20 7:57:00 EST, Dosing Weight Start Date: 11/27/20 Status: Ordered omega-3 acid ethyl esters (long-term) 1000 mg oral capsule (14 sources) Start: 12-07-2022 [place] 3-Dha-Ep a-Fish Oil (Fish Oil) 1,000 mg (120 mg-180 mg) Capsule Active 1 NMA PO DAILY December 07, 2022 1:00am Complies with drug therapy polyethylene glycol 3350 23188 mg powder for oral solution (9 sources) Osmotic Laxative Start: 04-21-2025 Polyethylene Glycol 3350 (Miralax) 17 gram/dose powder Active 4 g PO daily April 21, 2025 12:00am Complies with drug therapy psyllium 400 mg oral capsule (14 sources) Start: 12-07-2022 Psyllium Husk (Metamucil) 0.4 gram Capsule Active 0.4 g PO AT BEDTIME December 07, 2022 1:00am Complies with drug therapy sildenafil 100 mg oral tablet (20 sources) Phosphodiesterase 5 Inhibitor Start: 05-02-2024 Sildenafil 100 mg tablet Active 100 mg PO DAILY as needed for sexual activity 45 0 May 02, 2024 9:51am administer 30 minutes to 4 hours before activity Complies with drug therapy Start: 03-29-2023 End: 05-02-2024 Sildenafil 50 mg [...] dysfunction, # 90 tab(s), 3 Refill(s), Pharmacy: [facility] [address] 181, cm, 04/15/22 9:18:00 EDT, Height, kg, 04/15/22 9:18:00 EDT, Dosing Weight Start Date: 04/15/22 Status: Ordered Start: 11-27-2020 Viagra 50 mg o ral tablet Dose : 50 mg = 1 tab(s), Oral, qDay, PRN as needed for erectile dysfunction, # 90 tab(s), 3 Refill(s), Pharmacy: [facility] [address] 182, cm, 11/27/20 7:57:00 EST, Height, kg, 11/27/20 7:57:00 EST, Dosing Weight Start Date: 11/27/20 Status: Ordered triamcinolone acetonide 1 mg/ml topical cream (3 sources) Corticosteroid Start: 11-26-2021 triamcinolone 0.1% topical cream Apply 1 armani, Topical, BID, PRN Rash, # 30 gram(s), 2 Refill(s), Pharmacy: [facility] [id number] Cream, 181.5, cm, 11/26/21 [...] (20 sources) Opioid Agonist Start: 03-29-2023 End: 07-30-2025 Acetaminophen-Codeine 300-30 mg tablet Discontinued 1 {tbl} PO EVERY 6 HOURS as needed for pain 10 0 August 04, 2023 4:27pm May 02, 2024 12:33pm Right knee pain Pain in right knee Start: 03-29-2023 End: 08-04-2023 take 1 tablet by mouth every six hours Acetaminophen-Codeine Discontinued 1 TABLET PO EVERY 6 HOURS 10 March 29, 2023 9:15am August 04, 2023 3:27pm Start: 07-19-2022 End: 07-26-2022 take 1 tablet by mouth every six hours as needed for pain acetaminophen-codeine 300 mg-30 mg oral tablet Dose = 1 tab(s), Oral, q6hr, PRN as needed for pain, # 30 tab(s), 0 Refill(s), [facility]: [facility] #[id number], Arthritis, 181.5, cm, 07/19/22 8:33:00 EDT, Height, 107.6, kg, 07/19/22 8:33:00 EDT, Dosing Weight Start Date: 07/19/22 Stop Date: 07/26/22 Status: Ordered Start: 05-28-2021 End: 06-04-2021 take 1 tablet by mouth every six hours as needed for pain acetaminophen-codeine 300 mg-30 mg oral tablet Dose = 1 tab(s), Oral, q6hr, PRN as needed for pain, # 20 tab(s), 0 Refill(s), [facility]: [facility] [facility], Arthritis, 181, cm, 05/28/21 9:18:00 EDT, Height, [...] qHS, # 90 tab(s), 3 Refill(s), [facility] [address], cm, 04/15/22 9:18:00 EDT, Height, kg, 04/15/22 9:18:00 EDT, Dosing Weight Start Date: 04/15/22 Status: Ordered Start: 11-27-2020 atorvastatin 2 0 mg oral tablet Dose : 20 mg = 1 tab(s), Oral, qHS, # 90 tab(s), 3 Refill(s), [facility] [address], cm, 11/27/20 7:57:00 EST, Height, kg, 11/27/20 7:57:00 EST, Dosing Weight Start Date: 11/27/20 Status: Ordered dilTIAZem (9 sources) Calcium Channel Jose Alberto Start: 04-21-2025 End: 07-24-2025 Diltiazem 2% Ointment (Compound) ointment Discontinued 0 .Route 1 0 April 21, 2025 12:00am July 24, 2025 12:51pm Anal fissure Anal fissure, unspecified Apply small amount to anal area 3-4 x/day as needed Start: 04-21-2025 Diltiazem 2% O intment (Compound) ointment Active 0 .Route 1 0 April 21, 2025 12:00am Anal fissure Anal fissure, unspecified Apply small amount to anal area 3-4 x/day as needed Start: 04-21-2025 Diltiazem 2% O intment (Compound) ointment Active 0 .ROUTE 1 April 21, 2025 12:00am Apply small amount to anal area 3-4 x/day as needed Hydrocortisone / Lidocaine (11 sources) Antiarrhythmic, Corticosteroid, Amide Local Anesthetic Start: 10-07-2024 End: 07-24-2025 Hydrocortisone 2.5% / Lidocaine 5% Ointment (Cmpd) ointment Discontinued 0 .Route 1 October 07, 2024 1:00am July 24, 2025 12:51pm As directed Start: 10-07-2024 Hydrocortisone 2.5% / Lidocaine 5% Ointment (Cmpd) ointment Active 0 .Route 1 0 October 07, 2024 1:00am As directed Start: [...] qAM, # 90 tab(s), 3 Refill(s), [facility]: [email or web address], 181, cm, 04/15/22 9:18:00 EDT, Height, kg, 04/15/22 9:18:00 EDT, Dosing Weight Start Date: 04/15/22 Status: Ordered Start: 11-27-2020 metFORMIN 500 mg oral tablet (IR) Dose : 500 mg = 1 tab(s), Oral, qAM, # 90 tab(s), 3 Refill(s), Pharmacy: [facility], 182, cm, 11/27/20 7:57:00 EST, Height, kg, 11/27/20 7:57:00 EST, Dosing Weight Start Date: 11/27/20 Status: Ordered metroNIDAZOLE 500 mg oral tablet (5 sources) Nitroimidazole Antimicrobial Start: 08-04-2025 End: 08-09-2025 take 1 tablet by mouth three times daily Metronidazole 500 mg tablet Discontinued 500 mg PO THREE TIMES A DAY 15 5 0 August 04, 2025 12:00am August 08, 2025 12:00am August 09, 2025 12:15am traZODone hydrochloride 100 mg oral tablet (20 sources) Serotonin Reuptake Inhibitor Start: 06-12-2023 End: 01-27-2025 take 1 tablet by mouth once daily Trazodone 100 mg tablet Discontinued 100 mg PO DAILY 90 February 29, 2024 4:05pm May 02, 2024 10:08am Start: 04-07-2023 End: 06-12-2023 take 2 tablets by mouth at bedtime Trazodone Discontinued 0 .ROUTE .COMPLEX 90 April 07, 2023 7:03am June 12, 2023 12:42pm TAKE 2 TABLETS (100MG) BY MOUTH AT BEDTIME Start: 08-08-2022 End: 06-12-2023 take 2 tablets by mouth at bedtime Trazodone 50 mg tablet Discontinued 0 .ROUTE .COMPLEX 90 1 April 07, 2023 8:03am June 12, 2023 [...] qHS, # 135 tab(s), 3 Refill(s), Pharmacy: [facility] 181, cm, 04/15/22 9:18:00 EDT, Height, kg, 04/15/22 9:18:00 EDT, Dosing Weight Start Date: 04/15/22 Stop Date: 04/10/23 Status: Ordered Start: 11-27-2020 End: 11-22-2021 traZODone 50 mg oral tablet Dose : 75 mg = 1.5 tab(s), Oral, qHS, # 135 tab(s), 3 Refill(s), Pharmacy: [facility] [address] 182, cm, 11/27/20 7:57:00 EST, Height, kg, 11/27/20 7:57:00 EST, Dosing Weight Start Date: 11/27/20 Stop Date: 11/22/21 Status: Ordered Problems Problem Classification Problem Date Documented Da te Episodic/Chronic Abdominal hernia (20 sources) Gastroesophageal reflux disease with hiatal hernia; Translations: [Diaphragmatic hernia without obstruction or gangrene] Onset: 5 10-10-2022 Episodic Comment on above: Patient reports hiat al hernia first diagnosed with upper GI study. At the time of this diagnosis he was having significant GERD symptoms, but reports these are minimal at this time and well managed with his dietary precautions. Patient is a 69-year -old male who has experienced progressive right lower quadrant discomfort. Initially I performed a physical exam several months ago and was unable to appreciate a hernia defect. When symptoms persisted patient was ordered CT imaging by his PCP. This was completed last month and shows evidence of bilateral inguinal hernias which radiology suggested was slightly larger on the right. In my independent review of the CT imaging I do see fatty tissue alongside the spermatic cord but believe the left side actually looks bigger than the right side. However, on exam there is certainly more bulging on the right and I am only able to appreciate a defect on the right. I shared with patient, additionally, that I do not believe his orgasm dysfunction is related to his hernia complaints. After discussion of origin of hernias as generally a consequence of exploiting and embryologic descent pathway for the testicles (recanalization of the processus vaginalis), I then discussed hernia repair via a transabdominal preperitoneal approach with robotic platform. I also discussed the need to refrain from any heavy lifting or strenuous activity for 5 weeks post procedure to ensure the mesh is able to cross-link with the abdominal wall and try to mitigate the risk for recurrence. Patient reports heating his home with wood and we discussed strategies to try to minimize the need for physical activity in the postoperative period. He is interested in proceeding with surgery sooner than later given his symptoms. Lastly I discussed the need to be intentional about applying his hernia belt to avoid risk for entrapping the bowel inadvertently and suggested he only apply it first thing in the morning while still lying in bed. Patient confirmed understanding of this direction. Abdominal pain (14 sources) Right inguinal pain; Translations: [Right lower [...] seeking consultation] Episodic Anal and rectal conditions (20 sources) Anal fissure; Translations: [Anal fissure, unspecified] Onset: 5 04-21-2025 Episodic Comment on above: Patient is [...] bowel habits and avoid constipation where possible. Patient is 69-year-o ld male who is evaluated following I&D of perirectal abscess 3 days ago. He is symptomatically improved, however, an area of induration remains along with a draining wound. I had a discussion with Mr. Kerns that we will need to more closely manage his use of MiraLAX to avoid frequent bowel movements that would exacerbate his condition. I have encouraged him to complete his prescription for Flagyl which was prescribed empirically as there are no cultures obtained. However, I also underscored that appropriate incision and drainage should manage abscesses without the necessity of antibiotics. I then went on to state I wish to cancel his hernia repair that is presently slated for 08/11/2025 to avoid risk for translocation and mesh infection. Mr. Kerns confirms that his hernia experience has remained stable/unchanged. Will plan to reassess his wound in another 2 weeks and at that time hopefully reschedule his hernia repair. Patient is 69-year-o ld male who is evaluated following I&D of perirectal abscess 3 days ago. He is symptomatically improved, however, an area of induration remains along with a draining wound. I had a discussion with Mr. Kerns that we will need to more closely manage his use of MiraLAX to avoid frequent bowel movements that would exacerbate his condition. I have encouraged him to complete his prescription for Flagyl which was prescribed empirically as there are no cultures obtained. However, I also underscored that appropriate incision and drainage should manage abscesses without the necessity of antibiotics. I then went on to state I wish to cancel his hernia repair that is presently slated for 08/11/2025 to avoid risk for translocation and mesh infection. Mr. Kerns confirms that his hernia experience has remained stable/unchanged. Will plan to reassess his wound in another 2 weeks and at that time hopefully reschedule his hernia repair.Update 08/19/2025: Patient no longer exhibits a open/draining wound of the perirectal area. He is symptomatically improved as well. I have encouraged him to refrain from MiraLAX use unless he is truly experiencing constipation as a means of decreasing his bowel movement frequency and hopefully continuing healing. I have encouraged him to continue use of sitz bath's as a means of improving the induration in the anorectal area. As we no longer have evidence of an infection I believe we can proceed with rescheduling his previously pending bilateral inguinal hernia repair. Anxiety disorders (20 sources) Generalized anxiety disorder; Translations: [Anxiety] 08-29-2019 Chronic Diabetes mellitus with complications (11 sources) Hyperglycemia due to type 2 diabetes mellitus; Translations: [Type 2 diabetes mellitus with hyperglycemia] 11-02-2024 Chronic Diabetes mellitus without complication (20 sources) Diabetes mellitus; Translations: [Type 2 diabetes mellitus without complications] 05-28-2020 Chronic Disorders of lipid metabolism (20 sources) Hyperlipidemia; Translations: [Mixed hyperlipidemia] 08-29-2019 Chronic Essential hypertension (20 sources) Hypertensive disorder; Translations: [Essential (primary) hypertension] Onset: 9 08-29-2019 Chronic Hemorrhoids (20 sources) Hemorrhoids; Translations: [Unspecified hemorrhoids] Onset: 5 12-23-2024 Episodic Comment on above: Patient is a 69-year -old male who makes follow-up for complaints of "burning and swelling" in association with hemorrhoids. He appears to be making a conscientious effort with conservative measures but perhaps overdoing it with his use of MiraLAX. I have instructed him to try to take this medication only as needed and "titrated" and affect to 1-2 soft bowel movements per day so as to overall net a decrease in his toilet time. He seems to confirm understanding. On exam today I appreciate only some lower grade internal hemorrhoids but there is no blood. With this assessment, I believe Mr. Kerns would be an appropriate candidate for hemorrhoid [...] also renew prescription for topical lidocaine ointment. Hyperplasia of prostate (2 sources) Benign prostatic hypertrophy with outflow obstruction 12-23-2020 Chronic Hypertension with complications and secondary hypertension (11 sources) Hypertensive urgency ; Translations: [Hypertensive urgency] 11-02-2024 Chronic Osteoarthritis (15 sources) Arthritis; Translations: [Unspecified osteoarthritis, unspecified site] 08-08-2022 Chronic Other gastrointestinal disorders (14 sources) Stool DNA-based colorectal cancer screening positive; [...] Impotence 08-29-2019 Chronic Other male genital disorders (14 sources) Male erectile dysfunction, unspecified; Translations: [Erectile [...] of patient refusal] Episodic Residual codes; unclassified (9 sources) History of hemorrhoid; Translations: [Other specified postprocedural states] 02-20-2025 Episodic Superficial injury; contusion (2 sources) Contusion of right lesser toe(s) without damage to nail, initial encounter; Translations: [Abrasion, right lesser toe(s), initial encounter] Onset: Episodic Results Test Name Value [facility] Surgery Visit Reporton 08-19 Surgery Visit Report [facility] [address] [place] [address] OFFICE VISIT Date of Service: 08/19/25 MR#: [id number] Acct: [id number] Name: ANGELIA KERNS Rep #: [id number] : 1955 Provider: Dr. Chuck hendricks MD Age/Sex: 69/M Location: [facility] Status: Signed Intake Vital Signs 08/02/25 10:17 08/19/25 09:37 Height 5 ft 11 in 5 ft 11 in Weight: 182 lb 6.4 oz 183 lb BMI 25.4 25.5 BP 144/77 H 153/83 H Blood Pressure Location Rt brachial Position Sitting Respiration 16 18 Pulse 77 76 Pulse Source Monitor Temp 97.4 F L 97.2 F L Temp Source Oral Temporal Pulse Oximetry (%) 98 97 Oxygen Delivery Method room air Intake Visit Reasons: WOUND CHECK Chief Complaint: wound check Accompanied by: Is patient in pain?: Yes Allergies No Known Allergies Allergy (Verified 08/19/25 09:37) Medications ???Medication ???Instructions ???Recorded ???Confirmed ???Type acetaminophen 500 mg tablet 500 mg PO Q6H PRN Pain 10/10/22 History (Tylenol Extra Strength) omega 1-blx-hyz-fish oil 1,000 mg 1 cap PO DAILY 12/07/22 08/19/25 History (120 mg-180 mg) capsule (Fish Oil) psyllium husk 0.4 gram capsule 0.4 g PO QHS 12/07/22 08/19/25 His tory (Metamucil) sildenafil 100 mg tablet 100 mg PO DAILY PRN sexual 4 08/19/25 Rx activity #45 tabs alprazolam 0.25 mg tablet 0.5 mg (2 x 0.25 mg) PO BID #60 08/19/25 Rx tabs trazodone 100 mg tablet 100 mg PO QHS 01/27/25 08/19/25 Hi story polyethylene glycol 3350 17 4 g PO QDAY 04/21/25 08/19/25 Hist ory gram/dose oral powder (Miralax) ferrous sulfate 325 mg (65 mg 325 mg PO DAILY 07/30/25 08/19/25 History iron) tablet (iron) lisinopril 40 mg tablet 40 mg PO DAILY 07/30/25 08/19/25 H istory lidocaine HCl 2 % mucosal solution 1 applic mucous membrane BID PRN 08/02/25 08/19/25 Rx (Lidocaine Viscous) pain #100 mL lidocaine 5 % topical ointment 1 applic topical TID PRN pain 07/1508/19/25 Rx #35.44 grams Have you fallen in the past year?: No Subjective Details: Patient is 69-year-old male who returns for wound check visit after perirectal abscess I D 08/05/2025. He was last seen 08/08/2025 at which time we had to postpone his pending inguinal hernia repair. Today he presents with his . He states that he is still experiencing some pain which she describes variably as "aching" and "burning". He notes that he required use of topical lidocaine yesterday but not yet today. He also denies any drainage but shares he did observe some bright red blood with a bowel movement 3 days ago. He denies any fevers or chills. He reports that he completed his Flagyl prescription and this did lead to some diarrhea but now has bowel habits have reverted more to his normal and are more formed. He is experiencing 2-3 bowel movements per day and doing 2-3 sitz bath's per day as well. Below is recapitulated from patient's prior visit for ease of review: Patient is 69-year-old male well-known to me for history of hemorrhoids and other perirectal pathologies as well as a pending inguinal hernia repair who presents for wound check after Mrs. Crooks NAA Peña completed I D of a perirectal abscess 08/05/2025. He presents today with his . Earlier in the week he had called about some development of diarrhea but confessed to continuing MiraLAX dosing. He states that he is now off this medication but also took himself off of Flagyl as well because of the concern that this medication was causing his diarrhea. He notes that his pain is improved today. He denies any fevers or chills. He states that he had drainage of the yellowish character yesterday but has not noted any significant drainage today. Objective Details: Constitutional: No acute distress, cooperative Anorectal: Healing of prior I D site with no visible incision. No drainage. There is persistent induration at the 12 o'clock position. This is nontender upon palpation. Coding Level of Care Code Off vis,est,level 3 Diagnoses Emily-rectal abscess K61.1 [facility] Medical History History of hiatal hernia Gastric reflux Wears partial dentures Hemorrhoids Wears glasses Anxiety Diabetes Arthritis Low iron Fatty liver High cholesterol Dietary restriction Non-smoker Leg cramps Frhgh-Vaviwlgav-Aqrxh (WPW) pattern Cardiology follow-up encounter Hypertension Positive colorectal cancer screening using Cologuard test Diabetes Arthritis Surgical History History of banding of hemorrhoid Hx of colonoscopy S/P lateral meniscus repair of right knee H/O prostatectomy Family History ... Normal [facility] Surgery Visit Reporton 08-08 Surgery Visit Report [facility] [address] [place] [address] OFFICE VISIT Date of Service: 08/08/25 MR#: [id number] Acct: [id number] Name: ANGELIA KERNS Rep #: [id number] : 1955 Provider: Dr. Chuck hendricks MD Age/Sex: 69/M Location: [facility] Status: Signed Intake Vital Signs 08/02/25 10:17 Height 5 ft 11 in Weight: 182 lb 6.4 oz BMI 25.4 BP 144/77 H Respiration 16 Pulse 77 Temp 97.4 F L Temp Source Oral Pulse Oximetry (%) 98 Intake Visit Reasons: WOUND CHECK Chief Complaint: wound check Accompanied by: wi Is patient in pain?: No Allergies No Known Allergies Allergy (Verified 08/08/25 09:49) Medications ???Medication ???Instructions ???Recorded ???Confirmed ???Type acetaminophen 500 mg tablet 500 mg PO Q6H PRN Pain 10/10/22 History (Tylenol Extra Strength) omega 9-lry-yfd-fish oil 1,000 mg 1 cap PO DAILY 12/07/22 08/08/25 History (120 mg-180 mg) capsule (Fish Oil) psyllium husk 0.4 gram capsule 0.4 g PO QHS 12/07/22 08/08/25 His tory (Metamucil) sildenafil 100 mg tablet 100 mg PO DAILY PRN sexual 4 08/08/25 Rx activity #45 tabs alprazolam 0.25 mg tablet 0.5 mg (2 x 0.25 mg) PO BID #60 08/08/25 Rx tabs trazodone 100 mg tablet 100 mg PO QHS 01/27/25 08/08/25 Hi story polyethylene glycol 3350 17 4 g PO QDAY 04/21/25 08/08/25 Hist ory gram/dose oral powder (Miralax) ferrous sulfate 325 mg (65 mg 325 mg PO DAILY 07/30/25 08/08/25 History iron) tablet (iron) lisinopril 40 mg tablet 40 mg PO DAILY 07/30/25 08/08/25 H istory lidocaine HCl 2 % mucosal solution 1 applic mucous membrane BID PRN 08/02/25 08/08/25 Rx (Lidocaine Viscous) pain #100 mL metronidazole 500 mg tablet 500 mg PO TID 5 days #15 tabs 07/1508/08/25 Rx lidocaine 5 % topical ointment 1 applic topical TID PRN pain 07/1508/08/25 Rx #35.44 grams Have you fallen in the past year?: No Subjective Details: Patient is 69-year-old male well-known to me for history of hemorrhoids and other perirectal pathologies as well as a pending inguinal hernia repair who presents for wound check after NAA Coates completed I D of a perirectal abscess 08/05/2025. He presents today with his . Earlier in the week he had called about some development of diarrhea but confessed to continuing MiraLAX dosing. He states that he is now off this medication but also took himself off of Flagyl as well because of the concern that this medication was causing his diarrhea. He notes that his pain is improved today. He denies any fevers or chills. He states that he had drainage of the yellowish character yesterday but has not noted any significant drainage today. Objective Details: Constitutional: No acute distress, cooperative Anorectal: At the 11 to 12 o'clock position there is persistent tissue induration with a 1 mm vertical incision draining a scant amount of thin yellow???brown discharge. The area remains tender to the touch. I do not feel any other areas of fluctuance Coding Level of Care Code Off vis,est,level 3 Diagnoses Emily-rectal abscess K61.1 [facility] Medical History History of hiatal hernia Gastric reflux Wears partial dentures Hemorrhoids Wears glasses Anxiety Diabetes Arthritis Low iron Fatty liver High cholesterol Dietary restriction Non-smoker Leg cramps Ebcui-Umsvnkgub-Mgtmx (WPW) pattern Cardiology follow-up encounter Hypertension Positive colorectal cancer screening using Cologuard test Diabetes Arthritis Surgical History History of banding of hemorrhoid Hx of colonoscopy S/P lateral meniscus repair of right knee H/O prostatectomy Family History Father CVA (cerebral vascular accident) Mother Cancer throat Other Heart disease Social History household members: spouse current occupational status: retired current occupation: [employer] Smoking Status: Never smoker Electronic Cigarette Use: not used alcohol intake: never substance use type: does not use what type of physical activity do you participate in: additional details: cutting wood do you feel safe at home: Yes Assessment and Plan (No Qualifiers) Assessment and Plan (1) Emily-rectal abscess: Status: Acute Comment: Patient is 69-year-old male who is evaluated following I D of perirectal abscess 3 days ago. He is symptomatically improved, however, an area of induration remains along with a draining wound. I had a discussion with Mr. Kerns that we will need to more closely manage his use of MiraLAX to avoid frequen (more content not included)... Normal [facility] Surgery Visit Reporton 08-05 Surgery Visit Report [facility] [address] [place] [address] OFFICE VISIT Date of Service: 08/05/25 MR#: [id number] Acct: [id number] Name: ANGELIA KERNS Rep #: [id number] : 1955 Provider: RICHAR garvey Age/Sex: 69/M Location: [facility] Status: Signed Intake Vital Signs 08/02/25 10:17 Height 5 ft 11 in Weight: 182 lb 6.4 oz BMI 25.4 BP 144/77 H Respiration 16 Pulse 77 Temp 97.4 F L Temp Source Oral Pulse Oximetry (%) 98 Intake Visit Reasons: REMOVE PACKING S/P I D Chief Complaint: rectal pain Allergies No Known Allergies Allergy (Verified 08/05/25 08:48) Medications ???Medication ???Instructions ???Recorded ???Confirmed ???Type acetaminophen 500 mg tablet 500 mg PO Q6H PRN Pain 10/10/22 History (Tylenol Extra Strength) omega 9-tqh-zxv-fish oil 1,000 mg 1 cap PO DAILY 12/07/22 08/05/25 History (120 mg-180 mg) capsule (Fish Oil) psyllium husk 0.4 gram capsule 0.4 g PO QHS 12/07/22 08/05/25 His tory (Metamucil) sildenafil 100 mg tablet 100 mg PO DAILY PRN sexual 4 08/05/25 Rx activity #45 tabs alprazolam 0.25 mg tablet 0.5 mg (2 x 0.25 mg) PO BID #60 08/05/25 Rx tabs trazodone 100 mg tablet 100 mg PO QHS 01/27/25 08/05/25 Hi story polyethylene glycol 3350 17 4 g PO QDAY 04/21/25 08/05/25 Hist ory gram/dose oral powder (Miralax) ferrous sulfate 325 mg (65 mg 325 mg PO DAILY 07/30/25 08/05/25 History iron) tablet (iron) lisinopril 40 mg tablet 40 mg PO DAILY 07/30/25 08/05/25 H istory lidocaine HCl 2 % mucosal solution 1 applic mucous membrane BID PRN 08/02/25 08/05/25 Rx (Lidocaine Viscous) pain #100 mL metronidazole 500 mg tablet 500 mg PO TID 5 days #15 tabs 07/1508/05/25 Rx lidocaine 5 % topical ointment 1 applic topical TID PRN pain 07/1508/05/25 Rx #35.44 grams Have you fallen in the past year?: No PFSH Medical History History of hiatal hernia Gastric reflux Wears partial dentures Hemorrhoids Wears glasses Anxiety Diabetes Arthritis Low iron Fatty liver High cholesterol Dietary restriction Non-smoker Leg cramps Xnxea-Lhpgrptlx-Yskse (WPW) pattern Cardiology follow-up encounter Hypertension Positive colorectal cancer screening using Cologuard test Diabetes Arthritis Surgical History History of banding of hemorrhoid Hx of colonoscopy S/P lateral meniscus repair of right knee H/O prostatectomy Family History Father CVA (cerebral vascular accident) Mother Cancer throat Other Heart disease Social History household members: spouse current occupational status: retired current occupation: [employer] Smoking Status: Never smoker Electronic Cigarette Use: not used alcohol intake: never substance use type: does not use what type of physical activity do you participate in: additional details: cutting wood do you feel safe at home: Yes HPI HPI HPI: Patient is a 69 y/o M who returns for packing removal. He notes feeling improved. He states there is not as much pressure noted. He states the packing came out last night when he was doing a sitz bath. He has taken 3 tablets of Flagyl so far. Exam GI Other: Anus- 11 o'clock position is a lump noted. Incision appears to be closed. This area has small amount of tenderness. Area was cleansed with peroxide and saline. Upon applying pressure, there appeared to be a small amountof purulent fluid coming from the anus. I elected to open the area again. Office Procedures I D Provider Documentation Provider Documentation: Procedure note Procedure: Incision and Drainage of emily-rectal abscess Permit: Procedure, benefits, risks (include those of bleeding, infection, injury, anesthesia, and allergic reaction), and alternatives explained to the patient who voiced understanding of the information. Their questions were sought and answered. Patient agreed to proceed with the incision and drainage of emily-rectal abscess. Permit signed and in chart. Indication: Emily-rectal abscess Physician: Daksha Peña PA-C Nurse: Vanessa Cardona RN Description: Patient positioned in the prone position comfortably. Area prepped with betadine and draped in a sterile fashion. Local anesthetic administered with 7 cc of 0.5% Marcaine and 1% . An elliptical incision was made and a small amount of bloody, murky yellow fluid was expressed. Cavity was probed to break up any pockets. Culture was not obtained. Cavity was not packed. Cavity was flushed with peroxide/saline mixture. Surrounding area was cleansed with (more content not included)... Normal [facility] Surgery Visit Reporton 08-04 Surgery Visit Report [facility] [address] [place] [address]. 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 Required: No Is patient in pain?: Yes (rectum) Pain scale (1-10): 7 Allergies No Known Allergies Allergy (Verified 08/04/25 09:13) Medications ???Medication ???Instructions ???Recorded ???Confirmed ???Type acetaminophen 500 mg tablet 500 mg PO Q6H PRN Pain 10/10/22 History (Tylenol Extra Strength) omega 7-qpd-slr-fish oil 1,000 mg 1 cap PO DAILY 12/07/22 08/04/25 History (120 mg-180 mg) capsule (Fish Oil) psyllium husk 0.4 gram capsule 0.4 g PO QHS 12/07/22 08/04/25 His tory (Metamucil) sildenafil 100 mg tablet 100 mg PO DAILY PRN sexual 4 08/04/25 Rx activity #45 tabs alprazolam 0.25 mg tablet 0.5 mg (2 x 0.25 mg) PO BID #60 08/04/25 Rx tabs trazodone 100 mg tablet 100 mg PO QHS 01/27/25 08/04/25 Hi story polyethylene glycol 3350 17 4 g PO QDAY 04/21/25 08/04/25 Hist ory gram/dose oral powder (Miralax) ferrous sulfate 325 mg (65 mg 325 mg PO DAILY 07/30/25 08/04/25 History iron) tablet (iron) lisinopril 40 mg tablet 40 mg PO DAILY 07/30/25 08/04/25 H istory lidocaine HCl 2 % mucosal solution 1 applic mucous membrane BID PRN 08/02/25 08/04/25 Rx (Lidocaine Viscous) pain #100 mL metronidazole 500 mg tablet 500 mg PO TID 5 days #15 tabs 07/1508/04/25 Rx Have you fallen in the past year?: No PFSH Medical History History of hiatal hernia Gastric reflux Wears partial dentures Hemorrhoids Wears glasses Anxiety Diabetes Arthritis Low iron Fatty liver High cholesterol Dietary restriction Non-smoker Leg cramps Wmroa-Wjycoewlj-Viyni (WPW) pattern Cardiology follow-up encounter Hypertension Positive colorectal cancer screening using Cologuard test Diabetes Arthritis Surgical History History of banding of hemorrhoid Hx of colonoscopy S/P lateral meniscus repair of right knee H/O prostatectomy Family History Father CVA (cerebral vascular accident) Mother Cancer throat Other Heart disease Social History household members: spouse current occupational status: retired current occupation: [employer] Smoking Status: Never smoker Electronic Cigarette Use: not used alcohol intake: never substance use type: does not use what type of physical activity do you participate in: additional details: cutting wood do you feel safe at home: Yes HPI HPI HPI: Patient is a 69 y/o M who presented with an increasing painful lump at the anus. Patient was evaluated in the ED on Monday and in the office on Monday for these complaints. At that time no lump was noted at the site of the tenderness. Patient was noted in the ED to have a small thrombosed hemorrhoid at the 5 o'clock position. Patient was suggested to use hydrocortisone and lidocaine ointment. Patient was scheduled an appointment for today on Monday. Patient was contacted this morning for follow-up. Patient noted the area is still sore and may have increased in size. He notes on the drive into the office, the area started bleeding slightly. Patient notes it is hard to sit. 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 He states this feels like a thrombosed hemorrhoid. Exam GI Other: Anus- 11 o'clock there appears to be an ulcerated, raised lump that is tender to palpation and may have been bleeding. There is a small thrombosed hemorrhoid at the 5 o'clock position, which is not thrombosed. Office Procedures I D Provider Documentation Provider Documentation: Procedure note Procedure: Incision and Drainage of emily-rectal abscess Permit: Procedure, benefits, risks (include those of bleeding, infection, injury, anesthesia, and allergic reaction), and alternatives explained to the patient who voiced understanding of the information. Their questions were sought and answered. Patient agreed to proceed with the incision and drainage of emily-rectal abscess. Permit signed and in chart. I (more content not included)... Normal [facility] Consultation - Surgicalon Consultation - Surgical [facility] Medical Records Department [address] [place] [address] Consultation - Surgical 08/02/25 1148 MR#: [id number] Acct: [id number] Name: ANGELIA KERNS Rep #: [id number] : 1955 69 From: Chuck Bruce MD PCP: CARLOS [place]itt Status:DEP ER Location: ED Assessment Plan Assessment/Plan (1) Pain in rectum: PLAN: Patient is a 69-year-old male well-known to me for complaints of anorectal discomfort and hemorrhoids. Although his history is suggestive of external hemorrhoids his exam shows only evidence of a possible resolving clot at the 5 o'clock position where he denies tenderness with palpation. I do not identify any fissures of the endoderm. If an external hemorrhoid is present it is not visible to me on exam and, therefore, would require a bigger incision and some exploration in any procedure that could be contemplated. I do not believe this is warranted given patient's description of his symptoms and the duration since onset. I attempted to encourage him that we would expect spontaneous resolution of his issue to begin in the coming days as the clot liquefies. Secondly, I believe Mr. Kerns is dealing with this issue and otherwise putting himself at an increased risk for similar issues because of his increased toilet time related to his bowel movement frequency. I find no indication for him to continue on a prokinetic agent like MiraLAX if he is experiencing a bowel movement a day without. Therefore I have encouraged him to take it on an as needed basis and continue his use of psyllium husk. I do not believe his hernia belt is playing a role but did review the instructions for its placement. Additionally, I underscored need to continue with sitz bath's which he has previously initiated. Lastly we discussed he is cleared to return to symptomatic use of hydrocortisone ointment and topical lidocaine. I had previously asked him to discontinue use of hydrocortisone as he was beginning to take this chronically. (2) Hemorrhoids: HPI Consult Data Date of Consult: 08/02/25 HPI Narrative Reason for Consultation: Hemorrhoids HPI Narrative: ANGELIA KERNS, is a 69 M who presents to [facility] ER with complaints of painful hemorrhoids. He is well-known to me for both this complaint as well as a pending operation to address newly diagnosed bilateral inguinal hernias. He states that symptoms of pain with bowel movements began "a good 3 days ago". He denies any bleeding. He reports that he is experiencing approximately 3 bowel movements per day and that they are generally loose in character. Additionally, he remarks that he is still using MiraLAX at approximately half Per day and psyllium husk twice daily. He shares that he tried to get an appointment with our office yesterday, however, no one was in at that time to accommodate him on such short notice. He and his are concerned that his use of his hernia belt may be exacerbating this problem. [facility] Medical History History of hiatal hernia Gastric reflux Wears partial dentures Hemorrhoids Wears glasses Anxiety Diabetes Arthritis Low iron Fatty liver High cholesterol Dietary restriction Non-smoker Leg cramps Vbydo-Mrasodwyr-Ldqfn (WPW) pattern Cardiology follow-up encounter Hypertension Positive colorectal cancer screening using Cologuard test Diabetes Arthritis Home Medications ???Medication ???Instructions ???Recorded ???Last Taken ???Type acetaminophen 500 mg tablet 500 mg PO Q6H PRN Pain 10/10/22 Un known History (Tylenol Extra Strength) omega 6-wxz-qdt-fish oil 1,000 mg 1 cap PO DAILY 12/07/22 12/05/22 History (120 mg-180 mg) capsule (Fish Oil) psyllium husk 0.4 gram capsule 0.4 g PO QHS 12/07/22 12/05/22 His tory (Metamucil) sildenafil 100 mg tablet 100 mg PO DAILY PRN sexual 4 Unknown Rx activity #45 tabs alprazolam 0.25 mg tablet 0.5 mg (2 x 0.25 mg) PO BID #60 01/28/25 06:16 Rx tabs trazodone 100 mg tablet 100 mg PO QHS 01/27/25 Unknown His tory polyethylene glycol 3350 17 4 g PO QDAY 04/21/25 Unknown Histo ry gram/dose oral powder (Miralax) ferrous sulfate 325 mg (65 mg 325 mg PO DAILY 07/30/25 Unknown H istory iron) tablet (iron) lisinopril 40 mg tablet 40 mg PO DAILY 07/30/25 Unknown Hi story lidocaine HCl 2 % mucosal solution 1 applic mucous membrane BID PRN 08/02/25 Unknown Rx (Lidocaine Viscous) pain #100 mL Allergy/AdvReac Type Severity Reaction Status Date / Time No Known Allergies Allergy Verified 08/02/25 10:20 Family History Father CVA (cerebral vascular accident) Mother Cancer throat Other Heart disease Surgical History History of ban (more content not included)... Normal [facility] Emergency Department Summary on 08-02-2025 Emergency Department Summary [facility] Medical Records Department [address] [place] [address] Emergency Department Summary 08/02/25 MR#: [id number] Acct: [id number] Name: ANGELIA KERNS Rep #: [id number] : 1955 69 From: Darius Henderson MD PCP: CARLOS Whitt Status:REG ER Location: ED HPI History of Present Illness Chief Complaint: Other, Pain/Inj Narrative Narrative: 69-year-old male past medical history of previous hemorrhoids, prediabetes presents with wanting an external hemorrhoid lanced. He states that he has had a thrombosed hemorrhoids for a few days. He was getting presurgical testing for a hernia, and states that they went over to Dr. Bruce's office who that seen before. He is supposed to have a nonthrombosed hemorrhoid lanced on Monday, 2 days from now. He states that it is painful for him to sit, and presents to the emergency department stating he is not sure that he can wait until Monday. No fevers or chills. No exacerbating or alleviating factors. [facility] Medical History History of hiatal hernia Gastric reflux Wears partial dentures Hemorrhoids Wears glasses Anxiety Diabetes Arthritis Low iron Fatty liver High cholesterol Dietary restriction Non-smoker Leg cramps Kfijr-Mxtkepymn-Dsweb (WPW) pattern Cardiology follow-up encounter Hypertension Positive colorectal cancer screening using Cologuard test Diabetes Arthritis Home Medications ???Medication ???Instructions ???Recorded ???Last Taken ???Type acetaminophen 500 mg tablet 500 mg PO Q6H PRN Pain 10/10/22 Un known History (Tylenol Extra Strength) omega 4-hfe-dix-fish oil 1,000 mg 1 cap PO DAILY 12/07/22 12/05/22 History (120 mg-180 mg) capsule (Fish Oil) psyllium husk 0.4 gram capsule 0.4 g PO QHS 12/07/22 12/05/22 His tory (Metamucil) sildenafil 100 mg tablet 100 mg PO DAILY PRN sexual 4 Unknown Rx activity #45 tabs alprazolam 0.25 mg tablet 0.5 mg (2 x 0.25 mg) PO BID #60 01/28/25 06:16 Rx tabs trazodone 100 mg tablet 100 mg PO QHS 01/27/25 Unknown His tory polyethylene glycol 3350 17 4 g PO QDAY 04/21/25 Unknown Histo ry gram/dose oral powder (Miralax) ferrous sulfate 325 mg (65 mg 325 mg PO DAILY 07/30/25 Unknown H istory iron) tablet (iron) lisinopril 40 mg tablet 40 mg PO DAILY 07/30/25 Unknown Hi story lidocaine HCl 2 % mucosal solution 1 applic mucous membrane BID PRN 08/02/25 Unknown Rx (Lidocaine Viscous) pain #100 mL Allergy/AdvReac Type Severity Reaction Status Date / Time No Known Allergies Allergy Verified 08/02/25 10:20 Family History Father CVA (cerebral vascular accident) Mother Cancer throat Other Heart disease Surgical History History of banding of hemorrhoid Hx of colonoscopy S/P lateral meniscus repair of right knee H/O prostatectomy Social History household members: spouse current occupational status: retired current occupation: [employer] Smoking Status: Never smoker Electronic Cigarette Use: not used alcohol intake: never substance use type: does not use what type of physical activity do you participate in: additional details: cutting wood do you feel safe at home: Yes ROS ROS ED ROS Narrative Review of systems positive for thrombosed hemorrhoid and pain with sitting. No fevers or chills, no other symptoms. EXAM Physical Exam Narrative Exam Narrative: Afebrile. Vital signs noted. Nontoxic-appearing. Cardiovascular examination regular rate and rhythm. Lungs are clear to auscultation bilaterally. Abdomen is soft nontender with positive bowel sounds. Visual inspection surrounding the anus reveals more redundant tissue and possible small thrombosed hemorrhoid underlying versus scarring. There is a nonthrombosed hemorrhoid more anteriorly around the anal opening. No active bleeding. Const Vital Signs: 08/02/25 10:17 08/02/25 10:17 Temperature 97.4 F L Temperature Source Oral Pulse Rate 77 Respiratory Rate 16 Respiratory Effort Normal Non-Labored Respiratory Pattern Normal Blood Pressure 144/77 H Blood Pressure Mean 99 Pulse Ox 98 Oxygen Delivery Method Room Air MDM MDM MDM Narrative Medical decision making narrative: Differential diagnosis includes but not limited to thrombosed hemorrhoid versus redundant tissue. I do not feel that the patient requires emergent thrombectomy. As the patient has known to Dr. Bruce, he is on-call and I discussed this with him. Patient had been told previously to discontinue use of hydrocortisone cream so as not to develop pruritus ani. Dr. Bruce will evaluate the patient (more content not included)... Normal [facility] 12 Lead EKGon 08-01-2025 12 Lead EKG [facility] Cardiovascular Services [address] [place] [address] 12 Lead EKG 08/01/25 0756 MR#: [id number] Acct: [id number] Name: ANGELIA KERNS Rep #: [id number] : 1955 69 From: Cezar Andujar MD Attending Dr: Dr. Chuck Bruce MD Status: PRE [facility] [place] Dr: Ephraim Pavon MD Date: 08/01/25 [place] [facility] [place] Sex: M C Admitted: Test Reason : PREOP Blood Pressure : */* mmHG Vent. Rate : 74 BPM Atrial Rate : 74 BPM P-R Int : 180 ms QRS Dur : 94 ms QT Int : 366 ms P-R-T Axes : 10 49 24 degrees QTcB Int : 406 ms Normal sinus rhythm Normal ECG Confirmed by CEZAR ANDUJAR MD ([id number]), communications editor ALEX CAVAZOS ([id number]) on 08/01/2025 2:17:49 PM Also confirmed by CEZAR ANDUJAR MD ([id number]), communications editor ALEX CAVAZOS ([id number]) on 08/01/2025 2:21:21 PM Referred By: Chuck Bruce Confirmed By: CEZAR ANDUJAR MD 08/01/25 1421 Date Cezar Andujar MD CC: 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 Zackary Ballesteros; Dr. Ephraim Pavon MD; Dr. Chuck Bruce MD Signed Normal [facility] Basic Metabolic Profile (BMP )on 08-01-2025 BUN/CRE 19.9 RATIO Normal 10-20 [facility] Comment on above: Performed By: #### L 100.0500, L500.2500, L501.9985 #### [facility] [address] [place], [address] Calcium [Mass/Vol] 8.9 mg/dL Normal 7.6-11.[address] [facility] Comment on above: Performed By: #### L 100.0500, L500.2500, L501.9985 #### [facility] [address] [place], [address] Chloride [Moles/Vol] 100 mmol/L Normal 98-108 [facility] Comment on above: Performed By: #### L 100.0500, L500.2500, L501.9985 #### [facility] [address] [place], [address] CO2 [Moles/Vol] 26.6 mmol/L Normal 21.0-32.0 [facility] Comment on above: Performed By: #### L 100.0500, L500.2500, L501.9985 #### [facility] [address] [place], [address] Creatinine [Mass/Vol] 0.71 mg/dL Normal 0.70-1.20 [facility] Comment on above: Performed By: #### L 100.0500, L500.2500, L501.9985 #### [facility] [address] [place], [address] GAP 10 Normal 5-15 [facility] Comment on above: Performed By: #### L 100.0500, L500.2500, L501.9985 #### [facility] [address] [place], [address] GFR/1.73 sq M.predicted among non-blacks MDRD (S/P/Bld) [Vol rate/Area] 100 mL/min/{1.73_m2} Normal >60 [facility] Comment on above: Result Comment: mL/m in/1.73m2 CKD-EPI Creatinine Equation (2020) Performed By: #### L 100.0500, L500.2500, L501.9985 #### [facility] [address] [place], [address] Glucose [Mass/Vol] 78 mg/dL Normal 70-[address] [facility] Comment on above: Performed By: #### L 100.0500, L500.2500, L501.9985 #### [facility] [address] [place], [address] Potassium [Moles/Vol] 4.9 mmol/L Normal 3.3-5.1 [facility] Comment on above: Performed By: #### L 100.0500, L500.2500, L501.9985 #### [facility] [address] [place], [address] Sodium [Moles/Vol] 136 mmol/L Normal 133-[address] [facility] Comment on above: Performed By: #### L 100.0500, L500.2500, L501.9985 #### [facility] [address] [place], [address] Urea nitrogen [Mass/Vol] 14 mg/dL Normal 4-19 [facility] Comment on above: Performed By: #### L 100.0500, L500.2500, L501.9985 #### [facility] [address] [place], [address] CBC-Complete Blood Cnt No Di ffon 08-01-2025 Erythrocyte distribution width (RBC) [Ratio] 12.5 % Normal 11.6-14.6 [facility] Comment on above: Performed By: #### L 100.0500, L500.2500, L501.9985 #### [facility] [address] [place], [address] Hematocrit (Bld) [Volume fraction] 40.0 % Normal 40-54 [facility] Comment on above: Performed By: #### L 100.0500, L500.2500, L501.9985 #### [facility] [address] [place], [address] Hemoglobin (Bld) [Mass/Vol] 13.7 g/dL Normal 13.0-16.5 [facility] Comment on above: Performed By: #### L 100.0500, L500.2500, L501.9985 #### [facility] [address] [place], [address] MCH (RBC) [Entitic mass] 30.4 pg Normal 27.0-32.0 [facility] Comment on above: Performed By: #### L 100.0500, L500.2500, L501.9985 #### [facility] [address] [place], [address] MCHC (RBC) [Mass/Vol] 34.3 g/dL Normal 32-36 [facility] Comment on above: Performed By: #### L 100.0500, L500.2500, L501.9985 #### [facility] [address] [place], [address] MCV (RBC) [Entitic vol] 88.7 fL Normal 80-94 [facility] Comment on above: Performed By: #### L 100.0500, L500.2500, L501.9985 #### [facility] [address] [place], [address] Platelet mean volume (Bld) [Entitic vol] 10.7 fL Normal 6.2-12.0 [facility] Comment on above: Performed By: #### L 100.0500, L500.2500, L501.9985 #### [facility] [address] [place], [address] Platelets (Bld) [#/Vol] 158 10*3/uL Normal 150-450 [facility] Comment on above: Performed By: #### L 100.0500, L500.2500, L501.9985 #### [facility] [address] [place], [address] RBC (Bld) [#/Vol] 4.51 10*6/uL Low 4.6-6.2 [facility] Comment on above: Performed By: #### L 100.0500, L500.2500, L501.9985 #### [facility] [address] [place], [address] RDW SD 40.7 fl Normal 35.1-43.9 [facility] Comment on above: Performed By: #### L 100.0500, L500.2500, L501.9985 #### [facility] [address] [place], [address] WBC (Bld) [#/Vol] 8.9 10*3/uL Normal 4.4-11.[address] [facility] Comment on above: Performed By: #### L 100.0500, L500.2500, L501.9985 #### [facility] [address] [place], [address] Hemoglobin A1con 08-01-2025 HbA1c (Bld) [Mass fraction] 5.1 % Normal <=5.6 [facility] Comment on above: Result Comment: Norm al < 5.7 % Prediabetic 5.7 - 6.4 % Diabetic >or= 6.5 % Please note range changes. Performed By: #### L 100.0500, L500.2500, L501.9985 #### [facility] [address] [place], [address] MRSA/SAID NASAL SCREENon MRSA+SAID SCRN Negative Normal [facility] Comment on above: Performed By: #### M 100.651 ####[facility] [address] [place], [address] Surgery Visit Reporton 07-24 Surgery Visit Report [facility] [address] [place] [address] OFFICE VISIT Date of Service: 07/24/25 MR#: [id number] Acct: [id number] Name: ANGELIA KERNS Zane Rep #: [id number] : 1955 Provider: Dr. Chuck hendricks MD Age/Sex: 69/M Location: [facility] Status: Signed Intake Vital Signs 01/28/25 08:17 [...] Pain 10/10/22 History (Tylenol Extra Strength) omega 2-pjt-kkk-fish oil 1,000 mg 1 cap PO DAILY [...] Leg cramps History of pain when walking Qivkn-Qnidbrqtt-Cfdbu (WPW) pattern Cardiology follow-up encounter Hypertension Positive colorectal cancer screening using Cologuard test Hypertension Diabetes Arthritis Surgical History History of banding of hemorrhoid Hx of colonoscopy S/P lateral meniscus repair of right knee H/O prostatectomy Family History Father CVA (cerebral vascular accident) Mother Cancer throat Other Heart disease Social History household members: spouse current occupational status: retired current occupation: [employer] Smoking Status: Never smoker Electronic Cigarette Use: [...] he does remark that his hemorrhoids seems "better". A offhandedly complaint of right lower quadrant pain was previously evaluated by me in the setting of a follow-up visit for hemorrhoids and I did not appreciate a significant hernia defect on cursory exam. Patient states that he went on to have more swelling and "burning" sensation he then presented to his PCP who ordered CT imaging of the abdomen pelvis. He was recommended a supportive hernia truss. He states that he now wears this and has some relief of his discomfort. He also complains that he is having difficulties with orgasms. He describes generally that the discomfort "settles" at night. Patient has no personal history [...] pain Psy (more content not included)... 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 Reading Location: [place] [address] CC: CARLOS Ballesteros; Lan [facility] CARLOS David Lump Inspector: Signed Normal [facility] CREATININE FINGERSTICKon CREATININE WB < 1.0 Normal 0.70-1.30 [facility] Comment on above: Performed By: #### L 9100.0200 ####[facility] [address] [place], [address] EGFR WB > 60.0000 Normal >60 [facility] Comment on above: Performed By: #### L 9100.0200 ####[facility] [address] [place], [place], [address] EGFROrdered By: Lan David on 06-25-2025 GFR/1.73 sq M.predicted among non-blacks MDRD (S/P/Bld) [Vol rate/Area] mL/min/{1.73_m2} >60 [facility] Testicular with Arterial Hal won 06-25-2025 Testicular with Arterial Flow [facility] Imaging Services [address] [place], [place] [address] Testicular with Arterial Flow MR#: [id number] Acct: [id number] Name: ANGELIA KERNS Rep #: [id number] : 1955 M 69 From: Graeme Tolbert MD PCP: CARLOS Whitt Status: REG CLI Study: Testicular with Arterial Flow Date of Exam: Exam# [id number] Ordering Dr: Lan Daivd ETTA Burrell PROCEDURE: TESTICULAR WITH ARTERIAL FLOW 06/25/2025 REASON FOR EXAM: R TESTICULAR PAIN TECHNIQUE: TESTICULAR WITH ARTERIAL FLOW FINDINGS: RIGHT testicle: 4.2 x 2.1 x 3.0 cm. Small right epididymal head cysts are benign. LEFT testicle: 4.0 x 2.0 x 2.5 cm. Small left epididymal head cyst. Other findings: "Irmo striping" is seen involving both testes-curvilinear bands of [...] 5 mm benign epididymal cysts. Reading Location: [id number] CC: 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 Zackary Ballesteros; Lan [facility] AUTOMOBILE OR TRUCK RENTAL DISPATCHER-Ashanti David Lump Inspector: Signed Normal [facility] Surgery Visit Reporton 05-12 Surgery Visit Report [facility] [address] [place] [address]. [address] [place] [address] OFFICE VISIT Date of Service: 05/12/25 MR#: [id number] Acct: [id number] Name: ANGELIA KERNS Rep #: [id number] : 1955 Provider: Dr. Chuck hendricks MD Age/Sex: 69/M Location: [facility] Status: Signed Intake Vital Signs 01/28/25 08:17 Height 5 ft 11 in Intake Visit Reasons: HEMORRHOID CHECK Chief Complaint: Hemorrhoid check Single Needle Operator Required: No Is patient in pain?: No Allergies No Known Allergies Allergy (Verified 05/12/25 14:54) Medications ???Medication ???Instructions ???Recorded ???Confirmed ???Type acetaminophen 500 mg tablet 500 mg PO Q6H PRN Pain 10/10/22 History (Tylenol Extra Strength) omega 7-eho-uqj-fish oil 1,000 mg 1 cap PO DAILY 12/07/22 05/12/25 History (120 mg-180 mg) capsule (Fish Oil) psyllium husk 0.4 gram capsule 0.4 g PO QHS 12/07/22 05/12/25 His tory (Metamucil) acetaminophen 300 mg-codeine 30 mg 1 tab PO Q6H PRN pain #10 tabs 0 05/02/24 05/12/25 Rx tablet sildenafil 100 mg tablet 100 mg PO DAILY PRN sexual 05/02/ 4 05/12/25 Rx activity #45 tabs alprazolam [...] Leg cramps History of pain when walking Darhz-Qzywjlexd-Xksdt (WPW) pattern Cardiology follow-up encounter Hypertension Positive colorectal cancer screening using Cologuard test Hypertension Diabetes Arthritis Surgical History History of banding of hemorrhoid Hx of colonoscopy S/P lateral meniscus repair of right knee H/O prostatectomy Family History Father CVA (cerebral vascular accident) Mother Cancer throat Other Heart disease Social History household members: spouse current occupational status: retired current occupation: [employer] Smoking Status: Never smoker Electronic Cigarette Use: [...] is not pacing so much out of pain". He goes on, however, to qualify this stating that the pain is "not gone by any means". He also has not noticed any bleeding for the past few days. He still seems to note some slight protrusion of an external hemorrhoid but finds this to be stable. He confirms that his bowel movements are coming regularly and he has remained careful to not strain. He does state that he has had to increase his MiraLAX to a "three quarters dose" to achieve the softer bowel movements. Lastly [...] Assessment and (more content not included)... Normal [facility] Surgery Visit Reporton 04-21 Surgery Visit Report [facility] [address] [place] [address]. [address] [place] [address] OFFICE VISIT Date of Service: 04/21/25 MR#: [id number] Acct: [id number] Name: SAUMYAANGELIA Rep #: [id number] : 1955 Provider: Dr. Chuck hendricks MD Age/Sex: 69/M Location: [facility] Status: Signed Intake Vital Signs 01/28/25 08:17 Height 5 ft 11 in Intake Visit Reasons: HEMORRHOID CHECK WITH ANOSCOPY Chief Complaint: Hemorrhoid check with anoscopy Is patient in pain?: No Allergies No Known Allergies Allergy (Verified 04/21/25 10:16) Medications ???Medication ???Instructions ???Recorded ???Confirmed ???Type acetaminophen 500 mg tablet 500 mg PO Q6H PRN Pain 10/10/22 History (Tylenol Extra Strength) omega 1-nus-kms-fish oil 1,000 mg 1 cap PO DAILY [...] Leg cramps History of pain when walking Djxvq-Frkkilnet-Hugcv (WPW) pattern Cardiology follow-up encounter Hypertension Positive colorectal cancer screening using Cologuard test Hypertension Diabetes Arthritis Surgical History History of banding of hemorrhoid Hx of colonoscopy S/P lateral meniscus repair of right knee H/O prostatectomy Family History Father CVA (cerebral vascular accident) Mother Cancer throat Other Heart disease Social History household members: spouse current occupational status: retired current occupation: [employer] Smoking Status: Never smoker Electronic Cigarette Use: [...] things seem to be getting better but "now he is not so sure". By this he states that there is [...] his water intake he states that he "tries to force water" but is unsure whether or not he needs a minimum. Concerning his fiber intake he is taking "the husk" twice daily and then sprinkles brand into some other foods to increase it there as well. Through this regimen he repo (more content not included)... Normal [facility] Surgery Visit Reporton 04-04 Surgery Visit Report [facility] [address] [place] [address] OFFICE VISIT Date of Service: 04/04/25 MR#: [id number] Acct: [id number] Name: ANGELIA KERNS Rep #: [id number] : 1955 Provider: Dr. Chuck hendricks MD Age/Sex: 69/M Location: [facility] Status: Signed Intake Vital Signs 01/28/25 08:17 Height 5 ft 11 in Intake Visit Reasons: HEMORRHOIDS Chief Complaint: Hemorrhoids Single Needle Operator Required: No Accompanied by: Is patient in pain?: Yes Allergies No Known Allergies Allergy (Verified 04/04/25 14:22) Medications ???Medication ???Instructions ???Recorded ???Confirmed ???Type acetaminophen 500 mg tablet 500 mg PO Q6H PRN Pain 10/10/22 History (Tylenol Extra Strength) omega 0-kbm-moa-fish oil 1,000 mg 1 cap PO DAILY 12/07/22 04/04/25 History (120 mg-180 mg) capsule (Fish Oil) psyllium husk 0.4 gram capsule 0.4 g PO QHS 12/07/22 04/04/25 His tory (Metamucil) acetaminophen 300 mg-codeine 30 mg 1 tab PO Q6H PRN pain #10 tabs 0 05/02/24 04/04/25 Rx tablet sildenafil 100 mg tablet 100 mg PO DAILY PRN sexual 05/02/ 4 04/04/25 Rx activity #45 tabs alprazolam [...] Leg cramps History of pain when walking Jsrcb-Eimpmbdiz-Jniae (WPW) pattern Cardiology follow-up encounter Hypertension Positive colorectal cancer screening using Cologuard test Hypertension Diabetes Arthritis Surgical History History of banding of hemorrhoid Hx of colonoscopy S/P lateral meniscus repair of right knee H/O prostatectomy Family History Father CVA (cerebral vascular accident) Mother Cancer throat Other Heart disease Social History household members: spouse current occupational status: retired current occupation: [employer] Smoking Status: Never smoker Electronic Cigarette Use: [...] things seem to be getting better but "now he is not so sure". By this he states that there is [...] his water intake he states that he "tries to force water" but is unsure whether or not he needs a minimum. Concerning his fiber intake he is taking "the husk" twice daily and then sprinkles brand into some other foods to increase it there as well. Through this regimen he reports that he is having smaller but more frequent bowel movements. He was advised by his that "if it floats there is enough fiber". He admits his main concern is that [...] this wor (more content not included)... Normal [facility] Surgery Visit Reporton 02-20 Surgery Visit Report [facility] [address] [place] [address] OFFICE VISIT Date of Service: 02/20/25 MR#: [id number] Acct: [id number] Name: SAUMYAANGELIA Rep #: [id number] : 1955 Provider: Dr. Chuck hendricks MD Age/Sex: 69/M Location: [facility] Status: Signed Intake Vital Signs 01/28/25 08:17 Height 5 ft 11 in Intake Visit Reasons: Hemorrhoids Chief Complaint: discuss hemorrhoids Is patient in pain?: Yes Allergies No Known Allergies Allergy (Verified 02/20/25 15:16) Medications ???Medication ???Instructions ???Recorded ???Confirmed ???Type acetaminophen 500 mg tablet 500 mg PO Q6H PRN Pain 10/10/22 History (Tylenol Extra Strength) omega 2-nyx-mcf-fish oil 1,000 mg 1 cap PO DAILY [...] around his anus. He states that he "thought he was doing better" he had both less pain and swelling [...] night had felt a bit of a "chill". He states that his bowel movement today was more loose than usual. Objective Details: Constitutional: No acute distress, anxious Anorectal: Small amount of feculent matter of the anal Derm. Engorged purple-colored external hemorrhoid on the left that is tender to palpation. Coding Level of Care Code Off vis,est,level 3 Diagnoses External hemorrhoid, thrombosed K64.5 [facility] Medical History (Updated 02/20/25 @ 15:[address] Chuck Bruce MD) Wears partial dentures Hemorrhoids Wears glasses Wears dentures Anxiety Diabetes Arthritis Low iron Fatty liver High cholesterol Dietary restriction Heartburn Non-smoker Leg cramps History of pain when walking Iusgx-Cbpcoggfh-Vpdiv (WPW) pattern Cardiology follow-up encounter Hypertension Positive [...] spouse current occupational status: retired current occupation: [employer] Smoking Status: Never smoker Electronic Cigarette Use: [...] 72 evgeny (more content not included)... Normal [facility] Bedside Glucoseon 01-28-2025 FINGERSTICK GLU 91 mg/dL Normal 74-106 [facility] Comment on above: Result Comment: ANASTACIO KRAMER OF PATIENT CARE PER NURSING PROTOCOL Performed By: #### L 501.080 ####[facility] [address] [place], [address] Colonoscopy Reporton 025 Colonoscopy Report [facility] Medical Records Department [address] [place] [address] Colonoscopy Report MR#: [id number] Acct: [id number] Name: ANGELIA KERNS Rep #: [id number] : 1955 69 From: Chuck Bruce MD PCP: CARLOS Whitt Status:REG ORC Patient Name: Angelia Kerns Procedure Date: 01/28/2025 9:33 AM Date of : 1955 Age: 69 Procedure: Colonoscopy Indications: Rectal bleeding Providers: Chuck Bruce MD Referring MD: Zackary Ballesteros c, Foxing Cutting Machine Operator-c Medicines: See the Anesthesia note for [...] 1 week. Procedure Code(s): --- Professional --- 84622, Colonoscopy, flexible; with removal of tumor(s), polyp(s), or other lesion(s) by snare technique 12462, Hemorrhoidectomy, internal, by rubber band ligation(s) Diagnosis Code(s): --- Professional --- K62.89, Other specified diseases of anus and rectum K64.1, Second degree hemorrhoids K62.5, Hemorrhage of anus and rectum Q43.8, Other specified congenital malformations of intestine CPT copyright 2021 [employer]. All rights reserved. The codes documented in this report are preliminary and upon data coder operator review may be revised to meet current compliance requirements. Chuck Bruce MD 01/28/2025 10:31:53 AM This report has been signed electronically. Number of Addenda: 0 Note Initiated On: 01/28/2025 9:33 AM 01/28/25 1032 Date Chuck Bruce MD Cosignbritni Signature: Date (if indicated) CC: 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 Zackary Ballesteros; Dr. Chuck Bruce MD Date Dictated: 01/28/25932 Date Transcribed: Lump Inspector: TANG Signed Normal [facility] deOrdered By: Chuck Bruce on 01-28-2025 Bedside Glucose (Misc Panel) 91 mg/dL 74-106 [facility] Comment on above: MANAGEMENT OF PATIEN T CARE PER NURSING PROTOCOL Glucose [Mass/Vol] 91 mg/dL 74-[address] [facility] Comment on above: MANAGEMENT OF PATIEN T CARE PER NURSING PROTOCOL MR/POSTOP.ANEon 01-28-2025 MR/POSTOP.[facility] Medical Records Department [address] [place] [address] Anesthesia Postop Eval I 01/28/25 1028 MR#: [id number] Acct: [id number] Name: ANGELIA KERNS Rep #: [id number] : 1955 69 From: Gil Becker CRNA PCP: CARLOS Whitt Status:REG SDC Y Race: C Location: [place] [address] Anesthesia: Postop Eval I Current Vital Signs Temperature: 97.6 F Pulse Rate: 69 Blood Pressure: 134/79 Respiratory Rate: 16 Pulse Ox: 100 Assessment Airway patent: Yes Spontaneous unlabored respirations: Yes nausea: No Vomiting: No Anesthesia Complication: No Fluid Hydration Crystalloid volume administer (ml): 30 Total IV fluid infused: 30 Progress Note Anesthesia document: Postop Eval 1 completed: Yes 01/28/25 1029 Date Gil Becker LIBRARY CLERK Cosigner Signature: Date CC: Signed Normal [facility] [id number] 01-28-2025 MR/POSTOPAN2 [facility] Medical Records Department [address] [place] [address] Anesthesia Postop Eval II 01/28/25 1110 MR#: [id number] Acct: [id number] Name: ANGELIA KERNS Rep #: [id number] : 1955 69 From: Khoa Tuttle MD PCP: Zackary Ballesteros 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 Status:REG SDC Y Race: C Location: [address] Anesthesia Postop Eval I Sum Postop Eval Completion status Anesthesia document: Postop Eval 1 completed: Yes Anesthesia Postop Eval I Summary Anesthesia Postop Eval I Summary: Anesthesia Postop Eval I: Assessment Summary Airway patent Yes 01/28/25 10:28 LIBRARY CLERK.TNES Spontaneous unlabored Yes 01/28/25 10:28 LIBRARY CLERK.TNES respirations Mental status nausea No 01/28/25 10:28 LIBRARY CLERK.TNES Vomiting No 01/28/25 10:28 LIBRARY CLERK.TNES Anesthesia Postop Eval I: Fluid Summary Crystalloid volume administer 30 01/28/25 10:28 LIBRARY CLERK.TNES (ml) Colloids volume administered ( ml) Blood Product volume administered (ml) Total IV fluid infused 30 01/28/25 10:28 LIBRARY CLERK.TNES Anesthesia Postop Eval I: Summary Notes Anesthesia Complication No 01/28/25 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 Chuck Bruce MD -------- Specimen: [id number] Received: 01/28/25 Status: MENDOZA Neves Num: [id number] Spec Type: COLON BX Subm Dr: Dr. Chuck Bruce MD HEADER OPERATION: Colonoscopy with hemorrhoid banding PRE-OP DIAGNOSIS: Hemorrhoids TISSUE SUBMITTED: A- Anal mass -------- MICROSCOPIC DIAGNOSIS A. Anus, "mass", excision: * Polypoid papillomatous squamous mucosa with hyperkeratosis. * Negative for HPV-cytopathic effect, dysplasia, and malignancy. MICROSCOPIC DESCRIPTION Slides are reviewed. GROSS DESCRIPTION A. Received in fixative is one container labeled with the patient's name and designated "Anal mass." The specimen consists of a single fragment of light toney tissue measuring 1 x 0.7 x 0.6cm. The entire specimen is submitted in one cassette. Geoffrey 01/28/2025 CPT:38902 -------- Patient Age/Sex Location Account Attending Physician -------- ANGELIA KERNS 69/M EN [id number] Dr. Chuck Bruce MD -------- Signed (signature on file) Dr. Melony Gerard MD 01/30/25 1711 -------- Normal [facility] Comment on above: Performed By: #### P SUIV ####[facility] [id number] [place], [address] Absolute lymphocyte countOrd ered By: Zebulun Beam on 01-22-2025 Lymphocytes Auto (Unsp spec) [#/Vol] 1.07 10*3/uL 0.83-4.51 [facility] Absolute neutrophil countOrd ered By: Zebulun Beam on 01-22-2025 Neutrophils (Bld) [#/Vol] 6.9 10*3/uL 2.0-7.7 [facility] Anion gap in Serum or Plasma Ordered By: bulun Beam on 01-22-2025 Anion gap [Moles/Vol] 10 mmol/L 5-15 [facility] Automated lymphocyte count a s percentage of total leukocytesOrdered By: Zebulun Beam on 01-22-2025 Lymphocytes/100 WBC Auto (Unsp spec) 11.9 % Low 19-41 [facility] BUN/creatinine ratioOrdered By: [facility] on 01-22-2025 Urea nitrogen/Creatinine [Mass ratio] 19.1 mg/mg 10-20 [facility] Basophil percentageOrdered B y: Zebulun Beam on 01-22-2025 Basophils/100 WBC (Bld) 0.3 % 0-1 [facility] Bilirubin, totalOrdered By: [facility] on 01-22-2025 Bilirubin [Mass/Vol] 0.33 mg/dL 0.00-1.30 [facility] CBC W/Diff, Automatedon 01-11 Absolute Lymph 1.07 X10 3/uL Normal 0.83-4.51 [facility] Comment on above: Performed By: #### L 100.0100, L500.4050, L501.9910, L501.9985, L501.9520, L500.4100 #### [facility] [address] [place], [address] Absolute Neut 6.9 X10 3/uL Normal 2.0-7.7 [facility] Comment on above: Performed By: #### L 100.0100, L500.4050, L501.9910, L501.9985, L501.9520, L500.4100 #### [facility] [address] [place], [address] Basophils/100 WBC (Bld) 0.3 % Normal 0-1 [facility] Comment on above: Performed By: #### L 100.0100, L500.4050, L501.9910, L501.9985, L501.9520, L500.4100 #### [facility] [address] [place], [address] Eosinophils/100 WBC (Bld) 1.1 % Normal 0-5 [facility] Comment on above: Performed By: #### L 100.0100, L500.4050, L501.9910, L501.9985, L501.9520, L500.4100 #### [facility] [address] [place], [address] Erythrocyte distribution width (RBC) [Ratio] 11.9 % Normal 11.6-14.6 [facility] Comment on above: Performed By: #### L 100.0100, L500.4050, L501.9910, L501.9985, L501.9520, L500.4100 #### [facility] [address] [place], [address] Hematocrit (Bld) [Volume fraction] 40.3 % Normal 40-54 [facility] Comment on above: Performed By: #### L 100.0100, L500.4050, L501.9910, L501.9985, L501.9520, L500.4100 #### [facility] [address] [place], [address] Hemoglobin (Bld) [Mass/Vol] 14.2 g/dL Normal 13.0-16.5 [facility] Comment on above: Performed By: #### L 100.0100, L500.4050, L501.9910, L501.9985, L501.9520, L500.4100 #### [facility] [address] [place], [address] IG% 0.300 Normal 0.0-0.9 [facility] Comment on above: Result Comment: IG% - Immature Granulocytes (promyelocytes, myelocytes and metamyelocytes) > 1% indicates that a LEFT SHIFT is Present. Performed By: #### L 100.0100, L500.4050, L501.9910, L501.9985, L501.9520, L500.4100 #### [facility] [address] [place], [address] Lymphocytes/100 WBC (Bld) 11.9 % Low 19-41 [facility] Comment on above: Performed By: #### L 100.0100, L500.4050, L501.9910, L501.9985, L501.9520, L500.4100 #### [facility] [address] [place], [address] MCH (RBC) [Entitic mass] 31.1 pg Normal 27.0-32.0 [facility] Comment on above: Performed By: #### L 100.0100, L500.4050, L501.9910, L501.9985, L501.9520, L500.4100 #### [facility] [address] [place], [address] MCHC (RBC) [Mass/Vol] 35.2 g/dL Normal 32-36 [facility] Comment on above: Performed By: #### L 100.0100, L500.4050, L501.9910, L501.9985, L501.9520, L500.4100 #### [facility] [address] [place], [address] MCV (RBC) [Entitic vol] 88.4 fL Normal 80-94 [facility] Comment on above: Performed By: #### L 100.0100, L500.4050, L501.9910, L501.9985, L501.9520, L500.4100 #### [facility] [address] [place], [address] Monocytes/100 WBC (Bld) 9.1 % Normal 0-10 [facility] Comment on above: Performed By: #### L 100.0100, L500.4050, L501.9910, L501.9985, L501.9520, L500.4100 #### [facility] [address] [place], [address] Neutrophils/100 WBC (Bld) 77.3 % High 47-70 [facility] Comment on above: Performed By: #### L 100.0100, L500.4050, L501.9910, L501.9985, L501.9520, L500.4100 #### [facility] [address] [place], [address] Nucleated RBC (Bld) [#/Vol] 0 10*3/uL Normal 0-5 [facility] Comment on above: Performed By: #### L 100.0100, L500.4050, L501.9910, L501.9985, L501.9520, L500.4100 #### [facility] [address] [place], [address] Platelet mean volume (Bld) [Entitic vol] 9.9 fL Normal 6.2-12.0 [facility] Comment on above: Performed By: #### L 100.0100, L500.4050, L501.9910, L501.9985, L501.9520, L500.4100 #### [facility] [address] [place], [address] Platelets (Bld) [#/Vol] 214 10*3/uL Normal 150-450 [facility] Comment on above: Performed By: #### L 100.0100, L500.4050, L501.9910, L501.9985, L501.9520, L500.4100 #### [facility] [address] [place], [address] RBC (Bld) [#/Vol] 4.56 10*6/uL Low 4.6-6.2 [facility] Comment on above: Performed By: #### L 100.0100, L500.4050, L501.9910, L501.9985, L501.9520, L500.4100 #### [facility] [address] [place], [address] RDW SD 38.2 fl Normal 35.1-43.9 [facility] Comment on above: Performed By: #### L 100.0100, L500.4050, L501.9910, L501.9985, L501.9520, L500.4100 #### [facility] [address] [place], [address] WBC (Bld) [#/Vol] 9.0 10*3/uL Normal 4.4-11.[address] [facility] Comment on above: Performed By: #### L 100.0100, L500.4050, L501.9910, L501.9985, L501.9520, L500.4100 #### [facility] [address] [place], [address] Calculated very low density lipoprotein (VLDL) cholesterol measurementOrdered By: Lan David on 01-22-2025 Calculated very low density lipoprotein (VLDL) cholesterol measurement 15 mg/dL 5-40 [facility] VLDL Cholesterol 15 mg/dL 5-40 [facility] Carbon dioxide, total [Moles /volume] in Central venous bloodOrdered By: Lan David on 01-22-2025 CO2 [Moles/Vol] 24.9 mmol/L 21.0-32.0 [facility] Chloride assayOrdered By: Fran David on 01-22-2025 Chloride [Moles/Vol] 98 mmol/L 98-108 [facility] Comprehensive Metabolic Prof ilon 01-22-2025 Albumin [Mass/Vol] 4.2 g/dL Normal 3.4-4.[address] [facility] Comment on above: Performed By: #### L 100.0100, L500.4050, L501.9910, L501.9985, L501.9520, L500.4100 #### [facility] [address] [place], [address] Albumin/Globulin [Mass ratio] 1.9 {ratio} Normal 0.9-2.4 [facility] Comment on above: Performed By: #### L 100.0100, L500.4050, L501.9910, L501.9985, L501.9520, L500.4100 #### [facility] [address] [place], [address] ALK PHOS 43 U/L Normal 40-129 [facility] Comment on above: Performed By: #### L 100.0100, L500.4050, L501.9910, L501.9985, L501.9520, L500.4100 #### [facility] [address] [place], [address] ALT [Catalytic activity/Vol] 19 U/L Normal <=46 [facility] Comment on above: Performed By: #### L 100.0100, L500.4050, L501.9910, L501.9985, L501.9520, L500.4100 #### [facility] [address] [place], [address] AST [Catalytic activity/Vol] 21 U/L Normal <=37 [facility] Comment on above: Performed By: #### L 100.0100, L500.4050, L501.9910, L501.9985, L501.9520, L500.4100 #### [facility] [address] [place], [address] Bilirubin [Mass/Vol] 0.33 mg/dL Normal 0.00-1.30 [facility] Comment on above: Performed By: #### L 100.0100, L500.4050, L501.9910, L501.9985, L501.9520, L500.4100 #### [facility] [address] [place], [address] BUN/CRE 19.1 RATIO Normal 10-20 [facility] Comment on above: Performed By: #### L 100.0100, L500.4050, L501.9910, L501.9985, L501.9520, L500.4100 #### [facility] [address] [place], [address] Calcium [Mass/Vol] 8.9 mg/dL Normal 7.6-11.[address] [facility] Comment on above: Performed By: #### L 100.0100, L500.4050, L501.9910, L501.9985, L501.9520, L500.4100 #### [facility] [address] [place], [address] Chloride [Moles/Vol] 98 mmol/L Normal 98-108 [facility] Comment on above: Performed By: #### L 100.0100, L500.4050, L501.9910, L501.9985, L501.9520, L500.4100 #### [facility] [address] [place], [address] CO2 [Moles/Vol] 24.9 mmol/L Normal 21.0-32.0 [facility] Comment on above: Performed By: #### L 100.0100, L500.4050, L501.9910, L501.9985, L501.9520, L500.4100 #### [facility] [address] [place], [address] Creatinine [Mass/Vol] 0.85 mg/dL Normal 0.70-1.20 [facility] Comment on above: Performed By: #### L 100.0100, L500.4050, L501.9910, L501.9985, L501.9520, L500.4100 #### [facility] [address] [place], [address] GAP 10 Normal 5-15 [facility] Comment on above: Performed By: #### L 100.0100, L500.4050, L501.9910, L501.9985, L501.9520, L500.4100 #### [facility] [address] [place], [address] GFR/1.73 sq M.predicted among non-blacks MDRD (S/P/Bld) [Vol rate/Area] 95 mL/min/{1.73_m2} Normal >60 [facility] Comment on above: Result Comment: mL/m in/1.73m2 CKD-EPI Creatinine Equation (2020) Performed By: #### L 100.0100, L500.4050, L501.9910, L501.9985, L501.9520, L500.4100 #### [facility] [address] [place], [address] Globulin (S) [Mass/Vol] 2.2 g/dL Normal 2.2-4.2 [facility] Comment on above: Performed By: #### L 100.0100, L500.4050, L501.9910, L501.9985, L501.9520, L500.4100 #### [facility] [address] [place], [address] Glucose [Mass/Vol] 98 mg/dL Normal 70-[address] [facility] Comment on above: Performed By: #### L 100.0100, L500.4050, L501.9910, L501.9985, L501.9520, L500.4100 #### [facility] [address] [place], [address] Potassium [Moles/Vol] 4.2 mmol/L Normal 3.3-5.1 [facility] Comment on above: Performed By: #### L 100.0100, L500.4050, L501.9910, L501.9985, L501.9520, L500.4100 #### [facility] [address] [place], [address] Sodium [Moles/Vol] 133 mmol/L Normal 133-[address] [facility] Comment on above: Performed By: #### L 100.0100, L500.4050, L501.9910, L501.9985, L501.9520, L500.4100 #### [facility] [address] [place], [address] T PROT 6.4 g/dL Normal 5.9-8.4 [facility] Comment on above: Performed By: #### L 100.0100, L500.4050, L501.9910, L501.9985, L501.9520, L500.4100 #### [facility] [address] [place], [address] Urea nitrogen [Mass/Vol] 16 mg/dL Normal 4-19 [facility] Comment on above: Performed By: #### L 100.0100, L500.4050, L501.9910, L501.9985, L501.9520, L500.4100 #### [facility] [address] [place], [address] Eosinophil percentageOrdered By: Lan David on 01-22-2025 Eosinophils/100 WBC (Bld) 1.1 % 0-5 [facility] Erythrocyte distribution wid th ratioOrdered By: [facility] Beam on 01-22-2025 Erythrocyte distribution width (RBC) [Ratio] 11.9 % 11.6-14.6 [facility] Erythrocyte distribution wid th standard deviationOrdered By: [facility] Beam on 01-22-2025 Erythrocyte distribution width (RBC) [Entitic vol] 38.2 fL 35.1-43.9 [facility] Erythrocyte distribution width (RBC) [Ratio] 38.2 fl 35.1-43.9 [facility] GFR/1.73 sq M.predicted shane g non-blacks MDRD (S/P/Bld) [Vol rate/Area]Ordered By: Lan David on 01-22-2025 Estimated GFR (MDRD) Non-Af Amer 95 >60 [facility] Comment on above: mL/min/1.73m2 CKD-EP I Creatinine Equation (2020) Glomerular filtration rate ( GFR) estimation/1.73 sq m using serum, plasma, or whole bOrdered By: Lan David on 01-22-2025 GFR/1.73 sq M.predicted among non-blacks MDRD (S/P/Bld) [Vol rate/Area] 95 mL/min/{1.73_m2} >60 [facility] Comment on above: mL/min/1.73m2 CKD-EP I Creatinine Equation (2020) Hematocrit Auto (Bld) [Volum e fraction]Ordered By: Lan David on 01-22-2025 Hematocrit (Bld) [Volume fraction] 40.3 % 40-54 [facility] Hemoglobin A1con 01-22-2025 HbA1c (Bld) [Mass fraction] 5.2 % Low <=5.6 [facility] Comment on above: Performed By: #### L 100.0100, L500.4050, L501.9910, L501.9985, L501.9520, L500.4100 #### [facility] [address] [place], [address] Hemoglobin A1c percentageOrd ered By: Lan David on 01-22-2025 HbA1c (Bld) [Mass fraction] 5.2 % Low >5.7 [facility] Hemoglobin measurementOrdere d By: Lan David on 01-22-2025 Hemoglobin (Bld) [Mass/Vol] 14.2 g/dL 13.0-16.5 [facility] Immature granulocytes/100 WB C Auto (Bld)Ordered By: el David on 01-22-2025 Immature granulocytes/100 WBC (Bld) 0.300 % 0.0-0.9 [facility] Comment on above: IG% - Immature Granu locytes (promyelocytes, myelocytes and metamyelocytes) > 1% indicates that a LEFT SHIFT is Present. LDL calc ser/plasOrdered By: Lan David on 01-22-2025 Cholesterol in LDL [Mass/Vol] 56 mg/dL [facility] Comment on above: Vkfroisnul=228-668 m g/dL & Higher Ukvh=498 mg/dL or greater LDL Cholesterol, Calculated 56 mg/dL [facility] Comment on above: Yonkvjviho=704-177 m g/dL & Higher Hzbp=079 mg/dL or greater Laboratory - Chemistry and C hemistry - challengeOrdered By: Lan David on 01-22-2025 AST [Catalytic activity/Vol] 21 U/L <38 [facility] Lipid Profileon 01-22-2025 CHOL:HDL 2.42 Normal [facility] Comment on above: Performed By: #### L 100.0100, L500.4050, L501.9910, L501.9985, L501.9520, L500.4100 ####[facility] [address] [place], [place], [address] Cholesterol [Mass/Vol] 121 mg/dL Normal <=200 [facility] Comment on above: Result Comment: Chol esterol level, Desirable <200 mg/dL Borderline high cholesterol 200-239 mg/dL High cholesterol >=240 mg/dL Recommendations of the NCEP Adult Treatment Panel for the following risk-cutoff thresholds for the [place] population. Performed By: #### L 100.0100, L500.4050, L501.9910, L501.9985, L501.9520, L500.4100 ####[facility] [address], [address] Cholesterol in HDL [Mass/Vol] 50 mg/dL Normal [facility] Comment on above: Result Comment: Betty onal Cholesterol Education Program (NCEP) guidelines: <40 mg/dL: Low HDL-cholesterol (major risk factor for CHD) >= 60 mg/dL: High HDL-cholesterol (negative risk factor for CHD) HDL-cholesterol is affected by a number of factors, e.g. smoking, exercise, hormones, sex and age. Performed By: #### L 100.0100, L500.4050, L501.9910, L501.9985, L501.9520, L500.4100 ####[facility] [address] [facility] [address] Cholesterol in LDL [Mass/Vol] 56 mg/dL Normal [facility] Comment on above: Result Comment: Bord knttrq=354-597 mg/dL Higher Gyih=115 mg/dL or greater Performed By: #### L 100.0100, L500.4050, L501.9910, L501.9985, L501.9520, L500.4100 ####[facility] [address] [facility] [address] Cholesterol in VLDL [Mass/Vol] 15 mg/dL Normal 5-40 [facility] Comment on above: Performed By: #### L 100.0100, L500.4050, L501.9910, L501.9985, L501.9520, L500.4100 ####[facility] [address] [facility] [address] Triglyceride [Mass/Vol] 76 mg/dL Normal [facility] Comment on above: Result Comment: The drugs N-Acetylcysteine and Metamizole may falsely depress this assay. Normal range: <150 mg/dL Borderline High: 150-199 mg/dL High: 200-499 mg/dL Very High: >500 mg/dL Performed By: #### L 100.0100, L500.4050, L501.9910, L501.9985, L501.9520, L500.4100 ####[facility] [address] [place], [address] Lymphocytes Auto (Unsp spec) [#/Vol]Ordered By: Franbulun Beam on 01-22-2025 Lymphocytes (Bld) [#/Vol] 1.07 10*3/uL 0.83-4.51 [facility] Lymphocytes/100 WBC Auto (Un sp spec)Ordered By: bulun Beam on 01-22-2025 Lymphocytes/100 WBC (Bld) 11.9 % Low 19-41 [facility] MCV (mean corpuscular volume ) determinationOrdered By: [facility] on 01-22-2025 MCV (RBC) [Entitic vol] 88.4 fL 80-94 [facility] Mean corpuscular hemoglobin (MCH) determinationOrdered By: [facility] Beam on 01-22-2025 MCH (RBC) [Entitic mass] 31.1 pg 27.0-32.0 [facility] Mean corpuscular hemoglobin concentration (MCHC) determinationOrdered By: bun Beam on 01-22-2025 MCHC (RBC) [Mass/Vol] 35.2 g/dL 32-36 [facility] Mean platelet volume determi nationOrdered By: bulun Beam on 01-22-2025 Platelet mean volume (Bld) [Entitic vol] 9.9 fL 6.2-12.0 [facility] Monocyte percentageOrdered B y: Zebulun Beam on 01-22-2025 Monocytes/100 WBC (Bld) 9.1 % 0-10 [facility] Neutrophil percentageOrdered By: bulun Beam on 01-22-2025 Neutrophils/100 WBC (Bld) 77.3 % High 47-70 [facility] Nucleated red blood cell per centageOrdered By: bulun Beam on 01-22-2025 Nucleated RBC/100 WBC (Bld) [Ratio] 0 % 0-5 [facility] PSA, total screeningOrdered By: Lan David on 01-22-2025 Prostate Specific Antigen Screen 0.51 ng/mL 0.02-4.00 [facility] Comment on above: This test was perfor med using the [employer] tPSA method. Measured values of a patient sample can vary depending on the testing procedure used. PSA values determined on patient samples by different testing procedures cannot be used interchangeably. If there is a change in PSA assays while monitoring therapy, sequential testing should be performed to confirm baseline values. PSA,Total - Annual Screenon 01-22-2025 PSA,TOT SCREEN 0.51 ng/mL Normal 0.02-4.00 [facility] Comment on above: Result Comment: This test [...] confirm baseline values. Performed By: #### L 100.0100, L500.4050, L501.9910, L501.9985, L501.9520, L500.4100 ####[facility] [address] [place], [address] Platelet countOrdered By: Fran David on 01-22-2025 Platelets (Bld) [#/Vol] 214 10*3/uL 150-450 [facility] Potassium (Unsp spec) [Mass/ Vol]Ordered By: Lan David on 01-22-2025 Potassium [Moles/Vol] 4.2 mmol/L 3.3-5.1 [facility] Potassium measurement (mass/ volume)Ordered By: Lan David on 01-22-2025 Potassium (Unsp spec) [Mass/Vol] 4.2 mmol/L 3.3-5.1 [facility] RBC Auto (Bld) [#/Vol]Ordere d By: Lan David on 01-22-2025 RBC (Bld) [#/Vol] 4.56 10*6/uL Low 4.6-6.2 [facility] Screening total cholesterol/ high density lipoprotein (HDL) cholesterol ratioOrdered By: Lan David on 01-22-2025 Cholesterol.total/Cho lesterol in HDL [Mass ratio] 2.42 {ratio} [facility] Serum creatinine measurement (mass/volume)Ordered By: Lan David on 01-22-2025 Creatinine [Mass/Vol] 0.85 mg/dL 0.70-1.20 [facility] Serum globulin measurementOr dered By: Lan David on 01-22-2025 Globulin (S) [Mass/Vol] 2.2 g/dL 2.2-4.2 [facility] Serum glucose measurement (m ass/volume)Ordered By: Lan David on 01-22-2025 Glucose [Mass/Vol] 98 mg/dL 70-[address] [facility] Serum or plasma alanine mackenzie otransferase (ALT) measurementOrdered By: Lan David on 01-22-2025 ALT [Catalytic activity/Vol] 19 U/L <47 [facility] Serum or plasma albumin víctor urement (mass/volume)Ordered By: Lan David on 01-22-2025 Albumin [Mass/Vol] 4.2 g/dL 3.4-4.[address] [facility] Serum or plasma albumin/glob ulin mass ratioOrdered By: Lan David on 01-22-2025 Albumin/Globulin [Mass ratio] 1.9 {ratio} 0.9-2.4 [facility] Serum or plasma alkaline mellisa sphatase measurementOrdered By: Lan David on 01-22-2025 ALP [Catalytic activity/Vol] 43 U/L 40-129 [facility] Serum or plasma calcium víctor urement (mass/volume)Ordered By: Lan David on 01-22-2025 Calcium [Mass/Vol] 8.9 mg/dL 7.6-11.[address] [facility] Serum or plasma cholesterol in HDL measurement (mass/volume)Ordered By: Lan David on 01-22-2025 Cholesterol in HDL [Mass/Vol] 50 mg/dL >40 [facility] Comment on above: National Cholesterol Education Program (NCEP) guidelines:<40 mg/dL: Low HDL-cholesterol (major risk factor for CHD)>= 60 mg/dL: High HDL-cholesterol (negative risk factor for CHD)HDL-cholesterol is affected by a number of factors, e.g. smoking, exercise, hormones, sex and age. Serum or plasma cholesterol measurement (mass/volume)Ordered By: Lan David on 01-22-2025 Cholesterol [Mass/Vol] 121 mg/dL <201 [facility] Comment on above: Cholesterol level, D esirable <200 mg/dLBorderline high cholesterol 200-239 mg/dLHigh cholesterol >=240 mg/dLRecommendations of the NCEP Adult Treatment Panel for the following risk-cutoff thresholds for the [place] population. Serum or plasma urea nitroge n measurement (mass/volume)Ordered By: Lan David on 01-22-2025 Urea nitrogen [Mass/Vol] 16 mg/dL 4-19 [facility] Sodium levelOrdered By: Margarito David on 01-22-2025 Sodium [Moles/Vol] 133 mmol/L 133-[address] [facility] TSH DL <= 0.005 mIU/L QnOrde red By: Lan David on 01-22-2025 Thyroid Stimulating Hormone (TSH) 0.772 uIU/mL 0.300-4.20 0 [facility] TSH Qn 0.772 uIU/mL 0.300-4.20 0 [facility] Thyroid Stim Hormone (TSH)on 01-22-2025 TSH 0.772 uIU/mL Normal 0.300-4.20 0 [facility] Comment on above: Performed By: #### L 100.0100, L500.4050, L501.9910, L501.9985, L501.9520, L500.4100 ####[facility] [address] [place], [address] Total proteinOrdered By: Jasmeet David on 01-22-2025 Protein [Mass/Vol] 6.4 g/dL 5.9-8.[address] [facility] Triglycerides measurementOrd ered By: Lan David on 01-22-2025 Triglyceride [Mass/Vol] 76 mg/dL <199 [facility] Comment on above: The drugs N-Acetylcy steine and Metamizole may falsely depress this assay. Normal range: <150 mg/dLBorderline High: 150-199 mg/dLHigh: 200-499 mg/dLVery High: >500 mg/dL White blood cell (WBC) count Ordered By: Lan David on 01-22-2025 WBC (Bld) [#/Vol] 9.0 10*3/uL 4.4-11.[address] [facility] Surgery Visit Reporton 12-23 Surgery Visit Report [facility] [address] [place], [place] [address] OFFICE VISIT Date of Service: 12/23/24 MR#: [id number] Acct: [id number] Name: ANGELIA KERNS Rep #: [id number] : 1955 Provider: Dr. Chuck hendricks MD Age/Sex: 69/M Location: [facility] Status: Signed Intake Vital Signs 10/25/24 08:52 12/23/24 08:16 Height 5 ft 11 in BP 144/78 H Blood Pressure Location Lt brachial Position Sitting Respiration 18 Pulse 87 Pulse Source Monitor Intake Visit Reasons: discuss hemorrhoids Chief Complaint: discuss hemorrhoids Single Needle Operator Required: No Accompanied by: Is patient in pain?: Yes Allergies No Known Allergies Allergy (Verified 12/23/24 08:17) Medications ???Medication ???Instructions ???Recorded ???Confirmed ???Type acetaminophen 500 mg tablet 500 mg PO Q6H PRN Pain 10/10/22 History (Tylenol Extra Strength) omega 6-oav-jzs-fish oil 1,000 mg 1 cap PO DAILY [...] Leg cramps History of pain when walking Ihwtw-Snmbpzowk-Bssuh (WPW) pattern Cardiology follow-up encounter Hypertension Positive colorectal cancer screening using Cologuard test Hypertension Diabetes Arthritis Surgical History Hx of colonoscopy S/P lateral meniscus repair of right knee H/O prostatectomy Family History Father CVA (cerebral vascular accident) Mother Cancer throat Other Heart disease Social History household members: spouse current occupational status: retired current occupation: [employer] Smoking Status: Never smoker Electronic Cigarette Use: [...] follow-up because he was under the impression "things are getting better". However now he states he fears he waited too long because he is experiencing more "burning and swelling" with his hemorrhoids. He reports that he [...] consuming psyllium husk twice daily besides. Mr. Kerns continues to perform 1 sitz bath after each bowel movement. He reports use of a hydrocortisone/lidocaine ointment alongside of a diltiazem???containing ointment that he was prescribed by his PCP. He questions whether he should continue this use. In addition to the reports of "burning and swelling" he describes 1 episode of bleeding a [...] were only (more content not included)... Normal [facility] 12 Lead EKGon 10-25-2024 12 Lead EKG [facility] [address] [place] [address] 12 Lead EKG 10/25/24 0913 MR#: [id number] Acct: [id number] Name: ANGELIA KERNS Rep #: [id number] : 1955 69 From: Addi Ruiz MD [...] Normal ECG Confirmed by ERIN JONES, HUGO ([id number]), communications editor DAKSHA NORIEGA ([id number]) on 10/30/2024 1:29:56 PM Referred By: Confirmed By: HUGO RUIZ MD 10/30/24 1329 Date Addi Ruiz MD CC: CARLOS Ballesteros; Dr. Wood Hinojosa MD Signed Normal [facility] Bacteria LM.HPF (Urine sed) [#/Area]Ordered By: Wood Hinojosa on 10-25-2024 Urine Bacteria RARE /hpf None Seen [facility] Basic Metabolic Profile (BMP )on 10-25-2024 BUN/CRE 13.8 RATIO Normal 10-20 [facility] Comment on above: Performed By: #### L 500.2500 ####[facility] [address] [place], [address] CA,Total 9.4 mg/dL Normal 8.5-10.1 [facility] Comment on above: Performed By: #### L 500.2500 ####[facility] [address] [place], [address] ECRCL 94.13 ml/min Normal [facility] Comment on above: Performed By: #### L 500.2500 ####[facility] [address] [place], [address] EST GFR - AA 139 mL/min Normal >60 [facility] Comment on above: Result Comment: Afri can [place] GFR Calc Performed By: #### L 500.2500 ####[facility] [address] [place], [address] GAP 6 Normal 5-15 [facility] Comment on above: Performed By: #### L 500.2500 ####[facility] [address] [place], [place], [id number] GFR/1.73 sq M.predicted among non-blacks MDRD (S/P/Bld) [Vol rate/Area] 115 mL/min/{1.73_m2} Normal >60 [facility] Comment on above: Result Comment: Non- GFR Calc Performed By: #### L 500.2500 ####[facility] [address] [place], [address] Bilirubin Test strip Ql (U)O rdered By: Wood Hinojosa on 10-25-2024 Bilirubin Ql (U) Negative Negative [facility] Blood urea nitrogen (BUN)/cr eatinine ratioOrdered By: Woodcandace Hinojosa on 10-25-2024 Urea nitrogen/Creatinine [Mass ratio] 13.8 mg/mg 10- [facility] Carbon dioxide measurementOr dered By: Woodcandace Hinojosa on 10-25-2024 CO2 [Moles/Vol] 27.0 mmol/L Normal 21.0-32.0 [facility] Comment on above: Performed By: #### L 500.2500 ####[facility] [address] [place], [address] Chloride measurementOrdered By: Woodcandace Hinojosa on 10-25-2024 Chloride [Moles/Vol] 102 mmol/L Normal 98-107 [facility] Comment on above: Performed By: #### L 500.2500 ####[facility] [address] [place], [place], [id number] Emergency Department Summary on 10-25-2024 Emergency Department Summary [facility] Medical Records Department [address] [place] [address] Emergency Department Summary 10/25/24 MR#: [id number] Acct: [id number] Name: ANGELIA KERNS Rep #: [id number] : 1955 69 From: Wood Hinojosa MD [...] is contributing to his elevated blood pr) [facility] Medical History Hemorrhoids Wears glasses Wears dentures Anxiety Diabetes Arthritis Low iron Fatty liver High cholesterol Dietary restriction Heartburn Non-smoker Leg cramps History of pain when walking Euksw-Lytmbvvds-Zgmnq (WPW) pattern Cardiology follow-up encounter Hypertension Positive colorectal cancer screening using Cologuard test Hypertension Diabetes Arthritis Home Medications ???Medication ???Instructions ???Recorded ???Last Taken ???Type acetaminophen 500 mg tablet 500 mg PO Q6H PRN Pain 10/10/22 Unknown History (Tylenol Extra Strength) omega 2-ctw-kbj-fish oil 1,000 mg 1 cap PO DAILY [...] spouse current occupational status: retired current occupation: [employer] Smoking Status: Never smoker Electronic Cigarette Use: [...] EXAM Phy (more content not included)... Normal [facility] Epithelial cells.squamous LM Ql (Urine sed)Ordered By: Wood Hinojosa on 10-25-2024 Epithelial cells.squamous LM.HPF (Urine sed) [#/Area] 0 /[HPF] 0-5 [facility] Estimated glomerular filtrat ion rate (GFR) AmericanOrdered By: Wood Hinojosa on 10-25-2024 Estimated GFR (MDRD) Amer 139 mL/min >60 [facility] Comment on above: GFR Calc Estimation of creatinine anthony aranceOrdered By: Wood Hinojosa on 10-25-2024 Estimated Creatinine Clearance Calc 94.13 ml/min [facility] Glomerular filtration rate ( GFR) estimationOrdered By: Wood Hinojosa on 10-25-2024 Estimated GFR (MDRD) Non-Af Amer 115 mL/min >60 [facility] Comment on above: Non- GFR Calc Glucose Ql (U)Ordered By: Derrick Hinojosa on 10-25-2024 Urine Glucose (UA) Normal mg/dl Normal [facility] Glucose measurementOrdered B y: Wood Hinojosa on 10-25-2024 Glucose [Mass/Vol] 142 mg/dL High 74-[address] [facility] Comment on above: Fasting Glucose resu lt greater than or equal to 126 mg/dL suggests DIABETES MELLITUS per A.D.A. criteria. Result Comment: Fast ing Glucose result greater than or equal to 126 mg/dL suggests DIABETES MELLITUS per A.D.A. criteria. Performed By: #### L 500.2500 ####[facility] [address] [place], [address] Ketones Test strip Ql (U)Ord ered By: Wood Hinojosa on 10-25-2024 Ketones Ql (U) Negative Negative [facility] Microscopic analysis of urin e for red blood cells (RBC)Ordered By: Wood Hinojosa on 10-25-2024 Urine RBC 0 SEEN /hpf 0-5 [facility] Mucus LM Ql (Urine sed)Order ed By: Wood Hinojosa on 10-25-2024 Mucus Ql (Urine sed) 0 SEEN /hpf [facility] Nitrite Test strip Ql (U)Ord ered By: Wood Hinojosa on 10-25-2024 Nitrite Ql (U) Negative Negative [facility] Potassium measurementOrdered By: Wood Hinojosa on 10-25-2024 Potassium [Moles/Vol] 4.2 mmol/L Normal 3.5-5.1 [facility] Comment on above: Performed By: #### L 500.2500 ####[facility] [address] [place], [place], [phone]) Protein Test strip Ql (U)Ord ered By: Wood Hinojosa on 10-25-2024 Protein Ql (U) Negative Negative [facility] Serum anion gap measurementO rdered By: Wood Hinojosa on 10-25-2024 Anion gap [Moles/Vol] 6 mmol/L 5-15 [facility] Serum or plasma calcium víctor urement (mass/volume)Ordered By: Wood Hinojosa on 10-25-2024 Calcium [Mass/Vol] 9.4 mg/dL 8.5-10.[address] [facility] Serum or plasma creatinine m easurement (mass/volume)Ordered By: Wood Hinojosa on 10-25-2024 Creatinine [Mass/Vol] 0.72 mg/dL Normal 0.70-1.30 [facility] Comment on above: The validity of the calculated GFR & GFRAA in patients over 70 years has not been determined. Clinical correlation is essential. Result Comment: The validity of the calculated GFR GFRAA in patients over 70 years has not been determined. Clinical correlation is essential. Performed By: #### L 500.2500 ####[facility] [address] [place], [place], [address] Serum or plasma urea nitroge n measurement (mass/volume)Ordered By: Wood Hinojosa on 10-25-2024 Urea nitrogen [Mass/Vol] 10 mg/dL Normal 7-18 [facility] Comment on above: Performed By: #### L 500.2500 ####[facility] [address] [place], [place], [address] Sodium levelOrdered By: Wood Hinojosa on 10-25-2024 Sodium [Moles/Vol] 135 mmol/L Low 136-[address] [facility] Comment on above: Performed By: #### L 500.2500 ####[facility] [address] [place], [address] Urinalysis, Completeon 10-25 BACTERIA RARE Normal None Seen [facility] Comment on above: Order Comment: RAVI CTOR TO SPECIFY Performed By: #### L 400.0001 ####[facility] [address] [place], [address] EPI,SQUAMOUS 0-5 SEEN Normal 0-5 [facility] Comment on above: Order Comment: RAVI CTOR TO SPECIFY Performed By: #### L 400.0001 ####[facility] [address] [place], [address] Mucus Ql (Urine sed) 0 SEEN Normal [facility] Comment on above: Order Comment: RAVI CTOR TO SPECIFY Performed By: #### L 400.0001 ####[facility] [address] [place], [address] RBC 0 SEEN Normal 0-5 [facility] Comment on above: Order Comment: RAVI CTOR TO SPECIFY Performed By: #### L 400.0001 ####[facility] [address] [place], [address] WBC 0 SEEN Normal 0-5 [facility] Comment on above: Order Comment: RAVI CTOR TO SPECIFY Performed By: #### L 400.0001 ####[facility] [address] [place], [address] Urine blood detectionOrdered By: Wood Hinojosa on 10-25-2024 Urine Occult Blood Negative Negative [facility] Urine clarityOrdered By: Wood Hinojosa on 10-25-2024 Clarity (U) Clear Clear [facility] Urine color determinationOrd ered By: Wood Hinojosa on 10-25-2024 Color (U) Yellow Yellow [facility] Urine leukocyte esterase det ection by dipstickOrdered By: Wood Hinojosa on 10-25-2024 Leukocyte esterase Test strip Ql (U) Negative Negative [facility] Urine pHOrdered By: Wood Gall o on 10-25-2024 pH (U) 7.0 [pH] 5.0 - 8.0 [facility] Urine specific gravity measu rementOrdered By: Wood Hinojosa on 10-25-2024 Specific gravity (U) [Rel density] 1.005 1.002-1.03 0 [facility] Urobilinogen Ql (U)Ordered B y: Wood Hinojosa on 10-25-2024 Urine Urobilinogen Normal mg/dl Normal [facility] White blood cell countOrdere d By: Wood Hinojosa on 10-25-2024 Urine WBC 0 SEEN /hpf 0-5 [facility] Surgery Visit Reporton 10-07 Surgery Visit Report [facility] [address] [place] [address] OFFICE VISIT Date of Service: 10/07/24 MR#: [id number] Acct: [id number] Name: ANGELIA KERNS Rep #: [id number] : 1955 Provider: Dr. Chuck hendricks MD Age/Sex: 69/M Location: [facility] Status: Signed Intake Vital Signs 05/02/24 09:40 [...] 10/10/22 10/07/24 History (Tylenol Extra Strength) omega 5-nyy-pqj-fish oil 1,000 mg 1 cap PO DAILY [...] Leg cramps History of pain when walking Zuqtp-Bsudcgtgf-Rhamk (WPW) pattern Cardiology follow-up encounter Hypertension Positive colorectal cancer screening using Cologuard test Hypertension Diabetes Arthritis Surgical History Hx of colonoscopy S/P lateral meniscus repair of right knee H/O prostatectomy Family History Father CVA (cerebral vascular accident) Mother Cancer throat Other Heart disease Social History household members: spouse current occupational status: retired current occupation: [employer] Smoking Status: Never smoker Electronic Cigarette Use: [...] and recommended evaluation in our office. Mr. Kerns estimates that his present flare officially became [...] about minimizing this risk as well. Mr. Kerns reports pain that is rather sharp and more frequently encountered in the mornings. He initially experienced some bleeding but this is "cleared up". Lastly he has experienced some itching and [...] It is (more content not included)... Normal [facility] No Panel InformationOrdered By: Amara Damian on 10-03-2023 Prostate Specific Antigen Screen 0.88 ng/mL 0.00-4.00 [facility] Comment on above: This test was perfor med using the TPSA assay method for theDimension chemistry system. Values obtained with differentassay methods cannot be used interchangably.When changing PSA assays in the course of monitoring apatient, additional sequential testing should be carriedout to confirm baseline values. Absolute lymphocyte countOrd ered By: Amara Damian on 09-07-2023 Lymphocytes Auto (Unsp spec) [#/Vol] 1.37 10*3/uL 0.83-4.51 [facility] Basophil percentageOrdered B y: Amara Damian on 09-07-2023 Basophils/100 WBC (Bld) 0.3 % 0-1 [facility] Bilirubin [Mass/Vol] 0.70 mg/dL 0.20-1.00 [facility] Comment on above: For patients on eltr ombopag therapy, use of Dimension [place] TBIL is not recommended. Chloride [Moles/Vol] 104 mmol/L 98-107 [facility] Cholesterol [Mass/Vol] 100 mg/dL <200 [facility] Comment on above: <200 mg/dL Desirable 200-240 mg/dL Borderline >240 mg/dL High Risk Eosinophils/100 WBC (Bld) 1.6 % 0-5 [facility] Glucose [Mass/Vol] 112 mg/dL 74-[address] [facility] Comment on above: Fasting Glucose resu lt from 100 to 125 mg/dL suggests IMPAIRED HOMEOSTASIS per A.D.A. criteria. Neutrophils (Bld) [#/Vol] 4.6 10*3/uL 2.0-7.7 [facility] Neutrophils/100 WBC (Bld) 68.4 % 47-70 [facility] Potassium [Moles/Vol] 4.4 mmol/L 3.5-5.1 [facility] Protein [Mass/Vol] 7.4 g/dL 6.4-8.[address] [facility] Sodium [Moles/Vol] 138 mmol/L 136-[address] [facility] Triglyceride [Mass/Vol] 72 mg/dL <199 [facility] Comment on above: The drugs N-Acetylcy steine and Metamizole may falsely depress this assay.Serum Triglycerides Reference Interval Normal <150 mg/dL Borderline high 150 - 199 mg/dL High 200 - 499 mg/dL Very High > or = 500 mg/dL WBC (Bld) [#/Vol] 6.8 10*3/uL 4.4-11.[address] [facility] Blood erythrocytes count (nu mber/volume)Ordered By: Amara Damian on 10-26-2023 RBC (Bld) [#/Vol] 5.17 10*6/uL 4.6-6.2 [facility] Blood hemoglobin measurement (mass/volume)Ordered By: Amara Damian on 09-07-2023 Hemoglobin (Bld) [Mass/Vol] 15.0 g/dL 13.0-16.5 [facility] Blood lymphocytes/100 leukoc ytesOrdered By: Amara Damian on 09-07-2023 Lymphocytes/100 WBC (Bld) 20.2 % 19-41 [facility] Blood monocytes/100 leukocyt esOrdered By: Amara Damian on 09-07-2023 Monocytes/100 WBC (Bld) 9.2 % 0-10 [facility] Blood platelet mean volumeOr dered By: Amara Damian on 09-07-2023 Platelet mean volume (Bld) [Entitic vol] 10.8 fL 6.2-12.0 [facility] Determination of erythrocyte mean corpuscular volume (MCV)Ordered By: Amara Damian on 09-07-2023 MCV (RBC) [Entitic vol] 87.0 fL 80-94 [facility] Hematocrit Auto (Bld) [Volum e fraction]Ordered By: Amara Damian on 09-07-2023 Hematocrit (Bld) [Volume fraction] 45.0 % 40-54 [facility] Laboratory - Chemistry and C hemistry - challengeOrdered By: Amara Damian on 09-07-2023 ALP [Catalytic activity/Vol] 44 U/L 45-117 [facility] ALT [Catalytic activity/Vol] 34 U/L 16-61 [facility] CO2 [Moles/Vol] 29.0 mmol/L 21.0-32.0 [facility] Globulin (S) [Mass/Vol] 3.6 g/dL 2.2-4.2 [facility] Urea nitrogen/Creatinine [Mass ratio] 21.9 mg/mg 10-20 [facility] Laboratory - Hematology and Cell countsOrdered By: Amara Damian on 09-07-2023 Erythrocyte distribution width (RBC) [Entitic vol] 39.5 fL 35.1-43.9 [facility] Erythrocyte distribution width (RBC) [Ratio] 12.4 % 11.6-14.6 [facility] Immature granulocytes/100 WBC (Bld) 0.300 % 0.0-0.9 [facility] Comment on above: IG% - Immature Granu locytes (promyelocytes, myelocytes and metamyelocytes) > 1% indicates that a LEFT SHIFT is Present. MCH (RBC) [Entitic mass] 29.0 pg 27.0-32.0 [facility] Nucleated RBC/100 WBC (Bld) [Ratio] 0 % 0-5 [facility] MCHC Auto (RBC) [Mass/Vol]Or dered By: Amara Damian on 09-07-2023 MCHC (RBC) [Mass/Vol] 33.3 g/dL 32-36 [facility] No Panel InformationOrdered By: Amara Damian on 09-07-2023 Estimated GFR (MDRD) Amer 113 mL/min >60 [facility] Comment on above: GFR Calc Estimated GFR (MDRD) Non-Af Amer 94 mL/min >60 [facility] Comment on above: Non- GFR Calc Urine Microalbumin/Creatini ne Ratio 5.6 mg/g CRE <30 [facility] Platelets bldOrdered By: Prieto Damian on 09-07-2023 Platelets (Bld) [#/Vol] 213 10*3/uL 150-450 [facility] Serum or plasma albumin víctor urement (mass/volume)Ordered By: Amara Damian on 09-07-2023 Albumin [Mass/Vol] 3.8 g/dL 3.2-5.[address] [facility] Serum or plasma albumin/glob ulin mass ratioOrdered By: Amara Damian on 09-07-2023 Albumin/Globulin [Mass ratio] 1.1 {ratio} 0.9-2.4 [facility] Serum or plasma calcium víctor urement (mass/volume)Ordered By: Amara Damian on 09-07-2023 Calcium [Mass/Vol] 8.8 mg/dL 8.5-10.[address] [facility] Serum or plasma cholesterol in HDL measurement (mass/volume)Ordered By: Aamra Damian on 09-07-2023 Cholesterol in HDL [Mass/Vol] 34 mg/dL >40 [facility] Comment on above: The drugs N-Acetylcy steine and Metamizole may falsely depress this assay. Reference Range HDL <40 mg/dL Low HDL Cholesterol HDL >or= 60 mg/dL High HDL Cholesterol Serum or plasma cholesterol in VLDL measurement (mass/volume)Ordered By: Amara Damian on 09-07-2023 Cholesterol in VLDL [Mass/Vol] 14 mg/dL 5-40 [facility] Serum or plasma creatinine m easurement (mass/volume)Ordered By: Amara Damian on 09-07-2023 Creatinine [Mass/Vol] 0.87 mg/dL 0.70-1.30 [facility] Comment on above: The validity of the calculated GFR & GFRAA in patients over 70 years has not been determined. Clinical correlation is essential. Serum or plasma low density lipoprotein (LDL) cholesterol measurement (mass/volume)Ordered By: Amara Damian on 09-07-2023 Cholesterol in LDL [Mass/Vol] 52 mg/dL 0-130 [facility] Serum or plasma urea nitroge n measurement (mass/volume)Ordered By: Aamra Damian on 09-07-2023 Urea nitrogen [Mass/Vol] 19 mg/dL 7-18 [facility] Thin prep Papanicolaou smear with manual screeningOrdered By: Amara Damian on 09-07-2023 Thin prep Papanicolaou smear with manual screening 14 U/L 15-37 [facility] Thin prep Papanicolaou smear with manual screening 5 5-15 [facility] Thin prep Papanicolaou smear with manual screening 8.6 mg/L NO RANGE EST. [facility] Urine creatinine measurement (mass/volume)Ordered By: Amara Damian on 09-07-2023 Creatinine (U) [Mass/Vol] 152.00 mg/dL NO RANGE EST. [facility] Whole blood hemoglobin A1c/t otal hemoglobin ratio (mass fraction)Ordered By: Amara Damian on 09-07-2023 HbA1c (Bld) [Mass fraction] 5.9 % 3.8-5.6 [facility] Comment on above: Normal < 5.7 % Predi abetic 5.7 - 6.4 % Diabetic >or= 6.5 % Please note range changes. CNOVon 03-08-2023 CNOV Office Visit (UCMMAS ) SAUMYAANGELIA Zane ([id number]) 1955 M Date Time Provider Department 03/08/23 7:55 PM RIGOBERTO PENA [facility] During your visit today, we recorded the following information about you: Temperature Pulse Respiration Blood pressure 97.3 degrees 83/minute 16/minute 141/84 Weight 103 kg Rigoberto Pena MD 03/08/2023 8:25 PM Signed Ed L Saumya is a 67 year old MALE who [...] foot, initial encounter [S90.414A] Order(s):APPLICATION, RIGID DRESSING [[id number]] Order #: [id number] cephALEXin (KEFLEX) 500 mg capsuleTake 1 capsule [...] three loida (more content not included)... Normal [facility] Glucose Glucometer (BldC) [M ass/Vol]Ordered By: Dr. Bruce on 12-08-2022 Glucose [Mass/Vol] 140 mg/dL 74-[address] [facility] Comment on above: MANAGEMENT OF PATIEN T CARE PER NURSING PROTOCOL Absolute lymphocyte countOrd ered By: Dr. Damian on 09-22-2022 Lymphocytes Auto (Unsp spec) [#/Vol] 1.19 10*3/uL 0.83-4.51 [facility] Basophil percentageOrdered B y: Dr. Damian on 09-22-2022 Basophils/100 WBC (Bld) 0.2 % 0-1 [facility] Bilirubin [Mass/Vol] 0.40 mg/dL 0.20-1.00 [facility] Comment on above: For patients on eltr ombopag therapy, use of Dimension [place] TBIL is not recommended. Chloride [Moles/Vol] 102 mmol/L 98-107 [facility] Cholesterol [Mass/Vol] 120 mg/dL <200 [facility] Comment on above: <200 mg/dL Desirable 200-240 mg/dL Borderline >240 mg/dL High Risk Eosinophils/100 WBC (Bld) 1.3 % 0-5 [facility] Glucose [Mass/Vol] 190 mg/dL 74-[address] [facility] Comment on above: Fasting Glucose resu lt greater than or equal to 126 mg/dL suggests DIABETES MELLITUS per A.D.A. criteria. Neutrophils (Bld) [#/Vol] 4.4 10*3/uL 2.0-7.7 [facility] Neutrophils/100 WBC (Bld) 70.1 % 47-70 [facility] Potassium [Moles/Vol] 4.9 mmol/L 3.5-5.1 [facility] Protein [Mass/Vol] 7.3 g/dL 6.4-8.[address] [facility] Sodium [Moles/Vol] 137 mmol/L 136-[address] [facility] Triglyceride [Mass/Vol] 116 mg/dL <199 [facility] Comment on above: The drugs N-Acetylcy steine and Metamizole may falsely depress this assay.Serum Triglycerides Reference Interval Normal <150 mg/dL Borderline high 150 - 199 mg/dL High 200 - 499 mg/dL Very High > or = 500 mg/dL WBC (Bld) [#/Vol] 6.3 10*3/uL 4.4-11.[address] [facility] Blood erythrocytes count (nu mber/volume)Ordered By: Dr. Damian on 09-22-2022 RBC (Bld) [#/Vol] 5.29 10*6/uL 4.6-6.2 [facility] Blood hemoglobin measurement (mass/volume)Ordered By: Dr. Damian on 09-22-2022 Hemoglobin (Bld) [Mass/Vol] 15.7 g/dL 13.0-16.5 [facility] Blood lymphocytes/100 leukoc ytesOrdered By: Dr. Damian on 09-22-2022 Lymphocytes/100 WBC (Bld) 18.9 % 19-41 [facility] Blood monocytes/100 leukocyt esOrdered By: Dr. Damian on 09-22-2022 Monocytes/100 WBC (Bld) 9.2 % 0-10 [facility] Blood platelet mean volumeOr dered By: Dr. Damian on 09-22-2022 Platelet mean volume (Bld) [Entitic vol] 11.2 fL 6.2-12.0 [facility] Determination of erythrocyte mean corpuscular volume (MCV)Ordered By: Dr. Damian on 09-22-2022 MCV (RBC) [Entitic vol] 87.5 fL 80-94 [facility] Hematocrit Auto (Bld) [Volum e fraction]Ordered By: Dr. Damian on 09-22-2022 Hematocrit (Bld) [Volume fraction] 46.3 % 40-54 [facility] Laboratory - Chemistry and C hemistry - challengeOrdered By: Dr. Damian on 09-22-2022 ALP [Catalytic activity/Vol] 37 U/L 45-117 [facility] ALT [Catalytic activity/Vol] 38 U/L 16-61 [facility] CO2 [Moles/Vol] 29.0 mmol/L 21.0-32.0 [facility] Globulin (S) [Mass/Vol] 3.5 g/dL 2.2-4.2 [facility] Urea nitrogen/Creatinine [Mass ratio] 24.9 mg/mg 10-20 [facility] Laboratory - Hematology and Cell countsOrdered By: Dr. Damian on 09-22-2022 Erythrocyte distribution width (RBC) [Entitic vol] 39.7 fL 35.1-43.9 [facility] Erythrocyte distribution width (RBC) [Ratio] 12.5 % 11.6-14.6 [facility] Immature granulocytes/100 WBC (Bld) 0.300 % 0.0-0.9 [facility] Comment on above: IG% - Immature Granu locytes (promyelocytes, myelocytes and metamyelocytes) > 1% indicates that a LEFT SHIFT is Present. MCH (RBC) [Entitic mass] 29.7 pg 27.0-32.0 [facility] Nucleated RBC/100 WBC (Bld) [Ratio] 0 % 0-5 [facility] MCHC Auto (RBC) [Mass/Vol]Or dered By: Dr. Damian on 09-22-2022 MCHC (RBC) [Mass/Vol] 33.9 g/dL 32-36 [facility] No Panel InformationOrdered By: Dr. Damian on 09-22-2022 Urine Microalbumin/Creatini ne Ratio 9.9 mg/g CRE <30 [facility] Estimated GFR (MDRD) Amer 124 mL/min >60 [facility] Comment on above: GFR Calc Estimated GFR (MDRD) Non-Af Amer 102 mL/min >60 [facility] Comment on above: Non- GFR Calc Platelets bldOrdered By: Dr. Damian on 09-22-2022 Platelets (Bld) [#/Vol] 207 10*3/uL 150-450 [facility] Serum or plasma albumin víctor urement (mass/volume)Ordered By: Dr. Damian on 09-22-2022 Albumin [Mass/Vol] 3.8 g/dL 3.2-5.[address] [facility] Serum or plasma albumin/glob ulin mass ratioOrdered By: Dr. Damian on 09-22-2022 Albumin/Globulin [Mass ratio] 1.1 {ratio} 0.9-2.4 [facility] Serum or plasma calcium víctor urement (mass/volume)Ordered By: Dr. Damian on 09-22-2022 Calcium [Mass/Vol] 9.0 mg/dL 8.5-10.[address] [facility] Serum or plasma cholesterol in HDL measurement (mass/volume)Ordered By: Dr. Damian on 09-22-2022 Cholesterol in HDL [Mass/Vol] 34 mg/dL >40 [facility] Comment on above: The drugs N-Acetylcy steine and Metamizole may falsely depress this assay. Reference Range HDL <40 mg/dL Low HDL Cholesterol HDL >or= 60 mg/dL High HDL Cholesterol Serum or plasma cholesterol in VLDL measurement (mass/volume)Ordered By: Dr. Damian on 09-22-2022 Cholesterol in VLDL [Mass/Vol] 23 mg/dL 5-40 [facility] Serum or plasma creatinine m easurement (mass/volume)Ordered By: Dr. Damian on 09-22-2022 Creatinine [Mass/Vol] 0.80 mg/dL 0.70-1.30 [facility] Comment on above: The validity of the calculated GFR & GFRAA in patients over 70 years has not been determined. Clinical correlation is essential. Serum or plasma low density lipoprotein (LDL) cholesterol measurement (mass/volume)Ordered By: Dr. Damian on 09-22-2022 Cholesterol in LDL [Mass/Vol] 63 mg/dL 0-130 [facility] Serum or plasma urea nitroge n measurement (mass/volume)Ordered By: Dr. Damian on 09-22-2022 Urea nitrogen [Mass/Vol] 20 mg/dL 7-18 [facility] Thin prep Papanicolaou smear with manual screeningOrdered By: Dr. Damian on 09-22-2022 Thin prep Papanicolaou smear with manual screening 9.6 mg/L NO RANGE EST. [facility] Thin prep Papanicolaou smear with manual screening 15 U/L 15-37 [facility] Thin prep Papanicolaou smear with manual screening 6 5-15 [facility] Urine creatinine measurement (mass/volume)Ordered By: Dr. Damian on 09-22-2022 Creatinine (U) [Mass/Vol] 96.40 mg/dL NO RANGE EST. [facility] Whole blood hemoglobin A1c/t otal hemoglobin ratio (mass fraction)Ordered By: Dr. Damian on 09-22-2022 HbA1c (Bld) [Mass fraction] 7.0 % 3.8-5.6 [facility] Comment on above: Normal < 5.7 % [...] 12:07:00 PM Ordering Provider: DANIEL COCHRAN Normal [facility] ([place]) .GFRon 04-08-2022 GFR 92 ml/min/1.73sqm Normal [facility] ([place] Comment on above: Result Comment: GFR Population [...] G FR, TSH, CMP, A1C, LIPID #### [address] [id number] GFR Non- 76 ml/min/1.73sqm Normal [facility] ([place]) Comment on above: Result Comment: GFR Population [...] G FR, TSH, CMP, A1C, LIPID #### [address] [address] A1Con 04-08-2022 HbA1c (Bld) [Mass fraction] 7.7 % High 4.3-6.4 [facility] Comment on above: Performed By: #### G FR, TSH, CMP, A1C, LIPID #### [address] [address] CMPon 04-08-2022 Albumin Level 3.9 G/dL Normal 3.4-4.8 [facility] ([place]) Comment on above: Performed By: #### G FR, TSH, CMP, A1C, LIPID #### [address] [address] Albumin/Globulin [Mass ratio] 1.2 {ratio} Normal 1.1-2.5 [facility] ([place]) Comment on above: Performed By: #### G FR, TSH, CMP, A1C, LIPID #### [address] [address] ALP [Catalytic activity/Vol] 43 U/L Normal 40-135 [facility] ([place] Comment on above: Performed By: #### G FR, TSH, CMP, A1C, LIPID #### [address] [address] ALT [Catalytic activity/Vol] 71 U/L High 16-63 [facility] ([place]) Comment on above: Performed By: #### G FR, TSH, CMP, A1C, LIPID #### [address] [address] AST [Catalytic activity/Vol] 28 U/L Normal 10-40 [facility] ([place]) Comment on above: Performed By: #### G FR, TSH, CMP, A1C, LIPID #### [address] [address] Bili Total 0.6 mg/dL Normal 0.2-1.0 [facility] ([place]) Comment on above: Result Comment: Use of this assay is not recommended for patients undergoing treatment with eltrombopag due to the potential for falsely elevated results. Performed By: #### G FR, TSH, CMP, A1C, LIPID #### [address] [address] BUN/Creatinine Ratio 16 ratio Normal 7-27 [facility] ([place]) Comment on above: Performed By: #### G FR, TSH, CMP, A1C, LIPID #### [address] [address] Calcium [Mass/Vol] 8.9 mg/dL Normal 8.4-10.2 [facility] ([place]) Comment on above: Performed By: #### G FR, TSH, CMP, A1C, LIPID #### [address] [address] Chloride [Moles/Vol] 101 mmol/L Normal 98-107 [facility] ([place]) Comment on above: Performed By: #### G FR, TSH, CMP, A1C, LIPID #### [address] [address] CO2 [Moles/Vol] 26 mmol/L Normal 23-31 [facility] ([place]) Comment on above: Performed By: #### G FR, TSH, CMP, A1C, LIPID #### [address] [address] Creatinine [Mass/Vol] 0.99 mg/dL Normal 0.70-1.30 [facility] ([place]) Comment on above: Performed By: #### G FR, TSH, CMP, A1C, LIPID #### [address] [address] Electrolyte Balance 8.0 mEq/L Normal 4.0-15.0 [facility] ([place]) Comment on above: Performed By: #### G FR, TSH, CMP, A1C, LIPID #### [address] [address] Globulin 3.3 G/dL Normal [facility] ([place]) Comment on above: Performed By: #### G FR, TSH, CMP, A1C, LIPID #### [address] [address] Glucose [Mass/Vol] 298 mg/dL High 80-115 [facility] ([place]) Comment on above: Performed By: #### G FR, TSH, CMP, A1C, LIPID #### [address] [address] Potassium [Moles/Vol] 4.5 mmol/L Normal 3.5-5.1 [facility] ([place]) Comment on above: Performed By: #### G FR, TSH, CMP, A1C, LIPID #### [address] [address] Sodium [Moles/Vol] 135 mmol/L Low 136-145 [facility] ([place]) Comment on above: Performed By: #### G FR, TSH, CMP, A1C, LIPID #### [address] [address] Total Protein 7.2 G/dL Normal 6.4-8.2 [facility] ([place]) Comment on above: Performed By: #### G FR, TSH, CMP, A1C, LIPID #### [address] [address] Urea nitrogen [Mass/Vol] 16 mg/dL Normal 7-18 [facility] ([place]) Comment on above: Performed By: #### G FR, TSH, CMP, A1C, LIPID #### [address] [address] LIPIDon 04-08-2022 Cholesterol [Mass/Vol] 124 mg/dL Normal 0-200 [facility] ([place]) Comment on above: Result Comment: Chol esterol Reference Interval: Less than 200 Desirable 200-239 Borderline high risk 240 and above High risk Performed By: #### G FR, TSH, CMP, A1C, LIPID #### [address] [address] Cholesterol in HDL [Mass/Vol] 34 mg/dL Low 40-60 [facility] ([place]) Comment on above: Performed By: #### G FR, TSH, CMP, A1C, LIPID #### [address] [address] Cholesterol in LDL [Mass/Vol] 66 mg/dL Normal 0-130 [facility] ([place]) Comment on above: Performed By: #### G FR, TSH, CMP, A1C, LIPID #### [address] [address] Triglyceride [Mass/Vol] 118 mg/dL Normal 0-150 [facility] ([place]) Comment on above: Result Comment: Trig lyceride Reference Interval: Less than 150 Normal 150-199 Borderline high risk 200-499 High risk 500 or higher Very high risk Performed By: #### G FR, TSH, CMP, A1C, LIPID #### [address] [address] TSHon 04-08-2022 TSH Qn 0.65 m[IU]/L Normal 0.36-3.74 [facility] ([place]) Comment on above: Performed By: #### G FR, TSH, CMP, A1C, LIPID #### [place] [address] [address] .Auto Diffon 11-22-2021 Basophil, Absolute 0.00 10 3/mcL Normal 0.00-0.19 [facility] ([place]) Comment on above: Performed By: #### JAROD PEREZ ANEU #### [place] [address] [address] Basophils/100 WBC (Bld) 0.2 % Normal 0.0-2.5 [facility] ([place]) Comment on above: Performed By: #### JAROD PEREZ ANEU #### [place] [address] [address] Eosinophil, Absolute 0.10 10 3/mcL Normal 0.00-0.40 [facility] ([place]) Comment on above: Performed By: #### JAROD PEREZ, ANEU #### [place] [address] [address] Eosinophils/100 WBC (Bld) 1.9 % Normal 0.0-7.0 [facility] ([place]) Comment on above: Performed By: #### JAROD PEREZ ANEU #### [place] [address] [address] Lymphocyte, Absolute 1.50 10 3/mcL Normal 0.77-3.85 [facility] ([place]) Comment on above: Performed By: #### JAROD PEREZ, ANEU #### [address] [address] Lymphocytes/100 WBC (Bld) 23.1 % Normal 10.0-50.0 [facility] ([place]) Comment on above: Performed By: #### C JAROD LLOYD, ANEU #### [address] [address] Monocyte, Absolute 0.60 10 3/mcL Normal 0.15-1.00 [facility] ([place]) Comment on above: Performed By: #### C JAROD LLOYD, ANEU #### [address] [address] Monocytes/100 WBC (Bld) 9.8 % Normal 1.7-13.0 [facility] ([place]) Comment on above: Performed By: #### C JAROD LLOYD, ANEU #### [address] [address] Neutrophils/100 WBC (Bld) 65.0 % Normal 37.0-80.0 [facility] ([place]) Comment on above: Performed By: #### C JAROD LLOYD, ANEU #### [address] [address] .NEUABSon 11-22-2021 Neutrophil, Absolute 4.20 10 3/mcL Normal 2.85-6.16 [facility] ([place]) Comment on above: Performed By: #### C JAROD LLOYD, ANEU #### [address] [address] CBCon 11-22-2021 Erythrocyte distribution width (RBC) [Ratio] 13.3 % Normal 11.5-14.5 [facility] ([place]) Comment on above: Performed By: #### JAROD PEREZ, ANEU #### [address] [address] Hematocrit (Bld) [Volume fraction] 45.5 % Normal 42.0-52.0 [facility] ([place]) Comment on above: Performed By: #### C JAROD LLOYD, ANEU #### [place] [address] [address] Hgb 15.7 G/dL Normal 14.0-18.0 [facility] ([place]) Comment on above: Performed By: #### JAROD PEREZ ANEU #### [address] [address] MCH (RBC) [Entitic mass] 30.0 pg Normal 27.0-31.2 [facility] ([place]) Comment on above: Performed By: #### JAROD PEREZ, ANEU #### [place] [address] [address] MCHC 34.6 G/dL Normal 31.8-35.4 [facility] ([place]) Comment on above: Performed By: #### JAROD PEREZ, ANEU #### [place] [address] [address] MCV (RBC) [Entitic vol] 86.8 fL Normal 80.0-94.0 [facility] ([place]) Comment on above: Performed By: #### JAROD PEREZ, ANEU #### [address] [address] Platelet 201 10 3/mcL Normal 130-400 [facility] ([place]) Comment on above: Performed By: #### JAROD PEREZ, ANEU #### [address] [address] Platelet mean volume (Bld) [Entitic vol] 9.8 fL Normal 7.4-10.4 [facility] ([place]) Comment on above: Performed By: #### JAROD PEREZ, ANEU #### [address] [address] RBC 5.24 10 6/mcL Normal 4.04-6.13 [facility] ([place]) Comment on above: Performed By: #### JAROD PEREZ, ANEU #### [place] [address] [address] WBC 6.50 10 3/mcL Normal 4.60-10.80 [facility] ([place]) Comment on above: Performed By: #### JAROD PEREZ, ANEU #### [place] [address] [place], [place] [address] LABORATORYOrdered By: Reagan Huang on 11-22-2021 Basophil, [...] AO Auto Heme SS LABORATORYOrdered By: John Quintanilla on 11-22-2021 Prostate specific Ag [Mass/Vol] 0.69 ng/mL Invalid Interpretation Code 0.00 - 4.00 ng/mL AO ADM SS PSAon 11-22-2021 Prostate Specific Antigen 0.69 ng/mL Normal 0.00-4.00 [facility] ([place]) Comment on above: Performed By: #### P #### [address] [place], [place] [address] MSCon 02-14-[address] [facility] REPORT Normal [facility] DATE OF SERVICE: 02/2019 REASON FOR [...] answered to his satisfaction. Rigoberto Pena MD PP/[id number] [facility] File#: [id number] [facility] PATIENT NAME: ANGELIA KERNS L [address] [place] MEDICAL REC #: [id number] [place] [address] [facility] REPORT [facility] PHYSICIAN Verified/Reviewed by 02/28/19 Edwar KATHARINA [facility] PATIENT NAME: ANGELIA KERNS [address] [place] MEDICAL REC #: [id number] [place] [address] [facility] REPORT [facility] PHYSICIAN Normal [facility] Vital Signs Date Time Vital Sign Value Performing Clinician Faci lity 08-19-2025 09:37-0400 Body height 180.34 cm Zackary Ballesteros 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 Work Phone: 3(253)231-723072 [place] [address] 08-19-2025 09:37-0400 Body mass index (BMI) [Ratio] 25.5 kg/m2 Zackary Ballesteros 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 Work Phone: 1(080)005-130972 [place] [address] 08-19-2025 09:37-0400 Body temperature 97.2 [degF] Zackary Ballesteros 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 Work Phone: 8(667)576-153872 [place] [address] 08-19-2025 09:37-0400 Body weight 83 kg Zackary Ballesteros 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 Work Phone: 2(300)390-520672 [place] [address] 08-19-2025 09:37-0400 Diastolic blood pressure 83 mm[Hg] Zackary Ballesteros 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 Work Phone: 2(303)240-528372 [place] [address] 08-19-2025 09:37-0400 Heart rate 76 /min Zackary Ballesteros 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 Work Phone: 5(622)823-142172 [place] [address] 08-19-2025 09:37-0400 Respiratory rate 18 /min Zackary Ballesteros 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 Work Phone: 5(627)224-901972 [place] [address] 08-19-2025 09:37-0400 SaO2% (BldA) [Mass fraction] 97 % Zackary Ballesteros 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 Work Phone: 4(251)983-870072 [place] [address] 08-19-2025 09:37-0400 Systolic blood pressure 153 mm[Hg] Zackary Ballesteros 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 Work Phone: 3(521)511-911772 [place] [address] 08-02-2025 10:17-0400 Body height 180.34 cm Zackary Ballesteros 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 Work Phone: 3(935)667-689272 [place] [address] 08-02-2025 10:17-0400 Body mass index (BMI) [Ratio] 25.4 kg/m2 Zackary Ballesteros 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 Work Phone: 9(331)214-097572 [place] [address] 08-02-2025 10:17-0400 Body temperature 97.4 [degF] Zackary Ballesteros 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 Work Phone: 6(302)429-196772 [place] [address] 08-02-2025 10:17-0400 Body weight 82.73 kg Zackary Ballesteros 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 Work Phone: 8(134)864-981572 [place] [address] 08-02-2025 10:17-0400 Diastolic blood pressure 77 mm[Hg] Zackary Ballesteros 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 Work Phone: 7(754)405-735272 [place] [address] 08-02-2025 10:17-0400 Heart rate 77 /min Zackary Ballesteros 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 Work Phone: 5(348)426-874772 [place] [address] 08-02-2025 10:17-0400 Respiratory rate 16 /min Zackary Ballesteros 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 Work Phone: 3(185)895-379572 [place] [address] 08-02-2025 10:17-0400 SaO2% (BldA) [Mass fraction] 98 % Zackary Ballesteros 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 Work Phone: 6(855)439-459172 [place] [address] 08-02-2025 10:17-0400 Systolic blood pressure 144 mm[Hg] Zackary Ballesteros 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 Work Phone: 9(569)240-561172 [place] [address] 07-24-2025 12:50-0400 Body height 180.34 cm Zackary Ballesteros 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 Work Phone: 1(840)351-145472 [place] [address] 07-24-2025 12:50-0400 Body mass index (BMI) [Ratio] 25.4 kg/m2 Zackary Ballesteros 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 Work Phone: 7(081)472-869372 [place] [address] 07-24-2025 12:50-0400 Body weight 82.55 kg Zackary Ballesteros 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 Work Phone: 9(555)229-611072 [place] [address] 07-24-2025 12:50-0400 Diastolic blood pressure 68 mm[Hg] Zackary Ballesteros 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 Work Phone: 3(692)159-754172 [place] [address] 07-24-2025 12:50-0400 Heart rate 76 /min Zackary Ballesteros 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 Work Phone: 2(973)855-341225 [place] [address] 07-24-2025 12:50-0400 Respiratory rate 17 /min Zackary Ballesteros 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 Work Phone: 0(908)978-319772 [place] [address] 07-24-2025 12:50-0400 SaO2% (BldA) [Mass fraction] 98 % Zackary Ballesteros 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 Work Phone: 2(460)798-908072 [place] [address] 07-24-2025 12:50-0400 Systolic blood pressure 145 mm[Hg] Zackary Ballesteros 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 Work Phone: 7(685)499-392372 [place] [address] 01-28-2025 10:40-0400 Body temperature 97.1 [degF] Zackary Ballesteros 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 Work Phone: 8(780)951-952172 [place] [address] 01-28-2025 10:40-0400 Diastolic blood pressure 88 mm[Hg] Zackary Ballesteros 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 Work Phone: 5(580)467-128072 [place] [address] 01-28-2025 10:40-0400 Heart rate 64 /min Zackary Ballesteros 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 Work Phone: 2(410)231-706272 [place] [address] 01-28-2025 10:40-0400 Respiratory rate 18 /min Zackary Ballesteros 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 Work Phone: 5(672)117-440272 [place] [address] 01-28-2025 10:40-0400 SaO2% (BldA) [Mass fraction] 100 % Zackary Ballesteros 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 Work Phone: 2(473)718-857672 [place] [address] 01-28-2025 10:40-0400 Systolic blood pressure 143 mm[Hg] Zackary Ballesteros 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 Work Phone: 1(421)596-867072 [place] [address] 01-28-2025 08:17-0400 Body height 180.34 cm Zackary Ballesteros 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 Work Phone: 1(646)341-053272 [place] [address] 01-28-2025 08:17-0400 Body mass index (BMI) [Ratio] 24.5 kg/m2 Zackary Ballesteros 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 Work Phone: 3(959)217-001072 [place] [address] 01-28-2025 08:17-0400 Body weight 79.7 kg Zackary Ballesteros 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 Work Phone: 5(430)765-624572 [place] [address] 12-23-2024 08:16-0500 Diastolic blood pressure 78 mm[Hg] Zackary Ballesteros 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 Work Phone: 0(418)277-576525 [place] [address] 12-23-2024 08:16-0500 Heart rate 87 /min Zackary Ballesteros 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 Work Phone: 7(848)775-473825 [place] [address] 12-23-2024 08:16-0500 Respiratory rate 18 /min Zackary Ballesteros 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 Work Phone: 6(134)963-732425 [place] [address] 12-23-2024 08:16-0500 Systolic blood pressure 144 mm[Hg] Zackary Ballesteros 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 Work Phone: 6(205)337-713925 [place] [address] 10-25-2024 10:17-0500 Body temperature 98.2 [degF] Zackary Ballesteros 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 Work Phone: 6(860)603-306125 [place] [address] 10-25-2024 10:17-0500 Diastolic blood pressure 93 mm[Hg] Zackary Ballesteros 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 Work Phone: 7(321)839-104525 [place] [address] 10-25-2024 10:17-0500 Heart rate 87 /min Zackary Ballesteros 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 Work Phone: 8(827)919-052825 [place] [address] 10-25-2024 10:17-0500 Respiratory rate 19 /min Zackary Ballesteros 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 Work Phone: 9(295)520-750525 [place] [address] 10-25-2024 10:17-0500 SaO2% (BldA) [Mass fraction] 97 % Zackary Ballesteros 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 Work Phone: 2(115)621-909225 [place] [address] 10-25-2024 10:17-0500 Systolic blood pressure 163 mm[Hg] Zackary Ballesteros 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 Work Phone: 7(598)265-925125 [place] [address] 10-25-2024 08:52-0500 Body mass index (BMI) [Ratio] 27.3 kg/m2 Zackary Ballesteros 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 Work Phone: 1(105)204-594225 [place] [address] 10-25-2024 08:52-0500 Body weight 88.9 kg Zackary Ballesteros 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 Work Phone: 0(051)908-322525 [place] [address] 10-07-2024 10:07-0500 Body mass index (BMI) [Ratio] 28.4 kg/m2 Zackary Taylorder 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 Work Phone: [facility] 10-07-2024 10:07-0500 Body temperature 98.2 [degF] Zackary Taylorder 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 Work Phone: [facility] 10-07-2024 10:07-0500 Body weight 92.53 kg Zackary Taylorder 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 Work Phone: [facility] 10-07-2024 10:07-0500 Diastolic blood pressure 86 mm[Hg] Zackary Ballesteros 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 Work Phone: [facility] 10-07-2024 10:07-0500 Heart rate 72 /min Zackary Ballesteros 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 Work Phone: [facility] 10-07-2024 10:07-0500 Respiratory rate 18 /min Zackary Taylorder 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 Work Phone: [facility] 10-07-2024 10:07-0500 SaO2% (BldA) [Mass fraction] 97 % Zackary Ballesteros 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 Work Phone: [facility] 10-07-2024 10:07-0500 Systolic blood pressure 178 mm[Hg] Zackary Taylorder 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 Work Phone: [facility] 10-03-2023 11:41-0500 Diastolic blood pressure 82 mm[Hg] Dr. Amara Damian Work Phone: [facility] 10-03-2023 11:41-0500 Systolic blood pressure 142 mm[Hg] Dr. Amara Damian Work Phone: [facility] 10-03-2023 08:18-0500 Body height 180.[address] Amara Damian Work Phone: [facility] 10-03-2023 08:18-0500 Body temperature 97.9 [degF] Dr. Amara Damian Work Phone: [facility] 10-03-2023 08:18-0500 Heart rate 74 /min Dr. Amara Damian Work Phone: [facility] 10-03-2023 08:18-0500 Respiratory rate 15 /min Dr. Amara Damian Work Phone: [facility] 10-03-2023 08:18-0500 SaO2% (BldA) [Mass fraction] 97 % Dr. Amara Damian Work Phone: [facility] 12-08-2022 08:58-0500 Body temperature 97.6 [degF] Dr. Amara Damian Work Phone: [facility] 12-08-2022 08:58-0500 Diastolic blood pressure 76 mm[Hg] Dr. Amara Damian Work Phone: [facility] 12-08-2022 08:58-0500 Heart rate 69 /min Dr. Amara Damian Work Phone: [facility] 12-08-2022 08:58-0500 Respiratory rate 18 /min Dr. Amara Damian Work Phone: [facility] 12-08-2022 08:58-0500 SaO2% (BldA) [Mass fraction] 97 % Dr. Amara Damian Work Phone: [facility] 12-08-2022 08:58-0500 Systolic blood pressure 124 mm[Hg] Dr. Amara Damian Work Phone: [facility] 12-08-2022 06:57-0500 Body height 180.[address] Amara Damian Work Phone: [facility] 12-08-2022 06:57-0500 Body mass index (BMI) [Ratio] 31.9 kg/m2 Dr. Amara Damian Work Phone: [facility] 12-08-2022 06:57-0500 Body weight [address] Amara Damian Work Phone: [facility] 10-10-2022 07:55-0500 Body mass index (BMI) [Ratio] 32.8 kg/m2 Dr. Amara Damian Work Phone: [facility] 10-10-2022 07:55-0500 Body temperature 97.2 [degF] Dr. Amara Damian Work Phone: [facility] 10-10-2022 07:55-0500 Body weight 106.[address] Amara Damian Work Phone: [facility] 10-10-2022 07:55-0500 Diastolic blood pressure 80 mm[Hg] Dr. Amara Damian Work Phone: [facility] 10-10-2022 07:55-0500 Heart rate 76 /min Dr. Amara Damian Work Phone: [facility] 10-10-2022 07:55-0500 Respiratory rate 17 /min Dr. Amara Damian Work Phone: [facility] 10-10-2022 07:55-0500 SaO2% (BldA) [Mass fraction] 98 % Dr. Amara Damian Work Phone: [facility] 10-10-2022 07:55-0500 Systolic blood pressure 146 mm[Hg] Dr. Amara Damian Work Phone: [facility] 09-22-2022 09:27-0500 Diastolic blood pressure 98 mm[Hg] Dr. Amara Damian Work Phone: [facility] 09-22-2022 09:27-0500 Systolic blood pressure 138 mm[Hg] Dr. Amara Damian Work Phone: [facility] 09-22-2022 08:24-0500 Body height 180.[address] Amara Damian Work Phone: [facility] Work Phone: 09-22-2022 08:24-0500 Body mass index (BMI) [Ratio] 32.6 kg/m2 Dr. Amara Damian Work Phone: [facility] 09-22-2022 08:24-0500 Body temperature 96.6 [degF] Dr. Amara Damian Work Phone: [facility] 09-22-2022 08:24-0500 Body weight 106.[address] Amara Damian Work Phone: [facility] 09-22-2022 08:24-0500 Heart rate 82 /min Dr. Amara Damian Work Phone: [facility] 09-22-2022 08:24-0500 Respiratory rate 16 /min Dr. Amara Damian Work Phone: [facility] 09-22-2022 08:24-0500 SaO2% (BldA) [Mass fraction] 96 % Dr. Amara Damian Work Phone: [facility] 08-08-2022 10:56-0400 Diastolic blood pressure 82 mm[Hg] Dr. Amara Damian Work Phone: [facility] Work Phone: 08-08-2022 10:56-0400 Systolic blood pressure 142 mm[Hg] Dr. Amara Damian Work Phone: [facility] Work Phone: 08-08-2022 10:28-0400 Body mass index (BMI) [Ratio] 33.2 kg/m2 Dr. Amara Damian Work Phone: [facility] Work Phone: 08-08-2022 10:28-0400 Body temperature 97.5 [degF] Dr. Amara Damian Work Phone: [facility] Work Phone: 08-08-2022 10:28-0400 Body weight 107.[address] Amara Damian Work Phone: [facility] Work Phone: 08-08-2022 10:28-0400 Heart rate 80 /min Dr. Amara Damian Work Phone: [facility] Work Phone: 08-08-2022 10:28-0400 Respiratory rate 14 /min Dr. Amara Damian Work Phone: [facility] Work Phone: 08-08-2022 10:28-0400 SaO2% (BldA) [Mass fraction] 97 % Dr. Amara Damian Work Phone: [facility] Work Phone: Encounters Encounter Date Encounter Type Care Provider Facility Start: 09-18-2025 ambulatory Chuck Bruce Facility: [facility] Start: 09-17-2025 Encounter for other preprocedural examination Chuck Bruce [facility] Start: 08-19-2025 End: 08-19-[address] Chuck Bruce MD -[facility] Work Phone: Start: 08-19-2025 End: 08-19-2025 ambulatory Zackary Ballesteros 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 Work Phone: -[facility] Start: 08-08-2025 End: 08-08-[address] Chuck Bruce MD -[facility] Work Phone: Start: 08-08-2025 End: 08-08-2025 ambulatory Zackary Ballesteros 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 Work Phone: -[facility] Start: 08-05-2025 End: 08-05-2025 Patient encounter procedure Daksha Peña PA-C -[facility] Work Phone: Start: 08-05-2025 End: 08-05-2025 ambulatory Zackary Ballesteros 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 Work Phone: -[facility] Start: 08-04-2025 End: 08-04-2025 Patient encounter procedure Daksha Peña PA-C -[facility] Work Phone: Start: 08-04-2025 End: 08-04-2025 ambulatory Zackary Ballesteros 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 Work Phone: -[facility] Start: 08-02-2025 ambulatory Chuck Bruce Facility: [facility] Start: 08-02-2025 Non-patient / Non-visit Dr. Chuck Bruce MD -[facility] Start: 08-02-2025 End: 08-02-2025 Emergency department patient visit Dr. Darius Henderson MD -Emergency Department Work Phone: Start: 08-01-2025 Non-patient / Non-visit [facility]. Ann [facility] Work Phone: Start: 07-24-2025 End: 07-24-[address] Chuck Bruce MD -[facility] Work Phone: Start: 07-24-2025 End: 07-24-2025 ambulatory Zackary Ballesteros 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 Work Phone: -[facility] Start: 06-25-2025 End: 06-25-2025 ambulatory Zackary Ballesteros 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 Work Phone: -Cat Scan [facility] Start: 06-25-2025 End: 06-25-2025 Patient encounter procedure Lan David 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 -Cat Scan [facility] Work Phone: Start: 06-25-2025 End: 06-25-2025 ambulatory Zackary Ballesteros VSC Facility:[facility] Start: 05-12-2025 End: 05-12-[address] Chuck Bruce MD -[facility] Work Phone: Start: 05-12-2025 End: 05-12-2025 ambulatory Zackary Ballesteros 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 Work Phone: -[facility] Start: 04-21-2025 End: 04-21-[address] Chuck Bruce MD -[facility] Work Phone: Start: 04-21-2025 End: 04-21-2025 ambulatory Zackary Ballesteros 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 Work Phone: [facility] Work Phone: Start: 04-04-2025 End: 04-04-[address] Chuck Bruce MD -[facility] Work Phone: Start: 04-04-2025 End: 04-04-2025 ambulatory Zackary Ballesteros VSC Facility:[facility] Start: 03-10-2025 ambulatory Zackary Ballesteros VSC Facility :[facility] Start: 02-20-2025 End: 02-20-[address] Chuck Bruce MD -[facility] Work Phone: Start: 02-20-2025 End: 02-20-2025 ambulatory Zackary Ballesteros VSC Facility:[facility] Start: 01-28-2025 ambulatory Chuck Bruce Facility: [facility] Start: 01-28-2025 Non-patient / Non-visit Dr. Chuck Bruce MD -[facility] Start: 01-28-2025 End: 01-28-2025 Admission to same day surgery center Dr. 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 Chuck Bruce MD -[facility] Work Phone: Start: 12-23-2024 End: 12-23-2024 ambulatory Chuck Bruce Facility:[facility] Start: 12-18-2024 ambulatory Chuck Bruce Facility: [facility] Start: 10-25-2024 End: 10-25-2024 Emergency department patient visit Dr. Wood Hinojosa MD -Emergency Department Work Phone: Start: 10-07-2024 End: 10-07-[address] Chuck Bruce MD -[facility] Work Phone: Start: 10-07-2024 End: 10-07-2024 ambulatory Chuck Bruce Facility:[facility] Start: 10-03-2023 End: 10-03-[address] Amara Damian Work Phone: [facility] Work Phone: Start: 10-03-2023 End: 10-03-[address] Amara Damian Work Phone: [facility] Work Phone: Start: 09-07-2023 End: 09-07-2023 ambulatory [facility] Work Phone: Start: 09-07-2023 End: 09-07-2023 Patient encounter procedure [facility] [place] Start: 03-08-2023 End: 03-08-2023 ambulatory [facility] Facility:[id number] Start: 12-08-2022 Non-patient / Non-visit Dr. Laureano Work Phone: [facility] Start: 12-08-2022 End: 12-08-2022 Admission to same day surgery center Dr. Amara Damian Work Phone: [facility]-Endoscopy Start: 12-08-2022 End: 12-08-[address] Amara Damian Work Phone: [facility] Work Phone: Start: 10-10-2022 End: 10-10-[address] Amara Damian Work Phone: [facility] Start: 09-22-2022 End: 09-22-[address] Amara Damian Work Phone: [facility] Work Phone: Start: 09-22-2022 End: 09-22-[address] Amara Damian Work Phone: [facility]atory, [facility] Start: 09-22-2022 End: 09-22-[address] Amara Damian Work Phone: [facility] Start: 08-08-2022 End: 08-08-[address] Amara Damian Work Phone: [facility] Start: 07-20-2022 End: 07-21-2022 ambulatory MS. DANIEL COCHRAN [facility] Facility:[facility] Start: 07-20-2022 End: 07-20-2022 Patient encounter procedure DANIEL COCHRAN SAP TECHNICAL ARCHITECT-[facility] Start: 04-08-2022 End: 04-09-2022 ambulatory MS. DANIEL COCHRAN [facility] Facility:[facility] Start: 11-22-2021 End: 11-23-[address] ZANA HOOD MD. 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 Work Phone: Start: 06-25-2025 Creatinine blood Zackary catalan 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 Work Phone: Start: 06-25-2025 Creatinine measurement Zackary Ballesteros 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 Work Phone: Start: 06-25-2025 Ultrasound of scrotu m with Doppler and color flow imaging Zackary Ballesteros 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 Work Phone: Start: 01-28-2025 Colonoscopy Zackary Ballesteros 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 Work Phone: Start: 01-22-2025 Prostate specific an tigen measurement Zackary Ballesteros 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 Work Phone: Comment on above: This test [...] Treatment Date Care Activity Detail Author Start: 08-08-2025 End: 08-08-2025 Patient encounter procedure Emily-rectal abscess -[facility] Work Phone: Start: 08-05-2025 End: 08-05-2025 Patient encounter procedure Emily-rectal abscess -[facility] Work Phone: Start: 08-02-2025 [facility] Start: 01-28-2025 Colsc flx w/rmvl of tumor polyp lesion snare tq COLONOSCOPY W/LESION REMOVAL [facility] Start: 01-28-2025 Hemorrhoidectomy internal rubber band ligations LIGATION OF HEMORRHOID(S) [facility] Start: 01-28-2025 Patient discharge [facility] Start: 10-25-2024 [facility] Start: 12-08-2022 Patient discharge [facility] Colonoscopy [facility] Methicillin resistan t Staphylococcus aureus screening test [facility] Patient Education [facility] Work Phone: Patient referral [facility] Work Phone: Immunizations Immunization Date Immunization Notes Care Provider Ricco graciazion 07-05-2021 SARS-CoV-2 (COVID-19 ) mRNA-1273 vaccine DANIELETHAN COCHRAN SAP TECHNICAL ARCHITECT[facility] 05-28-2021 SARS-CoV-2 (COVID-19 ) mRNA-1273 vaccine DANIEL DE LA ODILLON SAP TECHNICAL ARCHITECT[facility] 01-13-2014 zoster vaccine, live DANIEL DE LA ODILLON SAP TECHNICAL ARCHITECT[facility] 06-20-2013 tetanus toxoid, redu adria diphtheria toxoid, and acellular pertussis vaccine, adsorbed DANIEL DE LA ODILLON SAP TECHNICAL ARCHITECT[facility] Payers Date Payer Category Payer Medicare [id number] 2024 Self-pay 2022 Medicaid [id number] 2021 Medicare [id number] 2017 Unknown [id number] 1955 Unknown [id number] 2.16. [id number] 1955 Unknown [id number] 2.16.8 40.1.193960.3.579.2.627 1955 Unknown [id number] 2.16.8 40.1.109408.3.579.2.627 1955 Unknown [id number] 2.16.8 40.1.463905.3.579.2.627 Medicaid MEDICAID [id number] Unknown [id number] 2.16.8 40.1.236236.3.579.2.273 Unknown [id number] 2.16.8 40.1.590017.3.579.2.462 Unknown [id number] 2.16.8 40.1.442283.3.579.2.462 Unknown [id number] 2.16.8 40.1.982134.3.579.2.462 Unknown [id number] 2.16.8 40.1.944318.3.579.2.462 Unknown [id number] 2.16.8 40.1.699198.3.579.2.462 Unknown [id number] 2.16.8 40.1.211908.3.579.2.462 Unknown [id number] 2.16.8 40.1.815803.3.579.2.462 Unknown [id number] 2.16.8 40.1.739970.3.579.2.462 Unknown [id number] 2.16.8 40.1.502474.3.579.2.462 Unknown [id number] 2.16.8 40.1.371693.3.579.2.462 Unknown [id number] 2.16.8 40.1.295526.3.579.2.462 Unknown [id number] 2.16.8 40.1.613691.3.579.2.462 Unknown [id number] 2.16.8 40.1.165512.3.579.2.462 Unknown [id number] 2.16.8 40.1.759143.3.579.2.462 Unknown [id number] 2.16.8 40.1.074654.3.579.2.462 Unknown [id number] 2.16.8 40.1.789537.3.579.2.462 Unknown [id number] 2.16.8 40.1.251042.3.579.2.462 Unknown [id number] 2.16.8 40.1.719826.3.579.2.462 Unknown [id number] 2.16.8 40.1.081758.3.579.2.462 Unknown [id number] 2.16.8 40.1.629665.3.579.2.462 Unknown [id number] 2.16.8 40.1.971112.3.579.2.462 Social History Date Type Detail Facility Start: 08-29-2019 End: 08-02-2025 Never smoked tobacco (finding) [facility] Comment on above: no tobacco smoke exp osure Start: 1955 Sex Assigned At Male A [facility] Start: 09-21-2022 End: 10-02-2023 Tobacco smoking status NHIS Unknown if ever smoked [facility] Start: 01-28-2025 End: 02-01-2025 Sex Male (finding) [facility] Sex Male [facility] Medical Equipment Procedure Code Equipment Code Equipment Origin al Text Equipment Identifier Dates Colonoscopy Oesophageal endoscopic ligator, single-useHaemorrhoid ligator [id number] [facility] Start: 01-28-2025 Goals Date Patient Goal Desired Activity /State Mental Status Date Assessment Result Facility 08-02-2025 Cognitive function Level Of Consciousness Awake [facility] Work Phone: 01-28-2025 Cognitive function Level Of Consciousness Sedated [facility] Work Phone: 01-28-2025 Cognitive function Voice/Name [facility] Work Phone: 10-25-2024 Cognitive function Level Of Cons ciousness Awake;Alert;Appropriate;Follow s Commands [facility] Work Phone: 12-08-2022 Cognitive function Light Pain [facility] Work Phone: Clinical Notes 12-08-2022 to 08-08-2025 Note Date & Type Note Facility 08-08-2025 Progress note [facility] 08-05-2025 Progress note [facility] 08-04-2025 Progress note [facility] 08-02-2025 Consult note [facility] 08-02-2025 Discharge summary [facility] 06-27-2025 Radiology Diagnostic study note [facility] Imaging Services [address] [place] [address] Abdomen/Pelvis WITH Contrast MR#: [id number] Acct: [id number] Name: ANGELIA KERNS Rep #: [id number] : 1955 M 69 From: Alexandru Sharif MD PCP: Zackary Ballesteros, 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 Status: REG CLI Study:Abdomen/Pelvis WITH Contrast Date of Ex am: 06/25/25 Exam# [id number] Ordering Dr: Jasmeet David [facility] 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 PROCEDURE: ABDOMEN/PELVIS WITH CONTRAST 06/25/2025 REASON FOR [...] larger on the right side. Reading Location: [facility] CC: CARLOS Ballesteros; [facility] CARLOS David ~ Lump Inspector: Signed [facility] 06-27-2025 Radiology Diagnostic study note [facility] Imaging Services [address] [place] [address] Testicular with Arterial Flow MR#: [id number] Acct: [id number] Name: ANGELIA KERNS Rep #: [id number] : 1955 M 69 From: Claudia Tolbert MD PCP: CARLOS Whitt Status: REG CLI Study:Testicular with Arterial Flow Date of E xam: 06/25/25 Exam# [id number] Ordering Dr: Jasmeet David [facility] CARLOS PROCEDURE: TESTICULAR WITH ARTERIAL FLOW 06/25/2025 REASON FOR EXAM: R TESTICULAR PAIN TECHNIQUE: TESTICULAR WITH ARTERIAL FLOW FINDINGS: RIGHT testicle: 4.2 x 2.1 x 3.0 cm. Small right epididymal head cysts are benign. LEFT testicle: 4.0 x 2.0 x 2.5 cm. Small left epididymal head cyst. Other findings: "Irmo striping" is seen involving both testes-curvilinear bandsof hypoechogenicity. [...] 5 mm benign epididymal cysts. Reading Location: [id number] CC: CARLOS Ballesteros; Margaritojossy [facility] CARLOS David ~ Lump Inspector: Signed [facility] 04-21-2025 Evaluation note Diagnosis Onset Date Resolution Fissure in ano acute April 21, 2025 9:44am Fissure in ano acute May 12, 2025 2:38pm Bilateral inguinal hernia acute July 24, 2025 12:44pm Emily-rectal abscess acute Septe 2024 8:59am Pain in rectum inactive August 04, 2025 8:59am Emily-rectal abscess acute Septe 2024 8:23am Emily-rectal abscess acute Septe 2024 9:44am [facility] Work Phone: 1(101) 943-948905-23-2025 Evaluation note* Diagnosis Onset Date Resolution Status Admit Date Hemorrhoids acute April 04 2:01pm Right groin pain acute March 2:01pm Fissure in ano acute April 21, 2025 9:44am Fissure in ano acute May 12, 2025 2:38pm [facility] Work Phone: 1(141) 728-417804-10-2025 Evaluation note* Diagnosis Onset Date Resolution Status Admit Date External hemorrhoid, thrombosed acut e February 20, 2025 2:58pm Hemorrhoids acute April 04 2:01pm Right groin pain acute March 2:01pm Fissure in ano acute April 21, 2025 9:44am [facility] Work Phone: 1(604) 562-700403-18-2025 Consult note [facility] Medical Records Department [address] [place] [address] Anesthesia Postop Eval II 01/28/25 1110 MR#: [id number] Acct: [id number] Name: ANGELIA KERNS Rep #:[id number] : 1955 69 From: Khoa Tuttle MD PCP: CARLOS Whitt Status:REG SDC Y Race: C Location: [address] Anesthesia Postop Eval I Sum Postop Eval Completion status Anesthesia document: Postop Eval 1 completed: Yes Anesthesia Postop Eval I Summary Anesthesia Postop Eval I Summary: Anesthesia Postop Eval I: Assessment Summary Airway patent Yes 01/28/25 10:28 LIBRARY CLERK.TNES Spontaneous unlabored Yes 01/28/25 10:28 LIBRARY CLERK.TNES respirations Mental status nausea No 01/28/25 10:28 LIBRARY CLERK.TNES Vomiting No 01/28/25 10:28 LIBRARY CLERK.TNES Anesthesia Postop Eval I: Fluid Summary Crystalloid volume administer 30 01/28/25 10:28 LIBRARY CLERK.TNES (ml) Colloids volume administered ( ml) Blood Product volume administered (ml) Total IV fluid infused 30 01/28/25 10:28 LIBRARY CLERK.TNES Anesthesia Postop Eval I: Summary Notes Anesthesia Complication No 01/28/25 10:28 LIBRARY CLERK.TNES Anesthesia Complication Comment: Post-operative progress note Anesthesia: Postop Eval II Evaluation Mental status: Awake Pain Level: 0 nausea: No Vomiting: No Complications Anesthesia Complication: No 01/28/25 1110 MD> Date _ Khoa Tuttle MD Cosigner Signature: Date CC: ~ Signed [facility]03-18-2025 Consult note Author Khoa [facility] Note Date/Time January 28, 2025 9:0 4am [facility] Medical Records Department [address] [place] [address] Pre-Anesthesia Evaluation 01/28/25 0856 MR#: [id number] Acct: [id number] Name: ANGELIA KERNS Rep #:[id number] : 1955 69 From: Khoa Tuttle MD PCP: CARLOS Whitt Status:REG SDC Y Race: C Location: [place] [address] ASA Classification* ASA Classification ASA Classification: 3 [...] w/hemorrhoid banding Anesthesia History Anesthesia History - psychiatric secretary: Anesthesia History - psychiatric secretary Hx Hospitalization No 01/27/25 11:50 Any Problems [...] take am of surgery PONV PONV - psychiatric secretary: PONV - psychiatric secretary Female No 01/27/25 11:50 HX of Motion [...] 01/28/25 08:17 Respiratory Assessment Respiratory Assessment - psychiatric secretary: Respiratory Tract Infection Hx - psychiatric secretary Hx Respiratory Tract Infection No 01/27/25 11:50 STOP Sleep Apnea STOP Sleep Apnea - psychiatric secretary: STOP Sleep Apnea - psychiatric secretary Hx Hypertension Yes: CONTROLLED WITH MED 01/27/25 [...] Tobacco Use History Tobacco Use History - psychiatric secretary: Tobacco Use History - psychiatric secretary Tobacco Use Smoking Status Never smoker 01/27/25 11:50 Hx Tobacco Use No 01/27/25 11:50 Years Smoking Packs Smoked per Day Smoking Cessation Date was within the last 15 years Hx Smoking Cessation Date Hx Smoking Cessation Counseling Hematologic Medial History Hematologic Hx - psychiatric secretary: Hematologic 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 Hx of Blood Transfusion No 01/27/25 11:50 [...] confused, unrespo /Reproduction History /Reproductive History - psychiatric secretary: /Reproductive Hx- psychiatric secretary Hx Now Gestational Age (in weeks): EDC: Hx Hx Para Hx Section SAB No 10/03/24 08:44 PFSH Medical History (Updated 01/27/25 @ 11:56 by Tamiko Jones) Wears partial dentures Hemorrhoids Wears glasses Wears dentures Anxiety Diabetes Arthritis Low iron Fatty liver High cholesterol Dietary restriction Heartburn Non-smoker Leg cramps History of pain when walking Ojtbe-Jzgbmwtnf-Gsbai (WPW) pattern Cardiology follow-up encounter Hypertension Positive colorectal cancer screening using Cologuard test Hypertension Diabetes Arthritis Home Medications ?Medication ?Instructions ?Recorded ?Last Taken ?Type acetaminophen 500 mg tablet 500 mg PO Q6H PRN Pain Unknown History (Tylenol Extra Strength) omega 6-dqn-cqo-fish oil 1,000 mg 1 cap PO DAILY [...] spouse current occupational status: retired current occupation: [employer] Smoking Status: Never smoker Electronic Cigarette Use: [...] by Khoa Tuttle MD> Date _ Khoa Padilla Signature: Date CC: ~ Signed [facility] Work Phone: 1(236) 284-757303-18-2025 History and physical note Author Chuck Bruce [facility] Note Date/Time January 28, 2025 9:0 0am [facility] Medical Records Department [address] [place] [address] History & Physical Exam 01/28/25 0858 MR#: [id number] Acct: [id number] Name: ANGELIA KERNS L Rep #:[id number] : 1955 69 From: Chuck Jamil PCP: CARLOS Whitt [place] [facility] Location: [place] [address] History and Physical Date of Admission: 01/28/25 Date of Service: 12/23/24 MR#: [id number] Acct: [id number] Name: ANGELIA KERNS Rep #: [id number] : 1955 Provider: Dr. Chuck Bruce MD Age/Sex: 69/M Location: [facility] Status: Signed Intake Vital Signs 10/25/2408:52 12/23/2507:16 Height 5 ft 11 in BP 144/78 H Blood Pressure Location Lt brachial Position Sitting Respiration 18 Pulse 87 Pulse Source Monitor Intake Visit Reasons: discuss hemorrhoids Chief Complaint: discuss hemorrhoids Single Needle Operator Required: No Accompanied by: Is patient in pain?: Yes Allergies No Known Allergies Allergy (Verified 12/23/24 08:17) Medications ?Medication ?Instructions ?Recorded ?Confirmed ?Type acetaminophen 500 mg tablet 500 mg PO Q6H PRN Pain 10/10/22 12/23/24 History (Tylenol Extra Strength) omega 6-pha-dqw-fish oil 1,000 mg 1 cap PO DAILY [...] Leg cramps History of pain when walking Cdlyj-Bextfarww-Lgtrk (WPW) pattern Cardiology follow-up encounter Hypertension Positive colorectal cancer screening using Cologuard test Hypertension Diabetes Arthritis Surgical History Hx of colonoscopy S/P lateral meniscus repair of right knee H/O prostatectomy Family History Father CVA (cerebral vascular accident)Mother Cancer throatOther Heart disease Social History household members: spouse current occupational status: retired current occupation: [employer] Smoking Status: Never smoker Electronic Cigarette Use: [...] follow-up because he was under the impression "things are getting better". However now he states he fears he waited too long because he is experiencing more "burning and swelling" with his hemorrhoids. He reports that he [...] consuming psyllium husk twice daily besides. Mr. Kerns continues to perform 1 sitz bath after each bowel movement. He reports use of a hydrocortisone/lidocaine ointment alongside of a diltiazem?containing ointment that he was prescribed by his PCP. He questions whether he should continue thisuse. In addition to the reports of "burning and swelling" he describes 1 episode of bleeding a [...] and recommended evaluation in our office. Mr. Kerns estimates that his present flare officiallybecame worse [...] intentional aboutminimizing this risk as well. Mr. Kerns reports pain that is rather sharp and more frequently encountered in the mornings. He initially experienced some bleeding but this is "cleared up". Lastly he has experienced some itching and [...] male who makes follow-up for complaints of "burning andswelling" in association with hemorrhoids. He appears to be making a conscientious effort with conservative measures but perhaps overdoing it with his use of MiraLAX. I have instructed him to try to take this medication only as needed and "titrated" and affect to 1-2 soft bowel movements per day so as tooverall net a decrease in his toilet time. He seems to confirm understanding. On exam today I appreciate only some lower grade internal hemorrhoids but there is no blood. With this assessment, I believe Mr. Kerns would be an appropriate candidate for hemorrhoid [...] that he will need to have a sales route driver helper with him the day of the procedure. [...] Bruce MD> Cosigner Signature (if applicable): CC: CARLOS Ballesteros; Dr. Chcuk Bruce MD~ Signed [facility] Work Phone: 1(634) 287-329903-18-2025 Procedure note [facility] Medical Records Department [address] [place] [address] Colonoscopy Report MR#: [id number] Acct: [id number] Name: ANGELIA KERNS Rep #:[id number] : 1955 69 From: Chuck Jamil PCP: CARLOS Whitt Status:REG [facility] Patient Name: Angelia Kerns Procedure Date: 01/28/2025 9:33 AM Date of : 1955 Age: 69 Procedure: Colonoscopy Indications: Rectal bleeding Providers: Chuck Bruce MD Referring MD: Zackary Ballesteros [facility] Medicines: See the Anesthesia note for documentation [...] 1 week. Procedure Code(s): --- Professional --- 18642, Colonoscopy, flexible; with removal of tumor(s), polyp(s), or other lesion(s) by snare technique 37082, Hemorrhoidectomy, internal, by rubber band ligation(s) Diagnosis Code(s): --- Professional --- K62.89, Other specified diseases of anus and rectum K64.1, Second degree hemorrhoids K62.5, Hemorrhage of anus and rectum Q43.8, Other specified congenital malformations of intestine CPT copyright 2021 [employer]. All rights reserved. The codes documented in this report are preliminary and upon data coder operator review may be revised to meet current compliance requirements. Chuck Bruce MD 01/28/2025 10:31:53 AM This report has been signed electronically. Number of Addenda: 0 Note Initiated On: 01/28/2025 9:33 AM 01/28/25 1032 Date _ Chuck Bruce MD Cosigner Signature: Date (if indicated) CC: CARLOS Ballesteros; Dr. Chuck Bruce MD ~ Date Dictated: 01/28/25932 Date Transcribed: Lump Inspector: TANG Signed [facility]03-18-2025 Procedure note [facility] Medical Records Department [address] [place] [address] Operative Report - CC Letter MR#: [id number] Acct: [id number] Name: ANGELIA KERNS Rep #:[id number] : 1955 69 From: Chuck Jamil PCP: CARLOS Whitt Status:REG [facility] 01/28/[address] [facility] [facility] Re : Colonoscopy procedure for Angelia Kerns Dear Lesli This procedure was performed on Tuesday, January [...] MD ~ Date Dictated: 01/28/2533 Date Transcribed: Lump Inspector: MB Signed [facility]03-18-2025 Consult note [facility] Medical Records Department [address] [place] [address] Anesthesia Postop Eval I 01/28/25 1028 MR#: [id number] Acct: [id number] Name: ANGELIA KERNS Rep #:[id number] : 1955 69 From: Gil FRAUSTO PCP: CARLOS Whitt Status:REG SDC Y Race: C Location: [place] [address] Anesthesia: Postop Eval I Current Vital Signs Temperature: 97.6 F Pulse Rate: 69 Blood Pressure: 134/79 Respiratory Rate: 16 Pulse Ox: 100 Assessment Airway patent: Yes Spontaneous unlabored respirations: Yes nausea: No Vomiting: No Anesthesia Complication: No Fluid Hydration Crystalloid volume administer (ml): 30 Total IV fluid infused: 30 Progress Note Anesthesia document: Postop Eval 1 completed: Yes 01/28/25 1029 LIBRARY CLERK> Date _ Gil Rosita LIBRARY CLERK Cosigner Signature: Date CC: ~ Signed [facility]03-18-2025 Consult note [facility] Medical Records Department [address] [place] [address] Pre-Anesthesia Evaluation 01/28/25 0856 MR#: [id number] Acct: [id number] Name: ANGELIA KERNS Rep #:[id number] : 1955 69 From: Khoa Tuttle MD PCP: Zackary Ballesteros, 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 Status:REG SDC Y Race: C Location: [place] [address] ASA Classification* ASA Classification ASA Classification: 3 [...] w/hemorrhoid banding Anesthesia History Anesthesia History - psychiatric secretary: Anesthesia History - psychiatric secretary Hx Hospitalization No 01/27/25 11:50 Any Problems [...] take am of surgery PONV PONV - psychiatric secretary: PONV - psychiatric secretary Female No 01/27/25 11:50 HX of Motion [...] 01/28/25 08:17 Respiratory Assessment Respiratory Assessment - psychiatric secretary: Respiratory Tract Infection Hx - psychiatric secretary Hx Respiratory Tract Infection No 01/27/25 11:50 STOP Sleep Apnea STOP Sleep Apnea - psychiatric secretary: STOP Sleep Apnea - psychiatric secretary Hx Hypertension Yes: CONTROLLED WITH MED 01/27/25 [...] Tobacco Use History Tobacco Use History - psychiatric secretary: Tobacco Use History - psychiatric secretary Tobacco Use Smoking Status Never smoker 01/27/25 11:50 Hx Tobacco Use No 01/27/25 11:50 Years Smoking Packs Smoked per Day Smoking Cessation Date was within the last 15 years Hx Smoking Cessation Date Hx Smoking Cessation Counseling Hematologic Medial History Hematologic Hx - psychiatric secretary: Hematologic 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 Hx of Blood Transfusion No 01/27/25 11:50 [...] confused, unrespo /Reproduction History /Reproductive History - psychiatric secretary: /Reproductive Hx- psychiatric secretary Hx Now Gestational Age (in weeks): EDC: Hx Hx Para Hx Section SAB No 10/03/24 08:44 [facility] Medical History (Updated 01/27/25 @ 11:56 by Tamiko Jones) Wears partial dentures Hemorrhoids Wears glasses Wears dentures Anxiety Diabetes Arthritis Low iron Fatty liver High cholesterol Dietary restriction Heartburn Non-smoker Leg cramps History of pain when walking Gbjen-Bvqhqkzeg-Oftsd (WPW) pattern Cardiology follow-up encounter Hypertension Positive colorectal cancer screening using Cologuard test Hypertension Diabetes Arthritis Home Medications ?Medication ?Instructions ?Recorded ?Last Taken ?Type acetaminophen 500 mg tablet 500 mg PO Q6H PRN Pain Unknown History (Tylenol Extra Strength) omega 7-onx-vdk-fish oil 1,000 mg 1 cap PO DAILY [...] spouse current occupational status: retired current occupation: [employer] Smoking Status: Never smoker Electronic Cigarette Use: [...] diaphoretic 01/28/25 0904 > Date _ Khoa Tuttle MD Cosignbritni Signature: Date CC: ~ Signed [facility]03-18-2025 History and physical note [facility] Medical Records Department [address] [place] [address] History & Physical Exam 01/28/25 0858 MR#: [id number] Acct: [id number] Name: ANGELIA KERNS Rep #:[id number] : 1955 69 From: Chuck Jamil PCP: CARLOS Whitt Status:[facility] Location: [place] [address] History and Physical Date of Admission: 01/28/25 Date of Service: 12/23/24 MR#: [id number] Acct: [id number] Name: ANGELIA KERNS Rep #: [id number] : 1955 Provider: Dr. Chuck Bruce MD Age/Sex: 69/M Location: [facility] Status: Signed Intake Vital Signs 10/25/2408:52 12/23/2507:16 Height 5 ft 11 in BP 144/78 H Blood Pressure Location Lt brachial Position Sitting Respiration 18 Pulse 87 Pulse Source Monitor Intake Visit Reasons: discuss hemorrhoids Chief Complaint: discuss hemorrhoids Single Needle Operator Required: No Accompanied by: Is patient in pain?: Yes Allergies No Known Allergies Allergy (Verified 12/23/24 08:17) Medications ?Medication ?Instructions ?Recorded ?Confirmed ?Type acetaminophen 500 mg tablet 500 mg PO Q6H PRN Pain 10/10/22 12/23/24 History (Tylenol Extra Strength) omega 6-nmp-hcz-fish oil 1,000 mg 1 cap PO DAILY [...] Leg cramps History of pain when walking Peijy-Edsklzqdh-Cstun (WPW) pattern Cardiology follow-up encounter Hypertension Positive colorectal cancer screening using Cologuard test Hypertension Diabetes Arthritis Surgical History Hx of colonoscopy S/P lateral meniscus repair of right knee H/O prostatectomy Family History Father CVA (cerebral vascular accident)Mother Cancer throatOther Heart disease Social History household members: spouse current occupational status: retired current occupation: [employer] Smoking Status: Never smoker Electronic Cigarette Use: [...] follow-up because he was under the impression "things are getting better". However now he states he fears he waited too long because he is experiencing more "burning and swelling" with his hemorrhoids. He reports that he [...] consuming psyllium husk twice daily besides. Mr. Kerns continues to perform 1 sitz bath after each bowel movement. He reports use of a hydrocor tisone/lidocaine ointment alongside of a diltiazem?containing ointment that he was prescribed by his PCP. He questions whether he should continue thisuse. In addition to the reports of "burning and swelling" he describes 1 episode of bleeding a [...] and recommended evaluation in our office. Mr. Kerns estimates that his present flare officiallybecame worse [...] been intentional aboutminimizing this riskas well. Mr. Kerns reports pain that is rather sharp and more frequently encountered in the mornings. He initially experienced some bleeding but this is "cleared up". Lastly he has experienced some itching and [...] male who makes follow-up for complaints of "burning andswelling" in association with hemorrhoids. He appears to be making a conscientious effort with conservative measures but perhaps overdoing it with his use of MiraLAX. I have instructed him to try to take this medicationonly as needed and "titrated" and affect to 1-2 soft bowel movements per day so as tooverall net a decrease in his toilet time. He seems to confirm understanding. On exam today I appreciate only somelower grade internal hemorrhoids but there is no blood. With this assessment, I believe Mr. Kerns would be an appropriate candidate for hemorrhoid [...] awarethat he will need to have a sales route driver helper with him the day of the procedure. [...] 01/28/25 0900 Cosigner Signature (if applicable): CC: CARLOS Ballesteros; Dr. Chuck Bruce MD~ Signed [facility]03-18-2025 [facility] Medical Records Department [address] [place] [address] History Physical Exam 01/28/25 0858 MR#: [id number] Acct: [id number] Name: ANGELIA KERNS Rep #: [id number] : 1955 69 From: Chuck Bruce MD PCP: CARLOS Whitt Status[place] [facility] History and Physical Date of Admission: 01/28/25 Date of Service: 12/23/24 MR#: [id number] Acct: [id number] Name: ANGELIA KERNS Rep #: [id number] : 1955 Provider: Dr. Chuck Bruce MD Age/Sex: 69/M Location: [facility] Status: Signed Intake Vital Signs 10/25/2408:52 12/23/2507:16 Height 5 ft 11 in BP 144/78 H Blood Pressure Location Lt brachial Position Sitting Respiration 18 Pulse 87 Pulse Source Monitor Intake Visit Reasons: discuss hemorrhoids Chief Complaint: discuss hemorrhoids Single Needle Operator Required: No Accompanied by: Is patient in pain?: Yes Allergies No Known Allergies Allergy (Verified 12/23/24 08:17) Medications ???Medication ???Instructions ???Recorded ???Confirmed ???Type acetaminophen 500 mg tablet 500 mg PO Q6H PRN Pain 10/10/22 12/23/24 History (Tylenol Extra Strength) omega 0-rzq-nfa-fish oil 1,000 mg 1 cap PO DAILY [...] Leg cramps History of pain when walking Utzch-Kesilgjbf-Cderi (WPW) pattern Cardiology follow-up encounter Hypertension Positive colorectal cancer screening using Cologuard test Hypertension Diabetes Arthritis Surgical History Hx of colonoscopy S/P lateral meniscus repair of right knee H/O prostatectomy Family History Father CVA (cerebral vascular accident)Mother Cancer throatOther Heart disease Social History household members: spouse current occupational status: retired current occupation: [employer] Smoking Status: Never smoker Electronic Cigarette Use: [...] was under the impression things are getting better". However now he states he fears he waited too long because he is experiencing more "burning and swelling" with his hemorrhoids. He reports that he [...] consuming psyllium husk twice daily besides. Mr. Kerns continues to perform 1 sitz bath after each bowel movement. He reports use of a hydrocortisone/lidocaine ointment alongside of a diltiazem???containing ointment that he was prescribed by his PCP. He questions whether he should continue this use. In addition to the reports of "burning and swelling" he describes 1 episode of bleeding a week ago with some straining during a bowel movement. However, he has had no bleeding since. He denies any interval health updates apart from above. Below is recapitulated from patient's prior visit for ease of review: Patient is a 69-year-old male who is kno underwentwn to me from a prior col (more content not included)...[facility]02-10-2025 Evaluation note* Diagnosis Onset Date Resolution Status Admit Date Hemorrhoids acute December 7:30am External hemorrhoid, thrombosed acute February 20, 2025 2:58pm Hemorrhoids acute April 04 2:01pm Right groin pain acute March 2:01pm [facility] Work Phone: 1(535) 438-310211-25-2024 Evaluation note* Diagnosis Onset Date Resolution Status Admit Date Hemorrhoids noneactive September 9:55am Hemorrhoids acute December 7:30am [facility] Work Phone: [phone] NoteHNO ID: [id number] Author: Aury Watson LPN Service: ? Author Type: LICENSED NURSE Type: Progress Notes Filed: 03/08/2023 8:25 PM Note Text: Bacitracin and gauze dressing applied, patient tolerated well. Aury Watson [facility]04-26-2023 NoteHNO ID: [id number] Author: Rigoberto Pena MD Service: ? Author Type: Physician Type: Progress Notes Filed: 03/08/2023 8:25 PM Note Text: Ed Zane Kerns is a 67 year old MALE who [...] in detail Patient understand and agreed [facility] History and physical note Author Dr. Bruce [facility] December 08, 2022 7:34am Note Date/Time December 08, 2022 7 :34am [facility] Medical Records Department [address] [place] [address] History & Physical Exam 12/08/22 0732 MR#: [id number] Acct: [id number] Name: ANGELIA KERNS L Rep #:[id number] : 1955 67 From: Chuck Jamil PCP: Dr. Amara Damian MD Status:[facility] Location: [place] [address] History and Physical Date of Admission: 12/08/22 Date of Service:? 10/10/22 MR#: [id number] Acct: [id number] Name:? SAUMYA,ED Rep #: [id number] : 1955 ? ? Provider: Dr. Chuck Bruce MD Age/Sex:? 67/M ? ? Location: [facility] Status: Signed Intake Vital Signs ? 10/10/2207:55 [...] spouse current occupational status:? 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 Never smoker Electronic Cigarette Use:? [...] only remarkable findings were known hemorrhoids.? Mr. Kerns states that he was given 10-year follow-up.? Patient has no personal history of inflammatory bowel disease or diverticulitis. They describe their bowel habits as normal/regular.? They have approximately 2-3 per day with minimal toilet time and without significant straining.? They have not noticed recent bleeding or dark stools.? As above, Mr. Kerns states that he does have a history of hemorrhoids and this has been "some problem most of [his] life", but he has not had any issues [...] hernia and used to wake up with "choking episodes", but he states he has not had [...] that he will need to have a sales route driver helper with him the day of the procedure. [...] Damian MD; Dr. 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 EDS NPP WELLNESS Reason for Visit Anxiety Immunization declined Establishing care with new doctor, encounter for Essential hypertension Controlled type 2 diabetes mellitus Anxiety Mixed hyperlipidemia Medicare annual wellness visit, subsequent Immunization declined Screening for colon cancer Essential hypertension Controlled type 2 diabetes mellitus [facility] Work Phone: Consult note Author Gil Becker [facility] Note Date/Time January 28, 2025 10: 29am [facility] Medical Records Department [address] [place] [address] Anesthesia Postop Eval I 01/28/25 1028 MR#: [id number] Acct: [id number] Name: ANGELIA KERNS Rep #:[id number] : 1955 69 From: Gil FRAUSTO PCP: Zackary Ballesteros NP-C Status:REG SDC Y Race: C Location: [place] [address] Anesthesia: Postop Eval I Current Vital Signs [...] Gil Becker CRNA> Date _ Gil Becker CRNA Cosigner Signature: Date CC: ~ Signed [facility] Work Phone: Consult note Author Khoa Tuttle [facility] Note Date/Time January 28, 2025 12: 05pm [facility] Medical Records Department [address] [place] [address] Anesthesia Postop Eval II 01/28/25 1110 MR#: [id number] Acct: [id number] Name: ANGELIA KERNS Rep #:[id number] : 1955 69 From: Khoa Tuttle MD PCP: CARLOS Whitt Status[place] [facility] [place] Race: C Location: [place] [address] Anesthesia Postop Eval I Sum Postop Eval Completion status Anesthesia document: Postop Eval 1 completed: Yes Anesthesia Postop Eval I Summary Anesthesia Postop Eval I Summary: Anesthesia Postop Eval I: Assessment Summary Airway patent Yes 01/28/25 10:28 LIBRARY [email or web address] Spontaneous unlabored Yes 01/28/25 10:28 LIBRARY [email or web address].TNES respirations Mental status nausea No 01/28/25 10:28 LIBRARY CLERK.TNES Vomiting No 01/28/25 10:28 LIBRARY CLERK.TNES Anesthesia Postop Eval I: Fluid Summary Crystalloid volume administer 30 01/28/25 10:28 LIBRARY CLERK.TNES (ml) Colloids volume administered ( ml) Blood Product volume administered (ml) Total IV fluid infused 30 01/28/25 10:28 LIBRARY [email or web address].TNES Anesthesia Postop Eval I: Summary Notes Anesthesia Complication No 01/28/25 10:28 MARCY Anesthesia Complication Comment: Post-operative progress note Anesthesia: Postop Eval II Evaluation Mental status: Awake Pain Level: 0 nausea: No Vomiting: No Complications Anesthesia Complication: No 01/28/25 1110 <Electronically signed by Koha Tuttle MD> Date _ Khoa Tuttle MD Cosigner Signature: Date CC: ~ Signed [facility] Work Phone: Consult note Author Chuck Bruce [facility] Note Date/Time August 02, 2025 11:59am [facility] Medical Records Department [address] [place] [address] Consultation - Surgical 08/02/25 1148 MR#: [id number] Acct: [id number] Name: ANGELIA KERNS Rep #:[id number] : 1955 69 From: Chuck Jamil PCP: CARLOS Whitt Status:[facility] ER Location: ED Assessment & Plan Assessment/Plan (1) Pain in rectum: PLAN: Patient is a 69-year-old male well-known to me for complaints of anorectaldiscomfort and hemorrhoids. Although his history is suggestive of external hemorrhoids his exam shows only evidence of a possible resolving clot at the 5 o'clock position where he denies tenderness with palpation. I do not identify any fissures of the endoderm. If an external hemorrhoid is present it is not visible to me on exam and, therefore, would require a bigger incision and some exploration in any procedure that could be contemplated. I do not believe this is warranted given patient's description of his symptoms and the duration since onset. I attempted to encourage him that we would expect spontaneous resolutionof his issue to begin in the coming days as the clot liquefies. Secondly, I believe Mr. Kerns is dealing with this issue and otherwise putting himself at anincreased risk for similar issues because of his increased toilet time related to his bowel movement frequency. I find no indication for him to continue on a prokinetic agent like MiraLAX if he is experiencing a bowel movement a day without. Therefore I have encouraged him to take it on an as needed basis and continue his use of psyllium husk. I do not believe his hernia belt is playing a role but did review the instructions for its placement. Additionally, I underscored need to continue with sitz bath's which he has previously initiated. Lastly we discussed he is cleared to return to symptomatic use of hydrocortisone ointment and topical lidocaine. I had previously asked him to discontinue use of hydrocortisone as he was beginning to take this chronically. (2) Hemorrhoids: HPI Consult Data Date of Consult: 08/02/25 HPI Narrative Reason for Consultation: Hemorrhoids HPI Narrative: ANGELIA KERNS, is a 69 M who presents to [facility] ER with complaints of painful hemorrhoids. He is well-known to me for both this complaint as well as a pending operation to address newly diagnosed bilateral inguinal hernias. He states that symptoms of pain with bowel movements began "agood 3 days ago". He denies any bleeding. He reports that he is experiencing approximately 3 bowel movements per day and that they are generally loose in character. Additionally, he remarks that he is still using MiraLAX at approximately half Per day and psyllium husk twice daily. He shares that he tried to get an appointment with our office yesterday, however, no one was in atthat time to accommodate him on such short notice. He and his are concerned that his use of his hernia belt may be exacerbating this problem. [facility] Medical History History of hiatal hernia Gastric reflux Wears partial dentures Hemorrhoids Wears glasses Anxiety Diabetes Arthritis Low iron Fatty liver High cholesterol Dietary restriction Non-smoker Leg cramps Gkjwl-Lpwatlacz-Aojni (WPW) pattern Cardiology follow-up encounter Hypertension Positive colorectal cancer screening using Cologuard test Diabetes Arthritis Home Medications ?Medication ?Instructions ?Recorded ?Last Taken ?Type acetaminophen 500 mg tablet 500 mg PO Q6H PRN Pain Unknown History (Tylenol Extra Strength) omega 6-ahs-eof-fish oil 1,000 mg 1 cap PO DAILY 12/0712/05/22 History (120 mg-180 mg) capsule (Fish Oil) psyllium husk 0.4 gram capsule 0.4 g PO QHS 12/07/22 0 12/05/22 History (Metamucil) sildenafil 100 mg tablet 100 mg PO DAILY PRN sexual 0 05/02/24 Unknown Rx activity #45 tabs alprazolam 0.25 mg tablet 0.5 mg (2 x 0.25 mg) PO BID #60 06/03/24 01/28/25 06:16 Rx tabs trazodone 100 mg tablet 100 mg PO QHS 01/27/25 Unkno wn History polyethylene glycol 3350 17 4 g PO QDAY 04/21/25 Unkno wn History gram/dose oral powder (Miralax) ferrous sulfate 325 mg (65 mg 325 mg PO DAILY 07/30/25 Unknown History iron) tablet (iron) lisinopril 40 mg tablet 40 mg PO DAILY 07/30/25 Unkn own History lidocaine HCl 2 % mucosal solution 1 applic mucous mem brane BID PRN 08/02/25 Unknown Rx (Lidocaine Viscous) pain #100 mL Allergy/AdvReac Type Severity Reaction Status Date / Time No Known Allergies Allergy Verified 08/02/25 10:20 Family History Father CVA (cerebral vascular accident) Mother Cancer throat Other Heart disease Surgical History History of banding of hemorrhoid Hx of colonoscopy S/P lateral meniscus repair of right knee H/O prostatectomy Social History household members: spouse current occupational status: retired current occupation: [employer] Smoking Status: Never smoker Electronic Cigarette Use: not used alcohol intake: never substance use type: does not use what type of physical activity do you participate in: additional details: cutting wood do you feel safe at home: Yes Physical Exam Const alert, oriented x3 and no apparent distress Constitutional Narrative: Anxious Resp normal respiratory effort GI GI Narrative: Anorectal exam is performed with agricultural purchasing agent did in the right lateral decubitus position I note a fullness at the 12 o'clock position that seems to represent redundant anoderm consistent with a skin tag, however, it is here with palpationthe patient has some tenderness. Then at the 5 o'clock position there is some fullness that is more suggestive of a thrombosed external hemorrhoid that is resolving. Patient denies significant tenderness with palpation in this location. Charges/Coding Visit Charges Office Visits / Consults: 21768 ED Visit; Low/Mod Severity 08/02/25 1205 <Electronically signed by Chuck Bruce MD> Cosigner Signature (if applicable): CC: CALROS Ballesteros~ Signed [facility] Work Phone: Discharge summary Author Darius Henderson [facility] Note Date/Time August 02, 2025 11:58am [facility] Medical Records Department [address] [place] [address] Emergency Department Summary 08/02/25 MR#: [id number] Acct: [id number] Name: ANGELIA KERNS Rep #:[id number] : 1955 69 From: Darius Henderson MD PCP: CARLOS Whitt Status:REG ER Location: ED HPI History of Present Illness Chief Complaint: Other, Pain/Inj Narrative Narrative: 69-year-old male past medical history of previous hemorrhoids, prediabetes presents with wanting an external hemorrhoid lanced. He states that he has had a thrombosed hemorrhoids for a few days. He was getting presurgical testing fora hernia, and states that they went over to Dr. Bruce's office who that seen before. He is supposed to have a nonthrombosed hemorrhoid lanced on Monday, 2 days from now. He states that it is painful for him to sit, and presents to theemergency department stating he is not sure that he can wait until Monday. No fevers or chills. No exacerbating or alleviating factors. [facility] Medical History History of hiatal hernia Gastric reflux Wears partial dentures Hemorrhoids Wears glasses Anxiety Diabetes Arthritis Low iron Fatty liver High cholesterol Dietary restriction Non-smoker Leg cramps Xqdbt-Batomfmmp-Bqcal (WPW) pattern Cardiology follow-up encounter Hypertension Positive colorectal cancer screening using Cologuard test Diabetes Arthritis Home Medications ?Medication ?Instructions ?Recorded ?Last Taken ?Type acetaminophen 500 mg tablet 500 mg PO Q6H PRN Pain Unknown History (Tylenol Extra Strength) omega 6-cfr-jpv-fish oil 1,000 mg 1 cap PO DAILY 12/0712/05/22 History (120 mg-180 mg) capsule (Fish Oil) psyllium husk 0.4 gram capsule 0.4 g PO QHS 12/07/22 0 12/05/22 History (Metamucil) sildenafil 100 mg tablet 100 mg PO DAILY PRN sexual 0 05/02/24 Unknown Rx activity #45 tabs alprazolam 0.25 mg tablet 0.5 mg (2 x 0.25 mg) PO BID #60 06/03/24 01/28/25 06:16 Rx tabs trazodone 100 mg tablet 100 mg PO QHS 01/27/25 Unkno wn History polyethylene glycol 3350 17 4 g PO QDAY 04/21/25 Unkno wn History gram/dose oral powder (Miralax) ferrous sulfate 325 mg (65 mg 325 mg PO DAILY 07/30/25 Unknown History iron) tablet (iron) lisinopril 40 mg tablet 40 mg PO DAILY 07/30/25 Unkn own History lidocaine HCl 2 % mucosal solution 1 applic mucous mem brane BID PRN 08/02/25 Unknown Rx (Lidocaine Viscous) pain #100 mL Allergy/AdvReac Type Severity Reaction Status Date / Time No Known Allergies Allergy Verified 08/02/25 10:20 Family History Father CVA (cerebral vascular accident) Mother Cancer throat Other Heart disease Surgical History History of banding of hemorrhoid Hx of colonoscopy S/P lateral meniscus repair of right knee H/O prostatectomy Social History household members: spouse current occupational status: retired current occupation: [employer] Smoking Status: Never smoker Electronic Cigarette Use: not used alcohol intake: never substance use type: does not use what type of physical activity do you participate in: additional details: cutting wood do you feel safe at home: Yes ROS ROS ED ROS Narrative Review of systems positive for thrombosed hemorrhoid and pain with sitting. No fevers or chills, no other symptoms. EXAM Physical Exam Narrative Exam Narrative: Afebrile. Vital signs noted. Nontoxic-appearing. Cardiovascular examination regular rate and rhythm. Lungs are clear to auscultation bilaterally. Abdomen is soft nontender with positive bowel sounds. Visual inspection surrounding theanus reveals more redundant tissue and possible small thrombosed hemorrhoid underlying versus scarring. There is a nonthrombosed hemorrhoid more anteriorlyaround the anal opening. No active bleeding. Const Vital Signs: 08/02/25 10:17 08/02/25 10:17 Temperature 97.4 F L Temperature Source Oral Pulse Rate 77 Respiratory Rate 16 Respiratory Effort Normal Non-Labored Respiratory Pattern Normal Blood Pressure 144/77 H Blood Pressure Mean 99 Pulse Ox 98 Oxygen Delivery Method Room Air MDM MDM MDM Narrative Medical decision making narrative: Differential diagnosis includes but not limited to thrombosed hemorrhoid versus redundant tissue. I do not feel that the patient requires emergent thrombectomy. As the patient has known to Dr. Bruce, he is on-call and I discussed this with him. Patient had been told previously to discontinue use ofhydrocortisone cream so as not to develop pruritus ani. Dr. Bruce will evaluatethe patient in the ED to see if he should wait until Monday versus bedside thrombectomy performed by him. In discussion with Dr. Bruce after his evaluation, he agrees that this is more redundant tissue, and that thrombectomy is not indicated. He requested that I prescribe the patient lidocaine viscous 2% to apply twice a day as needed for pain. Patient will be discharged to follow-up with Dr. rBuce as needed. Disposition is discharged home in stable condition. History & Record Review Discussion w/independent historian: Patient Additional record(s) reviewed:: Prior outpatient record Management Discussion w/another healthcare provider: [employer] (Dr. Bruce, general surgery) Discharge Plan Triage Chief Complaint: Other, Pain/Inj ED Provider: Darius Henderson Dx/Rx/DC Orders Clinical Impression: Pain in rectum, Hemorrhoids Instructions: ED Hemorrhoids, ED Pain Management: Chronic Prescriptions: New lidocaine HCl [Lidocaine Viscous] 2 % solution 1 applic mucous membrane BID PRN (Reason: pain) Qty: 100 0RF No Action acetaminophen [Tylenol Extra Strength] 500 mg tablet 500 mg PO Q6H PRN (Reason: Pain) sildenafil 100 mg tablet 100 mg PO DAILY PRN (Reason: sexual activity) Qty: 45 0RF Rx Instructions: administer 30 minutes to 4 hours before activity polyethylene glycol 3350 [Miralax] 17 gram/dose powder 4 g PO QDAY omega 9-gdc-fyq-fish oil [Fish Oil] 1,000 mg (120 mg-180 mg) Capsule 1 cap PO DAILY psyllium husk [Metamucil] 0.4 gram Capsule 0.4 g PO QHS trazodone 100 mg tablet 100 mg PO QHS lisinopril 40 mg tablet 40 mg PO DAILY ferrous sulfate [iron] 325 mg (65 mg iron) tablet 325 mg PO DAILY alprazolam 0.25 mg tablet 0.5 mg PO BID Qty: 60 0RF Primary Care Provider: Zackary Ballesteros Referrals: Zackary Ballesteros, 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 [Primary Care Provider, Family Practice] Activity Restrictions/Additional Instructions: Use viscous lidocaine as directed twice a day. Follow-up with Dr. Bruce as needed. Print Language: Armenian Disposition Disposition: Home, Self Care What to do if you have Problems For any increased pain, shortness of breath, bleeding, nausea or vomiting, chestpain, or any unexpected problems, contact your Primary Care Provider. Call [facility] ([phone]) or report to the closest Emergency Room. Call 911 if necessary. 08/02/25 1158 <Electronically signed by Darius Henderson MD> Cosigner Signature (if applicable): CC: 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 Zackary Ballesteros ~ Signed [facility] Work Phone: Evaluation + Plan note Future Appointments Appointment Date:11/26/2021 08:05:00 AM Scheduled Provider:ZANA HOOD MD Location:[facility] Appointment Type:PC OV Follow Up [facility] Evaluation + Plan note Future Appointments Appointment Date:10/05/2022 09:30:00 AM Scheduled Provider: Location:[facility] Appointment Type:PC Nurse Lab Appointment Date:10/18/2022 09:30:00 AM Scheduled Provider:DANIEL COCHRAN APRN-LILIAN Location:[facility] Appointment Type:PC OV [facility] Evaluation note* Diagnosis Onset Date Resolution Status Anxiety acute Immunization declined noneac tive Establishing care with new doctor, encounter for noneactive Essential hypertension nonea ctive Controlled type 2 diabetes mellitus noneactive Anxiety acute Mixed hyperlipidemia acute Medicare annual wellness visit, subsequent noneactive Immunization declined noneac tive Screening for colon cancer n oneactive Essential hypertension nonea ctive Controlled type 2 diabetes mellitus noneactive [facility] Work Phone: Evaluation note* Diagnosis Onset Date Resolution Status Anxiety acute Mixed hyperlipidemia acute Medicare annual wellness visit, subsequent noneactive Immunization declined noneac tive Screening for colon cancer n oneactive Essential hypertension nonea ctive Controlled type 2 diabetes mellitus noneactive Hiatal hernia with GERD acut e Positive colorectal cancer s creening using Cologuard test acute [facility] Work Phone: Evaluation noteNo assessment information available [facility] Work Phone: Evaluation note* Diagnosis Onset Date Resolution Status Anxiety acute Erectile dysfunction acute Screening for prostate cancer noneactive Influenza vaccination declined noneactive Essential hypertension nonea ctive Controlled type 2 diabetes mellitus noneactive Right knee pain noneactive [facility] Work Phone: Hospital course Narrative No data available for this section [facility] Hospital Discharge instructions No data available for this section [facility] Hospital Discharge instructionsAdditional Instructions Use viscous lidocaine as directed twice a day. Follow-up with Dr. Bruce as needed.[facility] Work Phone: Progress note No data available for this section [facility] Probuwtm note Author Daksha Peañ [facility] Note Date/Time August 04, 2025 9:52am [facility] 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 Required: No Is patient in pain?: Yes (rectum) Pain scale (1-10): 7 Allergies No Known Allergies Allergy (Verified 08/04/25 09:13) Medications ?Medication ?Instructions ?Recorded ?Confirmed ?Type acetaminophen 500 mg tablet 500 mg PO Q6H PRN Pain 08/04/25 History (Tylenol Extra Strength) omega 6-mhg-gxc-fish oil 1,000 mg 1 cap PO DAILY 12/0708/04/25 History (120 mg-180 mg) capsule (Fish Oil) psyllium husk 0.4 gram capsule 0.4 g PO QHS 12/07/22 0 08/04/25 History (Metamucil) sildenafil 100 mg tablet 100 mg PO DAILY PRN sexual 0 05/02/24 08/04/25 Rx activity #45 tabs alprazolam 0.25 mg tablet 0.5 mg (2 x 0.25 mg) PO BID #60 06/03/24 08/04/25 Rx tabs trazodone 100 mg tablet 100 mg PO QHS 01/27/2508/04 History polyethylene glycol 3350 17 4 g PO QDAY 04/21/2508/04 History gram/dose oral powder (Miralax) ferrous sulfate 325 mg (65 mg 325 mg PO DAILY 07/30/25 08/04/25 History iron) tablet (iron) lisinopril 40 mg tablet 40 mg PO DAILY 07/30/2507/15 History lidocaine HCl 2 % mucosal solution 1 applic mucous mem brane BID PRN 08/02/25 08/04/25 Rx (Lidocaine Viscous) pain #100 mL metronidazole 500 mg tablet 500 mg PO TID 5 days #15 t abs 08/04/25 08/04/25 Rx Have you fallen in the past year?: No PFSH Medical History History of hiatal hernia Gastric reflux Wears partial dentures Hemorrhoids Wears glasses Anxiety Diabetes Arthritis Low iron Fatty liver High cholesterol Dietary restriction Non-smoker Leg cramps Eduer-Kirhoqpmj-Ymywa (WPW) pattern Cardiology follow-up encounter Hypertension Positive colorectal cancer screening using Cologuard test Diabetes Arthritis Surgical History History of banding of hemorrhoid Hx of colonoscopy S/P lateral meniscus repair of right knee H/O prostatectomy Family History Father CVA (cerebral vascular accident) Mother Cancer throat Other Heart disease Social History household members: spouse current occupational status: retired current occupation: [employer] Smoking Status: Never smoker Electronic Cigarette Use: not used alcohol intake: never substance use type: does not use what type of physical activity do you participate in: additional details: cutting wood do you feel safe at home: Yes HPI HPI HPI: Patient is a 69 y/o M who presented with an increasing painful lump at the anus.Patient was evaluated in the ED on Monday and in the office on Monday for these complaints. At that time no lump was noted at the site of the tenderness. Patient was noted in the ED to have a small thrombosed hemorrhoid at the 5 o'clock position. Patient was suggested to use hydrocortisone and lidocaine ointment. Patient was scheduled an appointment for today on Monday. Patient was contacted this morning for follow-up. Patient noted the area is still sore and may have increased in size. He notes on the drive into the office, the area started bleeding slightly. Patient notes it is hard to sit. 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 He states this feels like a thrombosed hemorrhoid. Exam GI Other: Anus- 11 o'clock there appears to be an ulcerated, raised lump that is tender topalpation and may have been bleeding. There is a small thrombosed hemorrhoid at the 5 o'clock position, which is not thrombosed. Office Procedures I&D Provider Documentation Provider Documentation: Procedure note Procedure: Incision and Drainage of emily-rectal abscess Permit: Procedure, benefits, risks (include those of bleeding, infection, injury, anesthesia, and allergic reaction), and alternatives explained to the patient who voiced understanding of the information. Their questions were soughtand answered. Patient agreed to proceed with the incision and drainage of emily-rectal abscess. Permit signed and in chart. Indication: Emily-rectal abscess Physician: Daksha Peña PA-C Nurse: Vanessa Cardona RN Description: Patient positioned in the prone position comfortably. Area prepped with betadine and draped in a sterile fashion. Local anesthetic administered with 7 cc of 0.5% Marcaine and 1% lidocaine with epi. A linear incision was madeand a small amount of bloody, murky yellow fluid was expressed. Cavity was probed to break up any pockets. Culture was not obtained. Cavity was packed with1/4" iodoform packing. Surrounding area was cleansed with normal saline and gauze dressing was applied. Patient tolerated the procedure well. Complications: None Disposition: Patient alert and oriented. Patient tolerated the procedure well. Alert Ashok Alert Billing: Yes Incision and Drainage 31383 Complex/Multiple Procedure Time Out Time Out Informed consent given: Yes Consent signed: Yes Time out checklist: patient, procedure, site marked/identified, positioning of patient, supplies available, allergies confirmed and team agrees on procedure Time out staff in room: Yes Time out verified: Yes Time out date: 08/04/25 Time out time: 09:26 Assessment and Plan Assessment and Plan (1) Pain in rectum: Status: Acute (2) Emily-rectal abscess: Status: Acute Orders: Orders Incision and Drainage Today K61.1 - Rectal abscess Medications: New metronidazole 500 mg PO TID 15 tabs 0RF 5 days Plan Recommend pulling packing in 24 hours. If the packing come out sooner, start sitz bathes Otherwise start sitz bathes once packing is removed for the next 3-4 days Will send in Flagyl for 5 days Patient is scheduled for hernia surgery next Monday with Dr. Bruce Will have patient follow-up with Dr. Bruce on Monday for re-evaluation just prior to surgery Offered to patient to come to the office if they are not comfortable removing packing at home He will alternate between Tylenol and ibuprofen for pain He may use lidocaine ointment on the site for comfort Coding Level of Care Code Attention Ashok Diagnoses Pain in rectum K62.89 Emily-rectal abscess K61.1 CPT Codes Incision and Drainage - I&D: 65198 Complex/Multiple (87147) Clinical Quality Measures Falls Risk Screening/Assistive Devices Have you fallen in the past year?: No 08/04/25 1142 <Electronically signed by Daksha JACOME PA-C> Date _ Daksha JACOME PA-C Cosigner Signature: Date (if applicable) CC: ~ [facility] Work Phone: Progress note Author Daksha Peña [facility] Note Date/Time August 05, 2025 9:21am [facility] [address] [place] [address]. [address] [place], [place] [address] OFFICE VISIT Date of Service: 08/05/25 MR#: [id number] Acct: [id number] Name: ANGELIA KERNS Rep #: [id number] 7 : 1955 Provider: RICHAR Peña Age/Sex: 69/M Location: [facility] Status: Signed Intake Vital Signs 08/02/25 10:17 Height 5 ft 11 in Weight: 182 lb 6.4 oz BMI 25.4 BP 144/77 H Respiration 16 Pulse 77 Temp 97.4 F L Temp Source Oral Pulse Oximetry (%) 98 Intake Visit Reasons: REMOVE PACKING S/P I&D Chief Complaint: rectal pain Allergies No Known Allergies Allergy (Verified 08/05/25 08:48) Medications ?Medication ?Instructions ?Recorded ?Confirmed ?Type acetaminophen 500 mg tablet 500 mg PO Q6H PRN Pain 08/05/25 History (Tylenol Extra Strength) omega 6-auo-kqx-fish oil 1,000 mg 1 cap PO DAILY 12/0708/05/25 History (120 mg-180 mg) capsule (Fish Oil) psyllium husk 0.4 gram capsule 0.4 g PO QHS 12/07/22 0 08/05/25 History (Metamucil) sildenafil 100 mg tablet 100 mg PO DAILY PRN sexual 0 05/02/24 08/05/25 Rx activity #45 tabs alprazolam 0.25 mg tablet 0.5 mg (2 x 0.25 mg) PO BID #60 06/03/24 08/05/25 Rx tabs trazodone 100 mg tablet 100 mg PO QHS 01/27/2508/05 History polyethylene glycol 3350 17 4 g PO QDAY 04/21/2508/05 History gram/dose oral powder (Miralax) ferrous sulfate 325 mg (65 mg 325 mg PO DAILY 07/30/25 08/05/25 History iron) tablet (iron) lisinopril 40 mg tablet 40 mg PO DAILY 07/30/2507/15 History lidocaine HCl 2 % mucosal solution 1 applic mucous mem brane BID PRN 08/02/25 08/05/25 Rx (Lidocaine Viscous) pain #100 mL metronidazole 500 mg tablet 500 mg PO TID 5 days #15 t abs 08/04/25 08/05/25 Rx lidocaine 5 % topical ointment 1 applic topical TID OK N pain 08/05/25 08/05/25 Rx #35.44 grams Have you fallen in the past year?: No PFSH Medical History History of hiatal hernia Gastric reflux Wears partial dentures Hemorrhoids Wears glasses Anxiety Diabetes Arthritis Low iron Fatty liver High cholesterol Dietary restriction Non-smoker Leg cramps Ulyso-Jvofuryio-Jjgdd (WPW) pattern Cardiology follow-up encounter Hypertension Positive colorectal cancer screening using Cologuard test Diabetes Arthritis Surgical History History of banding of hemorrhoid Hx of colonoscopy S/P lateral meniscus repair of right knee H/O prostatectomy Family History Father CVA (cerebral vascular accident) Mother Cancer throat Other Heart disease Social History household members: spouse current occupational status: retired current occupation: [employer] Smoking Status: Never smoker Electronic Cigarette Use: not used alcohol intake: never substance use type: does not use what type of physical activity do you participate in: additional details: cutting wood do you feel safe at home: Yes HPI HPI HPI: Patient is a 69 y/o M who returns for packing removal. He notes feeling improved. He states there is not as much pressure noted. He states the packing came out last night when he was doing a sitz bath. He has taken 3 tablets of Flagyl so far. Exam GI Other: Anus- 11 o'clock position is a lump noted. Incision appears to be closed. This area has small amount of tenderness. Area was cleansed with peroxide and saline.Upon applying pressure, there appeared to be a small amountof purulent fluid coming from the anus. I elected to open the area again. Office Procedures I&D Provider Documentation Provider Documentation: Procedure note Procedure: Incision and Drainage of emily-rectal abscess Permit: Procedure, benefits, risks (include those of bleeding, infection, injury, anesthesia, and allergic reaction), and alternatives explained to the patient who voiced understanding of the information. Their questions were soughtand answered. Patient agreed to proceed with the incision and drainage of emily-rectal abscess. Permit signed and in chart. Indication: Emily-rectal abscess Physician: Daksha Peña PA-C Nurse: Vanessa Cardona RN Description: Patient positioned in the prone position comfortably. Area prepped with betadine and draped in a sterile fashion. Local anesthetic administered with 7 cc of 0.5% Marcaine and 1% . An elliptical incision was made and a small amount of bloody, murky yellow fluid was expressed. Cavity was probed to break up any pockets. Culture was not obtained. Cavity was not packed. Cavity was flushed with peroxide/saline mixture. Surrounding area was cleansed with normal saline and single folded 4 x 4 gauze dressing was applied. Patient tolerated theprocedure well. Complications: None Disposition: Patient alert and oriented. Patient tolerated the procedure well. Alert Pawn Broker Alert Billing: Yes Incision and Drainage 49318 Abscess Simp/Single Procedure Time Out Time Out Informed consent given: Yes Consent signed: Yes Time out checklist: patient, procedure, site marked/identified, positioning of patient, supplies available, allergies confirmed and team agrees on procedure Time out staff in room: Yes Time out verified: Yes Time out date: 08/05/25 Time out time: 09:14 Assessment and Plan Assessment and Plan (1) Emily-rectal abscess: Status: Acute Plan: Recommend continuation of sitz bathes with Epsom salts Continue Flagyl until completed Follow-up with Dr. Bruce on Monday to reassess area and to determine if surgery will proceed on Saturday 08/11 or if anything further will need to be completed. Orders: Orders Incision and Drainage Today K61.1 - Rectal abscess Medications: New lidocaine 5% 1 applic topical TID PRN 35.44 grams 0RF pain Coding Level of Care Code Attention Ashok Diagnoses Emily-rectal abscess K61.1 CPT Codes Incision and Drainage - I&D: 41999 Abscess Simp/Single (10112) Clinical Quality Measures Falls Risk Screening/Assistive Devices Have you fallen in the past year?: No 08/05/25 1140 <Electronically signed by Daksha JACOME PA-C> Date _ Daksha JACOME PA-C Cosigner Signature: Date (if applicable) CC: ~ [facility] Work Phone: Progress note Author Chuck Bruce [facility] Note Date/Time August 08, 2025 10:20am [facility] [address] [place] [address] [address] [place] [address] OFFICE VISIT Date of Service: 08/08/25 MR#: [id number] Acct: [id number] Name: ANGELIA KERNS Rep #: [id number] 2 : 1955 Provider: Dr. Federico Bruce MD Age/Sex: 69/M Location: [facility] Status: Signed Intake Vital Signs 08/02/25 10:17 Height 5 ft 11 in Weight: 182 lb 6.4 oz BMI 25.4 BP 144/77 H Respiration 16 Pulse 77 Temp 97.4 F L Temp Source Oral Pulse Oximetry (%) 98 Intake Visit Reasons: WOUND CHECK Chief Complaint: wound check Accompanied by: wi Is patient in pain?: No Allergies No Known Allergies Allergy (Verified 08/08/25 09:49) Medications ?Medication ?Instructions ?Recorded ?Confirmed ?Type acetaminophen 500 mg tablet 500 mg PO Q6H PRN Pain 08/08/25 History (Tylenol Extra Strength) omega 6-sek-dqu-fish oil 1,000 mg 1 cap PO DAILY 12/0708/08/25 History (120 mg-180 mg) capsule (Fish Oil) psyllium husk 0.4 gram capsule 0.4 g PO QHS 12/07/22 0 08/08/25 History (Metamucil) sildenafil 100 mg tablet 100 mg PO DAILY PRN sexual 0 05/02/24 08/08/25 Rx activity #45 tabs alprazolam 0.25 mg tablet 0.5 mg (2 x 0.25 mg) PO BID #60 06/03/24 08/08/25 Rx tabs trazodone 100 mg tablet 100 mg PO QHS 01/27/2508/08 History polyethylene glycol 3350 17 4 g PO QDAY 04/21/2508/08 History gram/dose oral powder (Miralax) ferrous sulfate 325 mg (65 mg 325 mg PO DAILY 07/30/25 08/08/25 History iron) tablet (iron) lisinopril 40 mg tablet 40 mg PO DAILY 07/30/25/05/07 History lidocaine HCl 2 % mucosal solution 1 applic mucous mem brane BID PRN 08/02/25 08/08/25 Rx (Lidocaine Viscous) pain #100 mL metronidazole 500 mg tablet 500 mg PO TID 5 days #15 t abs 08/04/25 08/08/25 Rx lidocaine 5 % topical ointment 1 applic topical TID OK N pain 08/05/25 08/08/25 Rx #35.44 grams Have you fallen in the past year?: No Subjective Details: Patient is 69-year-old male well-known to me for history of hemorrhoids and other perirectal pathologies as well as a pending inguinal hernia repair who presents for wound check after Mrs. Crooks NAA Peña completed I&D of a perirectal abscess 08/05/2025. He presents today with his . Earlier in the week he had called about some development of diarrhea but confessed to continuing MiraLAX dosing. He states that he is now off this medication but also took himself off of Flagyl as well because of the concern that this medication was causing his diarrhea. He notes that his pain is improved today. He denies any fevers or chills. He states that he had drainage of the yellowishcharacter yesterday but has not noted any significant drainage today. Objective Details: Constitutional: No acute distress, cooperative Anorectal: At the 11 to 12 o'clock position there is persistent tissue induration with a 1 mm vertical incision draining a scant amount of thin yellow?brown discharge. The area remains tender to the touch. I do not feel any other areas of fluctuance Coding Level of Care Code Off vis,est,level 3 Diagnoses Emily-rectal abscess K61.1 [facility] Medical History History of hiatal hernia Gastric reflux Wears partial dentures Hemorrhoids Wears glasses Anxiety Diabetes Arthritis Low iron Fatty liver High cholesterol Dietary restriction Non-smoker Leg cramps Btxgh-Otsbhsolx-Jtoce (WPW) pattern Cardiology follow-up encounter Hypertension Positive colorectal cancer screening using Cologuard test Diabetes Arthritis Surgical History History of banding of hemorrhoid Hx of colonoscopy S/P lateral meniscus repair of right knee H/O prostatectomy Family History Father CVA (cerebral vascular accident) Mother Cancer throat Other Heart disease Social History household members: spouse current occupational status: retired 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 He is symptomatically improved, however, an area of induration remains along with a draining wound. I had a discussion with Mr. Kerns that we will need to more closely manage his use of MiraLAX to avoid frequent bowel movements that would exacerbate his condition. I have encouraged him to complete his prescription for Flagyl which was prescribed empirically as there are no cultures obtained. However, I also underscored that appropriate incision and drainage should manage abscesses without the necessity of antibiotics. I then went on to state I wish to cancel his hernia repair that is presently slated for08/11/2025 to avoid risk for translocation and mesh infection. Mr. Kerns confirms that his hernia experience has remained stable/unchanged. Will plan toreassess his wound in another 2 weeks and at that time hopefully reschedule his hernia repair. Plan: ? Patient advised to continue Flagyl prescription ? Patient to continue sitz bath's ? Patient to refrain from MiraLAX usage ? Follow-up clinic visit in 2 weeks for wound check and possible reschedule of bilateral inguinal hernia repair with mesh 08/08/25 1325 <Electronically signed by Chuck Bruce MD> Date _ Chuck Bruce MD [facility] Signature: Date (if applicable) CC: CARLOS Ballesteros; RICHAR Peña ~ [facility] Work Phone: Reason for referral (narrative)No reason for referral information availableWChildren[facility] Work Phone: Summary Purpose Family History No Family History Records Found Relationship Condition Age at Onset Recorded Date/T andrea Not Specified Cardiac disease Unknown father Cerebrovascular accident (CVA) Unknown mother Malignant neoplasm Unknown Advance Directives No Advanced Directives Records Found Advance Directive Response Recorded Date/ Time Name of Medical Power of Forest Economist December 07, 2022 8:30am Living Will Yes December 07 8:30am Power of Forest Economist Yes December 07, 2022 8:30am Advance Directive Response Recorded Date/ Time Living Will Yes December 07 9:30am Power of Forest Economist Yes December 07, 2022 9:30am Advance Directive Response Recorded Date/ Time Living Will Yes December 07 8:30am Power of Forest Economist Yes December 07, 2022 8:30am Advance Directive Response Recorded Date/ Time Living Will No October 25 9:57am Power of Forest Economist No October 25, 2024 9:57am Living Will Yes January 27, 2025 11:50am Power of Forest Economist Yes January 27 11:50am Name of Medical Power of Forest Economist January 27, 2025 11:50am Advance Directive Response Recorded Date/ Time Living Will No October 25 9:57am Do you have a Healthcare Power of Forest Economist? No October 25, 2024 9:57am Living Will Yes January 27, 2025 11:50am Do you have a Healthcare Power of Forest Economist? Yes January 27, 2025 11:50am Name of Medical Power of Forest Economist January 27, 2025 11:50am Advance Directive Response Recorded Date/ Time Living Will Yes January 27, 2025 11:50am Do you have a Healthcare Power of Forest Economist? Yes January 27, 2025 11:50am Name of Medical Power of Forest Economist January 27, 2025 11:50am Advance Directive Response Recorded Date/ Time Do you have a Healthcare Power of Forest Economist? No August 02, 2025 10:17am Chief Complaint and Reason for Visit Chief [...] 39pm INGUINAL HERNIA July 24, 2025 12:44pm Chief Complaint Admit Date HEMORRHOID CHECK WITH ANOSCOPY April 21, 2025 9:44am HEMORRHOID CHECK May 12, 2025 2:38 pm RLQ PAIN,PAIN June 25, 2025 2: 39pm INGUINAL HERNIA July 24, 2025 12:44pm PREOP August 01, 2025 7:56am other August 02, 2025 10:17am other August 02, 2025 11:48am POSSIBLE I&D OF HEMORRHOID July 8:59am REMOVE PACKING S/P I&D August 05 025 8:23am WOUND CHECK August 08, 2025 9:44am Reason for Visit Admit Date Fissure in ano April 21, 2025 9:44a m Fissure in ano May 12, 2025 2:38 pm Bilateral inguinal hernia July 12:44pm Emily-rectal abscess August 04, 2025 8:59am Pain in rectum August 04, 2025 8:59am Emily-rectal abscess August 05, 2025 8:23am Emily-rectal abscess August 08, 2025 9:44am Chief Complaint Admit Date HEMORRHOID CHECK WITH ANOSCOPY April 21, 2025 9:44am HEMORRHOID CHECK May 12, 2025 2:38 pm RLQ PAIN,PAIN June 25, 2025 2: 39pm INGUINAL HERNIA July 24, 2025 12:44pm PREOP August 01, 2025 7:56am other August 02, 2025 10:17am other August 02, 2025 11:48am POSSIBLE I&D OF HEMORRHOID July 8:59am REMOVE PACKING S/P I&D August 05 025 8:23am WOUND CHECK August 08, 2025 9:44am WOUND CHECK August 19, 2025 9: 29am Additional Source Comments (unrecognized sect ion and content) No Status Records FoundNo Status Records FoundNo Status Records FoundNo Status Records Found INFORMATION SOURCE (unrecogn ized section and content) DATE CREATED AUTHOR 03/01/2019 [facility] [place] DATE CREATED AUTHOR AUTHOR'S ORGANIZ ATION 07/26/2022 [facility] ([place]) DATE CREATED AUTHOR AUTHOR'S ORGANIZ ATION 03/10/2023 [facility] DATE CREATED AUTHOR AUTHOR'S ORGANIZ ATION 09/17/2025 [facility] Care Team (unrecognized sect ion and content) Care Team Personnel Name: DANIEL COCHRAN SAP TECHNICAL ARCHITECT-EASTER BUNNY Position: P4 Advanced Practice Nurse Med Service: Active Provider Member Role: Primary Care Physician Address: Address: [address] [place] [address]- Name: ROEL MELGOZA MD Position: P4 Physician - Urologist Member Role: Urologist Address: Address: [address] [place] [address] [address] [place] [address]- Care Team Related Persons Name: GEOVANI ROSARIO [...] Member Role Status Dates Zackary Ballesteros VSC, 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 Primary Care Provider Active Team Status: Inactive Member Role Status Dates Zackary Ballesteros VSC, 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 Primary Care Provider Active Start: October 07, 2024 End: October 07, 2024 Zackary HIGGINSC, 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 Referring Provider Active S tart: October 07, 2024 End: October 07, 2024 Dr. Chuck Bruce MD Attending Provider Active Start: October 07, 2024 End: October 07, 2024 Team Status: Inactive Member Role Status Dates Zackary HIGGINSC, 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 Primary Care Provider Active Start: October 25, 2024 End: October 25, 2024 Dr. Wood Hinojosa MD Attending Provider Active Sta rt: October 25, 2024 End: October 25, 2024 Dr. Wood Hinojosa MD Emergency Provider Active Sta rt: October 25, 2024 End: October 25, 2024 Team Status: Inactive Member Role Status Dates Zackary Taylorder VSC, 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 Primary Care Provider Active Start: December 23, 2024 End: December 23, 2024 Zackary Taylorder VSC, 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 Referring Provider Active S tart: December 23, 2024 End: December 23, 2024 Dr. Chuck Bruce MD Attending Provider Active Start: December 23, 2024 End: December 23, 2024 Team Status: Active Member Role Status Dates Zackary Taylorder VSC, 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 Primary Care Provider Active Start: January 22, 2025 Zebulun Beam VSC, 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 Attending Provider Active Start: January 22, 2025 Team Status: Inactive Member Role Status Dates Zackary Taylorder VSC, 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 Primary Care Provider Active Start: January 28, 2025 End: January 28, 2025 Zackary Taylorder VSC, 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 Referring Provider Active S tart: January 28, 2025 End: January 28, 2025 Dr. Chuck Bruce MD Attending Provider Active Start: January 28, 2025 End: January 28, 2025 Team Status: Active Member Role Status Dates Zackary Taylorder VSC, 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 Primary Care Provider Active Start: January 28, 2025 Zackary Taylorder VSC, 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 Referring Provider Active S tart: January 28, 2025 Dr. Chuck Bruce MD Attending Provider Active Start: January 28, 2025 Dr. Chuck Bruce MD Other Provider Active Sta rt: January 28, 2025 Team Status: Inactive Member Role Status Dates Zackary Taylorder VSC, 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 Primary Care Provider Active Start: January 22, 2025 End: January 22, 2025 Zebulujossy Beam VSC, 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 Attending Provider Active Start: January 22, 2025 End: January 22, 2025 Team Status: Inactive Member Role Status Dates Zackary Taylorder VSC, 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 Primary Care Provider Active Start: February 20, 2025 End: February 20, 2025 Zackary Taylorder VSC, 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 Referring Provider Active S tart: February 20, 2025 End: February 20, 2025 Dr. Chuck Bruce MD Attending Provider Active Start: February 20, 2025 End: February 20, 2025 Team Status: Inactive Member Role Status Dates Zackary Ballesteros VSC, 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 Primary Care Provider Active Start: April 04, 2025 End: April 04, 2025 Zackary Taylorder VSC, 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 Referring Provider Active S tart: April 04, 2025 End: April 04, 2025 Dr. Chuck Bruce MD Attending Provider Active Start: April 04, 2025 End: April 04, 2025 Team Status: Inactive Member Role Status Dates Zackary Ballesteros VSC, 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 Primary Care Provider Active Start: April 21, 2025 End: April 21, 2025 Zackary Ballesteros VSC, 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 Referring Provider Active S tart: April 21, 2025 End: April 21, 2025 Dr. Chuck Bruce MD Attending Provider Active Start: April 21, 2025 End: April 21, 2025 Team Status: Active Member Role/Relationship Status Dates Zackary Ballesteros VSC, 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 Primary Care Provider Active Team Status: Inactive Member Role/Relationship Status Dates Zackary Taylorder VSC, 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 Primary Care Provider Active Start: January 22, 2025 End: January 22, 2025 Lan David VSC, 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 Attending Provider Active Start: January 22, 2025 End: January 22, 2025 Team Status: Inactive Member Role/Relationship Status Dates Zackary Ballesteros VSC, 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 Primary Care Provider Active Start: January 28, 2025 End: January 28, 2025 Zackary Ballesteros VSC, 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 Referring Provider Active S tart: January 28, 2025 End: January 28, 2025 Dr. Chuck Bruce MD Attending Provider Active Start: January 28, 2025 End: January 28, 2025 Team Status: Active Member Role/Relationship Status Dates Zackary Ballesteros VSC, 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 Primary Care Provider Active Start: January 28, 2025 Zackary Taylorder VSC, 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 Referring Provider Active S tart: January 28, 2025 Dr. Chuck Bruce MD Attending Provider Active Start: January 28, 2025 Dr. Chuck Bruce MD Other Provider Active Sta rt: January 28, 2025 Team Status: Inactive Member Role/Relationship Status Dates Zackary Taylorder VSC, 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 Primary Care Provider Active Start: February 20, 2025 End: February 20, 2025 Zackary Taylorder VSC, 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 Referring Provider Active S tart: February 20, 2025 End: February 20, 2025 Dr. Chuck Bruce MD Attending Provider Active Start: February 20, 2025 End: February 20, 2025 Team Status: Inactive Member Role/Relationship Status Dates Zackary Ballesteros VSC, 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 Primary Care Provider Active Start: April 04, 2025 End: April 04, 2025 Zackary Ballesteros VSC, 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 Referring Provider Active S tart: April 04, 2025 End: April 04, 2025 Dr. Chuck Bruce MD Attending Provider Active Start: April 04, 2025 End: April 04, 2025 Team Status: Inactive Member Role/Relationship Status Dates Zackary Ballesteros VSC, 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 Primary Care Provider Active Start: April 21, 2025 End: April 21, 2025 Zackary Ballesteros VSC, 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 Referring Provider Active S tart: April 21, 2025 End: April 21, 2025 Dr. Chuck Bruce MD Attending Provider Active Start: April 21, 2025 End: April 21, 2025 Team Status: Inactive Member Role/Relationship Status Dates Zackary Ballesteros VSC, 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 Primary Care Provider Active Start: May 12, 2025 End: May 12, 2025 Zackary Ballesteros VSC, 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 Referring Provider Active S tart: May 12, 2025 End: May 12, 2025 Dr. Chuck Bruce MD Attending Provider Active Start: May 12, 2025 End: May 12, 2025 Team Status: Inactive Member Role/Relationship Status Dates Zackary Ballesteros VSC, 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 Primary Care Provider Active Start: April 04, 2025 End: April 04, 2025 Zackary Ballesteros VSC, 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 Referring Provider Active S tart: April 04, 2025 End: April 04, 2025 Dr. Chuck Bruce MD Attending Provider Active Start: April 04, 2025 End: April 04, 2025 Team Status: Inactive Member Role/Relationship Status Dates Zackary Ballesteros VSC, 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 Primary Care Provider Active Start: April 21, 2025 End: April 21, 2025 Zackary Taylorder VSC, 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 Referring Provider Active S tart: April 21, 2025 End: April 21, 2025 Dr. Chuck Bruce MD Attending Provider Active Start: April 21, 2025 End: April 21, 2025 Team Status: Inactive Member Role/Relationship Status Dates Zackary Taylorder VSC, 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 Primary Care Provider Active Start: May 12, 2025 End: May 12, 2025 Zackary Ballesteros VSC, 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 Referring Provider Active S tart: May 12, 2025 End: May 12, 2025 Dr. Chuck Bruce MD Attending Provider Active Start: May 12, 2025 End: May 12, 2025 Team Status: Inactive Member Role/Relationship Status Dates Zackary Taylorder VSC, 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 Primary Care Provider Active Start: June 25, 2025 End: June 25, 2025 Zebulun Beam VSC, 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 Attending Provider Active Start: June 25, 2025 End: June 25, 2025 Zebulun Beam VSC, 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 Referring Provider Active Start: June 25, 2025 End: June 25, 2025 Team Status: Inactive Member Role/Relationship Status Dates Zackary Ballesteros VSC, 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 Primary Care Provider Active Start: July 24, 2025 End: July 24, 2025 Zackary Ballesteros VSC, 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 Referring Provider Active S tart: July 24, 2025 End: July 24, 2025 Dr. Chuck Bruce MD Attending Provider Active Start: July 24, 2025 End: July 24, 2025 Team Status: Active Member Role/Relationship Status Dates Zackary Ballesteros VSC, 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 Primary care physician Active Team Status: Inactive Member Role/Relationship Status Dates Zackary Taylorder VSC, 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 Primary care physician Active Start: April 21, 2025 End: April 21, 2025 Zackary Taylorder VSC, 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 Referring Provider Active S tart: April 21, 2025 End: April 21, 2025 Dr. Chuck Bruce MD Attending physician Active Start: April 21, 2025 End: April 21, 2025 Team Status: Inactive Member Role/Relationship Status Dates Zackary Ballesteros VSC, 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 Primary care physician Active Start: May 12, 2025 End: May 12, 2025 Zackary Ballesteros VSC, 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 Referring Provider Active S tart: May 12, 2025 End: May 12, 2025 Dr. Chuck Bruce MD Attending physician Active Start: May 12, 2025 End: May 12, 2025 Team Status: Inactive Member Role/Relationship Status Dates Zackary Ballesteros VSC, 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 Primary care physician Active Start: June 25, 2025 End: June 25, 2025 Franburodney Beam VSC, 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 Attending physician Active Start: June 25, 2025 End: June 25, 2025 Zebulun Beam VSC, 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 Referring Provider Active Start: June 25, 2025 End: June 25, 2025 Team Status: Inactive Member Role/Relationship Status Dates Zackary Ballesteros VSC, 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 Primary care physician Active Start: July 24, 2025 End: July 24, 2025 Zackary Ballesteros VSC, 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 Referring Provider Active S tart: July 24, 2025 End: July 24, 2025 Dr. Chuck Bruce MD Attending physician Active Start: July 24, 2025 End: July 24, 2025 Team Status: Active Member Role/Relationship Status Dates Zackary Ballesteros VSC, 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 Primary care physician Active Start: August 01, 2025 Dr. Cezar Andujar MD Attending physician Active Start: August 01, 2025 Dr. Chuck Bruce MD Referring Provider Active Start: August 01, 2025 Team Status: Inactive Member Role/Relationship Status Dates Zackary Ballesteros VSC, 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 Primary care physician Active Start: August 02, 2025 End: August 02, 2025 Darius Henderson MD Attending physician Active Sta rt: August 02, 2025 End: August 02, 2025 Darius Henderson MD Emergency Department Physician Active Start: August 02, 2025 End: August 02, 2025 Team Status: Active Member Role/Relationship Status Dates Zackary Ballesteros VSC, 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 Primary care physician Active Start: August 02, 2025 Darius Henderson MD Emergency Department Physician Active Start: August 02, 2025 Dr. Chuck Bruce MD Attending physician Active Start: August 02, 2025 Team Status: Inactive Member Role/Relationship Status Dates Zackary Ballesteros VSC, 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 Primary care physician Active Start: August 04, 2025 End: August 04, 2025 Zackary Ballesteros VSC, 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 Referring Provider Active S tart: August 04, 2025 End: August 04, 2025 Daksha JACOME PA-C Attending physician Active Start: August 04, 2025 End: August 04, 2025 Team Status: Inactive Member Role/Relationship Status Dates Zackary Taylorder VSC, 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 Primary care physician Active Start: August 05, 2025 End: August 05, 2025 Zackary Ballesteros RONALDOC, 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 Referring Provider Active S tart: August 05, 2025 End: August 05, 2025 Daksha JACOME PA-C Attending physician Active Start: August 05, 2025 End: August 05, 2025 Team Status: Inactive Member Role/Relationship Status Dates Zackary Ballesteros VSC, 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 Primary care physician Active Start: August 08, 2025 End: August 08, 2025 Zackary Ballesteros VSC, 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 Referring Provider Active S tart: August 08, 2025 End: August 08, 2025 Dr. Chuck Bruce MD Attending physician Active Start: August 08, 2025 End: August 08, 2025 Team Status: Inactive Member Role/Relationship Status Dates Zackary Ballesteros VSC, 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 Primary care physician Active Start: August 19, 2025 End: August 19, 2025 Zackary Lesli HIGGINSAshanti, 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 Referring Provider Active S tart: August 19, 2025 End: August 19, 2025 Dr. Chuck Bruce MD Attending physician Active Start: August 19, 2025 End: August 19, 2025 FOR RECORDS PERTAINING TO PATIENTS WHO [...] BE BASED ON THE PRIMARY CLINICAL RECORDS. [employer] provides no warranty or guarantee of the accuracy or completeness of information in this document.
[2025-09-18] MEDS: Lactated Ringers 1,000 ML 15 ML IV (07:08)
--- NOTE | 2025-09-18 07:11 | PCM.HP.BLA ---
History and Physical Date of Admission: 09/18/25 Date of Service: 08/19/25 MR#: [id number] Acct: [id number] Name: ANGELIA KERNS Rep #: [id number] : 1955 Provider: Dr. Chuck Bruce MD Age/Sex: 69/M Location: [facility] Status: Signed Intake Vital Signs 08/02/2510:17 08/19/2509:37 Height 5 ft 11 in 5 ft 11 in Weight: 182 lb 6.4 oz 183 lb BMI 25.4 25.5 BP 144/77 H 153/83 H Blood Pressure Location Rt brachial Position Sitting Respiration 16 18 Pulse 77 76 Pulse Source Monitor Temp 97.4 F L 97.2 F L Temp Source Oral Temporal Pulse Oximetry (%) 98 97 Oxygen Delivery Method room air Intake Visit Reasons: WOUND CHECK Chief Complaint: wound check Accompanied by: Is patient in pain?: Yes Allergies No Known Allergies Allergy (Verified 08/19/25 09:37) Medications Medication Instructions Recorded Confirmed Type acetaminophen 500 mg tablet 500 mg PO Q6H PRN Pain 10/10/22 08/19/25 History (Tylenol Extra Strength) omega 3-ydl-oln-fish oil 1,000 mg 1 cap PO DAILY 12/07/22 08/19/25 History (120 mg-180 mg) capsule (Fish Oil) psyllium husk 0.4 gram capsule 0.4 g PO QHS 12/07/22 08/19/25 History (Metamucil) sildenafil 100 mg tablet 100 mg PO DAILY PRN sexual 05/02/24 08/19/25 Rx activity #45 tabs alprazolam 0.25 mg tablet 0.5 mg (2 x 0.25 mg) PO BID #60 06/03/24 08/19/25 Rx tabs trazodone 100 mg tablet 100 mg PO QHS 01/27/25 08/19/25 History polyethylene glycol 3350 17 4 g PO QDAY 04/21/25 08/19/25 History gram/dose oral powder (Miralax) ferrous sulfate 325 mg (65 mg 325 mg PO DAILY 07/30/25 08/19/25 History iron) tablet (iron) lisinopril 40 mg tablet 40 mg PO DAILY 07/30/25 08/19/25 History lidocaine HCl 2 % mucosal solution 1 applic mucous membrane BID PRN 08/02/25 08/19/25 Rx (Lidocaine Viscous) pain #100 mL lidocaine 5 % topical ointment 1 applic topical TID PRN pain 08/05/25 08/19/25 Rx #35.44 grams Have you fallen in the past year?: No Subjective Details: Patient is 69-year-old male who returns for wound check visit after perirectal abscess I&D 08/05/2025. He was last seen 08/08/2025 at which time we had to postpone his pending inguinal hernia repair. Today he presents with his . He states that he is still experiencing some pain which she describes variably as "aching" and "burning". He notes that he required use of topical lidocaine yesterday but not yet today. He also denies any drainage but shares he did observe some bright red blood with a bowel movement 3 days ago. He denies any fevers or chills. He reports that he completed his Flagyl prescription and this did lead to some diarrhea but now has bowel habits have reverted more to his normal and are more formed. He is experiencing 2-3 bowel movements per day and doing 2-3 sitz bath's per day as well. Below is recapitulated from patient's prior visit for ease of review: Patient is 69-year-old male well-known to me for history of hemorrhoids and other perirectal pathologies as well as a pending inguinal hernia repair who presents for wound check after Mrs. Crooks PeñaNAA completed I&D of a perirectal abscess 08/05/2025. He presents today with his . Earlier in the week he had called about some development of diarrhea but confessed to continuing MiraLAX dosing. He states that he is now off this medication but also took himself off of Flagyl as well because of the concern that this medication was causing his diarrhea. He notes that his pain is improved today. He denies any fevers or chills. He states that he had drainage of the yellowish character yesterday but has not noted any significant drainage today. Objective Details: Constitutional: No acute distress, cooperative Anorectal: Healing of prior I&D site with no visible incision. No drainage. There is persistent induration at the 12 o'clock position. This is nontender upon palpation. Coding Level of Care Code Off vis,est,level 3 Diagnoses Emily-rectal abscess K61.1 [facility] Medical History History of hiatal hernia Gastric reflux Wears partial dentures Hemorrhoids Wears glasses Anxiety Diabetes Arthritis Low iron Fatty liver High cholesterol Dietary restriction Non-smoker Leg cramps Hvqye-Dhcresndq-Ijvae (WPW) pattern Cardiology follow-up encounter Hypertension Positive colorectal cancer screening using Cologuard test Diabetes Arthritis Surgical History History of banding of hemorrhoid Hx of colonoscopy S/P lateral meniscus repair of right knee H/O prostatectomy Family History Father CVA (cerebral vascular accident) Mother Cancer throat Other Heart disease Social History household members: spouse current occupational status: retired current occupation: [employer] Smoking Status: Never smoker Electronic Cigarette Use: not used alcohol intake: never substance use type: does not use what type of physical activity do you participate in: additional details: cutting wood do you feel safe at home: Yes Assessment and Plan (No Qualifiers) Assessment and Plan (1) Emily-rectal abscess: Status: Acute Comment: Patient is 69-year-old male who is evaluated following I&D of perirectal abscess 3 days ago. He is symptomatically improved, however, an area of induration remains along with a draining wound. I had a discussion with Mr. Kerns that we will need to more closely manage his use of MiraLAX to avoid frequent bowel movements that would exacerbate his condition. I have encouraged him to complete his prescription for Flagyl which was prescribed empirically as there are no cultures obtained. However, I also underscored that appropriate incision and drainage should manage abscesses without the necessity of antibiotics. I then went on to state I wish to cancel his hernia repair that is presently slated for 08/11/2025 to avoid risk for translocation and mesh infection. Mr. Kerns confirms that his hernia experience has remained stable/unchanged. Will plan to reassess his wound in another 2 weeks and at that time hopefully reschedule his hernia repair. Update 08/19/2025: Patient no longer exhibits a open/draining wound of the perirectal area. He is symptomatically improved as well. I have encouraged him to refrain from MiraLAX use unless he is truly experiencing constipation as a means of decreasing his bowel movement frequency and hopefully continuing healing. I have encouraged him to continue use of sitz bath's as a means of improving the induration in the anorectal area. As we no longer have evidence of an infection I believe we can proceed with rescheduling his previously pending bilateral inguinal hernia repair. Plan: – Patient to continue sitz bath's – Patient to refrain from MiraLAX usage unless symptomatic from constipation – Reschedule of bilateral inguinal hernia repair with mesh I have examined the patient and the H&P has been reviewed. There are no clinical changes since date of exam. Patient confirms he has remained in a stable state of health and denies any present concerns for infection. He also confirms that there are no questions related to the procedure and that he is prepared for postoperative activity restriction expectations. Consents were confirmed. Proceed to the operating room for robot-assisted bilateral inguinal hernia repair with mesh.
--- NOTE | 2025-09-18 07:21 | PRE.ANES_ITS ---
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 Questions invited. The patient/parents/legal guardian/POA seems to understand and agrees to proceed with anesthesia plan. Reviewed the physical assessment, medical history, allergy history and patient home medications list prior to surgery/procedure/anesthetic and documented any changes. Performed airway and anesthesia risk assessments. Anesthesia Type Anesthesia Type: General History Source History Obtained from:: Patient and Chart Anesthesia Focused Assessment* Temperature: 98.0 F Pulse Rate: 69 Blood Pressure: 144/82 Respiratory Rate: 16 Pulse Ox: 99 Oxygen Delivery Method: Room Air Airway Assessment Mouth opens: >3 cm Mallampati Score: II Teeth Condition: Missing (many missing, partials out) Neck Range of motion (ROM): Full ROM Labs Anesthesia Preop lab: CBC WBC, (4.4-11.0) 8.9 K/mm3 08/01/25, 08:08 RBC, (4.6-6.2) 4.51 M/mm3 L 08/01/25, 08:08 Hgb, (13.0-16.5) 13.7 g/dL 08/01/25, 08:08 Hct, (40-54) 40.0 % 08/01/25, 08:08 Plt Count, (150-450) 158 K/mm3 08/01/25, 08:08 CHEMISTRY Potassium, (3.3-5.1) 4.9 mmol/L 08/01/25, 08:08 Sodium, (133-145) 136 mmol/L 08/01/25, 08:08 BUN, (4-19) 14 mg/dL 08/01/25, 08:08 Creatinine, (0.70-1.20) 0.71 mg/dL 08/01/25, 08:08 Glucose, (70-99) 78 mg/dL 08/01/25, 08:08 POC Glucose, (74-106) 97 mg/dL Today, 06:26 TSH, (0.300-4.200) 0.772 uIU/mL 01/22/25, 15:40 COAG Pre-Assessment Diagnosis/Proposed Procedure Planned Operative Procedure(s): BILAT LAP ROBOTIC INGUINAL HERNIA REPAIR WITH MESH Anesthesia History 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 When Was Last Pacemaker Check QUESTION #4 FULL TEXT: You/Your Family Experience fever (hyperthermia) with Anesthesia Last Oral Intake Last Oral intake: Last Oral Intake NPO since 00:00 09/18/25 06:57 Meds taken in AM with sips of Yes 09/18/25 06:57 water? Meds patient instructed to alprazolam 09/18/25 06:57 take am of surgery PONV PONV - threshing department supervisor: PONV - threshing department supervisor Female No 09/08/25 09:12 HX of Motion Sickness No 09/08/25 09:12 HX of N/V After Surgery No 09/08/25 09:12 Non-Smoker Yes 09/08/25 09:12 Duration of Surgery greater Yes 09/08/25 09:12 than 60 minutes Number of Risk Factors 2 09/08/25 09:12 PONV Score Moderate Risk 09/08/25 09:12 Height & Weight Height & Weight: Anesthesia: Height & Weight Height 5 ft 11 in 09/18/25 06:57 Weight: 83.6 kg 09/18/25 06:57 Body Mass Index (BMI) 25.7 09/18/25 06:57 Respiratory Assessment Respiratory Assessment - threshing department supervisor: Respiratory Tract Infection Hx - threshing department supervisor Hx Respiratory Tract Infection No 09/08/25 09:12 STOP Sleep Apnea STOP Sleep Apnea - threshing department supervisor: STOP Sleep Apnea - threshing department supervisor Hx Hypertension Yes: CONTROLLED WITH MED 09/08/25 09:12 Hx Sleep Apnea No 09/08/25 09:12 CPAP BIPAP Do you snore loudly (louder Yes 09/08/25 09:12 than talking or can be heard Do you often feel tired/ No 09/08/25 09:12 fatigued/ sleepy during daytime? Has anyone observed you stop No 09/08/25 09:12 breathing during sleep? STOP Results Positive 09/08/25 09:12 QUESTION #5 FULL TEXT : Do you snore loudly (louder than talking or can be heard through closed doors)? Tobacco Use History Tobacco Use History - threshing department supervisor: Tobacco Use History - threshing department supervisor Tobacco Use Smoking Status Never smoker 09/08/25 09:12 Hx Tobacco Use No 09/08/25 09:12 Years Smoking Packs Smoked per Day Smoking Cessation Date was within the last 15 years Hx Smoking Cessation Date Hx Smoking Cessation Counseling Hematologic Medial History Hematologic Hx - threshing department supervisor: Hematologic Medical Hx - manager long term care Hx of Blood Transfusion No 09/08/25 09:12 Hx of Transfusion in last 3 No 09/08/25 09:12 Months Date of Last Transfusion (if within last 3 months) Ever experience any problems No 09/08/25 09:12 with transfusion(s)? Specify any problems Hx of Preganancy in last 3 N/A 09/08/25 09:12 Months Nurse Filling Out Transfusion VCHRISTIN 09/08/25 09:12 & Questions: Date: 09/08/25 09/08/25 09:12 Time: 09:12 09/08/25 09:12 Patient unable to answer at this time (ie. confused, unrespo /Reproduction History /Reproductive History - threshing department supervisor: /Reproductive Hx- threshing department supervisor Hx Now No 09/08/25 09:12 Gestational Age (in weeks): EDC: Hx Hx Para Hx Section SAB No 09/08/25 09:12 Does the father of the baby or his family experience fever w Father of the baby Malignant Hypertension history comment Active Medications Active Medications: Current Medications Generic Name Dose Route Start Last Admin Trade Name Freq PRN Reason Stop Dose Admin Cefazolin Sodium 2 gm/ Sodium 110 mls @ 200 mls/hr 09/18/25 07:30 Chloride IV 09/18/25 08:02 INTRAOP ONE Lactated Ringer's 1,000 mls @ 15 mls/hr 09/18/25 06:00 09/18/25 07:08 IV 15 mls/hr .Q48H MELBA Administration PFSH Medical History History of hiatal hernia Gastric reflux Wears partial dentures Hemorrhoids Wears glasses Anxiety Diabetes Arthritis Low iron Fatty liver High cholesterol Dietary restriction Non-smoker Leg cramps Imede-Myjeylyxh-Ghjul (WPW) pattern Cardiology follow-up encounter Hypertension Positive colorectal cancer screening using Cologuard test Diabetes Arthritis Home Medications Medication Instructions Recorded Last Taken Type acetaminophen 500 mg tablet 500 mg PO Q6H PRN Pain 09/17/25 History (Tylenol Extra Strength) omega 0-jbs-gxc-fish oil 1,000 mg 1 cap PO DAILY 12/0709/17/25 History (120 mg-180 mg) capsule (Fish Oil) psyllium husk 0.4 gram capsule 0.4 g PO QHS 12/07/22 1 11/17/24 History (Metamucil) sildenafil 100 mg tablet 100 mg PO DAILY PRN sexual 0 05/02/24 Unknown Rx activity #45 tabs alprazolam 0.25 mg tablet 0.5 mg (2 x 0.25 mg) PO BID #60 06/03/24 09/18/25 Rx tabs trazodone 100 mg tablet 100 mg PO QHS 01/27/2509/17 History polyethylene glycol 3350 17 4 g PO QDAY 04/21/2509/17 History gram/dose oral powder (Miralax) ferrous sulfate 325 mg (65 mg 325 mg PO DAILY 07/30/25 09/17/25 History iron) tablet (iron) lisinopril 40 mg tablet 40 mg PO DAILY 07/30/2504/06 History lidocaine HCl 2 % mucosal solution 1 applic mucous mem brane BID PRN 08/02/25 Unknown Rx (Lidocaine Viscous) pain #100 mL lidocaine 5 % topical ointment 1 applic topical TID TN N pain 08/05/25 Unknown Rx #35.44 grams Allergy/AdvReac Type Severity Reaction Status Date / Time No Known Allergies Allergy Verified 09/08/25 09:09 Family History Father CVA (cerebral vascular accident) Mother Cancer throat Other Heart disease Surgical History History of banding of hemorrhoid Hx of colonoscopy S/P lateral meniscus repair of right knee H/O prostatectomy Social History household members: spouse current occupational status: retired current occupation: [employer] Smoking Status: Never smoker Electronic Cigarette Use: not used alcohol intake: never substance use type: does not use what type of physical activity do you participate in: additional details: cutting wood do you feel safe at home: Yes Review of Systems (Anesthesia) ROS Narrative System reviewed and no additional complaints, except as documented.
[2025-09-18] MEDS: Cefazolin 1 GM/5 ML Vial 2 GM IV (07:30)
--- NOTE | 2025-09-18 07:30 | LIP_PTH ---
PATIENT: ANGELIA KING LOC: [facility] U#:[id number] AGE/SX: 70/M ROOM: RE09/18/[address]: Dr. Chuck Bruce MD : 1955 BED: DIS: 09/18/2025 SPEC #: [id number] RECD: 09/18/25 14:14 STATUS: MENDOZA NIKOLAS #: [id number] JOI: 09/18/25 07:[address]: Chuck Bruce DEPT: SURGICAL PATHOLOGY RECD BY: Gabe Ovalles ENTERED: 09/18/25 14:59 SP TYPE: LIPOMA OTHR DR: CARLOS Whitt Tissues: A - Soft tissues, NOS Procedures: Surgery Specimen Level III HEADER OPERATION: Laparoscopic robotic bilateral inguinal hernia repair with mesh PRE-OP DIAGNOSIS: Bilateral inguinal hernia repair TISSUE SUBMITTED: A- Left cord lipoma MICROSCOPIC DIAGNOSIS A. Left cord, "lipoma", inguinal hernia repair: - Mature adipose consistent with lipoma. MICROSCOPIC DESCRIPTION Slides are reviewed. GROSS DESCRIPTION A. Received in formalin labeled with the patient's name and date of . Designated as " left cord lipoma" is a 10.5 x 4.8 by 1.3 cm toney-yellow to pink-red lobulated and somewhat shaggy portion of soft tissue. Sectioning reveals yellow, lobulated, focally congested, homogenous cut surfaces. [employer] sections are submitted in 2 cassettes. CO [id number]
[2025-09-18] MEDS: Lidocaine 1% (5 ml sdv) 5 ML Vial IV (07:38)
[2025-09-18] MEDS: fentaNYL 100 MCG/2 ML Ampul 200 MCG IV (08:31)
[2025-09-18] MEDS: dexMEDEtomidine 200 MCG/2 ML ML 32 MCG IV (11:06)
[2025-09-18] MEDS: Bupiv/Epi 0.25% 30 ML Vial ×2 (11:52→12:05)
--- NOTE | 2025-09-18 12:02 | PCM.OPRPT ---
Operative Report (Standard) Operative Information Date of Procedure: 09/18/25 Pre-Operative Diagnosis: Bilateral inguinal hernias Post-Operative Diagnosis: Right indirect type inguinal hernia with left cord lipoma Surgery/Procedure Performed: Robot-assisted bilateral inguinal hernia repair with mesh (transabdominal preperitoneal) pattern marking supervisor: Yes Supervisor [employer]: Chandrika Arias Tasks completed by undertaker assistant: Opening & closing and Other (Material insertion) Type of Anesthesia: General/Supplemental RN Documented Start/Stop Times: Operation Date: 09/18/25 07:30 Case Time Into Pre-Op 09/18/25 05:59 Out of Pre-Op 09/18/25 07:26 Anesthesia Start 09/18/25 07:30 Into Room 09/18/25 07:30 Procedure Start 09/18/25 07:57 Procedure End 09/18/25 12:15 Anesthesia End 09/18/25 12:20 Out of Room 09/18/25 12:20 Into Recovery 09/18/25 12:24 Into Phase II Recovery 09/18/25 13:37 Out of Recovery 09/18/25 13:37 Out of Phase II 09/18/25 17:06 Procedure Start Time: 07:57 Procedure Stop Time: 12:15 Select all DRAINS/GRAFTS/IMPLANTS that apply: Implanted device (Bard anatomic mid max mesh left and right size large) Implanted device details: Left reference [id number], Lot [id number], right reference [id number], Lot [id number] Estimated Blood Loss: 15 Specimen collected: Yes Description of specimen(s) removed: Left cord lipoma Description of surgery: After appropriate identification the preoperative holding area the patient was brought to the operating room where he was positioned supine on the operating table. Preoperative antibiotics were completed and the patient was administered a general anesthetic. Patient's abdomen was then prepped and draped in usual sterile fashion. Formal timeout followed to confirm patient and procedure. Procedure was begun with an attempted optical entry facilitated by Veress insufflation at [place] point. While I seem to accomplish a water drop, the needle appeared to leak and the set pressure was reached far too quickly. Therefore I concluded my needle had not penetrated the peritoneal cavity, but the depth of insertion was greater than anticipated. Upon reaching this observation after the third attempt I elected to proceed with an open cutdown and the layers of the oblique musculature were until I reached the peritoneum which was sharply incised. Upon gaining peritoneal entry trocar was merrily inserted and pneumoperitoneum was established at 15 mmHg and a left paramedian position. Follow-up laparoscopic investigation revealed no inadvertent injury to the viscera below. A second port was placed in the right upper quadrant under laparoscopic visualization. Then a third and final robotic port was placed just right of midline through the rectus complex. Patient was positioned in slight Trendelenburg and I performed a local block of the ilioinguinal nerves bilaterally using 0.25% bupivacaine with epinephrine under laparoscopic visualization. The robot was docked in standard fashion. In this positioning I could visualize a clear right indirect hernia defect but on the right there were adhesions between the sigmoid colon and the abdominal wall precluding a clear view of the myopectineal orifice. Robotically, a peritoneal flap was created on the right extending from the medial umbilical ligament to the level of the ASIS (external) and was bluntly dissected to expose the medial parietal compartment and lateral visceral compartments. This dissection proved to be particularly challenging medially as I approached the space of Retzius which was all but obliterated by scar tissue from patient's prior prostatectomy. There was also atypical scarring between the medial umbilical ligament and area of the patient's inferior epigastric vessels. This additional scar tissue meant that the plane simply did not open with traction and required selective bursts of monopolar energy after careful confirmation of the anatomy to avoid major vascular injury with the iliac vessels nearby. Ultimately I was able to attain the space of Retzius by hugging the posterior aspect of the rectus musculature anteriorly and proceeding slowly inferiorly beyond the pubic tubercle. The additional scar tissue between the medial umbilical fold and the epigastric complex meant that additional traction was required to reduce the patient's indirect hernia sac and this led to inadvertent tear of the sac medially. However, with persistence and care I was able to fully reduce the hernia sac off the spermatic vessels inferiorly and visualized the vas deferens coursing somewhat more in a parallel orientation to the spermatic vessels than typically seen. I examined for a associated cord lipoma but did not find such as structure in the transversalis sling. The peritoneal flap was inspected to ensure that cord was appropriately parietalized and there was no pulling of the cord structures or the viscera deeply over the psoas using the pull test. Then attention was turned to the patient's left side where I chose to open the peritoneum superior to the adhesion between the sigmoid colon and the sidewall. I carefully extended my dissection inferiorly as I once again experienced the effects of scar tissue in the medial parietal compartment. Through this approach I was able to come down on the level of the left spermatic cord and did not find a hernia defect, however, laterally I did identify a moderately large cord lipoma which was carefully extracted from the inguinal canal and from the cord structures along the areolar planes. There were some attachments to the anterior abdominal wall which were divided after application of bipolar energy to maintain hemostasis. The cord lipoma was then fully from its attachments and placed over the bladder for later retrieval. Dissection was continued further inferiorly both laterally and medially. Medially a similar process was used to open the space of Retzius, but the prior dissection from the right side was helpful and more quickly identifying the anatomy. Once again there was dense scar tissue in the region of the iliac vein and I elected to leave this in place rather than risk a vascular injury as it signaled a low likelihood of having a concurrent femoral hernia in that location. Again, I performed the pull test to ensure that there was no tenting of structures that may compromise the future mesh lie. Once satisfied, two Bard 3D max, size large, mid weight meshes were placed into the abdomen along with suture. Each mesh was positioned within the proper preperitoneal pocket so that there was good medial and inferior overlap. The right sided mesh was then tacked to the admoniculum of the linea alba just superior to the pubic tubercle and laterally in a partial-thickness bite of the abdominal wall using a 3-0 Vicryl suture (above an imaginary line between the ASIS promontories). The peritoneal flap was then closed with a running 3-0 V-Loc suture. There was a single peritoneal rent in the right peritoneal flap which was closed with an interrupted Vicryl suture using patient's redundant hernia sac to reduce tension across the closure. I then transitioned to the left side and tacked the mesh in similar fashion at the admoniculum, and laterally as was done on the right side using 3-0 Vicryl. The peritoneal flap was then closed with a new 3-0 V-Loc suture in a running fashion 2 sutures were required for this flap as it was counterweighted by the persistent adhesions of the sigmoid colon. Still I tried to avoid any points for adhesions with the bowel by concealing any redundant suture in the medial umbilical fold. No peritoneal defects persisted after this flap closure. Sutures were systematically removed from the peritoneum as well as a placed Ray-Amadeo. Lastly, the patient's left cord lipoma was delivered from the peritoneum in a specimen bag. With this inspection complete, the pneumoperitoneum was evacuated before removing the trocars. The left upper quadrant port site was closed at the fascia using interrupted 0 Vicryl suture. Then this site and the remaining port sites were closed at the skin with running 4-0 Monocryl in a subcuticular fashion. Steri-Strips and OpSite's were used as dressings. Patient's testicles were confirmed within the scrotum. Patient was then awoken from anesthetic and transferred to PACU for ongoing recovery. Surgical Findings: – Dense adhesions sealing the space of Retzius particularly approaching the lateral portion of the pubic ramus and the location of the iliac veins – Moderately large right indirect inguinal hernia with abundant scar tissue – Moderately large left cord lipoma–without discernible hernia defect. Scar tissue between sigmoid colon and peritoneum Complications Complications: No
--- NOTE | 2025-09-18 12:07 | DCINST_ITS ---
Discharge Instructions Diet Discharge Diet: No restrictions Activity Discharge Activity: May Not Drive (While taking narcotic pain medication) and May Shower May shower in (days): 2 Ice area for (Minutes): 20 Lifting Restrictions: No lifting greater than 10 pounds for the next 5 weeks Dressing / Incision Call your doctor if your incision/area has: Continuous Slow Oozing, Increased Pain/ Swelling, Increased Redness, Foul Smelling Discharge and Swelling at the incision site Call your doctor if you observe: Fever of 101 or Higher, Inability to urinate and Inability to have a bowel movement Change Dressing in: 2 days (Please leave Steri-Strips intact until they fall off spontaneously or are taken off at your follow-up visit) Remove Dressing in: 2 days Cleanse incision/area with: Soap & Water and Keep Dressing Clean & Dry Follow Up Care Please Follow Up With: Chuck Bruce MD When: 10-14 days postop Test Results: Test results from this visit will be discussed in further detail at your follow- up appointment, if applicable. Discharge Plan Admission Primary Reason for Your Visit: Bilateral inguinal hernia repair Attending Provider: Chuck Bruce Primary Care Provider: Zackary Ballesteros [facility] Instructions Print Language: Romanian Discharge Orders/Prescriptions Prescriptions: New oxycodone 5 mg tablet 5 mg PO Q6H PRN (Reason: pain) 3 Days Qty: 10 0RF Continued acetaminophen [Tylenol Extra Strength] 500 mg tablet 500 mg PO Q6H PRN (Reason: Pain) sildenafil 100 mg tablet 100 mg PO DAILY PRN (Reason: sexual activity) Qty: 45 0RF Rx Instructions: administer 30 minutes to 4 hours before activity polyethylene glycol 3350 [Miralax] 17 gram/dose powder 4 g PO QDAY lidocaine 5 % ointment 1 applic topical TID PRN (Reason: pain) Qty: 35.44 0RF omega [id number]-fish oil [Fish Oil] 1,000 mg (120 mg-180 mg) Capsule 1 cap PO DAILY psyllium husk [Metamucil] 0.4 gram Capsule 0.4 g PO QHS trazodone 100 mg tablet 100 mg PO QHS lisinopril 40 mg tablet 40 mg PO DAILY ferrous sulfate [iron] 325 mg (65 mg iron) tablet 325 mg PO DAILY lidocaine HCl [Lidocaine Viscous] 2 % solution 1 applic mucous membrane BID PRN (Reason: pain) Qty: 100 0RF alprazolam 0.25 mg tablet 0.5 mg PO BID Qty: 60 0RF Referrals / Follow Up: Zackary Ballesteros, [employer] [Primary Care Provider, Family Practice] Disposition Disposition (needs filled in before D/C Order can be placed): Home, Self Care
--- NOTE | 2025-09-18 12:25 | PCM.POST.ANE ---
Anesthesia: Postop Eval I Current Vital Signs Temperature: 97 F Pulse Rate: 84 Blood Pressure: 142/68 Respiratory Rate: 12 Pulse Ox: 99 Oxygen Delivery Method: Nasal Cannula Oxygen Flow Rate (L/min): 2 Assessment Airway patent: Yes Spontaneous unlabored respirations: Yes Mental status: Awake and Calm nausea: No Vomiting: No Anesthesia Complication: No Fluid Hydration Crystalloid volume administer (ml): 1,500 Total IV fluid infused: 1,500 Progress Note Anesthesia document: Postop Eval 1 completed: Yes
--- NOTE | 2025-09-18 15:08 | POSTOPAN2_ITS ---
Anesthesia Postop Eval I Sum Postop Eval Completion status Anesthesia document: Postop Eval 1 completed: Yes Anesthesia Postop Eval I Summary Anesthesia Postop Eval I Summary: Anesthesia Postop Eval I: Assessment Summary Airway patent Yes 09/18/25 12:26 VERIFICATION [email or web address].[email or web address] Spontaneous unlabored Yes 09/18/25 12:26 VERIFICATION [email or web address].MDOT respirations Mental status Awake,Calm 09/18/25 12:26 VERIFICATION LEAD.MDOT nausea No 09/18/25 12:26 VERIFICATION [email or web address].MDOT Vomiting No 09/18/25 12:26 VERIFICATION [email or web address].MDOT Anesthesia Postop Eval I: Fluid Summary Crystalloid volume administer 1,500 09/18/25 12:26 VERIFICATION LEAD.MDOT (ml) Colloids volume administered ( ml) Blood Product volume administered (ml) Total IV fluid infused 1,500 09/18/25 12:26 VERIFICATION LEAD.MDOT Anesthesia Postop Eval I: Summary Notes Anesthesia Complication No 09/18/25 12:26 VERIFICATION LEAD.MDOT Anesthesia Complication Comment: Post-operative progress note Anesthesia: Postop Eval II Evaluation Mental status: Awake Pain Level: 0 nausea: No Vomiting: No Complications Anesthesia Complication: No
--- NOTE | 2025-09-18 15:08 | PCM.POSTANE2 ---
Anesthesia Postop Eval I Sum Postop Eval Completion status Anesthesia document: Postop Eval 1 completed: Yes Anesthesia Postop Eval I Summary Anesthesia Postop Eval I Summary: Anesthesia Postop Eval I: Assessment Summary Airway patent Yes 09/18/25 12:26 MANAGER [email or web address] Spontaneous unlabored Yes 09/18/25 12:26 MANAGER AIR.MDOT respirations Mental status Awake,Calm 09/18/25 12:26 MANAGER AIR.MDOT nausea No 09/18/25 12:26 MANAGER AIR.MDOT Vomiting No 09/18/25 12:26 MANAGER AIR.MDOT Anesthesia Postop Eval I: Fluid Summary Crystalloid volume administer 1,500 09/18/25 12:26 MANAGER AIR.MDOT (ml) Colloids volume administered ( ml) Blood Product volume administered (ml) Total IV fluid infused 1,500 09/18/25 12:26 MANAGER AIR.MDOT Anesthesia Postop Eval I: Summary Notes Anesthesia Complication No 09/18/25 12:26 MANAGER AIR.MDOT Anesthesia Complication Comment: Post-operative progress note Anesthesia: Postop Eval II Evaluation Mental status: Awake Pain Level: 0 nausea: No Vomiting: No Complications Anesthesia Complication: No
== END 2025-09-18 17:06 | disposition home or self-care (01) ==
LOC: SDC 05:43 → AC 05:45
PROVIDERS: Anesthesiology; PCP Nurse Practitioner Family; Referring Provider Surgery; Visit Provider Surgery
DX: K40.90 Unilateral inguinal hernia, without obstruction or gangrene, not specified as recurrent (principal); E11.9 Type 2 diabetes mellitus without complications; E78.00 Pure hypercholesterolemia, unspecified; Z79.899 Other long term (current) drug therapy; I10 Essential (primary) hypertension; D17.1 Benign lipomatous neoplasm of skin and subcutaneous tissue of trunk; Z87.19 Personal history of other diseases of the digestive system; K21.9 Gastro-esophageal reflux disease without esophagitis
CPT/HCPCS: 49650; S2900; 00830; 36415; 80048; 82962; 83036; 85027; 87081; 88304; 93005; J2405